=== PATIENT | female | born 1940 | race Caucasian/White ===

== ENCOUNTER 2016-08-22 19:50 | Emergency (ER) | payer MEDICARE ==
[~2016-08-22] VITALS: Ht 154.9 cm; Wt 73.9 kg
[2016-08-22 19:53] VITALS: BP 185/103
[2016-08-22] MEDS ORDERED: ASCO25TA PO (20:36)
[2016-08-22] MEDS ORDERED: AMOX500T PO (20:36)
[2016-08-22] MEDS ORDERED: AUGM875T27 PO (23:11)
[2016-08-22] MEDS ORDERED: AUGMENTIN 500 MG TAB PO ONE (23:15)
[2016-08-22] MEDS ORDERED: AUGMENTIN 875 MG TAB PO ONE (23:30)
== END 2016-08-22 23:47 | disposition home or self-care (01) ==
LOC: M ED 23:41
DX: K04.7 Periapical abscess without sinus (principal); R68.84 Jaw pain; M19.90 Unspecified osteoarthritis, unspecified site

== ENCOUNTER → 2017-01-04 | Outpatient (CLI) | payer MEDICARE ==
[~2017-01-04] MED LIST: AMOX500T PO; ASCO25TA PO; AUGM875T28 PO
[2017-01-04 12:45] LABS: BASO % 0.3 % (0.0-1.0); EOS # 0.1 K/mm3 (0.0-0.50); EOS % 1.8 % (0.0-3.0); LYMPH # 1.3 K/mm3 (1.5-4.5); LYMPH % 20.7 % (24.0-44.0); MEAN CORPUSCULAR HGB CONC 33.6 g/dl (32.0-36.5); MEAN CORPUSCULAR VOLUME 92.3 fl (80.0-96.0); MONO # 0.5 K/mm3 (0.0-0.8); MONO % 7.9 % (0.0-5.0); NEUTROPHILS # 3.9 K/mm3 (1.8-7.7); NEUTROPHILS % 67.4 % (36.0-66.0); RED CELL DISTRIBUTION WIDTH 14.1 % (11.5-14.5); WHITE BLOOD COUNT 5.8 K/mm3 (4.0-10.0)
[2017-01-04 12:59] LABS: ALBUMIN 3.2 GM/DL (3.2-5.2); ALBUMIN/GLOBULIN RATIO 0.91 (1.00-1.93); ALKALINE PHOSPHATASE 93 U/L (45-117); ALT/SGPT 19 U/L (12-78); ANION GAP 7 MEQ/L (8-16); AST/SGOT 16 U/L (15-37); BILIRUBIN,TOTAL 0.7 MG/DL (0.2-1.0); BLOOD UREA NITROGEN 20 MG/DL (7-18); CARBON DIOXIDE LEVEL 26 MEQ/L (21-32); CHLORIDE LEVEL 108 MEQ/L (98-107); CHOLESTEROL LEVEL 148 MG/DL (<200); GLOMERULAR FILTRATION RATE > 60.0 (>39); GLUCOSE, FASTING 79 MG/DL (83-110); POTASSIUM SERUM 4.2 MEQ/L (3.5-5.1); SODIUM LEVEL 141 MEQ/L (136-145); TOTAL PROTEIN 6.7 GM/DL (6.4-8.2); TRIGLYCERIDES LEVEL 74 MG/DL (<150)
== END ==
LOC: M LAB 11:47
PROVIDERS: ATTEND Nurse Practitioner Family
DX: E07.9 Disorder of thyroid, unspecified (principal); E78.4 Other hyperlipidemia; I47.1 Supraventricular tachycardia

== ENCOUNTER 2017-05-28 20:34 | Inpatient (IN) | payer MEDICARE ==
[~2017-05-28] VITALS: Ht 154.9 cm; Wt 67.1 kg
[2017-05-28] MEDS ORDERED: PROP60TA14 PO (20:48)
[2017-05-28] MEDS ORDERED: GABA-283 PO (20:48)
[2017-05-28 21:12] LABS: BASO % 0.5 % (0.0-1.0); EOS # 0.1 10^3/uL (0.0-0.50); IMMATURE GRANULOCYTE % 0.5 % (0-0); LYMPH # 1.2 10^3/uL (1.5-4.5); LYMPH % 15.3 % (24.0-44.0); MEAN CORPUSCULAR HEMOGLOBIN 29.7 pg (27.0-33.0); MEAN CORPUSCULAR HGB CONC 32.2 g/dl (32.0-36.5); MEAN CORPUSCULAR VOLUME 92.4 fl (80.0-96.0); MONO # 0.7 10^3/uL (0.0-0.8); MONO % 8.4 % (0.0-5.0); NEUTROPHILS # 5.7 10^3/uL (1.8-7.7); NEUTROPHILS % 74.3 % (36.0-66.0); PLATELET COUNT, AUTOMATED 289 10^3/uL (150-450); RED CELL DISTRIBUTION WIDTH 15.7 % (11.5-14.5); WHITE BLOOD COUNT 7.7 10^3/uL (4.0-10.0)
[2017-05-28 21:22] LABS: INR 1.02
[2017-05-28 21:37] LABS: ANION GAP 7 MEQ/L (8-16); BLOOD UREA NITROGEN 25 MG/DL (7-18); CALCIUM LEVEL 9.1 MG/DL (8.8-10.2); CARBON DIOXIDE LEVEL 27 MEQ/L (21-32); CHLORIDE LEVEL 106 MEQ/L (98-107); CREATININE FOR GFR 0.74 MG/DL (0.55-1.02); GLOMERULAR FILTRATION RATE > 60.0 (>39); GLUCOSE, FASTING 175 MG/DL (83-110); POTASSIUM SERUM 4.4 MEQ/L (3.5-5.1); SODIUM LEVEL 140 MEQ/L (136-145)
[2017-05-28] MEDS ORDERED: HEPARIN DRIP 25,000 UNITS in APPROPRIATE DILUENT 1 EA IV SCH (22:08)
[2017-05-28] MEDS ORDERED: ASPIRIN 325 MG TAB PO ONE (22:15)
[2017-05-28] MEDS ORDERED: HEPARIN SOD (PORCINE) 5000 UNITS/ML VIAL IV ONE (22:15)
[2017-05-28 22:21] LABS: ABG BASE EXCESS -1.5 (-2.0-2.0); ABG HCO3 22.5 MEQ/L (22.0-26.0); ABG PARTIAL PRESSURE CO2 35.9 mmHg (35.0-45.0); ABG PARTIAL PRESSURE O2 70.9 mmHg (75.0-100.0); ABG STANDARD HCO3 23.2 MEQ/L (22.0-26.0); ABG TOTAL CO2 23.6 MEQ/L (23.0-31.0); ABG pH (ARTERIAL) 7.415 UNITS (7.350-7.450)
[2017-05-28] MEDS ORDERED: CLOPIDOGREL 75 MG TAB PO STA (22:22)
[2017-05-28] MEDS ORDERED: ISOVUE-370 76% 100ML VIAL (Q9967) As Ordered ONE (22:30)
--- NOTE | 2017-05-28 23:10 | REPUSA ---
CT angiogram of the chest Clinical statement: Chest pain and shortness of breath. Technique: Multiple axial CT images were obtained from the thoracic inlet through the upper abdomen a fter a bolus administration of nonionic intravenous contrast. Coronal and sagittal reconstructions we re also obtained. No comparison is available. Findings: The pulmonary arteries are well-opacified with contrast. There are intraluminal filling def ects in the main pulmonary arteries bilaterally, extending into all segmental branches. The thoracic aorta is unremarkable. Thyroid gland is within normal limits. There is no thoracic lymphadenopathy. T here is elevation of the left hemidiaphragm. There are no pericardial or pleural effusions. The lungs are clear. Limited imaging of the upper abdomen is unremarkable. There are no suspicious osseous les ions. There is a chronic anterior wedged compression defect of T7. Impression: 1. Bilateral pulmonary emboli extending from the right and left branches of the pulmonary arteries in to all segmental branches. 2. No acute infiltrates. 3. Chronically elevated left hemidiaphragm. Dr. Nichols was notified of these findings at 11:09 PM on 05/28/2017.
[2017-05-29] VITALS (7 sets, daily range): BP systolic 102–118; BP diastolic 58–67
[2017-05-29] MEDS ORDERED: GABA-279 PO (00:12)
[2017-05-29] MEDS ORDERED: IBUP-1114 PO (00:12)
[2017-05-29] MEDS ORDERED: PROP60CA PO (00:12)
[2017-05-29 00:35] LABS: ERYTHROCYTE SEDIMENTATION RATE 3 mm/hr (0-30)
[2017-05-29] MEDS: GABAPENTIN 100 MG CAP PO SCH ×3 (01:56→20:11)
[2017-05-29] MEDS: IBUPROFEN 400 MG TAB PO SCH ×2 (01:57→08:15)
--- NOTE | 2017-05-29 03:30 | REPUSA ---
HISTORY: PE TECHNIQUE: Realtime sonographic images were obtained in multiple projections. FINDINGS: There is evidence of echogenic material in the common, superficial femoral proximal level (nonocclud ing) as well as profunda and GSV (occluding) with limited flow and compressibility compatible with ac nisqually DVT. The remaining segments including left common femoral, superficial femoral and bilateral popliteal ve ins demonstrate normal echo-free lumen, compressibility and flow. IMPRESSION: Findings compatible with acute DVT as above. Thank you for your kind referral of this patient.
[2017-05-29] MEDS: HEPARIN DRIP 25,000 UNITS in APPROPRIATE DILUENT 1 EA IV SCH ×2 (03:46→09:59)
[2017-05-29 05:58] LABS: MEAN CORPUSCULAR HEMOGLOBIN 30.2 pg (27.0-33.0); MEAN CORPUSCULAR HGB CONC 33.7 g/dl (32.0-36.5); MEAN CORPUSCULAR VOLUME 89.6 fl (80.0-96.0); PLATELET COUNT, AUTOMATED 267 10^3/uL (150-450); RED CELL DISTRIBUTION WIDTH 15.6 % (11.5-14.5); WHITE BLOOD COUNT 6.7 10^3/uL (4.0-10.0)
[2017-05-29 06:13] LABS: ANION GAP 8 MEQ/L (8-16); BLOOD UREA NITROGEN 23 MG/DL (7-18); CALCIUM LEVEL 8.4 MG/DL (8.8-10.2); CARBON DIOXIDE LEVEL 23 MEQ/L (21-32); CHLORIDE LEVEL 110 MEQ/L (98-107); FREE T4 1.17 NG/DL (0.76-1.46); GLOMERULAR FILTRATION RATE > 60.0 (>39); GLUCOSE, FASTING 98 MG/DL (83-110); POTASSIUM SERUM 4.3 MEQ/L (3.5-5.1); SODIUM LEVEL 141 MEQ/L (136-145)
--- NOTE | 2017-05-29 08:05 | ECGEPIP ---
Stationary ECG Study [facility] - ED Test Date: 2017-05-28 Pat Name: RENZO RAMOS Department: Room: [place] [address] Gender: F [employer] Student Coordinator: travon : 1940 Requested By: JAVIER POWERS Order Number: [id number] Reading MD: Raz Alvarez Measurements Intervals [place] Rate: 98 P: 39 TN: 148 QRS: 42 QRSD: 90 T: 17 QT: 334 QTc: 427 Interpretive Statements SINUS RHYTHM INCOMPLETE RIGHT BUNDLE BRANCH BLOCK NO PRIORS FOR COMPARISON Electronically Signed On 05-29-2017 8:04:53 EST by Raz Alvarez
[2017-05-29] MEDS: PANTOPRAZOLE 40MG TAB (PROTONIX) PO SCH (08:14)
[2017-05-29] MEDS: PROPRANOLOL 60 MG LA CAP PO SCH (08:15)
--- NOTE | 2017-05-29 09:06 | REP ---
REASON FOR EXAM: Dyspnea. There are no priors for comparison. The technique utilized in obtaining the radiograph has magnified the cardiac silhouette and accentuated the interstitial markings. There is a band like opacity in the left mid lung zone. There is silhouetting out of the medial aspect of the left hemidiaphragm. There is cardiomegaly. There is interstitial fibrosis. There is an odd air density which could be beneath the left hemidiaphragm. The exam is markedly limited. There is no lateral view. There are no priors for comparison. IMPRESSION: Chronic changes are suspected with other findings. CT is recommended. Signed by Jacobo Carbajal DO 05/29/2017 09:32 A
--- NOTE | 2017-05-29 10:12 | HPE ---
DATE OF ADMISSION: 05/28/2017 PRIMARY CARE PROVIDER: Carthage Festus HISTORY OF PRESENT ILLNESS: This patient is a 77-year-old female with a past medical history significant for partial thyroidectomy, heart palpitations, presented to [facility] on 05/28/2017 for shortness of breath. The patient stated she was using the restroom in the late afternoon and all of a sudden she had a acute onset of shortness of breath, and the patient does not have sweating, and occasional noted to have nausea, and she feels that she cannot talk, and she had a sense of passing out. Therefore, the patient was brought to [facility] by the ambulance. Other significant history includes last night, the patient had chest pressure type of discomfort, resolving 1-2 hours. Last Tuesday night, the patient also noted to have left arm ache, resolved spontaneously without recurrence. Denied any fever or chills. Denied any abdominal pain. Denies any chest pain or pleuritic pain. When the patient arrived in the emergency room, imaging study was performed. The patient was found to have a bilateral pulmonary embolism (PE), and the patient started on the aspirin, Plavix, and heparin bolus. The patient continued on the heparin drip. The hospitalist team was called for admission. PAST MEDICAL HISTORY: Thyroid nodule, status post thyroidectomy. History of heart palpitations with questionable heart flutters. PAST SURGICAL HISTORY: Thyroidectomy. SOCIAL HISTORY: Denies smoking, drinking alcoholic beverage or recreational drug ALLERGIES: None. REVIEW OF SYSTEMS: GENERAL: No fever. No chills. HEENT: No vision changes. No auditory changes. CARDIOVASCULAR: Chest discomfort on 05/27/2017 in the evening time. Resolved in 1-2 hours. History of heart flutter and palpitations. RESPIRATORY: Acute shortness of breath in the late afternoon on 05/28/2017. GASTROINTESTINAL (GI): During acute episode, the patient also had nausea but no vomiting, no abdominal pain, no diarrhea. MUSCULOSKELETAL: Chronic lower extremity pain. The patient contributes that to phlebitis. NEUROLOGICAL: No numbness, no tingling. The patient did have an episode of feeling left upper extremity ache last Tuesday night. OBJECTIVE: VITAL SIGNS: Temperature is 98.5, pulse is 80, respiration 20, blood pressure is 136/89, pulse oximetry 96% in room air. GENERAL: No sign of acute distress, alert and oriented times three. HEENT: Normocephalic, atraumatic. Extraocular motor grossly intact. CARDIOVASCULAR: Positive S1, S2. Regular rate. LUNGS: Clear to auscultation bilaterally. ABDOMEN: Soft. Nontender. Nondistended. Bowel sounds present. MUSCULOSKELETAL: Extremities cool and pale, but there is no purplish or bluish discolorations. Nontenderness to palpation of the bilateral lower extremities and no swellings. NEUROLOGIC: Sensation to fine touch grossly intact. Muscle strength 5/5. LABORATORY DATA: WBC 7.7, hemoglobin 14.5, hematocrit 45.1, platelet count is 289. Sodium is 140, potassium 4.4, chloride 106, carbon dioxide 27, BUN 25, creatinine 0.74, GFR greater than 60, fasting glucose 175, lactic acid 2.6, calcium 9.1, total CK is 32, troponin I is 0.47. Arterial blood gas (ABG) shows pH 7.415, PCO2 35.9, pO2 70.9, HCO3 is 22.5. PT is 13.5, INR is 1.02. MICROBIOLOGY: Blood cultures pending times two. A CT angiogram of the chest shows bilateral pulmonary emboli extending from the right and left branches of the pulmonary arteries into all segmental branches. No acute infiltrates. Chronically elevated left hemidiaphragm. ASSESSMENT AND PLAN: 1. Bilateral pulmonary embolism. The patient admitted to the progressive care unit (PCU) on an inpatient status. The patient received a heparin bolus, and the patient is currently continued on the heparin drip. I will follow with bilateral lower extremity Doppler. Hypercoagulable workup is also ordered. 2. Questionable history of heart flutters/palpitations. The patient was prescribed propranolol as a baseline, and the events occurred approximately 10 years ago. 3. History of thyroid nodules, status post thyroidectomy. Follow with a thyroid-stimulating hormone (TSH). 4. Elevated troponin. 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 They feel the elevated troponin due to current PE causing the cardiac muscle strain. Will continue trending troponin. Electrocardiogram (EKG) was performed. It showed sinus rhythm without any ST or T wave abnormalities. 5. Intermittent gastroesophageal reflux disease. The patient will be on Protonix. 6. Deep venous thrombosis (DVT) prophylaxis. The patient currently has bilateral PE. The patient is on heparin drip. MTDD
[2017-05-29] MEDS ORDERED: HEPARIN SOD (PORCINE) 5000 UNITS/ML VIAL IV PRN (10:15)
--- NOTE | 2017-05-29 11:24 | IPNPDOC ---
Subjective Date Seen The patient was seen on 05/29/17. Subjective Chief Complaint/HPI The patient is a 77-year-old female admitted with a reason for visit of Bilateral Pulmonary Embolism. Events since last encounter feels a little better, denies any sob or chest pain this am but says has not got out of bed yet so does not know how her breathing is with walking. no fever or chills, no leg pain or swelling. Objective Physical Examination General Exam: Positive: Alert, Cooperative, No Acute Distress Eye Exam: Positive: PERRLA, Conjunctiva & lids normal, EOMI, Negative: Sclera icteric ENT Exam: Positive: Atraumatic, Mucous membr. moist/pink, Pharynx Normal Neck Exam: Positive: Supple, Negative: JVD, thyromegaly Chest Exam: Positive: Clear to auscultation, Normal air movement Heart Exam: Positive: Rate Normal, Regular Rhythm, Normal S1, Normal S2, Negative: Murmurs, Rubs Telemetry: Positive: No significant arrhythmia Abdomen Exam: Positive: Normal bowel sounds, Soft, Negative: Tenderness, Hepatospenomegaly Extremity Exam: Positive: Normal pulses, Negative: Clubbing, Cyanosis, Edema Skin Exam: Positive: Nl turgor and temperature, Negative: Rash, Breakdown Assessment /Plan Problems (1) Bilateral pulmonary embolism Status: Acute Problem Text: on heparin infusion will start on Coumadin patient is a jehovah witness. ordered coagulation studies. (2) DVT (deep venous thrombosis) Status: Acute Problem Text: heparin and coumadin (3) Sciatic leg pain Status: Chronic Problem Text: on the right causing difficulty in ambulation and so sits for long durations. (4) Thyroid nodule Status: Resolved Problem Text: history of partial thyroidectomy (5) History of palpitations Status: Chronic Problem Text: on propranolol. Plan/VTE VTE Prophylaxis Ordered?: Yes VS, I&O, 24H, Fishbone Vital Signs/I&O Vital Signs Date Time Temp Pulse Resp B/P (MAP) Pulse Ox O2 Delivery O2 Flow Rate FiO2 05/29/17 08:15 71 106/60 05/29/17 08:00 98.0 18 96 Nasal Cannula 2.0 I&O- Last 24 Hours up to 6 AM 05/30/17 06:00 Intake Total 0 ml Output Total 0 ml Balance 0 ml Laboratory Data 24H LABS Laboratory Tests 2 05/28/17 20:55: Immature Granulocyte % (Auto) 0.5H, White Blood Count 7.7, Red Blood Count 4.88 , Hemoglobin 14.5, Hematocrit 45.1, Mean Corpuscular Volume 92.4, Mean Corpuscular Hemoglobin 29.7, Mean Corpuscular Hemoglobin Concent 32.2, Red Cell Distribution Width 15.7H, Platelet Count 289, Neutrophils (%) (Auto) 74.3H, Lymphocytes (%) (Auto) 15.3L, Monocytes (%) (Auto) 8.4H, Eosinophils (%) (Auto) 1.0, Basophils (%) (Auto) 0.5, Neutrophils # (Auto) 5.7, Lymphocytes # (Auto) 1.2L, Monocytes # (Auto) 0.7, Eosinophils # (Auto) 0.1, Basophils # (Auto) 0.0, Immature Granulocyte # (Auto) 0.0, Nucleated Red Blood Cells % (auto) 0.0, Erythrocyte Sedimentation Rate 3, Prothrombin Time 13.5, Prothromb Time International Ratio 1.02, Activated Partial Thromboplast Time 26.6L, Anion Gap 7L, Glomerular Filtration Rate > 60.0, Lactic Acid Level 2.6*H, Blood Urea Nitrogen 25H, Creatinine 0.74, Sodium Level 140, Potassium Level 4.4, Chloride Level 106, Carbon Dioxide Level 27, Calcium Level 9.1, Total Creatine Kinase 32 , Creatine Kinase MB 4.5H, Creatine Kinase MB Relative Index 14.06H, Troponin I 0.47H, C-Reactive Protein, Quantitative 0.84H, Thyroid Stimulating Hormone (TSH ) 3.960H 05/28/17 22:07: Blood Gas Bicarbonate Standard 23.2, Arterial Blood pH 7.415, Arterial Blood Partial Pressure CO2 35.9, Arterial Blood Partial Pressure O2 70.9L, Arterial Blood Total CO2 23.6, Arterial Blood HCO3 22.5, Arterial Blood Base Excess -1.5 , Arterial Blood Oxygen Saturation 94.4L 05/29/17 00:44: Activated Partial Thromboplast Time 170.1*H 05/29/17 01:00: Lactic Acid Followup at 4 Hours 1.9 05/29/17 04:59: Nucleated Red Blood Cells % (auto) 0.0, Anion Gap 8, Glomerular Filtration Rate > 60.0, Blood Urea Nitrogen 23H, Creatinine 0.70, Sodium Level 141, Potassium Level 4.3, Chloride Level 110H, Carbon Dioxide Level 23, Calcium Level 8.4L, Total Creatine Kinase 35, Magnesium Level 2.0, Creatine Kinase MB 5.7H, Creatine Kinase MB Relative Index 16.28H, Troponin I 0.99#H, Free Thyroxine 1.17 05/29/17 09:19: Activated Partial Thromboplast Time 53.9H CBC/BMP Laboratory Tests 05/28/17 20:55 Red Blood Count 4.88, Mean Corpuscular Volume 92.4, Mean Corpuscular Hemoglobin 29.7, Mean Corpuscular Hemoglobin Concent 32.2, Red Cell Distribution Width 15.7 H, Neutrophils (%) (Auto) 74.3 H, Lymphocytes (%) (Auto) 15.3 L, Monocytes (%) (Auto) 8.4 H, Eosinophils (%) (Auto) 1.0, Basophils (%) (Auto) 0.5, Neutrophils # (Auto) 5.7, Lymphocytes # (Auto) 1.2 L, Monocytes # (Auto) 0.7, Eosinophils # (Auto) 0.1, Basophils # (Auto) 0.0, Calcium Level 9.1, Total Creatine Kinase 32 05/29/17 04:59 Red Blood Count 4.14, Mean Corpuscular Volume 89.6, Mean Corpuscular Hemoglobin 30.2, Mean Corpuscular Hemoglobin Concent 33.7, Red Cell Distribution Width 15.6 H, Calcium Level 8.4 L, Total Creatine Kinase 35 Microbiology Microbiology 05/28/17 Blood Culture, Received Pending 05/28/17 Blood Culture, Received Pending FARTUN TRIPATHI MD May 29, 2017 11:24
[2017-05-29] MEDS ORDERED: NORCO, ANEXSIA 5/325MG TABLET (HYDROcodone/ACETAMINOPHEN) PO PRN (11:30)
--- NOTE | 2017-05-29 14:35 | ECHO ---
DATE OF STUDY: 05/29/2017 REFERRING PROVIDER: Coleman Nichols DO PATIENT LOCATION: Room 3224 REASON FOR THE ECHOCARDIOGRAM: Pulmonary embolism. 2D MEASUREMENTS: IVS: 0.9 cm LV: 3.0 cm LVPW: 0.9 cm Aorta: 3.1 cm DOPPLER MEASUREMENTS: Mitral E: 0.45 Mitral A: 0.49 with a ratio of 0.9 Maximum tricuspid valve velocity: 2.9 m/s 2D COMMENTS: 1. Normal left ventricular size, wall thickness, and normal global left ventricular systolic function. The estimated left ventricle systolic ejection fraction is 60% to 65%. 2. The left atrium appeared to be normal in size. The right atrium and the right ventricle appeared to be enlarged. The right ventricular free wall may be hypokinetic. 3. The atrial septum appeared to be normal without evidence of defect or shunt. 4. Normal aortic root. 5. No pericardial effusion seen. 6. Mildly calcified aortic valve with normal leaflet excursion. Normal mitral valve, tricuspid valve, and pulmonic valve. Proximal pulmonary artery branches appeared to be enlarged. DOPPLER: It detects trace mitral regurgitation and moderate tricuspid regurgitation. The calculated pulmonary artery systolic pressure varied between 40-50 mmHg. Abnormal relaxation pattern was noted across the mitral valve leaflets, as well as the mitral valve anulus consistent with grade 1 left ventricular diastolic dysfunction. IMPRESSION: 1. Normal global left ventricular systolic function. There were features of left ventricular diastolic dysfunction manifested by abnormal relaxation. 2. Aortic valve sclerosis without stenosis or aortic regurgitation. 3. Trace mitral regurgitation. 4. Moderate tricuspid regurgitation with moderate pulmonary hypertension in dilated right heart chambers. No prior echocardiogram at this time for comparison. This may be related to the underlying history of bilateral pulmonary embolism. [facility]
[2017-05-29] MEDS ORDERED: WARFARIN SOD 5 MG TAB PO SCH (17:00)
[2017-05-29] MEDS: ACETAMINOPHEN TAB 650MG DOSE (2X325MG) PO PRN (18:14)
[2017-05-30 04:08] LABS: MEAN CORPUSCULAR HEMOGLOBIN 29.8 pg (27.0-33.0); MEAN CORPUSCULAR HGB CONC 32.7 g/dl (32.0-36.5); MEAN CORPUSCULAR VOLUME 91.2 fl (80.0-96.0); PLATELET COUNT, AUTOMATED 268 10^3/uL (150-450); RED CELL DISTRIBUTION WIDTH 15.8 % (11.5-14.5); WHITE BLOOD COUNT 5.4 10^3/uL (4.0-10.0)
[2017-05-30 04:26] LABS: ANION GAP 7 MEQ/L (8-16); BLOOD UREA NITROGEN 26 MG/DL (7-18); CALCIUM LEVEL 8.7 MG/DL (8.8-10.2); CARBON DIOXIDE LEVEL 27 MEQ/L (21-32); CHLORIDE LEVEL 110 MEQ/L (98-107); CREATININE FOR GFR 0.65 MG/DL (0.55-1.02); GLOMERULAR FILTRATION RATE > 60.0 (>39); GLUCOSE, FASTING 87 MG/DL (83-110); SODIUM LEVEL 144 MEQ/L (136-145)
[2017-05-30 04:45] VITALS: BP 128/74
[2017-05-30 07:15] LABS: INR 1.08
[2017-05-30 08:00] VITALS: BP 105/74
[2017-05-30] MEDS: PROPRANOLOL 60 MG LA CAP PO SCH (09:00)
[2017-05-30] MEDS: GABAPENTIN 100 MG CAP PO SCH ×2 (09:22→20:38)
[2017-05-30] MEDS: PANTOPRAZOLE 40MG TAB (PROTONIX) PO SCH (09:22)
[2017-05-30] MEDS: HEPARIN DRIP 25,000 UNITS in APPROPRIATE DILUENT 1 EA IV SCH (09:24)
--- NOTE | 2017-05-30 09:30 | IPNPDOC ---
Subjective Date Seen The patient was seen on 05/30/17. Subjective Chief Complaint/HPI The patient is a 77-year-old female admitted with a reason for visit of Bilateral Pulmonary Embolism. Events since last encounter No complaints this morning. Says has been walking to the bathroom without problem. denies any SOB or chest pain . no abdominal pain nausea or vomiting or diarrhea. Objective Physical Examination General Exam: Positive: Alert, Cooperative, No Acute Distress Eye Exam: Positive: PERRLA, Conjunctiva & lids normal, EOMI, Negative: Sclera icteric ENT Exam: Positive: Atraumatic, Mucous membr. moist/pink, Pharynx Normal Neck Exam: Positive: Supple, Negative: JVD, thyromegaly Chest Exam: Positive: Clear to auscultation, Normal air movement Heart Exam: Positive: Rate Normal, Regular Rhythm, Normal S1, Normal S2, Negative: Murmurs, Rubs Telemetry: Positive: No significant arrhythmia Abdomen Exam: Positive: Normal bowel sounds, Soft, Negative: Tenderness, Hepatospenomegaly Extremity Exam: Positive: Normal pulses, Negative: Clubbing, Cyanosis, Edema Skin Exam: Positive: Nl turgor and temperature, Negative: Rash, Breakdown Assessment /Plan Problems (1) Bilateral pulmonary embolism Status: Acute Problem Text: on heparin infusion will start on Coumadin patient is a jehovah witness so wants to be on Coumadin ordered coagulation studies. (2) DVT (deep venous thrombosis) Status: Acute Problem Text: heparin and coumadin (3) Sciatic leg pain Status: Chronic Problem Text: on the right causing difficulty in ambulation and so sits for long durations. (4) Thyroid nodule Status: Resolved Problem Text: history of partial thyroidectomy (5) History of palpitations Status: Chronic Problem Text: on propranolol. Plan/VTE VTE Prophylaxis Ordered?: Yes VS, I&O, 24H, Fishbone Vital Signs/I&O Vital Signs Date Time Temp Pulse Resp B/P (MAP) Pulse Ox O2 Delivery O2 Flow Rate FiO2 05/30/17 08:00 97.5 89 19 105/74 (84) 97 Nasal Cannula 2.0 I&O- Last 24 Hours up to 6 AM 05/31/17 06:00 Intake Total 236 ml Output Total 200 ml Balance 36 ml Laboratory Data 24H LABS Laboratory Tests 2 05/29/17 15:38: Activated Partial Thromboplast Time 101.5H 05/29/17 21:28: Activated Partial Thromboplast Time 77.6H 05/30/17 03:53: Activated Partial Thromboplast Time 86.0H, Nucleated Red Blood Cells % (auto) 0.0, Prothrombin Time 14.2, Prothromb Time International Ratio 1.08, Anion Gap 7L, Glomerular Filtration Rate > 60.0, Blood Urea Nitrogen 26H, Creatinine 0.65 , Sodium Level 144, Potassium Level 4.0, Chloride Level 110H, Carbon Dioxide Level 27, Calcium Level 8.7L, Magnesium Level 2.0 CBC/BMP Laboratory Tests 05/30/17 03:53 Red Blood Count 4.09, Mean Corpuscular Volume 91.2, Mean Corpuscular Hemoglobin 29.8, Mean Corpuscular Hemoglobin Concent 32.7, Red Cell Distribution Width 15.8 H, Calcium Level 8.7 L Microbiology Microbiology 05/28/17 Blood Culture - Preliminary, Resulted No growth after 24 hours . All specim... 05/28/17 Blood Culture - Preliminary, Resulted No growth after 24 hours . All specim... FARTUN TRIPATHI MD May 30, 2017 09:30
[2017-05-30 11:34] VITALS: BP 116/59
[2017-05-30 16:00] VITALS: BP 132/86
[2017-05-30] MEDS: WARFARIN SOD 5 MG TAB PO SCH (17:39)
[2017-05-30 20:00] VITALS: BP 114/78
[2017-05-30] MEDS: SENOKOT S TAB PO SCH ×2 (20:38→20:39)
[2017-05-30] MEDS ORDERED: PROPRANOLOL 60 MG LA CAP PO ONE (20:45)
[2017-05-30] MEDS ORDERED: PROPRANOLOL 10 MG TAB PO ONE (21:00)
[2017-05-30] MEDS: ACETAMINOPHEN TAB 650MG DOSE (2X325MG) PO PRN (22:08)
[2017-05-30 23:59] VITALS: BP 110/70
[2017-05-31] VITALS (7 sets, daily range): BP systolic 98–119; BP diastolic 64–75
[2017-05-31 04:09] LABS: MEAN CORPUSCULAR HEMOGLOBIN 29.3 pg (27.0-33.0); PLATELET COUNT, AUTOMATED 322 10^3/uL (150-450); WHITE BLOOD COUNT 6.2 10^3/uL (4.0-10.0)
[2017-05-31 04:20] LABS: INR 1.18
[2017-05-31 04:26] LABS: ANION GAP 10 MEQ/L (8-16); BLOOD UREA NITROGEN 19 MG/DL (7-18); CALCIUM LEVEL 8.5 MG/DL (8.8-10.2); CARBON DIOXIDE LEVEL 23 MEQ/L (21-32); CHLORIDE LEVEL 113 MEQ/L (98-107); CREATININE FOR GFR 0.62 MG/DL (0.55-1.02); GLOMERULAR FILTRATION RATE > 60.0 (>39); GLUCOSE, FASTING 94 MG/DL (83-110); MAGNESIUM LEVEL 1.9 MG/DL (1.8-2.4); POTASSIUM SERUM 4.1 MEQ/L (3.5-5.1); SODIUM LEVEL 146 MEQ/L (136-145)
[2017-05-31] MEDS: SENOKOT S TAB PO SCH ×2 (09:41→20:22)
[2017-05-31] MEDS: PROPRANOLOL 60 MG LA CAP PO SCH (09:42)
[2017-05-31] MEDS: GABAPENTIN 100 MG CAP PO SCH ×2 (09:42→20:22)
[2017-05-31] MEDS: PANTOPRAZOLE 40MG TAB (PROTONIX) PO SCH (09:42)
[2017-05-31] MEDS: HEPARIN DRIP 25,000 UNITS in APPROPRIATE DILUENT 1 EA IV SCH (09:44)
--- NOTE | 2017-05-31 15:24 | IPNPDOC ---
Subjective Date Seen The patient was seen on 05/31/17. Subjective Chief Complaint/HPI The patient is a 77-year-old female admitted with a reason for visit of Bilateral Pulmonary Embolism. Events since last encounter Patient seen and examined at the bedside. States that she is feeling well, and denies any acute complaints of fevers, chills, chest pain, shortness breath, palpitations, any abdominal pain. Notes that she has been ambulating around her room without any acute complaints. Objective Physical Examination General Exam: Positive: Alert, Cooperative, No Acute Distress Eye Exam: Negative: Sclera icteric ENT Exam: Positive: Atraumatic, Mucous membr. moist/pink Neck Exam: Negative: JVD Chest Exam: Positive: Clear to auscultation, Normal air movement Heart Exam: Positive: Rate Normal, Normal S1, Normal S2 Abdomen Exam: Positive: Soft, Negative: Tenderness, Hepatospenomegaly Extremity Exam: Negative: Tenderness, Swelling Psych Exam: Positive: Oriented x 3 Assessment /Plan Problems (1) Bilateral pulmonary embolism Status: Acute Response to Treatment: Stable Problem Text: Cont heparin infusion, to bridge to Coumadin Patient is a jehovah witness and wants to be on Coumadin as there is a definitive reversal agent We will cont to monitor INR and adjust Coumadin dosing accordingly Patient w/o any acute complaints at this time (2) DVT (deep venous thrombosis) Status: Acute Response to Treatment: Stable Problem Text: Cont heparin bridge to coumadin (3) Sciatic leg pain Status: Chronic Response to Treatment: Stable Problem Text: Cont Gabapentin (4) Thyroid nodule Status: Resolved Problem Text: history of partial thyroidectomy (5) History of palpitations Status: Chronic Problem Text: on propranolol. Plan/VTE VTE Prophylaxis Ordered?: Yes VS, I&O, 24H, Fishbone Vital Signs/I&O Vital Signs Date Time Temp Pulse Resp B/P (MAP) Pulse Ox O2 Delivery O2 Flow Rate FiO2 05/31/17 12:29 97.5 68 19 98/69 (79) 96 Room Air 05/31/17 00:00 1.0 I&O- Last 24 Hours up to 6 AM 06/01/17 06:00 Intake Total 1021.8 ml Output Total 320 ml Balance 701.8 ml Laboratory Data 24H LABS Laboratory Tests 2 05/31/17 03:49: Nucleated Red Blood Cells % (auto) 0.0, Prothrombin Time 15.3H, Prothromb Time International Ratio 1.18, Activated Partial Thromboplast Time 84.1H, Anion Gap 10, Glomerular Filtration Rate > 60.0, Blood Urea Nitrogen 19H, Creatinine 0.62 , Sodium Level 146H, Potassium Level 4.1, Chloride Level 113H, Carbon Dioxide Level 23, Calcium Level 8.5L, Magnesium Level 1.9 CBC/BMP Laboratory Tests 05/31/17 03:49 Red Blood Count 4.26, Mean Corpuscular Volume 89.0, Mean Corpuscular Hemoglobin 29.3, Mean Corpuscular Hemoglobin Concent 33.0, Red Cell Distribution Width 16.0 H, Calcium Level 8.5 L Microbiology Microbiology 05/28/17 Blood Culture - Preliminary, Resulted No Growth after 48 hours. All Specime... 05/28/17 Blood Culture - Preliminary, Resulted No Growth after 48 hours. All Specime... REGLA VALADEZ MD May 31, 2017 15:24
[2017-05-31] MEDS: WARFARIN SOD 5 MG TAB PO SCH (16:22)
[2017-06-01 04:00] VITALS: BP 107/73
[2017-06-01 06:04] LABS: MEAN CORPUSCULAR HEMOGLOBIN 29.6 pg (27.0-33.0); MEAN CORPUSCULAR HGB CONC 32.8 g/dl (32.0-36.5); MEAN CORPUSCULAR VOLUME 90.3 fl (80.0-96.0); PLATELET COUNT, AUTOMATED 355 10^3/uL (150-450); RED CELL DISTRIBUTION WIDTH 16.1 % (11.5-14.5); WHITE BLOOD COUNT 5.2 10^3/uL (4.0-10.0)
[2017-06-01 06:13] LABS: INR 1.95
[2017-06-01 06:25] LABS: ANION GAP 7 MEQ/L (8-16); BLOOD UREA NITROGEN 18 MG/DL (7-18); CALCIUM LEVEL 8.6 MG/DL (8.8-10.2); CARBON DIOXIDE LEVEL 24 MEQ/L (21-32); CHLORIDE LEVEL 111 MEQ/L (98-107); CREATININE FOR GFR 0.58 MG/DL (0.55-1.02); GLOMERULAR FILTRATION RATE > 60.0 (>39); GLUCOSE, FASTING 88 MG/DL (83-110); MAGNESIUM LEVEL 1.8 MG/DL (1.8-2.4); POTASSIUM SERUM 4.4 MEQ/L (3.5-5.1); SODIUM LEVEL 142 MEQ/L (136-145)
[2017-06-01 08:00] VITALS: BP_SYST 107; BP_DIAS 23; BP_DIAS 73
[2017-06-01] MEDS: PROPRANOLOL 60 MG LA CAP PO SCH (09:00)
[2017-06-01] MEDS: SENOKOT S TAB PO SCH ×2 (09:17→21:00)
[2017-06-01] MEDS: GABAPENTIN 100 MG CAP PO SCH ×2 (09:17→21:52)
[2017-06-01] MEDS: PANTOPRAZOLE 40MG TAB (PROTONIX) PO SCH (09:17)
[2017-06-01] MEDS: HEPARIN DRIP 25,000 UNITS in APPROPRIATE DILUENT 1 EA IV SCH (09:20)
[2017-06-01 12:00] VITALS: BP 105/63
--- NOTE | 2017-06-01 14:02 | IPNPDOC ---
Subjective Date Seen The patient was seen on 06/01/17. Subjective Chief Complaint/HPI The patient is a 77-year-old female admitted with a reason for visit of Bilateral Pulmonary Embolism. Events since last encounter Patient seen and examined at the bedside. She states that she is feeling better today, and notes that she was able to walk a reasonable distance with physical therapy without having any symptoms of shortness of breath, chest pain, palpitations, abdominal pain. Objective Physical Examination General Exam: Positive: Alert, Cooperative, No Acute Distress Eye Exam: Negative: Sclera icteric ENT Exam: Positive: Atraumatic, Mucous membr. moist/pink Neck Exam: Negative: JVD Chest Exam: Positive: Clear to auscultation, Normal air movement Heart Exam: Positive: Rate Normal, Normal S1, Normal S2 Abdomen Exam: Positive: Soft, Negative: Tenderness, Hepatospenomegaly Extremity Exam: Negative: Tenderness, Swelling Psych Exam: Positive: Oriented x 3 Assessment /Plan Problems (1) Bilateral pulmonary embolism Status: Acute Response to Treatment: Stable Problem Text: Cont heparin infusion bridge to Coumadin Patient is a jehovah witness and wants to be on Coumadin as there is a definitive reversal agent We will cont to monitor INR and adjust Coumadin dosing accordingly Patient w/o any acute complaints at this time (2) DVT (deep venous thrombosis) Status: Acute Response to Treatment: Stable Problem Text: Cont heparin bridge to coumadin (3) Sciatic leg pain Status: Chronic Response to Treatment: Stable Problem Text: Cont Gabapentin (4) Thyroid nodule Status: Resolved Problem Text: history of partial thyroidectomy (5) History of palpitations Status: Chronic Problem Text: on propranolol. Plan/VTE VTE Prophylaxis Ordered?: Yes VS, I&O, 24H, Fishbone Vital Signs/I&O Vital Signs Date Time Temp Pulse Resp B/P (MAP) Pulse Ox O2 Delivery O2 Flow Rate FiO2 06/01/17 12:00 98.1 77 17 105/63 (77) 96 Room Air 05/31/17 00:00 1.0 I&O- Last 24 Hours up to 6 AM 06/02/17 06:00 Intake Total 541.6 ml Output Total 300 ml Balance 241.6 ml Laboratory Data 24H LABS Laboratory Tests 2 06/01/17 05:37: Prothrombin Time 22.9H, Prothromb Time International Ratio 1.95, Activated Partial Thromboplast Time 85.1H 06/01/17 05:38: Nucleated Red Blood Cells % (auto) 0.0, Anion Gap 7L, Glomerular Filtration Rate > 60.0, Blood Urea Nitrogen 18, Creatinine 0.58, Sodium Level 142, Potassium Level 4.4, Chloride Level 111H, Carbon Dioxide Level 24, Calcium Level 8.6L, Magnesium Level 1.8 CBC/BMP Laboratory Tests 06/01/17 05:38 Red Blood Count 4.22, Mean Corpuscular Volume 90.3, Mean Corpuscular Hemoglobin 29.6, Mean Corpuscular Hemoglobin Concent 32.8, Red Cell Distribution Width 16.1 H, Calcium Level 8.6 L Microbiology Microbiology 05/28/17 Blood Culture - Preliminary, Resulted No Growth after 72 hours. All specime... 05/28/17 Blood Culture - Preliminary, Resulted No Growth after 72 hours. All specime... REGLA VALADEZ MD Jun 01, 2017 14:02
[2017-06-01 16:00] VITALS: BP 110/63
[2017-06-01] MEDS: WARFARIN SOD 5 MG TAB PO SCH (16:07)
[2017-06-01 20:00] VITALS: BP 120/67
[2017-06-01] MEDS: ACETAMINOPHEN TAB 650MG DOSE (2X325MG) PO PRN (21:56)
[2017-06-01 23:59] VITALS: BP 107/62
[2017-06-02 04:45] VITALS: BP 107/59
[2017-06-02 05:59] LABS: MEAN CORPUSCULAR HEMOGLOBIN 29.4 pg (27.0-33.0); MEAN CORPUSCULAR HGB CONC 33.3 g/dl (32.0-36.5); MEAN CORPUSCULAR VOLUME 88.3 fl (80.0-96.0); PLATELET COUNT, AUTOMATED 355 10^3/uL (150-450); WHITE BLOOD COUNT 4.6 10^3/uL (4.0-10.0)
[2017-06-02 06:11] LABS: INR 2.38
[2017-06-02 06:18] LABS: ANION GAP 7 MEQ/L (8-16); BLOOD UREA NITROGEN 18 MG/DL (7-18); CALCIUM LEVEL 8.3 MG/DL (8.8-10.2); CARBON DIOXIDE LEVEL 24 MEQ/L (21-32); CHLORIDE LEVEL 113 MEQ/L (98-107); CREATININE FOR GFR 0.55 MG/DL (0.55-1.02); GLOMERULAR FILTRATION RATE > 60.0 (>39); GLUCOSE, FASTING 87 MG/DL (83-110); MAGNESIUM LEVEL 1.9 MG/DL (1.8-2.4); POTASSIUM SERUM 3.9 MEQ/L (3.5-5.1); SODIUM LEVEL 144 MEQ/L (136-145)
[2017-06-02 08:50] VITALS: BP 112/64
[2017-06-02] MEDS: SENOKOT S TAB PO SCH ×2 (09:00→20:22)
[2017-06-02] MEDS: PANTOPRAZOLE 40MG TAB (PROTONIX) PO SCH (10:03)
[2017-06-02] MEDS: GABAPENTIN 100 MG CAP PO SCH ×2 (10:04→20:22)
[2017-06-02] MEDS: PROPRANOLOL 60 MG LA CAP PO SCH (10:04)
[2017-06-02] MEDS: HEPARIN DRIP 25,000 UNITS in APPROPRIATE DILUENT 1 EA IV SCH (11:27)
--- NOTE | 2017-06-02 11:37 | IPNPDOC ---
Subjective Date Seen The patient was seen on 06/02/17. Subjective Chief Complaint/HPI The patient is a 77-year-old female admitted with a reason for visit of Bilateral Pulmonary Embolism. Events since last encounter Patient seen and examined at bedside. Denies any acute complaints at this time. Objective Physical Examination General Exam: Positive: Alert, Cooperative, No Acute Distress Eye Exam: Negative: Sclera icteric ENT Exam: Positive: Atraumatic, Mucous membr. moist/pink Neck Exam: Negative: JVD Chest Exam: Positive: Clear to auscultation, Normal air movement Heart Exam: Positive: Rate Normal, Normal S1, Normal S2 Abdomen Exam: Positive: Soft, Negative: Tenderness, Hepatospenomegaly Extremity Exam: Negative: Tenderness, Swelling Psych Exam: Positive: Oriented x 3 Assessment /Plan Plan/VTE VTE Prophylaxis Ordered?: Yes Plan (1) Bilateral pulmonary embolism Status: Acute Response to Treatment: Stable Problem Text: Cont heparin infusion bridge to Coumadin Patient is a jehovah witness and wants to be on Coumadin as there is a definitive reversal agent We will cont to monitor INR and adjust Coumadin dosing accordingly INR therapeutic x 1 day today, will repeat INR in 24 hrs Patient w/o any acute complaints at this time (2) DVT (deep venous thrombosis) Status: Acute Response to Treatment: Stable Problem Text: Cont heparin bridge to coumadin (3) Sciatic leg pain Status: Chronic Response to Treatment: Stable Problem Text: Cont Gabapentin (4) Thyroid nodule Status: Resolved Problem Text: history of partial thyroidectomy (5) History of palpitations Status: Chronic Problem Text: on propranolol. VS, I&O, 24H, Fishbone Vital Signs/I&O Vital Signs Date Time Temp Pulse Resp B/P (MAP) Pulse Ox O2 Delivery O2 Flow Rate FiO2 06/02/17 08:50 97.0 101 20 112/64 (80) 97 Room Air 05/31/17 00:00 1.0 Laboratory Data 24H LABS Laboratory Tests 2 06/02/17 05:34: Activated Partial Thromboplast Time 139.1*H 06/02/17 05:37: Nucleated Red Blood Cells % (auto) 0.0, Prothrombin Time 26.9H, Prothromb Time International Ratio 2.38, Anion Gap 7L, Glomerular Filtration Rate > 60.0, Blood Urea Nitrogen 18, Creatinine 0.55, Sodium Level 144, Potassium Level 3.9, Chloride Level 113H, Carbon Dioxide Level 24, Calcium Level 8.3L, Magnesium Level 1.9 06/02/17 09:42: Activated Partial Thromboplast Time 47.4H CBC/BMP Laboratory Tests 06/02/17 05:37 Red Blood Count 4.11, Mean Corpuscular Volume 88.3, Mean Corpuscular Hemoglobin 29.4, Mean Corpuscular Hemoglobin Concent 33.3, Red Cell Distribution Width 16.0 H, Calcium Level 8.3 L Microbiology Microbiology 05/28/17 Blood Culture - Preliminary, Resulted No Growth after 72 hours. All specime... 05/28/17 Blood Culture - Preliminary, Resulted No Growth after 72 hours. All specime... 06/02/17 Stool Occult Blood (MARIZA) - Final, Complete REGLA VALADEZ MD Jun 02, 2017 11:37
[2017-06-02 12:00] VITALS: BP 109/65
[2017-06-02 16:20] VITALS: BP 108/70
[2017-06-02] MEDS: WARFARIN SOD 5 MG TAB PO SCH (17:39)
[2017-06-02 20:00] VITALS: BP 112/71
[2017-06-02 23:59] VITALS: BP 104/63
[2017-06-03 05:57] LABS: MEAN CORPUSCULAR HEMOGLOBIN 29.4 pg (27.0-33.0); MEAN CORPUSCULAR HGB CONC 33.1 g/dl (32.0-36.5); MEAN CORPUSCULAR VOLUME 88.8 fl (80.0-96.0); PLATELET COUNT, AUTOMATED 378 10^3/uL (150-450); RED CELL DISTRIBUTION WIDTH 16.1 % (11.5-14.5); WHITE BLOOD COUNT 4.3 10^3/uL (4.0-10.0)
[2017-06-03 06:07] LABS: INR 2.33
[2017-06-03 06:17] LABS: ANION GAP 8 MEQ/L (8-16); BLOOD UREA NITROGEN 17 MG/DL (7-18); CALCIUM LEVEL 8.5 MG/DL (8.8-10.2); CARBON DIOXIDE LEVEL 24 MEQ/L (21-32); CHLORIDE LEVEL 115 MEQ/L (98-107); CREATININE FOR GFR 0.58 MG/DL (0.55-1.02); GLOMERULAR FILTRATION RATE > 60.0 (>39); GLUCOSE, FASTING 86 MG/DL (83-110); MAGNESIUM LEVEL 1.9 MG/DL (1.8-2.4); POTASSIUM SERUM 3.9 MEQ/L (3.5-5.1); SODIUM LEVEL 147 MEQ/L (136-145)
[2017-06-03 08:00] VITALS: BP 111/68
[2017-06-03] MEDS: SENOKOT S TAB PO SCH (08:36)
[2017-06-03 08:41] VITALS: BP 111/68
[2017-06-03] MEDS: PANTOPRAZOLE 40MG TAB (PROTONIX) PO SCH (08:41)
[2017-06-03] MEDS: PROPRANOLOL 60 MG LA CAP PO SCH (08:41)
[2017-06-03] MEDS: GABAPENTIN 100 MG CAP PO SCH (08:41)
[2017-06-03] MEDS ORDERED: SLF 3 ML SYR IV PRN (11:15)
[2017-06-03] MEDS ORDERED: COUM1TAB17 PO (11:53)
[2017-06-03 12:00] VITALS: BP 118/67
[2017-06-03] MEDS ORDERED: SLF 3 ML SYR IV SCH (14:00)
--- NOTE | 2017-06-03 16:23 | DS.PDOC ---
Discharge Summary General Date of Admission May 28, 2017 at 23:53 Date of Discharge 06/03/17 Discharge Summary PROCEDURES PERFORMED DURING STAY: None. ADMITTING/DISCHARGE DIAGNOSES: Bilateral pulmonary emboli DVT Sciatic leg pain Thyroid nodule History of palpitations COMPLICATIONS/CHIEF COMPLAINT: Bilateral Pulmonary Embolism. HISTORY OF PRESENT ILLNESS: . 77-year-old female with past medical history of thyroid nodule status post thyroidectomy, heart palpitations, and sciatic leg pain presented to the ER with a chief complaint of acute onset of shortness of breath. The patient stated that she had been having shortness of breath and chest discomfort that began the night before she presented to the ER which would last 1 or 2 hours at a time. The patient denied any history of coronary artery disease, or any similar episodes in the past. In addition, the patient denies any fevers, chills , abdominal pain, sick contacts, lower extremity swelling, or any nausea/ vomiting/diarrhea. In the ER, the patient was found to have bilateral pulmonary embolism and DVT in the left lower extremity. The patient was subsequently started on a heparin drip, after being given a heparin bolus. The patient was noted to be hemodynamically stable, and the hospitalist team was called for admission. During hospitalization, the patient was eventually bridged to Coumadin with a heparin drip. The patient was able to ambulate throughout her room, and work with physical therapy without any acute complaints of chest pain, shortness of breath, palpitations, or any other complaints. At this time, the patient states that she's feeling well and is eager to return home. She has been cleared by physical therapy to do so. In addition, the patient has achieved therapeutic INR levels 2 days. At this time, the patient has been advised to follow-up with an INR level on 06/06/17, with results being sent to her primary care physician. In addition, the patient has been advised to follow-up with her PCP within 7 days. The patient has been consulted to return to the ER for any acute emergencies. DISCHARGE MEDICATIONS: Please see below. ALLERGIES: Please see below. PHYSICAL EXAMINATION ON DISCHARGE: VITAL SIGNS: Please see below. General Exam: Positive: Alert, Cooperative, No Acute Distress Eye Exam: Negative: Sclera icteric ENT Exam: Positive: Atraumatic, Mucous membr. moist/pink Neck Exam: Negative: JVD Chest Exam: Positive: Clear to auscultation, Normal air movement Heart Exam: Positive: Rate Normal, Normal S1, Normal S2 Abdomen Exam: Positive: Soft, Negative: Tenderness, Hepatospenomegaly Extremity Exam: Negative: Tenderness, Swelling Psych Exam: Positive: Oriented x 3 LABORATORY DATA: Please see below. IMAGING: DATE OF STUDY: 05/29/2017 REFERRING PROVIDER: Coleman Nichols DO PATIENT LOCATION: Room 3224 REASON FOR THE ECHOCARDIOGRAM: Pulmonary embolism. 2D MEASUREMENTS: IVS: 0.9 cm LV: 3.0 cm LVPW: 0.9 cm Aorta: 3.1 cm DOPPLER MEASUREMENTS: Mitral E: 0.45 Mitral A: 0.49 with a ratio of 0.9 Maximum tricuspid valve velocity: 2.9 m/s 2D COMMENTS: 1. Normal left ventricular size, wall thickness, and normal global left ventricular systolic function. The estimated left ventricle systolic ejection fraction is 60% to 65%. 2. The left atrium appeared to be normal in size. The right atrium and the right ventricle appeared to be enlarged. The right ventricular free wall may be hypokinetic. 3. The atrial septum appeared to be normal without evidence of defect or shunt. 4. Normal aortic root. 5. No pericardial effusion seen. 6. Mildly calcified aortic valve with normal leaflet excursion. Normal mitral valve, tricuspid valve, and pulmonic valve. Proximal pulmonary artery branches appeared to be enlarged. DOPPLER: It detects trace mitral regurgitation and moderate tricuspid regurgitation. The calculated pulmonary artery systolic pressure varied between 40-50 mmHg. Abnormal relaxation pattern was noted across the mitral valve leaflets, as well as the mitral valve anulus consistent with grade 1 left ventricular diastolic dysfunction. IMPRESSION: 1. Normal global left ventricular systolic function. There were features of left ventricular diastolic dysfunction manifested by abnormal relaxation. 2. Aortic valve sclerosis without stenosis or aortic regurgitation. 3. Trace mitral regurgitation. 4. Moderate tricuspid regurgitation with moderate pulmonary hypertension in dilated right heart chambers. No prior echocardiogram at this time for comparison. HISTORY: PE TECHNIQUE: Realtime sonographic images were obtained in multiple projections. FINDINGS: There is evidence of echogenic material in the common, superficial femoral proximal level (nonoccluding) as well as profunda and GSV (occluding) with limited flow and compressibility compatible with acute DVT. The remaining segments including left common femoral, superficial femoral and bilateral popliteal veins demonstrate normal echo-free lumen, compressibility and flow. IMPRESSION: Findings compatible with acute DVT as above. CT angiogram of the chest Clinical statement: Chest pain and shortness of breath. Technique: Multiple axial CT images were obtained from the thoracic inlet through the upper abdomen after a bolus administration of nonionic intravenous contrast. Coronal and sagittal reconstructions were also obtained. No comparison is available. Findings: The pulmonary arteries are well-opacified with contrast. There are intraluminal filling defects in the main pulmonary arteries bilaterally, extending into all segmental branches. The thoracic aorta is unremarkable. Thyroid gland is within normal limits. There is no thoracic lymphadenopathy. There is elevation of the left hemidiaphragm. There are no pericardial or pleural effusions. The lungs are clear. Limited imaging of the upper abdomen is unremarkable. There are no suspicious osseous lesions. There is a chronic anterior wedged compression defect of T7. Impression: 1. Bilateral pulmonary emboli extending from the right and left branches of the pulmonary arteries into all segmental branches. 2. No acute infiltrates. 3. Chronically elevated left hemidiaphragm. PROGNOSIS: Fair ACTIVITY: As tolerated. DIET: . Regular diet DISCHARGE PLAN: DISPOSITION: [facility] Service. DISCHARGE INSTRUCTIONS: At this time, the patient has been advised to follow-up with an INR level on 06/06/17, with results being sent to her primary care physician for further dose titration of her Coumadin. In addition, the patient has been advised to follow-up with her PCP within 7 days. The patient has been consulted to return to the ER for any acute emergencies. DISCHARGE CONDITION: Stable. TIME SPENT ON DISCHARGE: Greater than 30 minutes. Vital Signs/I&Os Vital Signs Date Time Temp Pulse Resp B/P (MAP) Pulse Ox O2 Delivery O2 Flow Rate FiO2 06/03/17 12:00 97.8 84 18 118/67 (84) 96 Room Air 05/31/17 00:00 1.0 I&O- Last 24 Hours up to 6 AM 06/04/17 06:00 Intake Total 240 ml Output Total 200 ml Balance 40 ml Laboratory Data Labs 24H Laboratory Tests 2 06/02/17 21:05: Activated Partial Thromboplast Time 73.9H 06/03/17 05:30: Activated Partial Thromboplast Time 67.5H, Nucleated Red Blood Cells % (auto) 0.0, Prothrombin Time 26.4H, Prothromb Time International Ratio 2.33, Anion Gap 8, Glomerular Filtration Rate > 60.0, Blood Urea Nitrogen 17, Creatinine 0.58, Sodium Level 147H, Potassium Level 3.9, Chloride Level 115H, Carbon Dioxide Level 24, Calcium Level 8.5L, Magnesium Level 1.9 CBC/BMP Laboratory Tests 06/03/17 05:30 Red Blood Count 3.94 L, Mean Corpuscular Volume 88.8, Mean Corpuscular Hemoglobin 29.4, Mean Corpuscular Hemoglobin Concent 33.1, Red Cell Distribution Width 16.1 H, Calcium Level 8.5 L Microbiology Microbiology 05/28/17 Blood Culture - Final, Complete NO GROWTH AFTER 5 DAYS 05/28/17 Blood Culture - Final, Complete NO GROWTH AFTER 5 DAYS 06/02/17 Stool Occult Blood (MARIZA) - Final, Complete Discharge Medications Scheduled Gabapentin (Gabapentin) 100 Mg Cap, 100 MG PO BID, (Reported) Propranolol HCl (Propranolol HCl ER) 60 Mg Cap, 60 MG PO DAILY, (Reported) Warfarin Sod (Coumadin) 5 Mg Tab, 5 MG PO DAILY@17 Allergies Coded Allergies: No Known Allergies (Unverified , 08/22/16) REGLA VALADEZ MD Jun 03, 2017 16:23
[2017-06-04 02:09] LABS: PROTEIN C ANTIGEN 72 % (60-150); PROTEIN S ANTIGEN FREE 67 % (57-157); PROTEIN S ANTIGEN TOTAL 83 % (60-150); SJOGREN'S ANTI SS-A <0.2 AI (0.0-0.9); SJOGREN'S ANTI SS-B <0.2 AI (0.0-0.9)
== END 2017-06-03 14:24 | disposition home health service (06) | DRG 176 ==
LOC: M ED 20:34 → M ED INP 23:53 → M PCU 05-29 01:16
PROVIDERS: ADMIT Internal Medicine; ATTEND Internal Medicine Nephrology
DX: I26.99 Other pulmonary embolism without acute cor pulmonale (principal); I82.412 Acute embolism and thrombosis of left femoral vein; E89.0 Postprocedural hypothyroidism; K21.9 Gastro-esophageal reflux disease without esophagitis; M54.31 Sciatica, right side; Z79.899 Other long term (current) drug therapy

== ENCOUNTER → 2017-06-06 | Outpatient (REF) | payer MEDICARE ==
[~2017-06-06] MED LIST changes: +COUM1TAB17 PO; +GABA-279 PO; +GABA-283 PO; +IBUP-1114 PO; +PROP60CA PO; +PROP60TA14 PO
[2017-06-06 14:14] LABS: INR 2.26
== END ==
LOC: M LAB REF 13:24
PROVIDERS: ATTEND Internal Medicine
DX: I26.99 Other pulmonary embolism without acute cor pulmonale (principal)

== ENCOUNTER → 2018-04-07 | Outpatient (REF) | payer MEDICARE ==
[2018-04-07 20:27] LABS: MALB URINE SIEMENS 26.2 MG/L
[2018-04-07 20:34] LABS: MAU/CREAT RATIO 40.9 MCG/MG (0.0-30.0)
== END ==
LOC: M LAB REF 19:23
DX: I73.89 Other specified peripheral vascular diseases (principal); E78.49 Other hyperlipidemia

== ENCOUNTER → 2018-04-07 | Outpatient (CLI) | payer MEDICARE ==
[2018-04-07 12:53] LABS: HEMATOCRIT 44.9 % (36.0-47.0); HEMOGLOBIN 14.5 g/dl (12.0-15.5); MEAN CORPUSCULAR HEMOGLOBIN 29.6 pg (27.0-33.0); MEAN CORPUSCULAR HGB CONC 32.3 g/dl (32.0-36.5); MEAN CORPUSCULAR VOLUME 91.6 fl (80.0-96.0); PLATELET COUNT, AUTOMATED 733 10^3/uL (150-450); RED CELL DISTRIBUTION WIDTH 15.9 % (11.5-14.5); WHITE BLOOD COUNT 6.5 10^3/uL (4.0-10.0)
[2018-04-07 13:35] LABS: ALBUMIN 3.2 GM/DL (3.2-5.2); ALBUMIN/GLOBULIN RATIO 0.86 (1.00-1.93); ALKALINE PHOSPHATASE 83 U/L (45-117); ALT/SGPT 18 U/L (12-78); ANION GAP 9 MEQ/L (8-16); AST/SGOT 16 U/L (7-37); BILIRUBIN,TOTAL 0.6 MG/DL (0.2-1.0); BLOOD UREA NITROGEN 23 MG/DL (7-18); CARBON DIOXIDE LEVEL 27 MEQ/L (21-32); CHLORIDE LEVEL 106 MEQ/L (98-107); CHOLESTEROL LEVEL 176 MG/DL (<200); CREATININE FOR GFR 0.55 MG/DL (0.55-1.30); GLOMERULAR FILTRATION RATE > 60.0 (>39); GLUCOSE, FASTING 80 MG/DL (70-100); HDL CHOLESTEROL 44 MG/DL (>40); LDL CHOLESTEROL 116 MG/DL (<100); NON-HDL-C 132 MG/DL; POTASSIUM SERUM 5.3 MEQ/L (3.5-5.1); SODIUM LEVEL 142 MEQ/L (136-145); TOTAL PROTEIN 6.9 GM/DL (6.4-8.2); TRIGLYCERIDES LEVEL 81 MG/DL (<150)
== END ==
LOC: M ADAMS 10:33
DX: I73.89 Other specified peripheral vascular diseases (principal); K52.9 Noninfective gastroenteritis and colitis, unspecified; E78.49 Other hyperlipidemia
CPT/HCPCS: 84443

== ENCOUNTER → 2018-05-23 | Outpatient (CLI) | payer MEDICARE ==
[~2018-05-23] MED LIST changes: -AMOX500T PO; -ASCO25TA PO; -AUGM875T28 PO; +BARIUM SULFATE 700 MG TABLET (E-Z-DISK) As Ordered; -COUM1TAB17 PO; +E-Z-PAQUE 96% w/w SUSP 176GM BTL As Ordered; -GABA-279 PO; -GABA-283 PO; -IBUP-1114 PO; -PROP60CA PO; -PROP60TA14 PO; +VARIBAR NECTAR 40% w/v 240ML SUSP BTL As Ordered; +VARIBAR PUDDING 40% w/v 230ML TUBE As Ordered
== END ==
LOC: M RAD 12:15
DX: R13.10 Dysphagia, unspecified (principal)
CPT/HCPCS: 74230

== ENCOUNTER 2018-11-05 13:44 | Inpatient (IN) | payer MEDICARE ==
[~2018-11-05] VITALS: Ht 154.9 cm; Wt 59.1 kg
[~2018-11-05 13:44] MED LIST changes: +AMOX500T PO; +AUGM875T28 PO; -BARIUM SULFATE 700 MG TABLET (E-Z-DISK) As Ordered; +COUM1TAB17 PO; -E-Z-PAQUE 96% w/w SUSP 176GM BTL As Ordered; +GABA-1171 PO; +GABA-845 PO; +IBUP-1114 PO; +PROP60CA PO; +PROP60TA14 PO; -VARIBAR NECTAR 40% w/v 240ML SUSP BTL As Ordered; -VARIBAR PUDDING 40% w/v 230ML TUBE As Ordered; +VITA1TAB23 PO
[2018-11-05 14:16] LABS: BASO # 0.1 10^3/uL (0.0-0.2); BASO % 0.8 % (0.0-1.0); EOS # 0.3 10^3/uL (0.0-0.50); EOS % 2.1 % (0.0-3.0); HEMATOCRIT 45.9 % (36.0-47.0); HEMOGLOBIN 14.7 g/dl (12.0-15.5); LYMPH # 1.8 10^3/uL (1.5-4.5); LYMPH % 14.4 % (24.0-44.0); MEAN CORPUSCULAR HEMOGLOBIN 29.5 pg (27.0-33.0); MEAN CORPUSCULAR VOLUME 92.2 fl (80.0-96.0); MONO # 1.2 10^3/uL (0.0-0.8); MONO % 9.4 % (0.0-5.0); NEUTROPHILS # 9.1 10^3/uL (1.8-7.7); NEUTROPHILS % 72.6 % (36.0-66.0); PLATELET COUNT, AUTOMATED 678 10^3/uL (150-450); RED BLOOD COUNT 4.98 10^6/uL (4.00-5.40); WHITE BLOOD COUNT 12.6 10^3/uL (4.0-10.0)
[2018-11-05] MEDS ORDERED: APAP325T4 PO (14:16)
[2018-11-05 14:30] LABS: INR 1.14; PROTHROMBIN TIME 14.8 SECONDS (12.1-14.4)
[2018-11-05 14:43] LABS: BLOOD UREA NITROGEN 24 MG/DL (7-18); CARBON DIOXIDE LEVEL 26 MEQ/L (21-32); CHLORIDE LEVEL 108 MEQ/L (98-107); CPK CREATINE PHOSPHOKINASE 29 U/L (26-192); CREATININE FOR GFR 0.74 MG/DL (0.55-1.30); GLOMERULAR FILTRATION RATE > 60.0 (>32); GLUCOSE, FASTING 131 MG/DL (70-100); MB/CK RELATIVE INDEX 9.31 (< OR =4); NT-PRO BNP 1728 PG/ML (<450); POTASSIUM SERUM 5.1 MEQ/L (3.5-5.1); SODIUM LEVEL 139 MEQ/L (136-145); TROPONIN I 0.05 NG/ML (< 0.10)
[2018-11-05] MEDS ORDERED: ISOVUE-370 76% 100ML VIAL (Q9967) As Ordered ONE (15:02)
[2018-11-05] MEDS ORDERED: GABA-1171 PO (16:43)
[2018-11-05] MEDS ORDERED: ASPI325T41 PO (16:43)
[2018-11-05] MEDS ORDERED: D-10TAB3 PO (16:43)
[2018-11-05] MEDS ORDERED: ACET500T15 PO (16:43)
--- NOTE | 2018-11-05 18:05 | HPEPDOC ---
[facility] Medical History & Physical Date of Admission November 05, 2018 History and Physical CHIEF COMPLAINT: SOB HISTORY OF PRESENT ILLNESS: Patient is an 78-year-old female [employer]ec[employer]al with past medical history of eye lateral pulmonary embolism dx 05/2017 s/p 6 months of warfarin therapy, arthritis and phlebitis right into the ER by family with complaints of worsening weakness and shortness of breath. Patient reportedly has been more short of breath with exertion for the past several weeks. She was also noted to have right lower extremity swelling with some tenderness in the right calf and foot. In ER, patient was found to have b/l subm assive PE on CT scan as well as a spiculated nodule per prelim report. Patient remained HD stable saturating at 96% on 2L NC. Upon evaluation, patient stated that she feels better already, usually just more SOB with exertion. She denies any other complaints at this time. PAST MEDICAL HISTORY: Refer to [facility] PAST SURGICAL HISTORY: Thyroid surgery SOCIAL HISTORY: Denies tobacco, alcohol or illicit drug use. FAMILY HISTORY: Brother DM Mother had CAD Father had DVT ALLERGIES: Please see below. REVIEW OF SYSTEMS: 10 point review of system negative except as stated in HPI HOME MEDICATIONS: Please see below. PHYSICAL EXAMINATION: General: No acute distress, Alert Eyes: Normal sclera, EOMI, MARIXA HENT: Atraumatic, neck supple, moist mucous membranes Cardiovascular: Normal rate, normal rhythm. No murmurs appreciated. Pulmonary: Clear to auscultation b/l, no wheezing GI: Soft, nontender, nondistended Skin: Warm and dry Neuro: CN grossly intact. No focal deficits. Strengths equal b/l. Psych: oriented x 3 LABORATORY DATA: See below. IMAGING: CT Angio chest- b/l submassive PE with spiculated mass per prelim. f/u official. MICROBIOLOGY: Please see below. ASSESSMENT AND PLAN: 1. b/l PE - HD stable with minimal symptoms at rest. - Submassive PE on CT scan. - Will initiate Lovenox for A/C at this time given possible malignancy on CT. - O2 support. Saturating well on 2L NC currently, not sure if patient event needs it. 2. OA - no complaints at this time. 3. Lung mass - No prior knowledge of this. No smoking history. - will f/u official report. Will require f/u as outpatient. DVT ppx: On lovenox Code status: Full code, Christian, not to get blood. Dispo: Home. Vital Signs Vital Signs Date Time Temp Pulse Resp B/P (MAP) Pulse Ox O2 Delivery O2 Flow Rate FiO2 11/05/18 15:15 90 16 116/80 (92) 96 Nasal Cannula 2.0 11/05/18 13:56 97.8 Laboratory Data Labs 24H Laboratory Tests 2 11/05/18 14:03: Immature Granulocyte % (Auto) 0.7, White Blood Count 12.6H, Red Blood Count 4.98, Hemoglobin 14.7, Hematocrit 45.9, Mean Corpuscular Volume 92.2, Mean Corpuscular Hemoglobin 29.5, Mean Corpuscular Hemoglobin Concent 32.0, Red Cell Distribution Width 15.3H, Platelet Count 678H, Neutrophils (%) (Auto) 72.6H, Lymphocytes (%) (Auto) 14.4L, Monocytes (%) (Auto) 9.4H, Eosinophils (%) (Auto) 2.1, Basophils (%) (Auto) 0.8, Neutrophils # (Auto) 9.1H, Lymphocytes # (Auto) 1.8, Monocytes # (Auto) 1.2H, Eosinophils # (Auto) 0.3, Basophils # (Auto) 0.1, Nucleated Red Blood Cells % (auto) 0.0, Prothrombin Time 14.8H, Prothromb Time International Ratio 1.14, Anion Gap 5L, Glomerular Filtration Rate > 60.0, Blood Urea Nitrogen 24H, Creatinine 0.74, Sodium Level 139, Potassium Level 5.1, Chloride Level 108H, Carbon Dioxide Level 26, Calcium Level 9.0, Total Creatine Kinase 29, Creatine Kinase MB 3.0, Creatine Kinase MB Relative Index 9.31H, Troponin I 0.05, ZA-Vbt-J-Type Natriuretic Peptide 1728H, Thyroid Stimulating Hormone (TSH) 1.990 CBC/BMP Laboratory Tests 11/05/18 14:03 Red Blood Count 4.98, Mean Corpuscular Volume 92.2, Mean Corpuscular Hemoglobin 29.5, Mean Corpuscular Hemoglobin Concent 32.0, Red Cell Distribution Width 15.3 H, Neutrophils (%) (Auto) 72.6 H, Lymphocytes (%) (Auto) 14.4 L, Monocytes (%) (Auto) 9.4 H, Eosinophils (%) (Auto) 2.1, Basophils (%) (Auto) 0.8, Neutrophils # (Auto) 9.1 H, Lymphocytes # (Auto) 1.8, Monocytes # (Auto) 1.2 H, Eosinophils # (Auto) 0.3, Basophils # (Auto) 0.1, Calcium Level 9.0, Total Creatine Kinase 29 Home Medications Scheduled Aspirin (Aspirin EC) 325 Mg Tablet.dr, 325 MG PO DAILY TAKES AT NOON Cholecalciferol (Vitamin D3) (Vitamin D3) 1,000 Unit Tablet, 1,000 UNIT PO DAILY Gabapentin (Gabapentin) 100 Mg Cap, 200 MG PO QAM Gabapentin (Gabapentin) 100 Mg Capsule, 100 MG PO BID TAKES AT NOON AND BEDTIME Propranolol HCl (Propranolol HCl ER) 60 Mg Cap, 60 MG PO DAILY Scheduled PRN Acetaminophen (Acetaminophen) 500 Mg Tablet, 500 MG PO Q8H PRN for PAIN Allergies Coded Allergies: No Known Allergies (Unverified , 11/05/18) A-FIB/CHADSVASC A-FIB History Current/History of A-Fib/PAF?: No JAVIER JORDAN MD November 05, 2018 18:05
[2018-11-05] MEDS: ENOXAPARIN 60 MG/0.6 ML SYR (J1650) SC SCH (19:33)
[2018-11-05 20:00] VITALS: BP 109/71
--- NOTE | 2018-11-05 21:31 | ECGEPIP ---
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
[2018-11-05 22:00] VITALS: BP 100/70
[2018-11-05] MEDS ORDERED: PERCOCET 5MG/325MG TAB PO PRN (22:00)
[2018-11-05] MEDS: GABAPENTIN 100 MG CAP PO SCH (22:14)
[2018-11-06 02:00] VITALS: BP 95/55
[2018-11-06] MEDS: ENOXAPARIN 60 MG/0.6 ML SYR (J1650) SC SCH ×2 (05:46→18:17)
[2018-11-06 05:48] LABS: HEMATOCRIT 38.6 % (36.0-47.0); MEAN CORPUSCULAR HEMOGLOBIN 29.6 pg (27.0-33.0); MEAN CORPUSCULAR HGB CONC 32.4 g/dl (32.0-36.5); MEAN CORPUSCULAR VOLUME 91.5 fl (80.0-96.0); PLATELET COUNT, AUTOMATED 582 10^3/uL (150-450); RED BLOOD COUNT 4.22 10^6/uL (4.00-5.40); WHITE BLOOD COUNT 8.7 10^3/uL (4.0-10.0)
[2018-11-06 05:53] LABS: HEMOGLOBIN 12.5 g/dl (12.0-15.5)
[2018-11-06 06:00] VITALS: BP 101/60
[2018-11-06 06:15] LABS: BLOOD UREA NITROGEN 19 MG/DL (7-18); CALCIUM LEVEL 8.6 MG/DL (8.8-10.2); CARBON DIOXIDE LEVEL 26 MEQ/L (21-32); CHLORIDE LEVEL 111 MEQ/L (98-107); CREATININE FOR GFR 0.67 MG/DL (0.55-1.30); GLOMERULAR FILTRATION RATE > 60.0 (>32); GLUCOSE, FASTING 92 MG/DL (70-100); POTASSIUM SERUM 4.6 MEQ/L (3.5-5.1); SODIUM LEVEL 142 MEQ/L (136-145)
--- NOTE | 2018-11-06 07:12 | REP ---
REASON: Cough and dyspnea. COMPARISON: 05/28/2017, also a portable. The technique utilized in obtaining the radiograph has magnified the cardiac silhouette and accentuated the interstitial markings. Once again there is a large and in fact huge hiatal hernia. The heart is enlarged and accentuated by technique. There is interstitial fibrosis. There is bilateral pulmonary arterial enlargement status quo and consistent with pulmonary hypertension. There is a possible nodule in the right lower lung field difficult to evaluate with plain radiography. It was present on the prior exam of 05/28/2017 but probably better imaged today. There is no change in the osseous structures. IMPRESSION:Chronic changes as described above. PA and lateral views of the chest were recommended. Electronically Signed by Jacobo Carbajal DO 11/06/2018 08:37 A
--- NOTE | 2018-11-06 07:38 | REP ---
REASON FOR EXAM: Dyspnea. Assess for pulmonary embolism. COMPARISON: 05/28/2017 CONTRAST: 100 mL Isovue 370. The prior exam showed pulmonary emboli. Today's examination shows significant abnormal filling defect in the distal main right pulmonary artery extending to the right upper and particularly right lower lobe pulmonary arteries. There is abnormal filling defects seen in the distal left pulmonary artery extending into the left lower, and particularly left upper lobe pulmonary arteries. This is not quite as extensive as on the right. Mediastinal or hilar adenopathy has not developed since the last examination. 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 Evaluation of the osseous structures shows no significant change compared to the prior exam. The bones are demineralized and there are spinal degenerative changes. Evaluation of the lung hernandez show scattered asymmetric densities and pleural-based densities status quo. Of note, there is a new spiculated nodule in the right lower lobe, which measures 1.6 cm. IMPRESSION: 1. Pulmonary emboli as described above. A phone call was made to Dr. Benton Mcmillan and this was discussed physician to physician. 2. Other findings as described above also discussed during the conversation. Electronically Signed by Jacobo Carbajal DO 11/06/2018 08:39 A
[2018-11-06] MEDS: PROPRANOLOL 60 MG LA CAP PO SCH (08:57)
[2018-11-06] MEDS: GABAPENTIN 100 MG CAP PO SCH ×3 (08:59→21:21)
[2018-11-06 10:00] VITALS: BP 106/82
--- NOTE | 2018-11-06 11:20 | REP ---
BILATERAL LOWER EXTREMITY DUPLEX DOPPLER VENOUS ULTRASOUND: Real-tie compression and duplex Doppler interrogation of bilateral lower extremity deep vein systems is performed. There is partial thrombosis of the right common femoral vein and proximal to mid superficial femoral vein with occlusive thrombus in the distal right superficial femoral vein and popliteal vein extending to the tibioperoneal trunk. The left common femoral, superficial femoral and popliteal veins are fully compressible with transducer pressure and demonstrate normal spontaneous and phasic flow without evidence of deep vein thrombosis. IMPRESSION: Partial thrombosis right common femoral and proximal superficial femoral vein, with occlusive thrombus in the distal right superficial femoral vein and popliteal vein. Electronically Signed by Chintan Castillo MD 11/06/2018 07:46 P
[2018-11-06] MEDS ORDERED: ENOX40IN3 SC (13:05)
[2018-11-06 14:00] VITALS: BP 97/65
--- NOTE | 2018-11-06 17:52 | IPNPDOC ---
Date Seen The patient was seen on 11/06/18. Progress Note SUBJECTIVE: Patient reported feeling fine. No significant SOB when lying still. No acute events reported overnight. OBJECTIVE PHYSICAL EXAMINATION: General: No acute distress, Alert Eyes: Normal sclera, EOMI, MARIXA HENT: Atraumatic, neck supple, moist mucous membranes Cardiovascular: Normal rate, normal rhythm. No murmurs appreciated. Pulmonary: Clear to auscultation b/l, no wheezing GI: Soft, nontender, nondistended Skin: Warm and dry Neuro: CN grossly intact. No focal deficits. Strengths equal b/l. Psych: oriented x 3 LABORATORY DATA, IMAGING STUDIES, MICROBIOLOGY: Please see below. ASSESSMENT AND PLAN: 1. b/l PE - HD stable with minimal symptoms at rest. - Submassive PE on CT scan. - c/w Lovenox for A/C at this time given possible malignancy on CT. - O2 support. Saturating well on 2L NC. Wean if possible. 2. OA - no complaints at this time. 3. Lung mass - No prior knowledge of this. No smoking history. - Discussed with Dr. Cortes, will f/u as outpatient. DVT ppx: On lovenox Code status: Full code, Mormon, not to get blood. Dispo: Home. A-FIB/CHADSVASC A-FIB History Current/History of A-Fib/PAF?: No VS, I&O, 24H, Fishbone Vital Signs/I&O Vital Signs Date Time Temp Pulse Resp B/P (MAP) Pulse Ox O2 Delivery O2 Flow Rate FiO2 11/06/18 14:00 98.1 86 22 97/65 (76) 90 11/06/18 10:00 2.0 11/05/18 19:53 Nasal Cannula I&O- Last 24 Hours up to 6 AM 11/06/18 06:00 Intake Total 230 ml Output Total 350 ml Balance -120 ml Laboratory Data 24H LABS Laboratory Tests 2 11/06/18 05:22: Nucleated Red Blood Cells % (auto) 0.0, Anion Gap 5L, Glomerular Filtration Rate > 60.0, Blood Urea Nitrogen 19H, Creatinine 0.67, Sodium Level 142, Potassium Level 4.6, Chloride Level 111H, Carbon Dioxide Level 26, Calcium Level 8.6L CBC/BMP Laboratory Tests 5/20/19 05:22 Red Blood Count 4.22, Mean Corpuscular Volume 91.5, Mean Corpuscular Hemoglobin 29.6, Mean Corpuscular Hemoglobin Concent 32.4, Red Cell Distribution Width 15.1 H, Calcium Level 8.6 L JAVIER JORDAN MD November 06, 2018 17:52
[2018-11-06 18:00] VITALS: BP 105/68
[2018-11-06 22:00] VITALS: BP 114/64
[2018-11-07 02:00] VITALS: BP 111/66
[2018-11-07] MEDS: ENOXAPARIN 60 MG/0.6 ML SYR (J1650) SC SCH ×2 (05:54→18:24)
[2018-11-07 06:00] VITALS: BP 103/60
[2018-11-07 06:19] LABS: HEMATOCRIT 40.6 % (36.0-47.0); HEMOGLOBIN 13.2 g/dl (12.0-15.5); MEAN CORPUSCULAR HEMOGLOBIN 29.8 pg (27.0-33.0); MEAN CORPUSCULAR HGB CONC 32.5 g/dl (32.0-36.5); MEAN CORPUSCULAR VOLUME 91.6 fl (80.0-96.0); PLATELET COUNT, AUTOMATED 665 10^3/uL (150-450); RED BLOOD COUNT 4.43 10^6/uL (4.00-5.40); WHITE BLOOD COUNT 7.8 10^3/uL (4.0-10.0)
[2018-11-07 06:44] LABS: BLOOD UREA NITROGEN 15 MG/DL (7-18); CALCIUM LEVEL 8.7 MG/DL (8.8-10.2); CARBON DIOXIDE LEVEL 26 MEQ/L (21-32); CHLORIDE LEVEL 109 MEQ/L (98-107); CREATININE FOR GFR 0.66 MG/DL (0.55-1.30); GLOMERULAR FILTRATION RATE > 60.0 (>32); GLUCOSE, FASTING 97 MG/DL (70-100); POTASSIUM SERUM 4.3 MEQ/L (3.5-5.1); SODIUM LEVEL 142 MEQ/L (136-145)
[2018-11-07] MEDS: PROPRANOLOL 60 MG LA CAP PO SCH (09:00)
[2018-11-07] MEDS: GABAPENTIN 100 MG CAP PO SCH ×3 (09:28→20:39)
[2018-11-07 10:00] VITALS: BP 101/65
--- NOTE | 2018-11-07 13:31 | IPNPDOC ---
Date Seen The patient was seen on 11/07/18. Progress Note SUBJECTIVE: Patient reported feeling fine and denies any SOB when sitting still. States that she is more winded with PT/walking but overall better. Recommended continue PT for one more day and reassess in AM. OBJECTIVE PHYSICAL EXAMINATION: General: No acute distress, Alert Eyes: Normal sclera, EOMI, MARIXA HENT: Atraumatic, neck supple, moist mucous membranes Cardiovascular: Normal rate, normal rhythm. No murmurs appreciated. Pulmonary: Clear to auscultation b/l, no wheezing GI: Soft, nontender, nondistended Skin: Warm and dry Neuro: CN grossly intact. No focal deficits. Strengths equal b/l. Psych: oriented x 3 LABORATORY DATA, IMAGING STUDIES, MICROBIOLOGY: Please see below. ASSESSMENT AND PLAN: 1. b/l PE - HD stable with minimal symptoms at rest. - Submassive PE on CT scan. - c/w Lovenox for A/C at this time given possible malignancy on CT. - O2 support if needed. Weaned off O2. 2. OA - no complaints at this time. 3. Lung mass - No prior knowledge of this. No smoking history. - Discussed with Dr. Cortes, will f/u as outpatient. DVT ppx: On lovenox Code status: Full code, Yazdanism, not to get blood. Dispo: Home. A-FIB/CHADSVASC A-FIB History Current/History of A-Fib/PAF?: No VS, I&O, 24H, Fishbone Vital Signs/I&O Vital Signs Date Time Temp Pulse Resp B/P (MAP) Pulse Ox O2 Delivery O2 Flow Rate FiO2 11/07/18 10:00 98.3 95 34 101/65 (77) 96 11/06/18 10:00 2.0 11/05/18 19:53 Nasal Cannula I&O- Last 24 Hours up to 6 AM 11/07/18 06:00 Intake Total 1070 ml Output Total 80 ml Balance 990 ml Laboratory Data 24H LABS Laboratory Tests 2 11/07/18 05:48: Nucleated Red Blood Cells % (auto) 0.0, Anion Gap 7L, Glomerular Filtration Rate > 60.0, Blood Urea Nitrogen 15, Creatinine 0.66, Sodium Level 142, Potassium Level 4.3, Chloride Level 109H, Carbon Dioxide Level 26, Calcium Level 8.7L CBC/BMP Laboratory Tests 11/07/18 05:48 Red Blood Count 4.43, Mean Corpuscular Volume 91.6, Mean Corpuscular Hemoglobin 29.8, Mean Corpuscular Hemoglobin Concent 32.5, Red Cell Distribution Width 15.3 H, Calcium Level 8.7 L JAVIER JORDAN MD November 07, 2018 13:31
[2018-11-07 14:00] VITALS: BP 110/73
[2018-11-07 18:00] VITALS: BP 115/71
[2018-11-07 22:00] VITALS: BP 114/76
[2018-11-08 02:00] VITALS: BP 108/74
[2018-11-08 06:00] VITALS: BP 117/75
[2018-11-08 06:04] LABS: HEMATOCRIT 38.3 % (36.0-47.0); HEMOGLOBIN 12.5 g/dl (12.0-15.5); MEAN CORPUSCULAR HEMOGLOBIN 28.9 pg (27.0-33.0); MEAN CORPUSCULAR HGB CONC 32.6 g/dl (32.0-36.5); MEAN CORPUSCULAR VOLUME 88.7 fl (80.0-96.0); PLATELET COUNT, AUTOMATED 669 10^3/uL (150-450); RED BLOOD COUNT 4.32 10^6/uL (4.00-5.40); WHITE BLOOD COUNT 7.5 10^3/uL (4.0-10.0)
[2018-11-08] MEDS: ENOXAPARIN 60 MG/0.6 ML SYR (J1650) SC SCH (06:17)
[2018-11-08 06:25] LABS: BLOOD UREA NITROGEN 15 MG/DL (7-18); CALCIUM LEVEL 8.3 MG/DL (8.8-10.2); CARBON DIOXIDE LEVEL 26 MEQ/L (21-32); CHLORIDE LEVEL 110 MEQ/L (98-107); CREATININE FOR GFR 0.65 MG/DL (0.55-1.30); GLOMERULAR FILTRATION RATE > 60.0 (>32); GLUCOSE, FASTING 88 MG/DL (70-100); POTASSIUM SERUM 4.3 MEQ/L (3.5-5.1); SODIUM LEVEL 142 MEQ/L (136-145)
[2018-11-08] MEDS: GABAPENTIN 100 MG CAP PO SCH ×3 (09:19→20:40)
[2018-11-08] MEDS: PROPRANOLOL 60 MG LA CAP PO SCH (09:32)
[2018-11-08 10:00] VITALS: BP 127/82
--- NOTE | 2018-11-08 11:42 | IPNPDOC ---
Date Seen The patient was seen on 11/08/18. Progress Note SUBJECTIVE: Patient offered no complaints today and states that she feels good and ready to go home. Planned was to d/c this morning however patient became tachycardic with HR 140- 160s after walking to the bathroom with minimal improvement yet. Stat ECHO ordered and Vascular consulted. Patient asymptomatic however and states that she is comfortable without desaturation. OBJECTIVE PHYSICAL EXAMINATION: General: No acute distress, Alert Eyes: Normal sclera, EOMI, MARIXA HENT: Atraumatic, neck supple, moist mucous membranes Cardiovascular: Tachycardic, normal rhythm. No murmurs appreciated. Pulmonary: Clear to auscultation b/l, no wheezing GI: Soft, nontender, nondistended Skin: Warm and dry Neuro: CN grossly intact. No focal deficits. Strengths equal b/l. Psych: oriented x 3 LABORATORY DATA, IMAGING STUDIES, MICROBIOLOGY: Please see below. ASSESSMENT AND PLAN: 1. b/l PE - Submassive PE b/l on CT scan. - O2 support if needed, saturating well. - Has been HD stable until today, now with tachycardic. - Stat ECHO ordered to assess for heart strain. Vascular surgery consulted. - Discussed with patient regarding possibility of thrombolysis vs. potential vascular surgical intervention. - f/u Vascular surgery recommendations. - Has been on Lovenox for A/C at this time given possible malignancy on CT. Will d/c Lovenox for now, consider heparin drip tonight if no surgical or thrombolysis is planned. - Patient is a Judaism patient, had informed patient regarding elevated risk of bleeding with any of these interventions/treatments. 2. OA - no complaints at this time. 3. Lung mass - No prior knowledge of this. No smoking history. - Discussed with Dr. Cortes, will f/u as outpatient. DVT ppx: On lovenox Code status: Full code, Judaism, not to get blood. Dispo: Home. A-FIB/CHADSVASC A-FIB History Current/History of A-Fib/PAF?: No VS, I&O, 24H, Fishbone Vital Signs/I&O Vital Signs Date Time Temp Pulse Resp B/P (MAP) Pulse Ox O2 Delivery O2 Flow Rate FiO2 11/08/18 10:00 98.0 144 18 127/82 (97) 96 5/20/19 10:00 2.0 11/05/18 19:53 Nasal Cannula I&O- Last 24 Hours up to 6 AM 11/08/18 06:00 Intake Total 870 ml Output Total 350 ml Balance 520 ml Laboratory Data 24H LABS Laboratory Tests 2 11/08/18 05:34: Nucleated Red Blood Cells % (auto) 0.0, Anion Gap 6L, Glomerular Filtration Rate > 60.0, Blood Urea Nitrogen 15, Creatinine 0.65, Sodium Level 142, Potassium Level 4.3, Chloride Level 110H, Carbon Dioxide Level 26, Calcium Level 8.3L CBC/BMP Laboratory Tests 11/08/18 05:34 Red Blood Count 4.32, Mean Corpuscular Volume 88.7, Mean Corpuscular Hemoglobin 28.9, Mean Corpuscular Hemoglobin Concent 32.6, Red Cell Distribution Width 15.1 H, Calcium Level 8.3 L JAVIER JORDAN MD November 08, 2018 11:42
[2018-11-08 14:00] VITALS: BP 112/80
--- NOTE | 2018-11-08 14:10 | CR.PDOC ---
General Date of Consultation: November 08, 2018 Consultation CONSULTATION REPORT FOR: Dr Rosado REASON FOR CONSULTATION: PE Vascular Surgery: Dr. Robins HPI: 78year oldF admitted 11/05/18 with b/l submassive PE on CT scan. Patient remained HD stable saturating at 95-96% on 2L NC. This AM she had gotten up to go to BR and was noted to have HR 144. Currently she is ambulating back from BR with HR 90-106. She denies CP or SOB. Vascular Surgery is consulted re PE with tachycardia. Denies any fevers, chills, weakness, fatigue, Headache,cough, palpitations, abdominal pain, N/V/D or changes in bowel or bladder habits. PAST MEDICAL HISTORY: PE 06/05. Coumadin x 6 mo D/C 12/05. Arthritis PAST SURGICAL HISTORY: Thyroid surgery SOCIAL HISTORY: Jehovah Witness Denies tobacco, alcohol or illicit drug use. FAMILY HISTORY: Brother DM Mother had CAD Father had DVT ROS: As noted in HPI, otherwise 11pt ROS of systems reviewed and unremarkable. PE: GEN: 78yoF, appears stated age. Alert and oriented x 3. Pleasant, interactive. HEENT: Normocephalic, atraumatic. Sclera are nonicteric. Conjunctiva without injection. Moist mucous membranes. CHEST: tachycardic +S1, +S2 LUNGS: Clear to auscultation bilaterally. No wheezes, rales, or rhonchi. ABD: Round, soft, non-tender, non-distended. +Bowel sounds throughout. No rebound or guarding. No costovertebral angle tenderness. EXT: No lower extremity edema appreciated. SKIN: [place], dry, warm. No rashes. NEURO: Alert and oriented x 3. Cranial nerves III-XII are intact. No focal deficits appreciated. EKG 11/05/18 SR 90 bpm. CTA The prior exam showed pulmonary emboli. Today's examination shows significant abnormal filling defect in the distal main right pulmonary artery extending to the right upper and particularly right lower lobe pulmonary arteries. There is abnormal filling defects seen in the distal left pulmonary artery extending into the left lower, and particularly left upper lobe pulmonary arteries. This is not quite as extensive as on the right. Mediastinal or hilar adenopathy has not developed since the last examination. 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 Evaluation of the osseous structures shows no significant change compared to the prior exam. The bones are demineralized and there are spinal degenerative changes. Evaluation of the lung hernandez show scattered asymmetric densities and pleural-based densities status quo. Of note, there is a new spiculated nodule in the right lower lobe, which measures 1.6 cm. IMPRESSION: 1. Pulmonary emboli as described above. A phone call was made to Dr. Benton Mcmillan and this was discussed physician to physician. 2. Other findings as described above also discussed during the conversation. Electronically Signed by Jacobo Carbajal DO 11/06/2018 08:39 A LE US Partial thrombosis right common femoral and proximal superficial femoral vein, with occlusive thrombus in the distal right superficial femoral vein and popliteal vein. lectronically Signed by Chintan Castillo MD 11/06/2018 07:46 P TTE pending. A&P: 78year oldF admitted 11/05/18 with b/l submassive PE on CT scan. Patient remained HD stable saturating at 95-96% on 2L NC. This AM she had gotten up to go to BR and was noted to have HR 144. Currently she is ambulating back from BR with HR 90-106. She denies CP or SOB. Vascular Surgery is consulted re PE with tachycardia. 1. PE/DVT RR 18-20 BP 127/82 Sat 96% 2 LNC HR 90s-106 currently. Pt currently denies CP/SOB. TTE pending. Continue therapeutic dose SQ Lovenox Q12/ or consider Heparin gtt. Dr Robins awaiting results of TTE, possibly consider thrombolysis pending results. 2. Pt is a Jehovah Witness. Thank you for your consultation. We will continue to follow along with you. Vital Signs/I&O Vital Signs Date Time Temp Pulse Resp B/P (MAP) Pulse Ox O2 Delivery O2 Flow Rate FiO2 11/08/18 10:00 98.0 144 18 127/82 (97) 96 11/06/18 10:00 2.0 11/05/18 19:53 Nasal Cannula I&O- Last 24 Hours up to 6 AM 11/08/18 06:00 Intake Total 870 ml Output Total 350 ml Balance 520 ml Laboratory Data Labs 24H Laboratory Tests 2 11/08/18 05:34: Nucleated Red Blood Cells % (auto) 0.0, Anion Gap 6L, Glomerular Filtration Rate > 60.0, Blood Urea Nitrogen 15, Creatinine 0.65, Sodium Level 142, Potassium Level 4.3, Chloride Level 110H, Carbon Dioxide Level 26, Calcium Level 8.3L CBC/BMP Laboratory Tests 11/08/18 05:34 Red Blood Count 4.32, Mean Corpuscular Volume 88.7, Mean Corpuscular Hemoglobin 28.9, Mean Corpuscular Hemoglobin Concent 32.6, Red Cell Distribution Width 15.1 H, Calcium Level 8.3 L Allergies Coded Allergies: No Known Allergies (Unverified , 11/05/18) Home Medications Scheduled Aspirin (Aspirin EC) 325 Mg Tablet.dr, 325 MG PO DAILY, (Reported) TAKES AT NOON Cholecalciferol (Vitamin D3) (Vitamin D3) 1,000 Unit Tablet, 1,000 UNIT PO DAILY, (Reported) Enoxaparin Sodium (Enoxaparin Sodium) 40 Mg/0.4 Ml Syringe, 60 MG SC BID for 30 Days, #60 Gabapentin (Gabapentin) 100 Mg Cap, 200 MG PO QAM, (Reported) Gabapentin (Gabapentin) 100 Mg Capsule, 100 MG PO BID, (Reported) TAKES AT NOON AND BEDTIME Propranolol HCl (Propranolol HCl ER) 60 Mg Cap, 60 MG PO DAILY, (Reported) Scheduled PRN Acetaminophen (Acetaminophen) 500 Mg Tablet, 500 MG PO Q8H PRN for PAIN, (Reported) Mariana Hughes November 08, 2018 14:10
[2018-11-08] MEDS ORDERED: HEPARIN DRIP 25,000 UNITS in APPROPRIATE DILUENT 1 EA IV SCH (16:19)
[2018-11-08] MEDS ORDERED: HEPARIN SOD (PORCINE) 5000 UNITS/ML VIAL IV ONE (16:30)
[2018-11-08] MEDS: HEPARIN DRIP 25,000 UNITS in APPROPRIATE DILUENT 1 EA IV SCH (17:29)
[2018-11-08 22:00] VITALS: BP 125/73
[2018-11-09] VITALS (9 sets, daily range): BP systolic 90–114; BP diastolic 56–75
[2018-11-09 05:53] LABS: HEMATOCRIT 37.4 % (36.0-47.0); HEMOGLOBIN 12.2 g/dl (12.0-15.5); MEAN CORPUSCULAR HEMOGLOBIN 29.9 pg (27.0-33.0); MEAN CORPUSCULAR HGB CONC 32.6 g/dl (32.0-36.5); MEAN CORPUSCULAR VOLUME 91.7 fl (80.0-96.0); PLATELET COUNT, AUTOMATED 637 10^3/uL (150-450); RED BLOOD COUNT 4.08 10^6/uL (4.00-5.40); WHITE BLOOD COUNT 7.4 10^3/uL (4.0-10.0)
[2018-11-09 06:26] LABS: BLOOD UREA NITROGEN 17 MG/DL (7-18); CALCIUM LEVEL 8.5 MG/DL (8.8-10.2); CARBON DIOXIDE LEVEL 26 MEQ/L (21-32); CHLORIDE LEVEL 112 MEQ/L (98-107); CREATININE FOR GFR 0.64 MG/DL (0.55-1.30); GLOMERULAR FILTRATION RATE > 60.0 (>32); GLUCOSE, FASTING 91 MG/DL (70-100); POTASSIUM SERUM 4.3 MEQ/L (3.5-5.1); SODIUM LEVEL 144 MEQ/L (136-145)
[2018-11-09] MEDS: PROPRANOLOL 60 MG LA CAP PO SCH (08:38)
[2018-11-09] MEDS: GABAPENTIN 100 MG CAP PO SCH ×3 (08:40→20:09)
--- NOTE | 2018-11-09 09:29 | IPNPDOC ---
Date Seen The patient was seen on 11/09/18. Progress Note Vascular Surgery: Dr. Robins HPI: 78year oldF admitted 11/05/18 with b/l submassive PE on CT scan. Patient remained HD stable saturating at 95-96% on 2L NC. She had gotten up to go to BR and was noted to have HR 144 11/08/18. Current HR trend 68-78. She denies CP or SOB. Denies any fevers, chills, weakness, fatigue, Headache,cough, palpitations, abdominal pain, N/V/D or changes in bowel or bladder habits. PAST MEDICAL HISTORY: PE 06/05. Coumadin x 6 mo D/C 12/05. Arthritis PAST SURGICAL HISTORY: Thyroid surgery PE: GEN: 78yoF, appears stated age. Alert and oriented x 3. HEENT: Normocephalic, atraumatic. Moist mucous membranes. CHEST: +S1, +S2 RRR LUNGS: Clear to auscultation bilaterally. No wheezes, rales, or rhonchi. ABD: Round, soft, non-tender, non-distended. +Bowel sounds throughout. EXT: No lower extremity edema appreciated. SKIN: [place], dry, warm. No rashes. NEURO: Alert and oriented x 3. Cranial nerves III-XII are intact. No focal deficits appreciated. EKG 11/05/18 SR 90 bpm. CTA The prior exam showed pulmonary emboli. Today's examination shows significant abnormal filling defect in the distal main right pulmonary artery extending to the right upper and particularly right lower lobe pulmonary arteries. There is abnormal filling defects seen in the distal left pulmonary artery extending into the left lower, and particularly left upper lobe pulmonary arteries. This is not quite as extensive as on the right. Mediastinal or hilar adenopathy has not developed since the last examination. 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 Evaluation of the osseous structures shows no significant change compared to the prior exam. The bones are demineralized and there are spinal degenerative changes. Evaluation of the lung hernandez show scattered asymmetric densities and pleural-based densities status quo. Of note, there is a new spiculated nodule in the right lower lobe, which measures 1.6 cm. IMPRESSION: 1. Pulmonary emboli as described above. A phone call was made to Dr. Benton Mcmillan and this was discussed physician to physician. 2. Other findings as described above also discussed during the conversation. Electronically Signed by Jacobo Carbajal DO 11/06/2018 08:39 A LE US Partial thrombosis right common femoral and proximal superficial femoral vein, with occlusive thrombus in the distal right superficial femoral vein and popliteal vein. lectronically Signed by Chintan Castillo MD 11/06/2018 07:46 P TTE pending. A&P: 78year oldF admitted 11/05/18 with b/l submassive PE on CT scan. Patient remained HD stable saturating at 95-96% on 2L NC. This AM she had gotten up to go to BR and was noted to have HR 144. Vascular Surgery is consulted re PE with tachycardia. 1. PE/DVT RR 18-20 SBP 90-109. Inderal 60 mg given 0932 11/08/18, held this AM. Sat 96% 2 LNC HR 68-78. Pt currently denies CP/SOB. TTE report pending. Continue Heparin gtt. Dr Robins awaiting results of TTE, possibly consider thrombolysis pending results. 2. Pt is a Jehovah Witness. A-FIB/CHADSVASC A-FIB History Current/History of A-Fib/PAF?: Yes Current PO Anticoag Therapy: Yes VS, I&O, 24H, Fishbone Vital Signs/I&O Vital Signs Date Time Temp Pulse Resp B/P (MAP) Pulse Ox O2 Delivery O2 Flow Rate FiO2 11/09/18 08:38 78 96/68 11/09/18 06:00 97.1 18 96 11/06/18 10:00 2.0 11/05/18 19:53 Nasal Cannula I&O- Last 24 Hours up to 6 AM 11/09/18 06:00 Intake Total 828 ml Output Total 700 ml Balance 128 ml Laboratory Data 24H LABS Laboratory Tests 2 11/08/18 16:47: Activated Partial Thromboplast Time 37.4 11/08/18 23:25: Activated Partial Thromboplast Time 75.6H 11/09/18 05:42: Activated Partial Thromboplast Time 88.5H, Nucleated Red Blood Cells % (auto) 0.0, Anion Gap 6L, Glomerular Filtration Rate > 60.0, Blood Urea Nitrogen 17, Creatinine 0.64, Sodium Level 144, Potassium Level 4.3, Chloride Level 112H, Carbon Dioxide Level 26, Calcium Level 8.5L CBC/BMP Laboratory Tests 11/09/18 05:42 Red Blood Count 4.08, Mean Corpuscular Volume 91.7, Mean Corpuscular Hemoglobin 29.9, Mean Corpuscular Hemoglobin Concent 32.6, Red Cell Distribution Width 15.3 H, Calcium Level 8.5 L Mariana Hughes November 09, 2018 09:29
--- NOTE | 2018-11-09 10:07 | ECHO ---
DATE OF PROCEDURE: 11/06/2018 AGE: 78 REFERRING PROVIDER: Dr. Vaibhav Rosado LOCATION: Room 4217 REASON FOR ECHOCARDIOGRAM: 2D MEASUREMENTS: IVS: 0.92 cm LV: 2.8 cm LVPW: 0.92 cm LA: 2.9 cm Aorta: 3.1 cm DOPPLER MEASUREMENTS: Peak velocity across the aortic valve: 0.77 m/s Peak velocity across the LVOT: 0.68 m/s Carmen E: 0.51 Maximum tricuspid valve velocity: 2.7 m/s 2D COMMENTS: 1. Normal left ventricular size, wall thickness and normal global left ventricular systolic function. The estimated global left ventricular systolic ejection fraction is 60 to 65%. 2. Subjectively, left atrium appeared to be mildly enlarged. The right atrium appeared to be enlarged. The right ventricle also appeared to be dilated with decreased systolic motion, consistent with some degree of systolic dysfunction. 3. The atrial septum appeared to be normal without evidence of defect or shunt. 4. Normal aortic root. 5. No pericardial effusion seen. 6. Moderately calcified aortic valve with normal leaflet excursion. Mildly calcified aortic valve with normal leaflet excursion. Mildly calcified mitral annulus with normal anterior mitral leaflet motion. Normal tricuspid valve. The pulmonic valve and proximal pulmonary artery branches were not well visualized. 7. The inferior vena cava was not well visualized. DOPPLER: It detects mild mitral regurgitation, mild tricuspid regurgitation. The calculated pulmonary artery systolic pressure varies between 30-40 mmHg. Assessment of left ventricular diastolic function was limited. IMPRESSION: 1. Normal global left ventricular systolic function. 2. Aortic valve sclerosis without stenosis or aortic regurgitation. 3. Mitral annulus calcification and mild mitral regurgitation. Subjectively, left atrium appeared mildly enlarged. 4. Mild tricuspid regurgitation with mild pulmonary hypertension. The right heart chambers appeared to be mildly enlarged. There are some features consistent with right ventricular systolic dysfunction. 5. Not mentioned above, an echogenic structure was noted in the right atrium in limited views and we strongly recommend a transesophageal echocardiogram for further evaluation. MTDD
[2018-11-09] MEDS: HEPARIN DRIP 25,000 UNITS in APPROPRIATE DILUENT 1 EA IV SCH (18:43)
[2018-11-09] MEDS: HEPARIN SOD (PORCINE) 5000 UNITS/ML VIAL IV PRN (18:43)
--- NOTE | 2018-11-09 20:35 | IPNPDOC ---
Date Seen The patient was seen on 11/09/18. Progress Note SUBJECTIVE: Patient denies any complaints today and saturating well off of oxygen. HR now back down to normal. ECHO with evidence of RV dilitation with difficult to view atrium, recommended MARYAM. OBJECTIVE PHYSICAL EXAMINATION: General: No acute distress, Alert Eyes: Normal sclera, EOMI, MARIXA HENT: Atraumatic, neck supple, moist mucous membranes Cardiovascular: Normal rate, normal rhythm. No murmurs appreciated. Pulmonary: Clear to auscultation b/l, no wheezing GI: Soft, nontender, nondistended Skin: Warm and dry Neuro: CN grossly intact. No focal deficits. Strengths equal b/l. Psych: oriented x 3 LABORATORY DATA, IMAGING STUDIES, MICROBIOLOGY: Please see below. ASSESSMENT AND PLAN: 1. b/l PE - Submassive PE b/l on CT scan. - O2 support if needed, saturating well. - Has been HD stable until today, now with tachycardic. - ECHO with evidence of RV dilitation. Vascular surgery consulted. - Discussed with patient regarding possibility of thrombolysis vs. potential vascular surgical intervention. - f/u Vascular surgery recommendations. Likely will require thrombolysis. - d/c Lovenox for now on heparin drip considering possible thrombolysis. - Patient is a Hoah[employer]ism patient, had informed patient regarding eleva remi risk of bleeding with any of these interventions/treatments. 2. OA - no complaints at this time. 3. Lung mass - No prior knowledge of this. No smoking history. - Discussed with Dr. Cortes, will f/u as outpatient. 4. Abnormal TTE - discussed with cardiology, recommended MARYAM to better visualize. - NPO for tentative MARYAM tomorrow. DVT ppx: On lovenox Code status: Full code, Hoahaoism, not to get blood. Dispo: Home. A-FIB/CHADSVASC A-FIB History Current/History of A-Fib/PAF?: No VS, I&O, 24H, Fishbone Vital Signs/I&O Vital Signs Date Time Temp Pulse Resp B/P (MAP) Pulse Ox O2 Delivery O2 Flow Rate FiO2 11/09/18 18:00 98.1 75 17 114/75 (88) 97 11/06/18 10:00 2.0 11/05/18 19:53 Nasal Cannula I&O- Last 24 Hours up to 6 AM 11/09/18 06:00 Intake Total 828 ml Output Total 700 ml Balance 128 ml Laboratory Data 24H LABS Laboratory Tests 2 11/08/18 23:25: Activated Partial Thromboplast Time 75.6H 11/09/18 05:42: Activated Partial Thromboplast Time 88.5H, Nucleated Red Blood Cells % (auto) 0.0, Anion Gap 6L, Glomerular Filtration Rate > 60.0, Blood Urea Nitrogen 17, Creatinine 0.64, Sodium Level 144, Potassium Level 4.3, Chloride Level 112H, Carbon Dioxide Level 26, Calcium Level 8.5L 11/09/18 11:27: Activated Partial Thromboplast Time 78.1H 11/09/18 17:48: Activated Partial Thromboplast Time 42.8H CBC/BMP Laboratory Tests 11/09/18 05:42 Red Blood Count 4.08, Mean Corpuscular Volume 91.7, Mean Corpuscular Hemoglobin 29.9, Mean Corpuscular Hemoglobin Concent 32.6, Red Cell Distribution Width 15.3 H, Calcium Level 8.5 L JAVIER JORDAN MD November 09, 2018 20:35
[2018-11-10] VITALS (9 sets, daily range): BP systolic 93–120; BP diastolic 55–71
[2018-11-10 07:16] LABS: HEMATOCRIT 35.2 % (36.0-47.0); HEMOGLOBIN 11.3 g/dl (12.0-15.5); MEAN CORPUSCULAR HEMOGLOBIN 28.8 pg (27.0-33.0); MEAN CORPUSCULAR HGB CONC 32.1 g/dl (32.0-36.5); MEAN CORPUSCULAR VOLUME 89.8 fl (80.0-96.0); PLATELET COUNT, AUTOMATED 646 10^3/uL (150-450); RED BLOOD COUNT 3.92 10^6/uL (4.00-5.40); WHITE BLOOD COUNT 6.7 10^3/uL (4.0-10.0)
[2018-11-10 07:45] LABS: BLOOD UREA NITROGEN 15 MG/DL (7-18); CALCIUM LEVEL 8.1 MG/DL (8.8-10.2); CARBON DIOXIDE LEVEL 27 MEQ/L (21-32); CHLORIDE LEVEL 111 MEQ/L (98-107); CREATININE FOR GFR 0.56 MG/DL (0.55-1.30); GLOMERULAR FILTRATION RATE > 60.0 (>32); GLUCOSE, FASTING 85 MG/DL (70-100); POTASSIUM SERUM 4.2 MEQ/L (3.5-5.1); SODIUM LEVEL 142 MEQ/L (136-145)
--- NOTE | 2018-11-10 08:30 | IPN ---
DATE OF SERVICE: 11/10/2018 I was asked by the hospitalist team to perform transesophageal echocardiogram on Mrs. Hyde because of findings on her transthoracic echocardiogram. There was evidence for mild right ventricular dysfunction, but on certain views there was a suspicion for the presence of a large mass in the right atrium and right ventricle, most likely representing thrombus. I met with the patient this morning. I discussed the nature of the procedure. I learned that she already thoroughly investigated this topic on her own and watched several videos of transesophageal echocardiogram on the Internet. She had several questions that were answered. I did obtain the appropriate consent. I also examined the patient. She appears to be in no distress. She is able to converse without any difficulty. Her saturation currently is 94% on 2 liters of oxygen. Blood pressure 116/58. Heart rate has been in 80s and 70s. She is afebrile. Her jugular venous pulse (JVP) is not up. Lungs sounded clear to auscultation with good air movement on the right and somewhat diminished on the left. I did not appreciate any wheezing or rhonchi. Her heart exam reveals a regular rhythm without obvious gallop, rub or murmur. There was no peripheral edema. Neurologically she was completely intact. Laboratories: CBC with hemoglobin 11.3, hematocrit 35, platelet count 646,000. Basic metabolic panel normal. PTT was supratherapeutic last night at 222. ASSESSMENT/PLAN: Mrs. Hyde is an 78-year-old female who presents with pulmonary embolism. She had a possible mass in the right atrium based on transthoracic echocardiogram and transesophageal echocardiogram is planned for further evaluation. I explained the nature of the procedure to the patient and got appropriate consent. The procedure is tentatively scheduled for this evening.
[2018-11-10] MEDS: PROPRANOLOL 60 MG LA CAP PO SCH (08:57)
[2018-11-10] MEDS: GABAPENTIN 100 MG CAP PO SCH ×3 (08:57→21:51)
--- NOTE | 2018-11-10 09:01 | IPNPDOC ---
Date Seen The patient was seen on 11/10/18. Progress Note Vascular Surgery: Dr. Robins HPI: 78year oldF admitted 11/05/18 with b/l submassive PE on CT scan. Patient remained HD stable saturating at 95-96% on 2L NC. She had gotten up to go to [facility] and was noted to have HR 144 11/08/18. Current HR trend 68-78. She denies CP or SOB. Denies any fevers, chills, weakness, fatigue, Headache,cough, palpitations, abdominal pain, N/V/D or changes in bowel or bladder habits. PAST MEDICAL HISTORY: PE 06/05. Coumadin x 6 mo D/C 12/05. Arthritis PAST SURGICAL HISTORY: Thyroid surgery PE: GEN: 78yoF, appears stated age. Alert and oriented x 3. HEENT: Normocephalic, atraumatic. Moist mucous membranes. CHEST: +S1, +S2 RRR LUNGS: Clear to auscultation bilaterally. No wheezes, rales, or rhonchi. ABD: Round, soft, non-tender, non-distended. +Bowel sounds throughout. EXT: No lower extremity edema appreciated. SKIN: Remy, dry, warm. No rashes. NEURO: Alert and oriented x 3. Cranial nerves III-XII are intact. No focal deficits appreciated. EKG 11/05/18 SR 90 bpm. CTA The prior exam showed pulmonary emboli. Today's examination shows significant abnormal filling defect in the distal main right pulmonary artery extending to the right upper and particularly right lower lobe pulmonary arteries. There is abnormal filling defects seen in the distal left pulmonary artery extending into the left lower, and particularly left upper lobe pulmonary arteries. This is not quite as extensive as on the right. Mediastinal or hilar adenopathy has not developed since the last examination. 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 Evaluation of the osseous structures shows no significant change compared to the prior exam. The bones are demineralized and there are spinal degenerative changes. Evaluation of the lung hernandez show scattered asymmetric densities and pleural-based densities status quo. Of note, there is a new spiculated nodule in the right lower lobe, which measures 1.6 cm. IMPRESSION: 1. Pulmonary emboli as described above. A phone call was made to Dr. Benton Mcmillan and this was discussed physician to physician. 2. Other findings as described above also discussed during the conversation. Electronically Signed by Jacobo Carbajal DO 11/06/2018 08:39 A LE US Partial thrombosis right common femoral and proximal superficial femoral vein, with occlusive thrombus in the distal right superficial femoral vein and popliteal vein. lectronically Signed by Chintan Castillo MD 11/06/2018 07:46 P TTE mild pulmonary hypertension. The right heart chambers appeared to be mildly enlarged. There are some features consistent with right ventricular systolic dysfunction. The calculated pulmonary artery systolic pressure varies between 30-40 mmHg. thrombus was noted in the right atrium in limited view, strongly recommended a transesophageal echocardiogram for further evaluation. MARYAM pending. A&P: 78year oldF admitted 11/05/18 with b/l submassive PE on CT scan. Patient remained HD stable saturating at 95-96% on 2L NC. This AM she had gotten up to go to [place] and was noted to have HR 144. Vascular Surgery is consulted re PE with tachycardia. 1. PE/DVT RR 18-20 SBP 93-116. Inderal 60 mg held this AM. Sat 96% 2 LNC HR 69-85. Pt currently denies CP/SOB. TTE as above. MARYAM planned this afternoon as per Dr Degroot to further asses for thrombus RA. Continue Heparin gtt. Dr Robins aware of TTE result and plan for MARYAM, plan for IVC filter possibly consider thrombolysis. Pt denies any prior h/o bleeding. 2. Pt is a Jehovah Witness. The pt re affirms that she would not accept blood products. A-FIB/CHADSVASC A-FIB History Current/History of A-Fib/PAF?: No VS, I&O, 24H, Fishbone Vital Signs/I&O Vital Signs Date Time Temp Pulse Resp B/P (MAP) Pulse Ox O2 Delivery O2 Flow Rate FiO2 11/10/18 08:57 70 107/68 11/10/18 06:00 97.8 18 94 11/06/18 10:00 2.0 11/05/18 19:53 Nasal Cannula I&O- Last 24 Hours up to 6 AM 11/10/18 06:00 Intake Total 2458 ml Output Total 700 ml Balance 1758 ml Laboratory Data 24H LABS Laboratory Tests 2 11/09/18 11:27: Activated Partial Thromboplast Time 78.1H 11/09/18 17:48: Activated Partial Thromboplast Time 42.8H 11/10/18 00:49: Activated Partial Thromboplast Time 222.4*H 11/10/18 05:49: Nucleated Red Blood Cells % (auto) 0.0, Anion Gap 4L, Glomerular Filtration Rate > 60.0, Blood Urea Nitrogen 15, Creatinine 0.56, Sodium Level 142, Potassium Level 4.2, Chloride Level 111H, Carbon Dioxide Level 27, Calcium Level 8.1L CBC/BMP Laboratory Tests 11/10/18 05:49 Red Blood Count 3.92 L, Mean Corpuscular Volume 89.8, Mean Corpuscular Hemoglobin 28.8, Mean Corpuscular Hemoglobin Concent 32.1, Red Cell Distribution Width 15.5 H, Calcium Level 8.1 L Mariana Hughes November 10, 2018 09:01
[2018-11-10] MEDS: HEPARIN SOD (PORCINE) 5000 UNITS/ML VIAL IV PRN (16:05)
[2018-11-10] MEDS ORDERED: CETACAINE SPRAY 5GM As Ordered ONE (17:40)
[2018-11-10] MEDS ORDERED: LIDOCAINE VISCOUS 2% SOLN 15ML UDC As Ordered ONE (17:41)
[2018-11-10] MEDS ORDERED: LIDOCAINE 2% INJ 100 MG/5 ML SDV (FOR ANES.) As Ordered ONE (17:45)
[2018-11-10] MEDS ORDERED: PROPOFOL 200 MG/20 ML VIAL As Ordered ONE (17:45)
--- NOTE | 2018-11-10 17:46 | IPNPDOC ---
Date Seen The patient was seen on 11/10/18. Progress Note SUBJECTIVE: Patient reports feeling well. Saturating well off of oxygen. HD stable. For MARYAM today. OBJECTIVE PHYSICAL EXAMINATION: General: No acute distress, Alert Eyes: Normal sclera, EOMI, MARIXA HENT: Atraumatic, neck supple, moist mucous membranes Cardiovascular: Normal rate, normal rhythm. No murmurs appreciated. Pulmonary: Clear to auscultation b/l, no wheezing GI: Soft, nontender, nondistended Skin: Warm and dry Neuro: CN grossly intact. No focal deficits. Strengths equal b/l. Psych: oriented x 3 LABORATORY DATA, IMAGING STUDIES, MICROBIOLOGY: Please see below. ASSESSMENT AND PLAN: 1. b/l PE - Submassive PE b/l on CT scan. - O2 support if needed, saturating well. - Has been HD stable then develop tachycardia but had since resolved. - ECHO with evidence of RV dilatation. - Vascular surgery consulted had been following. - Planned for IVC filter and possible thrombolysis. - d/c Lovenox for now on heparin drip considering possible thrombolysis. - Patient is a Religious patient, had informed patient regarding elevated risk of bleeding with any of these interventions/treatments. 2. OA - no complaints at this time. 3. Lung mass - No prior knowledge of this. No smoking history. - Discussed with Dr. Cortes, will f/u as outpatient. 4. Abnormal TTE - discussed with cardiology, recommended MARYAM to better visualize. - MARYAM today. f/u findings. DVT ppx: On lovenox Code status: Full code, Religious, not to get blood. Dispo: Home. VS, I&O, 24H, [facility] Vital Signs/I&O Vital Signs Date Time Temp Pulse Resp B/P (MAP) Pulse Ox O2 Delivery O2 Flow Rate FiO2 11/10/18 14:00 97.8 68 18 108/61 (77) 100 11/06/18 10:00 2.0 11/05/18 19:53 Nasal Cannula I&O- Last 24 Hours up to 6 AM 11/10/18 06:00 Intake Total 2458 ml Output Total 700 ml Balance 1758 ml Laboratory Data 24H LABS Laboratory Tests 2 11/09/18 17:48: Activated Partial Thromboplast Time 42.8H 11/10/18 00:49: Activated Partial Thromboplast Time 222.4*H 11/10/18 05:49: Nucleated Red Blood Cells % (auto) 0.0, Anion Gap 4L, Glomerular Filtration Rate > 60.0, Blood Urea Nitrogen 15, Creatinine 0.56, Sodium Level 142, Potassium Level 4.2, Chloride Level 111H, Carbon Dioxide Level 27, Calcium Level 8.1L 11/10/18 08:56: Activated Partial Thromboplast Time 67.2H 11/10/18 15:01: Activated Partial Thromboplast Time 56.5H CBC/BMP Laboratory Tests 11/10/18 05:49 Red Blood Count 3.92 L, Mean Corpuscular Volume 89.8, Mean Corpuscular Hemoglobin 28.8, Mean Corpuscular Hemoglobin Concent 32.1, Red Cell Distribution Width 15.5 H, Calcium Level 8.1 L JAVIER JORDAN MD November 10, 2018 17:46
--- NOTE | 2018-11-10 19:09 | T-ECHO ---
DATE OF PROCEDURE: 11/10/2018 REFERRING PHYSICIAN: Dr. Vaibhav Rosado INDICATION: Suspicion for right atrial mass. ANESTHESIA: Dr. Ryan Kelley MD, Shahid Maria CRNA BRIEF HISTORY Mrs. Hyde is an 78-year-old female who was admitted to [facility] with DVT/pulmonary embolism. As a part of her evaluation she underwent two-dimensional echocardiogram interpreted by Dr. Romero. It revealed suspicion for right atrial mass. I was asked by the attending physician to perform transesophageal echocardiogram for further evaluation. The nature of the procedure was discussed with the patient prior. I explained the rationale and potential findings and implications to her management. She signed appropriate consent on the morning of the procedure. PROCEDURE: Procedure was performed in the operating room. After appropriate time-out was taken and appropriate monitors were placed, her posterior pharynx was anesthetized using viscous lidocaine and Cetacaine spray. She was then positioned in left lateral decubital position. Bite block was put in place and secured by elastic tape. Probe was then introduced into esophagus and later stomach without difficulty after appropriate sedation was accomplished. It was a somewhat challenging echocardiogram as the patient has a large hiatal hernia and the images were in somewhat unexpected places, but nevertheless after appropriate images were taken the probe was withdrawn. There were no immediate complications and the patient tolerated the procedure well. FINDINGS Left ventricle has normal systolic function, estimated left ventricular ejection fraction (LVEF) 55%-60%. I did not appreciate any segmental wall motion abnormalities. Right ventricle appears dilated and hypokinetic. Both atria appear severely enlarged. Aortic valve has three cusps. It is mildly sclerotic, but has normal mobility. There is no stenosis or insufficiency. Mitral valve appears normal for patient's age; only mild mitral insufficiency is noted on color Doppler imaging. Left atrial appendage is relatively large and is free of thrombi. Tricuspid valve exhibits mild to moderate insufficiency. Unfortunately, I was never able to achieve good quality TR signal but based on somewhat suboptimal imaging the estimated pulmonary artery pressure is going to be around 40 mmHg. The atrial septum was reasonably well seen. By color Doppler imaging, there is no evidence for shunt. There is good flow in both left-sided and right-sided pulmonary veins. Thoracic aorta exhibits mild atherosclerosis with visible plaques, but no thrombi or ulcerated plaques. CONCLUSIONS: 1. Somewhat limited transesophageal echocardiogram. 2. Normal LV size and systolic function. 3. Dilated hypokinetic right ventricle, mild to moderate tricuspid insufficiency. 4. Severe biatrial enlargement. 5. Intact atrial septum. 6. Normal flow in both left and right-sided pulmonary veins. 7. LA appendage free of thrombi. 8. Mild mitral insufficiency. 9. Mild atherosclerosis of thoracic aorta. COMMENT No evidence for right atrial mass. MTDD
[2018-11-10] MEDS ORDERED: LR 1,000 ML IV SCH (19:45)
[2018-11-10] MEDS: HEPARIN DRIP 25,000 UNITS in APPROPRIATE DILUENT 1 EA IV SCH (22:49)
[2018-11-11] VITALS (8 sets, daily range): BP systolic 89–137; BP diastolic 54–66
[2018-11-11 05:25] LABS: HEMATOCRIT 35.1 % (36.0-47.0); HEMOGLOBIN 11.4 g/dl (12.0-15.5); MEAN CORPUSCULAR HEMOGLOBIN 29.9 pg (27.0-33.0); MEAN CORPUSCULAR HGB CONC 32.5 g/dl (32.0-36.5); MEAN CORPUSCULAR VOLUME 92.1 fl (80.0-96.0); PLATELET COUNT, AUTOMATED 613 10^3/uL (150-450); RED BLOOD COUNT 3.81 10^6/uL (4.00-5.40); WHITE BLOOD COUNT 6.4 10^3/uL (4.0-10.0)
[2018-11-11 05:45] LABS: BLOOD UREA NITROGEN 12 MG/DL (7-18); CARBON DIOXIDE LEVEL 27 MEQ/L (21-32); CHLORIDE LEVEL 111 MEQ/L (98-107); CREATININE FOR GFR 0.56 MG/DL (0.55-1.30); GLOMERULAR FILTRATION RATE > 60.0 (>32); GLUCOSE, FASTING 88 MG/DL (70-100); POTASSIUM SERUM 4.3 MEQ/L (3.5-5.1); SODIUM LEVEL 142 MEQ/L (136-145)
[2018-11-11] MEDS: PROPRANOLOL 60 MG LA CAP PO SCH (09:00)
[2018-11-11] MEDS: GABAPENTIN 100 MG CAP PO SCH ×3 (09:42→20:56)
[2018-11-11] MEDS ORDERED: ACETAMINOPHEN TAB 650MG DOSE (2X325MG) PO PRN (10:30)
--- NOTE | 2018-11-11 16:46 | IPNPDOC ---
Date Seen The patient was seen on 11/11/18. Progress Note SUBJECTIVE: Patient reports feeling well. No events overnight. Saturating well off of oxygen. s/p MARYAM yesterday, no thrombus on ECHO noted . OBJECTIVE PHYSICAL EXAMINATION: General: No acute distress, Alert Eyes: Normal sclera, EOMI, MARIXA HENT: Atraumatic, neck supple, moist mucous membranes Cardiovascular: Normal rate, normal rhythm. No murmurs appreciated. Pulmonary: Clear to auscultation b/l, no wheezing GI: Soft, nontender, nondistended Skin: Warm and dry Neuro: CN grossly intact. No focal deficits. Strengths equal b/l. Psych: oriented x 3 LABORATORY DATA, IMAGING STUDIES, MICROBIOLOGY: Please see below. ASSESSMENT AND PLAN: 1. b/l PE - Submassive PE b/l on CT scan. - O2 support if needed, saturating well. - Has been HD stable then develop tachycardia but had since resolved. - ECHO with evidence of RV dilatation. - Vascular surgery consulted had been following. - Planned for IVC filter and possible thrombolysis. - d/c Lovenox for now on heparin drip considering possible thrombolysis. - Patient is a Muslim patient, had informed patient regarding elevated risk of bleeding with any of these interventions/treatments. 2. OA - no complaints at this time. 3. Lung mass - No prior knowledge of this. No smoking history. - Discussed with Dr. Cortes, will f/u as outpatient. 4. Abnormal TTE - s/p MARYAM with no thrombus noted in atria. DVT ppx: On lovenox Code status: Full code, Muslim, not to get blood. Dispo: Home. VS, I&O, 24H, [facility] Vital Signs/I&O Vital Signs Date Time Temp Pulse Resp B/P (MAP) Pulse Ox O2 Delivery O2 Flow Rate FiO2 11/11/18 14:00 98.1 70 17 137/59 (85) 97 11/10/18 19:46 2 11/05/18 19:53 Nasal Cannula I&O- Last 24 Hours up to 6 AM 11/11/18 06:00 Intake Total 1010 ml Output Total 275 ml Balance 735 ml Laboratory Data 24H LABS Laboratory Tests 2 11/10/18 22:00: Activated Partial Thromboplast Time 91.3H 11/11/18 05:16: Activated Partial Thromboplast Time 84.2H, Nucleated Red Blood Cells % (auto) 0.0, Anion Gap 4L, Glomerular Filtration Rate > 60.0, Blood Urea Nitrogen 12, Creatinine 0.56, Sodium Level 142, Potassium Level 4.3, Chloride Level 111H, Carbon Dioxide Level 27, Calcium Level 8.0L CBC/BMP Laboratory Tests 11/11/18 05:16 Red Blood Count 3.81 L, Mean Corpuscular Volume 92.1, Mean Corpuscular Hemoglobin 29.9, Mean Corpuscular Hemoglobin Concent 32.5, Red Cell Distribution Width 15.4 H, Calcium Level 8.0 L JAVIER JORDAN MD November 11, 2018 16:46
[2018-11-11] MEDS: HEPARIN DRIP 25,000 UNITS in APPROPRIATE DILUENT 1 EA IV SCH (22:09)
[2018-11-12 02:00] VITALS: BP 108/62
[2018-11-12 06:00] VITALS: BP 107/55
[2018-11-12 06:39] LABS: HEMATOCRIT 35.6 % (36.0-47.0); HEMOGLOBIN 11.4 g/dl (12.0-15.5); MEAN CORPUSCULAR HEMOGLOBIN 28.9 pg (27.0-33.0); MEAN CORPUSCULAR VOLUME 90.4 fl (80.0-96.0); PLATELET COUNT, AUTOMATED 639 10^3/uL (150-450); RED BLOOD COUNT 3.94 10^6/uL (4.00-5.40); WHITE BLOOD COUNT 6.1 10^3/uL (4.0-10.0)
[2018-11-12 06:50] LABS: PARTIAL THROMBOPLASTIN TIME 85.3 SECONDS (25.4-37.6)
[2018-11-12 07:04] LABS: BLOOD UREA NITROGEN 12 MG/DL (7-18); CALCIUM LEVEL 8.8 MG/DL (8.8-10.2); CARBON DIOXIDE LEVEL 28 MEQ/L (21-32); CHLORIDE LEVEL 110 MEQ/L (98-107); CREATININE FOR GFR 0.61 MG/DL (0.55-1.30); GLOMERULAR FILTRATION RATE > 60.0 (>32); GLUCOSE, FASTING 84 MG/DL (70-100); POTASSIUM SERUM 4.3 MEQ/L (3.5-5.1); SODIUM LEVEL 142 MEQ/L (136-145)
[2018-11-12 08:45] VITALS: BP 107/55
[2018-11-12] MEDS: GABAPENTIN 100 MG CAP PO SCH ×2 (08:45→11:31)
[2018-11-12] MEDS: PROPRANOLOL 60 MG LA CAP PO SCH (08:45)
--- NOTE | 2018-11-12 10:28 | DS.PDOC ---
Discharge Summary General Date of Admission November 05, 2018 at 17:46 Date of Discharge 11/12/18 Attending Physician: JAVIER JORDAN MD Specialist/Consultants Involve: Jose Robins MD Discharge Summary PROCEDURES PERFORMED DURING STAY: [None]. ADMITTING DIAGNOSES: 1. b/l PE 2. OA 3. Lung mass DISCHARGE DIAGNOSES: 1. b/l PE 2. OA 3. Lung mass 4. DVT COMPLICATIONS/CHIEF COMPLAINT: Pulmonary Emboli. HISTORY OF PRESENT ILLNESS: "Patient is an 78-year-old female Sikh with past medical history of eye lateral pulmonary embolism dx 05/2017 s/p 6 months of warfarin therapy, arthritis and phlebitis right into the ER by family with complaints of worsening weakness and shortness of breath. Patient reportedly has been more short of breath with exertion for the past several weeks. She was also noted to have right lower extremity swelling with some tenderness in the right calf and foot. In ER, patient was found to have b/l submassive PE on CT scan as well as a spiculated nodule per prelim report. Patient remained HD stable saturating at 96% on 2L NC. Upon evaluation, patient stated that she feels better already, usually just more SOB with exertion. She denies any other complaints at this time. " HOSPITAL COURSE: Patient was admitted for treatment of DVT/PE with initially Lovenox with resolution of symptoms. However, prior to discharging patient, HR noted to jump up to 140-160s for several hours. ECHO noted evidence of RV dilatation and Vasc ular surgery evaluated patient. Had recommended IVC filter/thrombolysis to for PE and patient initially agreed but decided to not undergo the procedure at the last minute, worrying about its bleeding risks. Of note, patient is Shinto. She understand all the risks of not getting recommended treatment for PE and is willing to take that risk over bleed risks. Will discharge patient to follow up with PMD and re-initiate her warfarin that she used to take almost 2 years prior for the previous PE. She does not want to stay on Lovenox or other agents as bleeding from warfarin is more readily reversible. Patient also had a MARYAM while inpatient as the TTE showed possible atrial thrombus. MARYAM showed no evidence of intracardiac thrombus. She will need to follow with pulm regarding her lung mass (Dr. Cortes) however. DISCHARGE MEDICATIONS: Please see below. ALLERGIES: Please see below. PHYSICAL EXAMINATION ON DISCHARGE: VITAL SIGNS: Please see below. General: No acute distress, Alert Eyes: Normal sclera, EOMI, MARIXA HENT: Atraumatic, neck supple, moist mucous membranes Cardiovascular: Normal rate, normal rhythm. No murmurs appreciated. Pulmonary: Clear to auscultation b/l, no wheezing GI: Soft, nontender, nondistended Skin: Warm and dry Neuro: CN grossly intact. No focal deficits. Strengths equal b/l. Psych: oriented x 3 LABORATORY DATA: Please see below. IMAGING: CXR- IMPRESSION:Chronic changes as described above. PA and lateral views of the chest were recommended. Chest CT angio- The prior exam showed pulmonary emboli. Today's examination shows significant abnormal filling defect in the distal main right pulmonary artery extending to the right upper and particularly right lower lobe pulmonary arteries. There is abnormal filling defects seen in the distal left pulmonary artery extending into the left lower, and particularly left upper lobe pulmonary arteries. This is not quite as extensive as on the right. Mediastinal or hilar adenopathy has not developed since the last examination. 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 Evaluation of the osseous structures shows no significant change compared to the prior exam. The bones are demineralized and there are spinal degenerative changes. Evaluation of the lung hernandez show scattered asymmetric densities and pleural-based densities status quo. Of note, there is a new spiculated nodule in the right lower lobe, which measures 1.6 cm. IMPRESSION: 1. Pulmonary emboli as described above. A phone call was made to Dr. Benton Mcmillan and this was discussed physician to physician. 2. Other findings as described above also discussed during the conversation. Vascular US- IMPRESSION: Partial thrombosis right common femoral and proximal superficial femoral vein, with occlusive thrombus in the distal right superficial femoral vein and popliteal vein. ACTIVITY: [As tolerated]. DIET: Regular DISCHARGE PLAN: f/u PCP within 1 week. f/u with Pulmology for lung mass. f/u Dr. Robins Vascular c/w Lovenox while INR is subtherapeutic. Start warfarin 5mg daily and do INR check with PMD on 11/14 or 11/15. DISPOSITION: Home. DISCHARGE INSTRUCTIONS: f/u PCP within 1 week. f/u with Pulmology for lung mass. f/u Dr. Robins Vascular c/w Lovenox while INR is subtherapeutic. Start warfarin 5mg daily and do INR check with PMD on 11/14 or 11/15. ITEMS TO FOLLOWUP ON ON OUTPATIENT: INR DISCHARGE CONDITION: [Stable]. TIME SPENT ON DISCHARGE: 35 minutes. Vital Signs/I&Os Vital Signs Date Time Temp Pulse Resp B/P (MAP) Pulse Ox O2 Delivery O2 Flow Rate FiO2 11/12/18 08:45 70 107/55 11/12/18 06:00 99.0 16 95 11/10/18 19:46 2 I&O- Last 24 Hours up to 6 AM 11/12/18 06:00 Intake Total 610 ml Output Total 0 ml Balance 610 ml Laboratory Data Labs 24H Laboratory Tests 2 11/12/18 06:03: Nucleated Red Blood Cells % (auto) 0.0, Activated Partial Thromboplast Time 85.3H, Anion Gap 4L, Glomerular Filtration Rate > 60.0, Blood Urea Nitrogen 12, Creatinine 0.61, Sodium Level 142, Potassium Level 4.3, Chloride Level 110H, Carbon Dioxide Level 28, Calcium Level 8.8 CBC/BMP Laboratory Tests 11/12/18 06:03 Red Blood Count 3.94 L, Mean Corpuscular Volume 90.4, Mean Corpuscular Hemoglobin 28.9, Mean Corpuscular Hemoglobin Concent 32.0, Red Cell Distribution Width 15.6 H, Calcium Level 8.8 Discharge Medications Scheduled Aspirin (Aspirin EC) 325 Mg Tablet.dr, 325 MG PO DAILY, (Reported) TAKES AT NOON Cholecalciferol (Vitamin D3) (Vitamin D3) 1,000 Unit Tablet, 1,000 UNIT PO DAILY, (Reported) Enoxaparin Sodium (Enoxaparin Sodium) 40 Mg/0.4 Ml Syringe, 60 MG SC BID Gabapentin (Gabapentin) 100 Mg Cap, 200 MG PO QAM, (Reported) Gabapentin (Gabapentin) 100 Mg Capsule, 100 MG PO BID, (Reported) TAKES AT NOON AND BEDTIME Propranolol HCl (Propranolol HCl ER) 60 Mg Cap, 60 MG PO DAILY, (Reported) Scheduled PRN Acetaminophen (Acetaminophen) 500 Mg Tablet, 500 MG PO Q8H PRN for PAIN, (Reported) Allergies Coded Allergies: No Known Allergies (Unverified , 11/05/18) JAVIER JORDAN MD November 12, 2018 10:28
[2018-11-12] MEDS ORDERED: COUM1TAB17 PO (10:29)
[2018-11-12 10:48] LABS: INR 1.11; PROTHROMBIN TIME 14.4 SECONDS (12.1-14.4)
[2018-11-12] MEDS ORDERED: WARFARIN SOD 5 MG TAB PO ONE (11:30)
== END 2018-11-12 14:36 | disposition home health service (06) | DRG 176 ==
LOC: M ED 13:44 → M ED INP 17:46 → M MSPAV 19:57
PROVIDERS: ADMIT Student in an Organized Health Care Education/Training Program; ATTEND Student in an Organized Health Care Education/Training Program
PROC: B246ZZ4 Ultrasonography of Right and Left Heart, Transesophageal (ICD-10-PCS; principal; 2018-11-10 17:00)
DX: I26.99 Other pulmonary embolism without acute cor pulmonale (principal); I82.431 Acute embolism and thrombosis of right popliteal vein; I82.411 Acute embolism and thrombosis of right femoral vein; R91.8 Other nonspecific abnormal finding of lung field; M19.90 Unspecified osteoarthritis, unspecified site; Z79.82 Long term (current) use of aspirin; Z79.899 Other long term (current) drug therapy

== ENCOUNTER → 2018-11-14 | Outpatient (REF) | payer MEDICARE ==
[~2018-11-14] MED LIST changes: +ACET500T15 PO; +APAP325T4 PO; +ASPI325T41 PO; +D-10TAB3 PO; +ENOX40IN3 SC
[2018-11-14 16:39] LABS: INR 1.32; PROTHROMBIN TIME 16.6 SECONDS (12.1-14.4)
== END ==
LOC: M LAB REF 15:48
PROVIDERS: ATTEND Family Medicine
DX: Z79.01 Long term (current) use of anticoagulants (principal)

== ENCOUNTER → 2018-11-24 | Outpatient (CLI) | payer MEDICARE ==
--- NOTE | 2018-11-24 14:33 | NUR ---
Patient is an 78-year-old female with past medical history of bi-lateral pulmonary embolism, arthritis and phlebitis. Patient participated in Modified Barium Swallow Study as she is losing weight and continues to have difficulty with swallowing. Patient reports that she has just started taking GERD medication. Patient was seen through [facility] 04/2018-05/2018 for dysphagia therapy. Patient was d/c from [facility] with a HEP which she is no longer following. Patient was also seen in 05/2018 for a Modified Barium Swallow Study with recommendations for GERD Phx regimen and dysphagia therapy. Diet recommendations included: soft solids and regular thin liquids. Meds taken with chin tuck and using a straw. Meds that can be crushed should be. As was observed in May of 2018, significant residue noted in the pharynx likely d/t insufficient velopharyngeal elevation, decreased tongue retraction and absent inversion of the epiglottis. It is recommended that Pt continue with Level 2 solids (NDD) and regular thin liquids via straw. Extra sauces and gravies should be used to keep solids moist. Alternate solids/liquids frequently throughout the meal to clear pharynx of residue. It is recommended that Patient participate again in speech therapy to reintroduce a HEP and implement swallow strategies. Addendum: 11/24/18 at 1434 by [facility] Amended: Links added.
--- NOTE | 2018-11-27 13:44 | REP ---
Examination Requested: Cookie Swallow Reason For Exam: Dysphasia The procedure was performed by PORTER Falcon, under the direct supervision of Dr. Castillo. The procedure was performed with Angie Marcano from speech pathology present. 5 ml aliquots of thin, pudding, mixed fruit, soft food, and pill consistency barium was administered. No penetration or aspiration was observed. The detailed report of this examination will be provided by speech pathology. 3.6 minutes of fluoroscopy time was utilized for this procedure. Reviewed by PORTER Thrasher 11/24/2018 02:28 P Electronically Signed by Chintan Castillo MD 11/27/2018 01:34 P
== END ==
LOC: M ST 11:07
PROVIDERS: ATTEND Family Medicine
DX: R13.10 Dysphagia, unspecified (principal)

== ENCOUNTER → 2019-01-26 | Outpatient (REF) | payer MEDICARE ==
[2019-01-26 12:55] LABS: BASO % 0.8 % (0.0-1.0); EOS # 0.1 10^3/uL (0.0-0.50); EOS % 1.9 % (0.0-3.0); HEMATOCRIT 43.8 % (36.0-47.0); HEMOGLOBIN 14.2 g/dl (12.0-15.5); LYMPH # 1.4 10^3/uL (1.5-4.5); LYMPH % 27.7 % (24.0-44.0); MEAN CORPUSCULAR HEMOGLOBIN 28.5 pg (27.0-33.0); MEAN CORPUSCULAR HGB CONC 32.4 g/dl (32.0-36.5); MEAN CORPUSCULAR VOLUME 87.8 fl (80.0-96.0); MONO # 0.5 10^3/uL (0.0-0.8); MONO % 9.9 % (0.0-5.0); NEUTROPHILS # 3.1 10^3/uL (1.8-7.7); NEUTROPHILS % 59.3 % (36.0-66.0); PLATELET COUNT, AUTOMATED 756 10^3/uL (150-450); RED BLOOD COUNT 4.99 10^6/uL (4.00-5.40); WHITE BLOOD COUNT 5.2 10^3/uL (4.0-10.0)
[2019-01-26 13:08] LABS: ALBUMIN 3.2 GM/DL (3.2-5.2); ALT/SGPT 14 U/L (12-78); BILIRUBIN,TOTAL 0.4 MG/DL (0.2-1.0); BLOOD UREA NITROGEN 22 MG/DL (7-18); CALCIUM LEVEL 9.3 MG/DL (8.8-10.2); CARBON DIOXIDE LEVEL 30 MEQ/L (21-32); CHLORIDE LEVEL 109 MEQ/L (98-107); CREATININE FOR GFR 0.68 MG/DL (0.55-1.30); GLOMERULAR FILTRATION RATE > 60.0 (>32); GLUCOSE, FASTING 77 MG/DL (70-100); POTASSIUM SERUM 5.3 MEQ/L (3.5-5.1); SODIUM LEVEL 141 MEQ/L (136-145); TOTAL PROTEIN 6.5 GM/DL (6.4-8.2)
== END ==
LOC: M LABDRWAD 12:16
PROVIDERS: ATTEND Family Medicine
DX: R13.10 Dysphagia, unspecified (principal); D38.1 Neoplasm of uncertain behavior of trachea, bronchus and lung

== ENCOUNTER → 2019-03-20 | Outpatient (CLI) | payer MEDICARE ==
--- NOTE | 2019-03-20 15:33 | REP ---
CAROTID ULTRASOUND: Real-time ultrasound evaluation and duplex Doppler interrogation of the extracranial carotid vasculature is performed. There is mild plaquing and narrowing in both carotid bulbs extending into the internal and external carotid arteries. Luminal narrowing is less than 50%. There is no evidence of hemodynamically significant stenosis of either internal carotid artery. Normal flow velocities are seen. The vertebral arteries demonstrate normal direction of flow. RIGHT LEFT Peak systolic velocity ICA 35.7 cm/s 52.6 cm/s End diastolic velocity ICA 11.3 cm/s 23.7 cm/s Peak systolic velocity CCA 60.2 cm/s 60.1 cm/s Peak systolic velocity ECA 42.1 cm/s 36.9 cm/s ICA/CCA ratio 0.59 0.88 IMPRESSION: Bilateral luminal narrowing of the internal carotid arteries less than 50%. No evidence of hemodynamically significant stenosis. Electronically Signed by Chintan Castillo MD 03/20/2019 03:24 P
--- NOTE | 2019-03-20 17:16 | REP ---
Bilateral lower extremity duplex venous ultrasound with reflux exam: History: Venous insufficiency. History of DVT and pulmonary embolus. Patient on blood thinners. Comparison study October showed occlusive and nonocclusive DVT in the right lower extremity. Findings: There is a small quantity of residual nonocclusive mural thrombus in the popliteal vein on the right. Otherwise, the right lower extremities are anechoic and compressible on two-dimensional scanning with color flow and spectral Doppler interrogation intact. The deep veins in the left lower extremity are anechoic and fully compressible on two-dimensional scanning. Color flow and spectral Doppler interrogation are unremarkable on the left. There is no evidence of left-sided DVT. Reflux examination: In the right lower extremity, there is a collateral vein emanating from the superficial femoral vein with 6.3 seconds of reflux. 2.7 seconds of reflux is recorded in the common femoral vein segment and 8.4 seconds in the greater saphenous vein at the proximal saphenofemoral junction. 7.2 seconds of reflux is measured in the greater saphenous vein at mid thigh. Reflux greater than 0.5 seconds is observed with bed tilt in the proximal superficial femoral and mid superficial femoral veins in the right. The greater saphenous vein measures 5 mm in AP dimension proximally, 4 mm in AP dimension at midthigh, and 2 mm in AP dimension at the knee. The lesser saphenous vein is seen 2 mm in diameter without reflux. On the left, there is 1.5 second duration reflux in the common femoral vein. 0.5 seconds of reflux is measured in the greater saphenous vein proximally where it measures 3 mm at the saphenofemoral junction. No other left lower extremity reflux is observed. The greater saphenous vein measures 2 mm in AP dimension at midthigh and 1.4 mm at the knee. Lesser saphenous vein measures 3 mm. Impression: Bilateral lower extremity reflux, right much more prominent than left. There is some residual chronic mural nonocclusive thrombus in the popliteal vein on the right. Electronically Signed by Chester Monteiro MD 03/21/2019 07:43 A
== END ==
LOC: M RAD 13:00
PROVIDERS: ATTEND Physician Assistant
DX: I87.2 Venous insufficiency (chronic) (peripheral) (principal); R42 Dizziness and giddiness; I65.23 Occlusion and stenosis of bilateral carotid arteries; I82.532 Chronic embolism and thrombosis of left popliteal vein

== ENCOUNTER 2019-04-26 20:28 | Emergency (ER) | payer MEDICARE ==
[~2019-04-26] VITALS: Ht 154.9 cm; Wt 54.5 kg
[2019-04-26] MEDS ORDERED: DULO1CAP4 PO (20:40)
[2019-04-26] MEDS ORDERED: PANT20TA2 PO (20:40)
[2019-04-26 21:53] LABS: BASO # 0.1 10^3/uL (0.0-0.2); BASO % 0.9 % (0.0-1.0); EOS # 0.1 10^3/uL (0.0-0.5); EOS % 1.9 % (0.0-3.0); HEMATOCRIT 44.6 % (36.0-47.0); HEMOGLOBIN 14.1 g/dl (12.0-15.5); LYMPH # 1.9 10^3/uL (1.5-5.0); LYMPH % 25.7 % (24.0-44.0); MEAN CORPUSCULAR HEMOGLOBIN 28.7 pg (27.0-33.0); MEAN CORPUSCULAR HGB CONC 31.6 g/dl (32.0-36.5); MEAN CORPUSCULAR VOLUME 90.7 fl (80.0-96.0); MONO # 0.9 10^3/uL (0.0-0.8); MONO % 11.9 % (0.0-5.0); NEUTROPHILS # 4.5 10^3/uL (1.5-8.5); NEUTROPHILS % 59.3 % (36.0-66.0); PLATELET COUNT, AUTOMATED 828 10^3/uL (150-450); RED BLOOD COUNT 4.92 10^6/uL (4.00-5.40); WHITE BLOOD COUNT 7.6 10^3/uL (4.0-10.0)
[2019-04-26 21:57] LABS: INR 1.47; PROTHROMBIN TIME 17.5 SECONDS (11.8-14.0)
[2019-04-26 21:58] LABS: PARTIAL THROMBOPLASTIN TIME 34.1 SECONDS (25.0-38.4)
[2019-04-26 22:53] LABS: BLOOD UREA NITROGEN 31 MG/DL (7-18); CALCIUM LEVEL 8.9 MG/DL (8.8-10.2); CARBON DIOXIDE LEVEL 32 MEQ/L (21-32); CHLORIDE LEVEL 109 MEQ/L (98-107); CK-MB VALUE MASS 3.1 NG/ML (<3.6); CPK CREATINE PHOSPHOKINASE 34 U/L (26-192); CREATININE FOR GFR 0.64 MG/DL (0.55-1.30); GLOMERULAR FILTRATION RATE > 60.0 (>32); GLUCOSE, FASTING 98 MG/DL (70-100); MB/CK RELATIVE INDEX 9.12 (< OR =4); SODIUM LEVEL 141 MEQ/L (136-145); TROPONIN I < 0.02 NG/ML (< 0.10)
--- NOTE | 2019-04-26 23:03 | REPVR ---
PROCEDURE INFORMATION: Exam: XR Chest, 2 Views Exam date and time: 04/26/2019 10:18 PM Clinical history: 79 years old, female; Shortness of breath; Additional info: HTN eval for chf TECHNIQUE: Imaging protocol: XR of the chest Views: 2 views. COMPARISON: CR PORTABLE CHEST X-RAY 11/05/2018 2:04 PM FINDINGS: Lungs: Scattered subsegmental atelectasis. Distinct pulmonary vasculature. Pleural space: Trace left-sided pleural effusion. Pleural thickening or nodular opacity in the right lower lung seen on the prior, is not visualized likely due to positioning. Heart/Mediastinum: Moderate cardiac enlargement. Moderate to large hiatal hernia. Bones/joints: Multiple thoracic insufficiency fractures with exaggerated thoracic kyphosis. Other findings: Patient is rotated towards the left. IMPRESSION: 1. Moderate cardiac enlargement. No finding of edema. 2. Moderate to large hiatal hernia. 3. Pleural thickening or nodular opacity in the right lower lung seen on the prior, is not visualized likely due to positioning. Electronically signed by: Benton Middleton On 04/26/2019 23:03:10 PM
[2019-04-26 23:31] VITALS: BP 104/53
--- NOTE | 2019-04-27 13:36 | ECGEPIP ---
[facility] - ED Test Date: 2019-04-26 Pat Name: RENZO RAMOS Department: Room: - Gender: Female Hat Conditioner: KYLE : 1940 Requested By: ROSE MARIE Platt Order Number: [id number] Reading MD: Ronel Morales Measurements Intervals [place] Rate: 59 P: 53 DE: 157 QRS: 60 QRSD: 93 T: 35 QT: 424 QTc: 422 Interpretive Statements SINUS BRADYCARDIA WITH OCCASIONAL SUPRAVENTRICULAR PREMATURE COMPLEXES DECREASED RATE/INCREASED ECTOPY 11/05/18 Electronically Signed on 04-27-2019 13:35:43 EST by Ronel Morales
== END 2019-04-26 23:54 | disposition home or self-care (01) ==
LOC: M ED 20:28
DX: I10 Essential (primary) hypertension (principal); M19.90 Unspecified osteoarthritis, unspecified site; Z79.01 Long term (current) use of anticoagulants; Z86.711 Personal history of pulmonary embolism

== ENCOUNTER 2019-11-13 14:23 | Inpatient (IN) | payer MEDICARE ==
[~2019-11-13] VITALS: Ht 154.9 cm; Wt 48.4 kg
[~2019-11-13 14:23] MED LIST changes: +DULO1CAP4 PO; +PANT20TA2 PO
[2019-11-13 14:58] LABS: BASO # 0.1 10^3/uL (0.0-0.2); BASO % 0.6 % (0.0-1.0); EOS # 0.1 10^3/uL (0.0-0.5); EOS % 1.3 % (0.0-3.0); HEMATOCRIT 45.9 % (36.0-47.0); HEMOGLOBIN 14.9 g/dl (12.0-15.5); LYMPH # 1.4 10^3/uL (1.5-5.0); MEAN CORPUSCULAR HEMOGLOBIN 28.9 pg (27.0-33.0); MEAN CORPUSCULAR HGB CONC 32.5 g/dl (32.0-36.5); MONO # 0.9 10^3/uL (0.0-0.8); MONO % 11.6 % (0.0-5.0); NEUTROPHILS # 5.3 10^3/uL (1.5-8.5); NEUTROPHILS % 68.2 % (36.0-66.0); PLATELET COUNT, AUTOMATED 890 10^3/uL (150-450); RED BLOOD COUNT 5.16 10^6/uL (4.00-5.40); WHITE BLOOD COUNT 7.7 10^3/uL (4.0-10.0)
[2019-11-13 15:20] LABS: BLOOD UREA NITROGEN 33 MG/DL (7-18); CARBON DIOXIDE LEVEL 27 MEQ/L (21-32); CHLORIDE LEVEL 109 MEQ/L (98-107); CK-MB VALUE MASS 2.6 NG/ML (<3.6); CPK CREATINE PHOSPHOKINASE 35 U/L (26-192); CREATININE FOR GFR 0.98 MG/DL (0.55-1.30); GLUCOSE, FASTING 91 MG/DL (70-100); MB/CK RELATIVE INDEX 7.43 (< OR =4); POTASSIUM SERUM 4.6 MEQ/L (3.5-5.1); SODIUM LEVEL 140 MEQ/L (136-145); TROPONIN I < 0.02 NG/ML (< 0.10)
[2019-11-13] MEDS ORDERED: ISOVUE-370 76% 100ML VIAL As Ordered ONE (16:00)
[2019-11-13] MEDS ORDERED: WARF-23 PO (18:43)
[2019-11-13] MEDS ORDERED: VITA100066 PO (18:44)
--- NOTE | 2019-11-13 18:57 | ECGEPIP ---
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
[2019-11-13] MEDS ORDERED: PANTOPRAZOLE 20 MG TAB PO PRN (20:45)
[2019-11-13] MEDS ORDERED: MOM 30ML SUSPENSION UDC PO PRN (20:45)
[2019-11-13] MEDS ORDERED: ACETAMINOPHEN TAB 650MG DOSE (2X325MG) PO PRN (20:45)
[2019-11-13 21:33] LABS: INR 2.75
--- NOTE | 2019-11-13 22:06 | REPVR ---
PROCEDURE INFORMATION: Exam: MR Head Without Contrast Exam date and time: 11/13/2019 8:40 PM Age: 79 years old Clinical indication: Altered mental status/memory loss; Confusion or disorientation; Additional info: AMS TECHNIQUE: Imaging protocol: MR of the head without contrast. COMPARISON: CT Head without contrast 11/13/2019 3:23 PM FINDINGS: Brain: Multiple foci of T2 lengthening are demonstrated in the subcortical, periventricular and centrum semiovale white matter consistent with age-related small vessel gliosis. Mild diffuse cerebral atrophy. There global areas of restricted diffusion demonstrated in the subcortical white matter in both parieto-occipital lobes as well as diffusely in the subcortical and centrum semiovale white matter. Findings which can be associated with diffuse hypoxic ischemic injury. Ventricles: The degree of ventricular dilatation is normal for age and/or degree of atrophy present. Bones/joints: Unremarkable. Soft tissues: Unremarkable. Sinuses: Normal as visualized. No acute sinusitis. Mastoid air cells: Normal as visualized. No mastoid effusion. Orbits: Unremarkable. IMPRESSION: 1. Multiple foci of T2 lengthening are demonstrated in the subcortical, periventricular and centrum semiovale white matter consistent with age-related small vessel gliosis. 2. The degree of ventricular dilatation is normal for age and/or degree of atrophy present. 3. There global areas of restricted diffusion demonstrated in the subcortical white matter in both parieto-occipital lobes as well as diffusely in the subcortical and centrum semiovale white matter. Findings which can be associated with diffuse hypoxic ischemic injury. Electronically signed by: Alexis Gillette On 11/13/2019 22:06:27 PM
--- NOTE | 2019-11-13 22:50 | HPEPDOC ---
[facility] Medical History & Physical Date of Admission November 13, 2019 Date of Service: November 13, 2019 Attending Physician: MAGO ABDULLAHI MD History and Physical CHIEF COMPLAINT: altered mental status HISTORY OF PRESENT ILLNESS: Sallie Hyde is an 79-year-old female who presented to the hospital with 1 day history of altered mental status with difficulty word finding and confusion. She states this happened to her once a few weeks ago and was transient, only lasting a few minutes. She did not do anything about it at that time. Since then, she was feeling well up until this morning. She felt well when she woke up later in the day. Reports confusion, which progressed to difficulty word finding. She notes that during her ambulance ride to the hospital, she developed a headache over the frontal portion of her head and neck. She also notes that she measures her blood pressure at home and has noticed it has been trending up over the past month or so. She states that she saw her primary care doctor recently and discussed this, but that he was not concerned with her blood pressure and did not change any of her medications. She does have a history of palpitations and takes a beta juan luis for this. She states that she still has occasional palpitations, no changes from her baseline. Otherwise, she is feeling well and denies any additional complaints. PAST MEDICAL HISTORY: 1. Multiple DVTs and PEs, on Coumadin 2. Palpitations PAST SURGICAL HISTORY: 1. Partial thyroidectomy SOCIAL HISTORY: Never smoker. No alcohol use. Denies illicit/IV drug use. Lives at home with her and son. FAMILY HISTORY: Mother had a history of blood clots and coronary artery disease. Father had history of COPD. ALLERGIES: Please see below. REVIEW OF SYSTEMS: CONSTITUTIONAL: Denies fevers, chills, night sweats, fatigue, unexpected change in weight. HEENT: Denies change in vision, change in hearing. CARDIOVASCULAR: Denies chest pain, shortness of breath, lightheadedness. RESPIRATORY: Denies dyspnea, cough, wheezing. GASTROINTESTINAL: Denies nausea, vomiting, abdominal pain, diarrhea, constipation, blood in stool. GENITOURINARY: Denies dysuria, urinary frequency, urinary urgency. SKIN: Denies rash, lesions. MUSCULOSKELETAL: Denies joint pain or muscle aches. NEUROLOGICAL: Denies dizziness, weakness. PSYCHIATRIC: Denies change in mood. HOME MEDICATIONS: Please see below. PHYSICAL EXAMINATION: VITAL SIGNS: See below GENERAL: Alert, comfortable, in no acute distress HEENT: Normocephalic, atraumatic, PERRLA, EOMI, moist mucous membranes NECK: Supple, trachea midline, no lymphadenopathy, no JVD CARDIOVASCULAR: Regular rate and rhythm, normal S1 and S2. No murmurs, rubs, or gallops RESPIRATORY: Clear to auscultation bilaterally with equal air entry bilaterally. No wheezing, rhonchi, or rales. ABDOMEN: Soft, nontender, nondistended, bowel sounds present, no masses or hepatosplenomegaly appreciated EXTREMITIES: No cyanosis or edema. Pulses 2+/4 in bilateral upper and lower extremities SKIN: [place], warm, dry NEUROLOGIC: Alert and oriented 3 to person, place and time. Cranial nerves 2-12 grossly intact. No focal deficits appreciated PSYCHIATRIC: Mood and affect appropriate LABORATORY DATA: See below. MICROBIOLOGY: Please see below. ASSESSMENT: 79-year-old female with a history of DVT/PE and palpitation presents with 1 day of altered mental status, admitted for workup of transient ischemic attack PLAN: 1. Altered mental status secondary to likely transient ischemic attack. CT head negative for acute pathology. Ordered a brain MRI to rule out stroke. CTA head and neck reports pending. EKG shows sinus bradycardia, monitor on telemetry. Ordered TTE with bubble study. Continue home Coumadin for full anticoagulation. Started on atorvastatin 20 mg. Check lipid profile. PT/OT/ST evaluations for tomorrow. 2. Hypertension. Patient denies history of chronic hypertension. On beta juan luis for palpitations. Pain from headache may be contributing, Tylenol ordered for pain control. We will allow some permissive hypertension pending MRI to rule out stroke 3. Recurrent DVT/PE. Continue home Coumadin, check INR daily, adjust Coumadin dose to maintain INR between 2 and 3. 4. Palpitations. Patient denies history of atrial fibrillation or other arrhythmia. Hold home beta juan luis in the setting of sinus bradycardia. 5. Thrombocytosis - worsening over the past 2 years, has been on coumadin for that time period - ordered peripheral smear DVT prophylaxis: On Coumadin full anticoagulation. Disposition: Admitted to PCU with telemetry for observation and TIA work up Vital Signs Vital Signs Date Time Temp Pulse Resp B/P (MAP) Pulse Ox O2 Delivery O2 Flow Rate FiO2 11/13/19 20:00 60 183/90 (121) 96 11/13/19 18:45 Room Air 11/13/19 16:01 20 11/13/19 14:43 97.9 Laboratory Data Labs 24H Laboratory Tests 2 11/13/19 14:40: Immature Granulocyte % (Auto) 0.3, Neutrophils (%) (Auto) 68.2H, Lymphocytes (%) (Auto) 18.0L, Monocytes (%) (Auto) 11.6H, Eosinophils (%) (Auto) 1.3, Basophils (%) (Auto) 0.6, Neutrophils # (Auto) 5.3, Lymphocytes # (Auto) 1.4L, Monocytes # (Auto) 0.9H, Eosinophils # (Auto) 0.1, Basophils # (Auto) 0.1, Nucleated Red Blood Cells % (auto) 0.0, Anion Gap 4L, Glomerular Filtration Rate 58.0, Calcium Level 9.0, Total Creatine Kinase 35, Creatine Kinase MB 2.6, Creatine Kinase MB Relative Index 7.43H, Troponin I < 0.02 11/13/19 15:29: Bedside Glucose (Misc Panel) 84 11/13/19 15:30: POC Prothrombin Time (Misc) 28.0H, POC INR (Misc) 2.4 CBC/BMP Laboratory Tests 11/13/19 14:40 Home Medications Scheduled Cholecalciferol (Vitamin D3) (Vitamin D3) 25 Mcg Tablet, 25 MCG PO DAILY Gabapentin (Gabapentin) 100 Mg Cap, 100 MG PO TID Propranolol HCl (Propranolol HCl ER) 60 Mg Cap, 60 MG PO DAILY Warfarin Sodium (Warfarin Sodium) 5 Mg Tablet, 5 MG PO QPM Scheduled PRN Acetaminophen (Acetaminophen) 500 Mg Tablet, 500 MG PO Q8H PRN for PAIN Pantoprazole Sodium (Pantoprazole Sodium) 20 Mg Tablet.dr, 20 MG PO DAILY PRN for HEARTBURN Allergies Coded Allergies: No Known Allergies (Unverified , 11/05/18) PA GARCIA D.O. November 13, 2019 21:01
--- NOTE | 2019-11-13 22:54 | REP ---
CT BRAIN WITHOUT CONTRAST: CT brain performed without IV contrast. Coronal reconstruction images are performed. There is mild atrophy. There is no midline shift or mass effect. There are mild periventricular small vessel ischemic changes, which appear to be chronic. There is no acute intracranial hemorrhage or extra-axial fluid collection. There are mild basal ganglia calcifications symmetrically bilaterally. Vascular calcifications are seen in the carotid siphons. Visualized mastoid air cells and paranasal sinuses are clear. IMPRESSION: Mild atrophy and chronic small vessel ischemic changes. Mild vascular calcifications. No acute intracranial hemorrhage, midline shift, or mass effect. Electronically Signed by Chintan Castillo MD 11/14/2019 09:19 A
[2019-11-13 23:00] VITALS: BP 165/86
[2019-11-13] MEDS: DOCUSATE SODIUM 100 MG CAP PO SCH (23:00)
[2019-11-13] MEDS: ATORVASTATIN 20 MG TAB PO SCH (23:17)
[2019-11-13] MEDS: WARFARIN SOD 5 MG TAB PO SCH (23:17)
--- NOTE | 2019-11-14 00:08 | REP ---
CHEST, SINGLE VIEW: Single view of the chest is performed and compared to prior study of 04/26/2019. Cardiomegaly is again noted. There is a large hiatal hernia. There is calcification and tortuosity of the thoracic aorta. There is scattered fibroatelectatic change bilaterally with no evidence of acute infiltrate. IMPRESSION: Stable chronic findings and cardiomegaly. No evidence of acute infiltrate. Electronically Signed by Chintan Castillo MD 11/14/2019 09:21 A
--- NOTE | 2019-11-14 01:07 | REP ---
CT ANGIOGRAPHY OF THE NECK WITH IV CONTRAST: HISTORY: CVA. 100 mL of intravenous Isovue-370 is administered. Comparison is made with carotid sonography 03/20/2019. CT FINDINGS: There is considerable cervicothoracic scoliosis. There is heterogeneous uptake in an enlarged right thyroid gland with a calcified nodule and a hypodense nodule. There is nodular thickening of the isthmus, and calcifications are seen in the region of the left thyroid. There is good opacification of the arterial tree. The thoracic aorta is uncoiled and calcific but not aneurysmal as visualized. There is no evidence of dissection. The great vessel origins are unremarkable. The common carotid arteries are tortuous but widely patent. No subclavian artery stenosis is appreciated. The right carotid bifurcation shows no evidence of significant plaquing. No ICA stenosis is seen on the right. The right cervical internal carotid artery is quite tortuous, but no high-grade stenosis is seen. On the left, there is mild calcific plaquing at the bifurcation. The left ICA is widely patent. The cervical segment is tortuous. The carotid siphon is tortuous on the left. No aneurysm is seen. The vertebral arteries are patent and codominant. There are venous collaterals surrounding the origin and proximal segment of the left vertebral artery. The proximal segments of the vertebral arteries are tortuous bilaterally. Basilar artery is intact. Persistent origin of the right posterior cerebral artery is seen. IMPRESSION: Tortuosity of the great vessel origins and the proximal vertebral arteries as well as the cervical segments of the internal carotid arteries bilaterally. Minimal plaquing. No significant stenosis seen. Electronically Signed by Chester Monteiro MD 11/14/2019 08:21 A
--- NOTE | 2019-11-14 01:10 | REP ---
CT ANGIOGRAPHY OF THE BRAIN WITH IV CONTRAST: HISTORY: CVA. Comparison is made with today's head CT. CT CONTRAST DOSE: 100 mL of intravenous Isovue-370. CT FINDINGS: The distal vertebral arteries are patent; left is a little smaller than right. Basilar artery is tortuous but widely patent. The right posterior cerebral artery takes persistent origin from the anterior circulation. This is a common normal variant. Posterior cerebral arteries patent. There is some vascular calcification in the internal carotid arteries bilaterally, but no high-grade stenosis is seen. The ICAs are tortuous at the carotid siphon, particularly the left. Middle and anterior cerebral arteries are patent. There is mild vascular calcification in the M1 segment on the right. No evidence of nair aneurysm or arteriovenous malformation. The dural venous sinuses appear patent. IMPRESSION: Vascular calcification and tortuosity of the distal internal carotid arteries bilaterally. Persistent origin right posterior cerebral artery. Otherwise, negative. Electronically Signed by Chester Monteiro MD 11/14/2019 08:21 A
[2019-11-14 04:00] VITALS: BP 120/60
[2019-11-14 06:08] LABS: HEMATOCRIT 43.9 % (36.0-47.0); HEMOGLOBIN 14.6 g/dl (12.0-15.5); MEAN CORPUSCULAR HEMOGLOBIN 29.7 pg (27.0-33.0); MEAN CORPUSCULAR HGB CONC 33.3 g/dl (32.0-36.5); MEAN CORPUSCULAR VOLUME 89.4 fl (80.0-96.0); PLATELET COUNT, AUTOMATED 806 10^3/uL (150-450); RED BLOOD COUNT 4.91 10^6/uL (4.00-5.40); WHITE BLOOD COUNT 8.1 10^3/uL (4.0-10.0)
[2019-11-14 06:17] LABS: INR 3.09; PROTHROMBIN TIME 31.8 SECONDS (11.8-14.0)
[2019-11-14 06:28] LABS: BLOOD UREA NITROGEN 27 MG/DL (7-18); CALCIUM LEVEL 8.9 MG/DL (8.8-10.2); CARBON DIOXIDE LEVEL 28 MEQ/L (21-32); CHLORIDE LEVEL 108 MEQ/L (98-107); CHOLESTEROL LEVEL 153 MG/DL (<200); CHOLESTEROL RISK RATIO 3.558 (<5); CREATININE FOR GFR 0.92 MG/DL (0.55-1.30); GLOMERULAR FILTRATION RATE > 60.0 (>32); GLUCOSE, FASTING 78 MG/DL (70-100); HDL CHOLESTEROL 43 MG/DL (>40); LDL CHOLESTEROL 97 MG/DL (<100); NON-HDL-C 110 MG/DL; POTASSIUM SERUM 4.4 MEQ/L (3.5-5.1); SODIUM LEVEL 140 MEQ/L (136-145); TRIGLYCERIDES LEVEL 67 MG/DL (<150)
[2019-11-14 08:00] VITALS: BP 161/79
[2019-11-14] MEDS ORDERED: PROPRANOLOL 60 MG LA CAP PO SCH (09:00)
[2019-11-14] MEDS: DOCUSATE SODIUM 100 MG CAP PO SCH ×2 (10:57→19:52)
[2019-11-14] MEDS ORDERED: SLF 3 ML SYR IV PRN (11:30)
[2019-11-14 12:00] VITALS: BP 173/86
--- NOTE | 2019-11-14 12:52 | IPNPDOC ---
Text Note Date of Service The patient was seen on 11/14/19. NOTE Subjective: Patient seen and examined at bedside. No acute overnight events reported. No new medical complaints. Objective: General: NAD, sitting comfortably in chair, elderly, frail, alert HEENT: NC/AT, EOMI Lungs: CTA B/L Heart: RRR, +S1S2 Abd: soft, NT, +BS Ext: no edema Neuro: no gross focal deficits A/P: 79-year-old female with a history of DVT/PE and palpitation presents for AMS/expressive aphasia/word finding, admitted for possible TIA/CVA. #AMS/TIA CT head negative for acute pathology. Ordered a brain MRI to rule out stroke. CTA head and neck reports pending. EKG shows sinus bradycardia, monitor on telemetry. Ordered TTE with bubble study. Continue home Coumadin for full anticoagulation. Started on atorvastatin 20 mg. Check lipid profile. PT/OT/ST - neuro c/s #HTN Patient denies history of chronic hypertension. On beta juan luis for palpitations. Pain from headache may be contributing, Tylenol ordered for pain control. # Recurrent DVT/PE. Continue home Coumadin, check INR daily, adjust Coumadin dose to maintain INR between 2 and 3. #Palpitations. Patient denies history of atrial fibrillation or other arrhythmia. Hold home beta juan luis in the setting of sinus bradycardia. #Thrombocytosis - worsening over the past 2 years, has been on coumadin for that time period - ordered peripheral smear #DVT prophylaxis: On Coumadin full anticoagulation. Disposition: Admitted to PCU with telemetry for observation and TIA work up VS,Germane, I+O VS, Fishbone, I+O Laboratory Tests 11/13/19 14:40 11/14/19 05:44 Vital Signs Date Time Temp Pulse Resp B/P (MAP) Pulse Ox O2 Delivery O2 Flow Rate FiO2 11/14/19 08:00 97.4 61 21 161/79 (106) 97 Room Air I&O- Last 24 Hours up to 6 AM 11/14/19 05:59 Output Total 200 ml Balance -200 ml DAVID CALDERON MD November 14, 2019 12:52
[2019-11-14] MEDS: SLF 3 ML SYR IV SCH ×2 (14:00→20:06)
[2019-11-14 16:00] VITALS: BP 178/88
[2019-11-14] MEDS: WARFARIN SOD 5 MG TAB PO SCH (17:00)
[2019-11-14] MEDS: ATORVASTATIN 20 MG TAB PO SCH (19:52)
[2019-11-14 20:00] VITALS: BP 150/74
[2019-11-15] VITALS (15 sets, daily range): BP systolic 122–190; BP diastolic 70–124
[2019-11-15] MEDS: SLF 3 ML SYR IV SCH ×3 (05:14→21:37)
[2019-11-15 05:35] LABS: INR 3.25; PROTHROMBIN TIME 33.1 SECONDS (11.8-14.0)
[2019-11-15 08:06] LABS: HEMATOCRIT 46.7 % (36.0-47.0); HEMOGLOBIN 15.4 g/dl (12.0-15.5); MEAN CORPUSCULAR HEMOGLOBIN 29.3 pg (27.0-33.0); PLATELET COUNT, AUTOMATED 900 10^3/uL (150-450); RED BLOOD COUNT 5.25 10^6/uL (4.00-5.40); WHITE BLOOD COUNT 9.2 10^3/uL (4.0-10.0)
[2019-11-15 08:07] LABS: BLOOD UREA NITROGEN 24 MG/DL (7-18); CALCIUM LEVEL 9.2 MG/DL (8.8-10.2); CARBON DIOXIDE LEVEL 26 MEQ/L (21-32); CHLORIDE LEVEL 106 MEQ/L (98-107); GLOMERULAR FILTRATION RATE > 60.0 (>32); GLUCOSE, FASTING 64 MG/DL (70-100); POTASSIUM SERUM 4.3 MEQ/L (3.5-5.1); SODIUM LEVEL 139 MEQ/L (136-145)
[2019-11-15] MEDS: DOCUSATE SODIUM 100 MG CAP PO SCH ×2 (08:07→20:56)
[2019-11-15] MEDS ORDERED: PROPRANOLOL 20 MG TAB PO SCH (09:00)
[2019-11-15] MEDS: GABAPENTIN 100 MG CAP PO SCH ×3 (09:00→20:55)
[2019-11-15] MEDS ORDERED: PREVNAR 13 VACCINE SYRINGE (CPT CODE:90670) IM ONE (09:00)
[2019-11-15] MEDS ORDERED: hydrALAZINE 20MG/ML 1ML VIAL (J0360 PER 20MG) IV ONE (09:45)
[2019-11-15] MEDS ORDERED: E-Z-PAQUE 96% w/w SUSP 176GM BTL As Ordered ONE (10:11)
[2019-11-15] MEDS ORDERED: VARIBAR NECTAR 40% w/v 240ML SUSP BTL As Ordered ONE (10:11)
[2019-11-15] MEDS ORDERED: VARIBAR PUDDING 40% w/v 230ML TUBE As Ordered ONE (10:11)
--- NOTE | 2019-11-15 11:00 | IPNPDOC ---
Text Note Date of Service The patient was seen on 11/15/19. NOTE Subjective: Patient seen and examined at bedside. Complains of headache. Blood pressures elevated this morning. Denies chest pain, shortness of breath, abdominal pain, N/V/D. Objective: General: NAD, sitting comfortably in chair, elderly, frail, alert HEENT: NC/AT, EOMI Lungs: CTA B/L Heart: RRR, +S1S2 Abd: soft, NT, +BS Ext: no edema Neuro: no gross focal deficits A/P: 79-year-old female with a history of DVT/PE and palpitation presents for AMS/expressive aphasia/word finding, admitted for possible TIA/CVA. #AMS/TIA CT head negative for acute pathology - MRI no acute findings CTA head and neck negative for acute pathology. - echo pending Continue home Coumadin for full anticoagulation. Started on atorvastatin 20 mg. Check lipid profile. PT/OT/ST #dysphagia - swallow study pending today #HTN - hydralazine with hold parameters Patient denies history of chronic hypertension. On beta juan luis for palpitations. Pain from headache may be contributing, Tylenol ordered for pain control. # Recurrent DVT/PE. Continue home Coumadin, check INR daily, adjust Coumadin dose to maintain INR between 2 and 3. #Palpitations. Patient denies history of atrial fibrillation or other arrhythmia. Hold home beta juan luis in the setting of sinus bradycardia. #Thrombocytosis - worsening over the past 2 years, has been on coumadin for that time period - peripheral smear #DVT prophylaxis: On Coumadin full anticoagulation. VS,Fishbone, I+O VS, Fishbone, I+O Laboratory Tests 11/15/19 04:58 Vital Signs Date Time Temp Pulse Resp B/P (MAP) Pulse Ox O2 Delivery O2 Flow Rate FiO2 11/15/19 10:13 180/90 11/15/19 08:00 96.9 66 16 96 Room Air I&O- Last 24 Hours up to 6 AM 11/15/19 06:00 Intake Total 0 ml Output Total 525 ml Balance -525 ml DAVID CALDERON MD November 15, 2019 11:00
[2019-11-15] MEDS ORDERED: METOPROLOL 5 MG/5 ML VIAL As Ordered ONE ×2 (11:48→11:51)
[2019-11-15] MEDS: METOPROLOL 5 MG/5 ML VIAL IV SCH ×3 (11:50→12:00)
[2019-11-15 12:26] LABS: INR 3.31; PARTIAL THROMBOPLASTIN TIME 51.6 SECONDS (25.0-38.4); PROTHROMBIN TIME 33.6 SECONDS (11.8-14.0)
--- NOTE | 2019-11-15 12:32 | REP ---
CT BRAIN WITHOUT CONTRAST: HISTORY: Evaluate CVA. Comparison MRI study November 13, 2019. Comparison head CT study November 13, 2019. CT FINDINGS: Digital preliminary quality control microbiologist radiograph is unremarkable. There is hyperostosis frontalis interna. The bony calvarium is intact. Vascular calcification is again noted in the distal internal carotid arteries and distal vertebral arteries. The visualized paranasal sinuses are clear. On soft tissue window settings, there is mild physiologic calcification of the basal ganglia. Mild generalized volume loss is present. There are small vessel atherosclerotic changes in the periventricular white matter in a pattern which is unchanged from the 11/13/2019 prior study. There is no visible acute cortical or deep white matter infarction. No extra-axial fluid collection or intracranial hemorrhage is seen. IMPRESSION: Generalized volume loss and small vessel changes. Vascular calcification. No evidence of acute intracranial abnormality. No change from the November 13, 2019 study. Electronically Signed by Chester Monteiro MD 11/15/2019 04:11 P
[2019-11-15 12:35] LABS: BASO # 0.1 10^3/uL (0.0-0.2); BASO % 0.5 % (0.0-1.0); EOS # 0.1 10^3/uL (0.0-0.5); EOS % 0.4 % (0.0-3.0); HEMOGLOBIN 16.7 g/dl (12.0-15.5); LYMPH # 2.2 10^3/uL (1.5-5.0); LYMPH % 19.6 % (24.0-44.0); MEAN CORPUSCULAR HEMOGLOBIN 28.8 pg (27.0-33.0); MEAN CORPUSCULAR HGB CONC 32.7 g/dl (32.0-36.5); MEAN CORPUSCULAR VOLUME 88.1 fl (80.0-96.0); MONO # 1.1 10^3/uL (0.0-0.8); MONO % 9.6 % (0.0-5.0); NEUTROPHILS # 7.8 10^3/uL (1.5-8.5); NEUTROPHILS % 69.3 % (36.0-66.0); RED BLOOD COUNT 5.79 10^6/uL (4.00-5.40); WHITE BLOOD COUNT 11.2 10^3/uL (4.0-10.0)
[2019-11-15 12:43] LABS: PLATELET COUNT, AUTOMATED 1068 10^3/uL (150-450)
[2019-11-15 12:54] LABS: ALBUMIN 3.8 GM/DL (3.2-5.2); BILIRUBIN,TOTAL 0.9 MG/DL (0.2-1.0); CALCIUM LEVEL 9.5 MG/DL (8.8-10.2); CREATININE FOR GFR 1.03 MG/DL (0.55-1.30); FREE THYROXINE INDEX 4.7 % (1.3-4.8); GLOMERULAR FILTRATION RATE 54.7 (>32); POTASSIUM SERUM 4.2 MEQ/L (3.5-5.1); THYROID STIMULATING HORMONE 1.66 uIU/ML (0.358-3.740); THYROXINE (T4) 12.4 UG/DL (4.5-12.0); TOTAL PROTEIN 7.5 GM/DL (6.4-8.2)
[2019-11-15 13:00] LABS: CK-MB VALUE MASS 5.8 NG/ML (<3.6); MB/CK RELATIVE INDEX 7.73 (< OR =4); TROPONIN I 0.08 NG/ML (< 0.10)
[2019-11-15] MEDS: PROPRANOLOL 60 MG LA CAP PO SCH (13:39)
[2019-11-15] MEDS: hydrALAZINE 20MG/ML 1ML VIAL (J0360 PER 20MG) IV SCH ×2 (14:05→21:37)
[2019-11-15] MEDS: ASPIRIN 81 MG CHEW TABLET PEG SCH (14:06)
[2019-11-15] MEDS ORDERED: ONDANSETRON 4MG/2ML VIAL IV PRN (16:15)
[2019-11-15] MEDS: IBUPROFEN 400 MG TAB PO ONE ×2 (16:33→16:44)
[2019-11-15] MEDS ORDERED: MORPHINE 2 MG/ML 1ML VIAL (J2270) IV ONE (17:00)
--- NOTE | 2019-11-15 17:11 | REP ---
COOKIE SWALLOW The procedure was performed under the direct supervision of Dr. Castillo. The procedure was performed with Angie Marcano from speech pathology present. 5 ml aliquots of thin, nectar, pudding and mixed fruit consistency barium was administered. With thin and nectar consistency barium there is laryngeal penetration. The detailed report of this examination will be provided by speech pathology. 2.2 minutes of fluoroscopy time was utilized for this procedure. Electronically Signed by PORTER Cabezas 11/15/2019 02:57 P Electronically Signed by Chintan Castillo MD 11/15/2019 05:02 P
[2019-11-15] MEDS: WARFARIN SOD 5 MG TAB PO SCH (17:13)
[2019-11-15 17:39] LABS: CK-MB VALUE MASS 6.7 NG/ML (<3.6); MB/CK RELATIVE INDEX 6.63 (< OR =4); TROPONIN I 0.07 NG/ML (< 0.10)
[2019-11-15] MEDS: ATORVASTATIN 20 MG TAB PO SCH (20:55)
[2019-11-16] VITALS: BP 127/63
[2019-11-16 04:00] VITALS: BP 114/64
[2019-11-16 05:15] LABS: HEMATOCRIT 43.4 % (36.0-47.0); MEAN CORPUSCULAR HEMOGLOBIN 29.1 pg (27.0-33.0); MEAN CORPUSCULAR HGB CONC 32.9 g/dl (32.0-36.5); MEAN CORPUSCULAR VOLUME 88.4 fl (80.0-96.0); RED BLOOD COUNT 4.91 10^6/uL (4.00-5.40); WHITE BLOOD COUNT 9.2 10^3/uL (4.0-10.0)
[2019-11-16 05:18] LABS: HEMOGLOBIN 14.3 g/dl (12.0-15.5); PLATELET COUNT, AUTOMATED 854 10^3/uL (150-450)
[2019-11-16 05:28] LABS: INR 4.5
[2019-11-16 05:43] LABS: CALCIUM LEVEL 8.9 MG/DL (8.8-10.2); CREATININE FOR GFR 1.23 MG/DL (0.55-1.30); GLOMERULAR FILTRATION RATE 44.6 (>32); POTASSIUM SERUM 4.4 MEQ/L (3.5-5.1)
[2019-11-16] MEDS: hydrALAZINE 20MG/ML 1ML VIAL (J0360 PER 20MG) IV SCH ×2 (06:00→13:46)
[2019-11-16] MEDS: SLF 3 ML SYR IV SCH ×2 (06:02→13:47)
[2019-11-16 07:57] VITALS: BP 152/86
[2019-11-16] MEDS: GABAPENTIN 100 MG CAP PO SCH (09:11)
[2019-11-16] MEDS: DOCUSATE SODIUM 100 MG CAP PO SCH (09:11)
[2019-11-16] MEDS: ASPIRIN 81 MG CHEW TABLET PEG SCH (09:11)
[2019-11-16] MEDS: PROPRANOLOL 60 MG LA CAP PO SCH (09:11)
[2019-11-16] MEDS ORDERED: ASPI81CH8 PEG (10:16)
[2019-11-16] MEDS ORDERED: ATOR1TAB21 PO (10:16)
--- NOTE | 2019-11-16 11:41 | DS.PDOC ---
Discharge Summary General Date of Admission November 14, 2019 at 16:48 Date of Discharge 11/16/19 Specialist/Consultants Involve Neurology Discharge Summary PROCEDURES PERFORMED DURING STAY: swallow evaluation ADMITTING DIAGNOSES: 1. TIA DISCHARGE DIAGNOSES: 1. TIA 2. dysphagia 3. HTN 4. recurrent/multiple DVT/PE 5. thrombocytosis COMPLICATIONS/CHIEF COMPLAINT: TIA. HISTORY OF PRESENT ILLNESS: 79-year-old female who presented to the hospital with 1 day history of altered mental status with difficulty word finding and confusion. She states this happened to her once a few weeks ago and was transient, only lasting a few minutes. She did not do anything about it at that time. Since then, she was feeling well up until this morning. She felt well when she woke up later in the day. Reports confusion, which progressed to difficulty word finding. She notes that during her ambulance ride to the hospital, she developed a headache over the frontal portion of her head and neck. She also notes that she measures her blood pressure at home and has noticed it has been trending up over the past month or so. She states that she saw her primary care doctor recently and discussed this, but that he was not concerned with her blood pressure and did not change any of her medications. She does have a history of palpitations and takes a beta juan luis for this. She states that she still has occasional palpitations, no changes from her baseline. Otherwise, she is feeling well and denies any additional complaints. HOSPITAL COURSE: Patient had full resolution of her symptoms. On further d iscussion it appears that she does have intermittent episodes over the last several months that quickly spontaneously resolve. Hospital stay was notable for stroke code that called on her return from a swallow evaluation for dysphagia. She noted left facial weakness and left arm weakness. She was also found to be in rapid a-fib, and hypertensive emergency. Her blood pressure and heart rate responded will to IV metoprolol pushes. Her propranolol home medication was resumed. A stat CT showed no acute pathology. Case was discussed with neurology, in particular her MRI findings, which were determined to be stable, and the possibility of recurrent TIA's. Baby aspirin and statin therapy was started. She remained stable, and discharged to ARU. Of note, she does take warfarin for recurrent DVT/PE, and on day of discharge was found to by supra- therapeutic. As such warfarin is being held, to be resumed when INR between 2-3. Case was discussed extensively with her daughter [phone] on 11/15/19, attempted 2x to reach on 11/16/19 to inform of discharge to ARU. Code status also discussed with patient, who is still deciding. DISCHARGE MEDICATIONS: Please see below. ALLERGIES: Please see below. PHYSICAL EXAMINATION ON DISCHARGE: VITAL SIGNS: Please see below. General: NAD, sitting comfortably in chair, elderly, frail, alert HEENT: NC/AT, EOMI Lungs: CTA B/L Heart: RRR, +S1S2 Abd: soft, NT, +BS Ext: no edema Neuro: no gross focal deficits LABORATORY DATA: Please see below. ACTIVITY: As oer PT DIET: modified as per ST recs DISPOSITION: Discharge to ARU DISCHARGE INSTRUCTIONS: 1. Follow up INR - target 2-3 for #DVT/PE DISCHARGE CONDITION: [Stable]. TIME SPENT ON DISCHARGE: 35 minutes. Vital Signs/I&Os Vital Signs Date Time Temp Pulse Resp B/P (MAP) Pulse Ox O2 Delivery O2 Flow Rate FiO2 11/16/19 09:11 82 144/83 11/16/19 07:57 98.2 20 95 Room Air I&O- Last 24 Hours up to 6 AM 11/16/19 06:00 Intake Total 300 ml Output Total 350 ml Balance -50 ml Laboratory Data Labs 24H Laboratory Tests 2 11/15/19 12:06: Immature Granulocyte % (Auto) 0.6, Neutrophils (%) (Auto) 69.3H, Lymphocytes (%) (Auto) 19.6L, Monocytes (%) (Auto) 9.6H, Eosinophils (%) (Auto) 0.4, Basophils (%) (Auto) 0.5, Neutrophils # (Auto) 7.8, Lymphocytes # (Auto) 2.2, Monocytes # (Auto) 1.1H, Eosinophils # (Auto) 0.1, Basophils # (Auto) 0.1, Nucleated Red Blood Cells % (auto) 0.0, Prothrombin Time 33.6H, Prothromb Time International Ratio 3.31, Activated Partial Thromboplast Time 51.6H, Anion Gap 11, Glomerular Filtration Rate 54.7, Calcium Level 9.5, Total Bilirubin 0.9, Aspartate Amino Transf (AST/SGOT) 21, Alanine Aminotransferase (ALT/SGPT) 21, Alkaline Phosphatase 86, Total Creatine Kinase 75#, Creatine Kinase MB 5.8H, Creatine Kinase MB Relative Index 7.73H, Troponin I 0.08#, Total Protein 7.5, Albumin 3.8, Albumin/Globulin Ratio 1.0L, Thyroid Stimulating Hormone (TSH) 1.660, Free Thyroxine Index 4.7, Thyroxine (T4) 12.4H, Triiodothyronine (T3) Uptake 38 11/15/19 16:54: Total Creatine Kinase 101, Creatine Kinase MB 6.7H, Creatine Kinase MB Relative Index 6.63H, Troponin I 0.07 11/16/19 04:59: Nucleated Red Blood Cells % (auto) 0.0, Prothrombin Time 43.0H, Prothromb Time International Ratio 4.50, Anion Gap 5L, Glomerular Filtration Rate 44.6, Calcium Level 8.9 CBC/BMP Laboratory Tests 11/15/19 12:06 11/16/19 04:59 Discharge Medications Scheduled Aspirin (Children's Aspirin) 81 Mg Tab.chew, 81 MG PEG DAILY Atorvastatin Calcium (Atorvastatin Calcium) 20 Mg Tablet, 20 MG PO QHS Cholecalciferol (Vitamin D3) (Vitamin D3) 25 Mcg Tablet, 25 MCG PO DAILY, (Reported) Gabapentin (Gabapentin) 100 Mg Cap, 100 MG PO TID, (Reported) Propranolol HCl (Propranolol HCl ER) 60 Mg Cap, 60 MG PO DAILY, (Reported) Scheduled PRN Acetaminophen (Acetaminophen) 500 Mg Tablet, 500 MG PO Q8H PRN for PAIN, (Reported) Pantoprazole Sodium (Pantoprazole Sodium) 20 Mg Tablet.dr, 20 MG PO DAILY PRN for HEARTBURN, (Reported) Allergies Coded Allergies: No Known Allergies (Unverified , 11/05/18) DAVID CALDERON MD November 16, 2019 11:41
[2019-11-16 13:46] VITALS: BP 131/71
--- NOTE | 2019-11-16 22:08 | ECGEPIP ---
[facility] Test Date: 2019-11-15 Pat Name: RENZO RAMOS Department: Room: G5010-88 Gender: Female Sexual Health Physician: GABRIELLA : 1940 Requested By: DAVID Sloan Order Number: [id number] Reading MD: Benton Kolb Measurements Intervals [place] Rate: 117 P: WI: 0 QRS: 40 QRSD: 82 T: 17 QT: 329 QTc: 459 Interpretive Statements Atrial fibrillation with rapid ventricular response Nonspecific ST-T abnormalities Rhythm change compared with 11/13/2019. Electronically Signed on 11-16-2019 22:08:36 EDT by Benton Kolb
== END 2019-11-16 14:17 | DRG 69 ==
LOC: EDBD 14:23 → EDSEX 14:23 → M ED 14:23 → M ED INP 20:51 → ENRESERV 21:44 → M PCU 22:41 → OBSVTOIN 11-14 16:48
PROVIDERS: ADMIT Internal Medicine; ATTEND Internal Medicine
DX: G45.9 Transient cerebral ischemic attack, unspecified (principal); R47.01 Aphasia; I16.1 Hypertensive emergency; D47.3 Essential (hemorrhagic) thrombocythemia; I10 Essential (primary) hypertension; I48.91 Unspecified atrial fibrillation; R29.810 Facial weakness; G83.24 Monoplegia of upper limb affecting left nondominant side; R13.10 Dysphagia, unspecified; R00.2 Palpitations; Z86.718 Personal history of other venous thrombosis and embolism; Z79.01 Long term (current) use of anticoagulants; Z79.899 Other long term (current) drug therapy

== ENCOUNTER 2019-11-16 13:05 | Inpatient (IN) | payer MEDICARE ==
[~2019-11-16] VITALS: Ht 154.9 cm; Wt 52.7 kg
[2019-11-16] MEDS: PANTOPRAZOLE 40MG TAB (PROTONIX) PO SCH (09:00)
[~2019-11-16 13:05] MED LIST changes: +ASPI81CH8 PEG; +ATOR1TAB21 PO; +VITA100066 PO; +WARF-23 PO
[2019-11-16 14:25] VITALS: BP 146/85
[2019-11-16] MEDS ORDERED: BISACODYL 10 MG SUPP PR PRN (18:15)
[2019-11-16] MEDS: DOCUSATE SODIUM 100 MG CAP PO SCH (20:27)
[2019-11-16] MEDS: GABAPENTIN 100 MG CAP PO SCH (20:27)
[2019-11-16] MEDS: REMEDY PHYTOPLEX Z-GUARD PASTE 113GM TUBE (FROM STOREROOM PRODUCT) TOP SCH (20:27)
[2019-11-16] MEDS: ATORVASTATIN 20 MG TAB PO SCH (20:27)
[2019-11-16] MEDS ORDERED: SENNA 8.6 MG TAB (SENOKOT) PO SCH (21:00)
[2019-11-16 22:00] VITALS: BP 168/90
[2019-11-17 06:00] VITALS: BP 148/96
[2019-11-17 07:54] LABS: BASO % 0.5 % (0.0-1.0); EOS # 0.2 10^3/uL (0.0-0.5); EOS % 1.8 % (0.0-3.0); HEMATOCRIT 43.6 % (36.0-47.0); HEMOGLOBIN 14.3 g/dl (12.0-15.5); LYMPH # 1.5 10^3/uL (1.5-5.0); LYMPH % 17.8 % (24.0-44.0); MEAN CORPUSCULAR HEMOGLOBIN 29.4 pg (27.0-33.0); MEAN CORPUSCULAR HGB CONC 32.8 g/dl (32.0-36.5); MEAN CORPUSCULAR VOLUME 89.7 fl (80.0-96.0); MONO # 0.9 10^3/uL (0.0-0.8); NEUTROPHILS # 5.6 10^3/uL (1.5-8.5); NEUTROPHILS % 68.5 % (36.0-66.0); PLATELET COUNT, AUTOMATED 888 10^3/uL (150-450); RED BLOOD COUNT 4.86 10^6/uL (4.00-5.40); WHITE BLOOD COUNT 8.2 10^3/uL (4.0-10.0)
[2019-11-17] MEDS: ASPIRIN 81 MG ENTERIC TAB PO SCH (07:59)
[2019-11-17] MEDS: GABAPENTIN 100 MG CAP PO SCH ×3 (08:00→19:47)
[2019-11-17] MEDS: PROPRANOLOL 60 MG LA CAP PO SCH (08:00)
[2019-11-17] MEDS: PANTOPRAZOLE 40MG TAB (PROTONIX) PO SCH (08:00)
[2019-11-17] MEDS: DOCUSATE SODIUM 100 MG CAP PO SCH (08:00)
[2019-11-17 08:05] LABS: INR 3.04; PROTHROMBIN TIME 31.4 SECONDS (11.8-14.0)
[2019-11-17 08:14] LABS: BILIRUBIN,TOTAL 0.7 MG/DL (0.2-1.0); CALCIUM LEVEL 8.9 MG/DL (8.8-10.2); CREATININE FOR GFR 1.12 MG/DL (0.55-1.30); GLOMERULAR FILTRATION RATE 49.7 (>32); POTASSIUM SERUM 4.1 MEQ/L (3.5-5.1); TOTAL PROTEIN 6.9 GM/DL (6.4-8.2)
[2019-11-17] MEDS: REMEDY PHYTOPLEX Z-GUARD PASTE 113GM TUBE (FROM STOREROOM PRODUCT) TOP SCH ×3 (08:16→19:48)
[2019-11-17 14:00] VITALS: BP 163/86
--- NOTE | 2019-11-17 15:10 | HPEPDOC ---
[place] Note DATE OF ADMISSION:11-16-19 DATE OF SERVICE: 11-17-19 TIME OF ADMISSION: Please refer to physician's admission order. SOURCE OF ADMISSION INFORMATION: [facility] record and patient CHIEF COMPLAINT: TIA HISTORY OF PRESENT ILLNESS: 79F pmh DVTs and PEs on Coumadin, HTN, chronic dysphagia presented to [facility] ED on 11-13-19 with confusion and altered mental status and was admitted for concern for stroke. CTH was negative for intracranial hemorrhage and CTA neck showed minimal plaque and no significant stenosis. MRI brain did show, global areas of restricted diffusion demonstrated in the subcortical white matter in both parieto-occipital lobes as well as diffusely in the subcortical and centrum semiovale white matter. Findings which can be associated with diffuse hypoxic ischemic injury. On different EKGs she was found to be in sinus bradycardia and later Afib with RVR and determined to have sick sinus syndrome. Her beta-juan luis was held and she was treated with hydralazine for elevated BPs. Her Coumadin was also held due to supra-therapeutic levels and she was still found to have severe pharyngeal dysfunction per QUALITY LAB TECHNICIAN eval and on MBS. She as deemed to likely have had a TIA and started on statin therapy. She was evaluated by therapy and found to impairments in mobility and ADLs and deemed medically appropriate for discharge to ARU on 11-16-19. REVIEW OF SYSTEMS: The following is a completed review of systems and has been reviewed. Review of systems otherwise unremarkable. PAIN: Patient self reports no pain EYES: No recent vision changes EARS, NOSE, & THROAT: +chronic dysphagia CARDIOVASCULAR: Denies chest pain or palpitations PULMONARY: Denies shortness of breath GASTROINTESTINAL: +diarrhea GENITOURINARY: denies dysuria MUSCULOSKELETAL:RLE weakness (reports chronic sciatica) NEUROLOGICAL: recent TIA HEMATOLOGICAL: +thrombocytosis SKIN: no rash PSYCHIATRIC: Unremarkable All other review of systems found to be negative. PAST MEDICAL HISTORY: as per HPI PAST SURGICAL HISTORY: Partial Thyroidectomy ALLERGIES: Please see below. MEDICATIONS: Please see below. FAMILY HISTORY: Cardiac, COPD, and VTEs SOCIAL HISTORY: No smoking/etoh/illicit drugs DIET: puree and thins PHYSICAL EXAMINATION: VITAL SIGNS: Please see below. GENERAL: Pleasant and cooperative. No acute distress. HEENT: PERRL. Extraocular movements intact. Clear conjunctiva CARDIOVASCULAR: Regular rate and rhythm. No murmurs, rubs, or gallops LUNGS: Clear to auscultation bilaterally. No wheezes. No rhonchi ABDOMEN: Soft, nontender, nondistended. Positive bowel sounds. Normal active bowel sounds NEUROLOGICAL: Alert and oriented times three. Cranial nerves II through XII grossly intact. Sensation grossly intact] EXTREMITIES: 5\5 strength bilateral upper extremities. 4\5 strength right lower extremity. 5/5 strength in left lower extremity. SKIN: sacrum with blanchable erythema LABORATORY DATA: Please see below. IMAGING:Imaging documentation personally reviewed by record FUNCTIONAL STATUS: Premorbid: [id number] for mobility with RW, requiring some assistance with ADLs On Admission: Contact guard for functional transfers and ambulation x25 ft, Min assist for lower body dressing GOALS: [id number] household distance and functional transfers, dressing, toileting, grooming, bathing ASSESSMENT:79-year-old F with past medical history of DVT/PEs who presents status post TIA PLAN: 1. rehab- PT/OT advance ADls and mobility, strengthen/stretch/maintain ROM all limbs QUALITY LAB TECHNICIAN- c/u to treat chronic dysphagia for up to 2 sessions per day 2. Neuro- s/p TIA and started on statin, c/u ASA, recent MRI showing findings consistent with diffuse hypoxic ischemic injury which may contribute to patient's ongoing dysphagia -will start SSRI for motor recovery 3.CArdiac- sick sinus syndrome with noted AFib on inpatient EKGs, patient currently on beta-juan luis and Coumadin, c/u current treatment -VTEs with supratherapeutic INR, monitor and restart when INR <3, medicine consulted to assist in overall management -HTN c/u beta-juan luis, hydralazine ordered with parameters -HLD c/u statin 4. Resp: encourage incentive spirometry, monitor for infection 5. Heme- thrombocytosis possibly due to Coumadin dosing 6. GI ppx: protonix 7. DVT- on coumadin, Teds 8. Pain- gabapentin and tylenol 9. Dispo- tbd POST ADMISSION PHYSICIAN EVALUATION: Medical and functional status: Description of medical status, medical assessment: As above. Rehabilitation diagnosis and current and prior cold morbid medical conditions as above. Risk of complications and plans to mitigate them as above. Description of functional status current status is as above. Prior status as above. Status compared to preadmission: There are no clinically significant differences between the patient's current status and the information described on the preadmission screening document. Treatment plan anticipated: Treatment plan is as described above. Required disciplines including physical therapy, occupational therapy, others as noted above Intensity of services: 3 hours a day, 6 days a week. Special considerations: There are no specific special or safety considerations that would likely preclude immediate implementation of an intensive rehabilitation program or subsequently influence the plan of care. ATTESTATION: Considering all the information above, it is my best judgment that this patient requires intensive rehabilitation therapy as described above and an inpatient hospital environment due to the complexity of nursing, medical, and rehabilitation needs required by the patient. Furthermore, this patient can reasonably be expected to participate in an benefit from an inpatient rehabilitation stay with an interdisciplinary team approach to the delivery of rehabilitation care under the direction and supervision of rehabilitation physician. PROGNOSIS: good ESTIMATED LENGTH OF STAY:7-10 days. PROJECTED DISCHARGE DESTINATION: Home with family support and any durable medical equipment required to increase functional safety and mobility TIME SPENT COUNSELING AND COORDINATING INITIAL CARE: Greater than 70 minutes. Vital Signs Vital Sign - Last 24 Hours 11/16/19 11/17/19 11/17/19 11/17/19 22:00 06:00 08:00 14:00 Temp 96.7 96.6 97.9 Pulse 67 61 62 61 Resp 18 17 18 B/P (MAP) 168/90 (116) 148/96 (113) 132/90 163/86 (111) Pulse Ox 96 97 97 O2 Delivery Room Air Room Air Room Air Laboratory Data CBC/BMP Laboratory Tests 11/17/19 07:28 Labs 24H Laboratory Tests 2 11/17/19 07:28: Immature Granulocyte % (Auto) 0.4, Neutrophils (%) (Auto) 68.5H, Lymphocytes (%) (Auto) 17.8L, Monocytes (%) (Auto) 11.0H, Eosinophils (%) (Auto) 1.8, Basophils (%) (Auto) 0.5, Neutrophils # (Auto) 5.6, Lymphocytes # (Auto) 1.5, Monocytes # (Auto) 0.9H, Eosinophils # (Auto) 0.2, Basophils # (Auto) 0.0, Nucleated Red Blood Cells % (auto) 0.0, Prothrombin Time 31.4H, Prothromb Time International Ratio 3.04, Anion Gap 5L, Glomerular Filtration Rate 49.7, Calcium Level 8.9, Total Bilirubin 0.7, Aspartate Amino Transf (AST/SGOT) 18, Alanine Aminotransferase (ALT/SGPT) 20, Alkaline Phosphatase 78, Total Protein 6.9, Albumin 3.0#L, Albumin/Globulin Ratio 0.8L Home Medications Scheduled Aspirin (Children's Aspirin) 81 Mg Tab.chew, 81 MG PEG DAILY Atorvastatin Calcium (Atorvastatin Calcium) 20 Mg Tablet, 20 MG PO QHS Cholecalciferol (Vitamin D3) (Vitamin D3) 25 Mcg Tablet, 25 MCG PO DAILY, (Reported) Gabapentin (Gabapentin) 100 Mg Cap, 100 MG PO TID, (Reported) Propranolol HCl (Propranolol HCl ER) 60 Mg Cap, 60 MG PO DAILY, (Reported) Scheduled PRN Acetaminophen (Acetaminophen) 500 Mg Tablet, 500 MG PO Q8H PRN for PAIN, (Reported) Pantoprazole Sodium (Pantoprazole Sodium) 20 Mg Tablet.dr, 20 MG PO DAILY PRN for HEARTBURN, (Reported) Allergies Coded Allergies: No Known Allergies (Unverified , 11/05/18) A-FIB/CHADSVASC A-FIB History Current/History of A-Fib/PAF?: Yes Current PO Anticoag Therapy: Yes CINDY MADERA MD November 17, 2019 15:10
[2019-11-17] MEDS ORDERED: DOCUSATE SODIUM 100 MG CAP PO PRN (16:15)
[2019-11-17] MEDS: WARFARIN SOD 4 MG TAB PO SCH (16:29)
[2019-11-17] MEDS: **hydrALAZINE HCL** 25 MG TAB PO SCH (17:23)
[2019-11-17] MEDS: ATORVASTATIN 20 MG TAB PO SCH (19:47)
[2019-11-17 20:00] VITALS: BP 168/88
[2019-11-17] MEDS ORDERED: SENNA 8.6 MG TAB (SENOKOT) PO PRN (21:00)
[2019-11-18] MEDS: **hydrALAZINE HCL** 25 MG TAB PO SCH ×4 (05:26→17:56)
[2019-11-18 06:00] VITALS: BP 154/95
[2019-11-18 08:18] LABS: INR 2.69; PROTHROMBIN TIME 28.5 SECONDS (11.8-14.0)
[2019-11-18] MEDS: FLUoxetine 20 MG CAP PO SCH (08:48)
[2019-11-18] MEDS: PROPRANOLOL 60 MG LA CAP PO SCH (08:48)
[2019-11-18] MEDS: GABAPENTIN 100 MG CAP PO SCH ×3 (08:48→20:21)
[2019-11-18] MEDS: ASPIRIN 81 MG ENTERIC TAB PO SCH (08:48)
[2019-11-18] MEDS: PANTOPRAZOLE 40MG TAB (PROTONIX) PO SCH (08:48)
[2019-11-18] MEDS: REMEDY PHYTOPLEX Z-GUARD PASTE 113GM TUBE (FROM STOREROOM PRODUCT) TOP SCH ×3 (08:49→20:23)
[2019-11-18 14:00] VITALS: BP 153/86
[2019-11-18] MEDS: WARFARIN SOD 4 MG TAB PO SCH (17:56)
[2019-11-18] MEDS: ATORVASTATIN 20 MG TAB PO SCH (20:21)
[2019-11-18] MEDS: ACETAMINOPHEN TAB 650MG DOSE (2X325MG) PO PRN (20:21)
[2019-11-18 20:39] VITALS: BP 130/69
[2019-11-19 00:03] VITALS: BP 136/81
[2019-11-19 05:56] VITALS: BP 151/91
[2019-11-19] MEDS: **hydrALAZINE HCL** 25 MG TAB PO SCH ×4 (05:58→17:48)
[2019-11-19 08:03] LABS: INR 2.63
[2019-11-19] MEDS: ASPIRIN 81 MG ENTERIC TAB PO SCH (09:29)
[2019-11-19] MEDS: GABAPENTIN 100 MG CAP PO SCH ×3 (09:29→20:47)
[2019-11-19] MEDS: FLUoxetine 20 MG CAP PO SCH (09:29)
[2019-11-19] MEDS: PANTOPRAZOLE 40MG TAB (PROTONIX) PO SCH (09:29)
[2019-11-19] MEDS: PROPRANOLOL 60 MG LA CAP PO SCH (09:29)
[2019-11-19] MEDS: REMEDY PHYTOPLEX Z-GUARD PASTE 113GM TUBE (FROM STOREROOM PRODUCT) TOP SCH ×3 (09:30→20:47)
[2019-11-19 14:00] VITALS: BP 143/90
--- NOTE | 2019-11-19 15:10 | IPNPDOC ---
PM&R Progress Note DATE OF SERVICE: Nov 19, 2019 Portfolio Specialist Progress Note Subjective: Patient reporting her abdominal cramping is better and that she feels she is getting stronger. REVIEW OF SYSTEMS: The following is a completed review of systems and has been reviewed. Review of systems otherwise unremarkable. PAIN: Patient self reports no pain EYES: No recent vision changes EARS, NOSE, & THROAT: +chronic dysphagia CARDIOVASCULAR: Denies chest pain or palpitations PULMONARY: Denies shortness of breath GASTROINTESTINAL: +diarrhea (improved) GENITOURINARY: denies dysuria MUSCULOSKELETAL:RLE weakness (reports chronic sciatica) NEUROLOGICAL: recent TIA HEMATOLOGICAL: +thrombocytosis SKIN: no rash PSYCHIATRIC: Unremarkable All other review of systems found to be negative. PHYSICAL EXAMINATION: VITAL SIGNS: Please see below. GENERAL: Pleasant and cooperative. No acute distress. HEENT: PERRL. Extraocular movements intact. Clear conjunctiva CARDIOVASCULAR: Regular rate and rhythm. No murmurs, rubs, or gallops LUNGS: Clear to auscultation bilaterally. No wheezes. No rhonchi ABDOMEN: Soft, nontender, nondistended. Positive bowel sounds. Normal active bowel sounds NEUROLOGICAL: Alert and oriented times three. Cranial nerves II through XII grossly intact. Sensation grossly intact] EXTREMITIES: 5\5 strength bilateral upper extremities. 4\5 strength right lower extremity. 5/5 strength in left lower extremity. SKIN: sacrum with blanchable erythema ASSESSMENT:79-year-old F with past medical history of DVT/PEs who presents status post TIA PLAN: 1. 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 Neuro- s/p TIA and started on statin, c/u ASA, recent MRI showing findings consistent with diffuse hypoxic ischemic injury which may contribute to patient's ongoing dysphagia -c/u SSRI for motor recovery 3.CArdiac- sick sinus syndrome with noted AFib on inpatient EKGs, patient currently on beta-juan luis and Coumadin, c/u current treatment -VTEs c/u daily Coumadin dosing -HTN c/u beta-juan luis, hydralazine ordered with parameters -HLD c/u statin 4. Resp: encourage incentive spirometry, monitor for infection 5. Heme- thrombocytosis possibly due to Coumadin dosing 6. GI ppx: protonix 7. DVT- on coumadin, Teds 8. Pain- gabapentin and tylenol 9. Dispo- tbd Allergies Coded Allergies: No Known Allergies (Unverified , 11/05/18) Vital Signs Vital Signs Date Time Temp Pulse Resp B/P (MAP) Pulse Ox O2 Delivery O2 Flow Rate FiO2 11/19/19 14:00 98.2 68 20 143/90 (107) 98 Room Air Laboratory Data Labs 24H Laboratory Tests 2 11/19/19 07:15: Prothrombin Time 28.0H, Prothromb Time International Ratio 2.63 Current Medications Current Medications Current Medications Medications (Trade) Dose Ordered Sig/Liat Route PRN Reason Start Time Stop Time Status Last Admin Dose Admin Acetaminophen (Tylenol Tab) 650 mg Q4HP PRN PO fever/MILD PAIN (PS 1-4) 11/16/19 18:15 Aspirin (Ecotrin) 81 mg DAILY PO 11/17/19 09:00 11/19/19 09:29 Atorvastatin Calcium (Lipitor) 20 mg QHS PO 11/16/19 21:00 11/18/19 20:21 Bisacodyl (Dulcolax Suppository) 10 mg DAILYPRN PRN IA CONSTIPATION 11/16/19 18:15 Docusate Sodium (Colace) 100 mg BID PO 11/16/19 21:00 11/17/19 16:03 DC 11/17/19 08:00 Docusate Sodium (Colace) 100 mg BID PRN PO constipation 11/17/19 16:15 Fluoxetine HCl (PROzac) 20 mg DAILY PO 11/18/19 09:00 11/19/19 09:29 Gabapentin (Neurontin) 100 mg TID PO 11/16/19 21:00 11/19/19 09:29 Hydralazine HCl (Apresoline) 25 mg Q6H PO 11/17/19 18:00 11/19/19 12:08 Pantoprazole Sodium (Protonix) 40 mg DAILY PO 11/16/19 09:00 11/19/19 09:29 Propranolol HCl (Inderal La) 60 mg DAILY PO 11/17/19 09:00 11/19/19 09:29 Senna (Senokot) 1 tab QHS PO 11/16/19 21:00 11/17/19 16:03 DC Senna (Senokot) 1 tab QHS PRN PO constipation 11/17/19 21:00 Warfarin Sodium (Coumadin) 4 mg DAILY@17 PO 11/17/19 17:00 11/18/19 17:56 CINDY MADERA MD Nov 19, 2019 15:10
[2019-11-19] MEDS: WARFARIN SOD 4 MG TAB PO SCH (16:09)
[2019-11-19 19:53] VITALS: BP 134/84
[2019-11-19] MEDS: ACETAMINOPHEN TAB 650MG DOSE (2X325MG) PO PRN (20:47)
[2019-11-19] MEDS: ATORVASTATIN 20 MG TAB PO SCH (20:47)
[2019-11-19 23:47] VITALS: BP 127/73
[2019-11-20 06:00] VITALS: BP 164/88
[2019-11-20] MEDS: **hydrALAZINE HCL** 25 MG TAB PO SCH ×4 (06:16→17:35)
[2019-11-20 07:14] LABS: INR 2.72; PROTHROMBIN TIME 28.7 SECONDS (11.8-14.0)
[2019-11-20] MEDS: GABAPENTIN 100 MG CAP PO SCH ×3 (09:02→19:59)
[2019-11-20] MEDS: PANTOPRAZOLE 40MG TAB (PROTONIX) PO SCH (09:03)
[2019-11-20] MEDS: ASPIRIN 81 MG ENTERIC TAB PO SCH (09:12)
[2019-11-20] MEDS: PROPRANOLOL 60 MG LA CAP PO SCH (09:12)
[2019-11-20] MEDS: FLUoxetine 20 MG CAP PO SCH (09:14)
[2019-11-20] MEDS: REMEDY PHYTOPLEX Z-GUARD PASTE 113GM TUBE (FROM STOREROOM PRODUCT) TOP SCH ×3 (09:15→19:59)
[2019-11-20] MEDS: amLODIPine 5 MG TAB PO SCH (12:10)
[2019-11-20 14:00] VITALS: BP 127/64
[2019-11-20] MEDS: WARFARIN SOD 4 MG TAB PO SCH (16:30)
[2019-11-20] MEDS: ACETAMINOPHEN TAB 650MG DOSE (2X325MG) PO PRN (16:37)
[2019-11-20] MEDS: ATORVASTATIN 20 MG TAB PO SCH (19:59)
[2019-11-20 20:00] VITALS: BP 129/76
[2019-11-21 00:57] VITALS: BP 135/75
[2019-11-21 06:00] VITALS: BP 135/83
[2019-11-21] MEDS: **hydrALAZINE HCL** 25 MG TAB PO SCH ×4 (06:00→18:00)
[2019-11-21 07:30] LABS: BASO # 0.1 10^3/uL (0.0-0.2); BASO % 0.9 % (0.0-1.0); EOS # 0.3 10^3/uL (0.0-0.5); EOS % 3.1 % (0.0-3.0); HEMATOCRIT 40.1 % (36.0-47.0); HEMOGLOBIN 13.1 g/dl (12.0-15.5); LYMPH # 1.4 10^3/uL (1.5-5.0); LYMPH % 17.2 % (24.0-44.0); MEAN CORPUSCULAR HEMOGLOBIN 28.9 pg (27.0-33.0); MEAN CORPUSCULAR HGB CONC 32.7 g/dl (32.0-36.5); MEAN CORPUSCULAR VOLUME 88.5 fl (80.0-96.0); MONO # 0.8 10^3/uL (0.0-0.8); MONO % 10.2 % (0.0-5.0); NEUTROPHILS # 5.5 10^3/uL (1.5-8.5); PLATELET COUNT, AUTOMATED 961 10^3/uL (150-450); RED BLOOD COUNT 4.53 10^6/uL (4.00-5.40)
[2019-11-21 07:41] LABS: INR 2.53; PROTHROMBIN TIME 27.1 SECONDS (11.8-14.0)
[2019-11-21 07:50] LABS: CALCIUM LEVEL 8.6 MG/DL (8.8-10.2); CREATININE FOR GFR 1.02 MG/DL (0.55-1.30); GLOMERULAR FILTRATION RATE 55.4 (>32); POTASSIUM SERUM 5.2 MEQ/L (3.5-5.1)
[2019-11-21] MEDS: ASPIRIN 81 MG ENTERIC TAB PO SCH (08:37)
[2019-11-21] MEDS: ACETAMINOPHEN TAB 650MG DOSE (2X325MG) PO PRN ×3 (08:38→21:35)
[2019-11-21] MEDS: amLODIPine 5 MG TAB PO SCH (08:38)
[2019-11-21] MEDS: GABAPENTIN 100 MG CAP PO SCH ×3 (08:38→20:19)
[2019-11-21] MEDS: FLUoxetine 20 MG CAP PO SCH (08:39)
[2019-11-21] MEDS: PANTOPRAZOLE 40MG TAB (PROTONIX) PO SCH (08:39)
[2019-11-21] MEDS: PROPRANOLOL 60 MG LA CAP PO SCH (08:40)
[2019-11-21] MEDS: REMEDY PHYTOPLEX Z-GUARD PASTE 113GM TUBE (FROM STOREROOM PRODUCT) TOP SCH ×3 (08:41→20:19)
[2019-11-21] MEDS ORDERED: SOD POLYSTYRENE SULFONATE SUSP 15 GM/60 ML UD PO ONE (11:00)
--- NOTE | 2019-11-21 13:05 | IPNPDOC ---
Text Note Date of Service The patient was seen on 11/17/19. NOTE Subjective: Chart reviewed, patient has no new medical complaints. Objective: General: NAD, elderly, frail HEENT: NC/AT, EOMI Lungs: CTA B/L Heart: RRR, +S1S2 Abd: soft, NT, +BS Ext: no edema Neuro: no gross focal deficits A/P: 79-year-old female with a history of DVT/PE and palpitation presents for AMS/expressive aphasia/word finding, admitted for possible TIA/CVA, discharged to acute rehab. #AMS/TIA resolved Continue home Coumadin for full anticoagulation, atorvastatin 20 mg #dysphagia - modified diet as recommended #HTN - hydralazine, beta juan luis # Recurrent DVT/PE. Continue home Coumadin, check INR daily, adjust Coumadin dose to maintain INR between 2 and 3. #Palpitations. Patient denies history of atrial fibrillation or other arrhythmia. Hold home beta juan luis in the setting of sinus bradycardia. #Thrombocytosis - worsening over the past 2 years, has been on coumadin for that time period #DVT prophylaxis: On Coumadin full anticoagulation. VS,Fishbone, I+O VS, Fishbone, I+O Laboratory Tests 11/21/19 06:55 Vital Signs Date Time Temp Pulse Resp B/P (MAP) Pulse Ox O2 Delivery O2 Flow Rate FiO2 11/21/19 06:00 96.7 65 17 135/83 (100) 95 Room Air I&O- Last 24 Hours up to 6 AM 11/21/19 06:00 Intake Total 240 ml Output Total 0 ml Balance 240 ml DAVID CALDERON MD Nov 21, 2019 13:05
[2019-11-21 14:00] VITALS: BP 111/69
--- NOTE | 2019-11-21 14:07 | IPNPDOC ---
PM&R Progress Note DATE OF SERVICE: Nov 21, 2019 Candle Molder Machine Progress Note Subjective: Patient reporting she feels stronger overall and is concerned about her high blood pressures. REVIEW OF SYSTEMS: The following is a completed review of systems and has been reviewed. Review of systems otherwise unremarkable. PAIN: Patient self reports no pain EYES: No recent vision changes EARS, NOSE, & THROAT: +chronic dysphagia CARDIOVASCULAR: Denies chest pain or palpitations PULMONARY: Denies shortness of breath GASTROINTESTINAL: +diarrhea (improved) GENITOURINARY: denies dysuria MUSCULOSKELETAL:RLE weakness (reports chronic sciatica) NEUROLOGICAL: recent TIA HEMATOLOGICAL: +thrombocytosis SKIN: no rash PSYCHIATRIC: Unremarkable All other review of systems found to be negative. PHYSICAL EXAMINATION: VITAL SIGNS: Please see below. GENERAL: Pleasant and cooperative. No acute distress. HEENT: PERRL. Extraocular movements intact. Clear conjunctiva CARDIOVASCULAR: Regular rate and rhythm. No murmurs, rubs, or gallops LUNGS: Clear to auscultation bilaterally. No wheezes. No rhonchi ABDOMEN: Soft, nontender, nondistended. Positive bowel sounds. Normal active bowel sounds NEUROLOGICAL: Alert and oriented times three. Cranial nerves II through XII grossly intact. Sensation grossly intact EXTREMITIES: 5\5 strength bilateral upper extremities. 4\5 strength right lower extremity. 5/5 strength in left lower extremity. bilat LE edema SKIN: sacrum with blanchable erythema ASSESSMENT:79-year-old F with past medical history of DVT/PEs who presents status post TIA PLAN: 1. rehab- PT/OT advance ADls and mobility, strengthen/stretch/maintain ROM all limbs, ambulating with RW LANDSCAPE SUPERVISOR- c/u to treat chronic dysphagia for up to 2 sessions per day 2. Neuro- s/p TIA and started on statin, c/u ASA, recent MRI showing findings consistent with diffuse hypoxic ischemic injury which may contribute to patient's ongoing dysphagia -c/u SSRI for motor recovery 3.CArdiac- sick sinus syndrome with noted AFib on inpatient EKGs, patient currently on beta-juan luis and Coumadin, c/u current treatment -VTEs c/u daily Coumadin dosing -HTN c/u beta-juan luis, amldopine added for elevated BPs which are improving, c/u hydralazine ordered with parameters -HLD c/u statin -LE edema, mild, elevate legs and TEDs and encouraged 4. Resp: encourage incentive spirometry, monitor for infection 5. Heme- thrombocytosis possibly due to Coumadin dosing 6. GI ppx: protonix 7. DVT- on coumadin, Teds 8. Pain- gabapentin and tylenol 9. Hyperkalemia- will give kayexelate x1 and recheck BMP tomorrow 10. Dispo- 11/23/19 to home, progressing towards goals Allergies Coded Allergies: No Known Allergies (Unverified , 11/05/18) Vital Signs Vital Signs Date Time Temp Pulse Resp B/P (MAP) Pulse Ox O2 Delivery O2 Flow Rate FiO2 11/21/19 06:00 96.7 65 17 135/83 (100) 95 Room Air Laboratory Data CBC/BMP Laboratory Tests 11/21/19 06:55 Labs 24H Laboratory Tests 2 11/21/19 06:55: Immature Granulocyte % (Auto) 0.6, Neutrophils (%) (Auto) 68.0H, Lymphocytes (%) (Auto) 17.2L, Monocytes (%) (Auto) 10.2H, Eosinophils (%) (Auto) 3.1H, Basophils (%) (Auto) 0.9, Neutrophils # (Auto) 5.5, Lymphocytes # (Auto) 1.4L, Monocytes # (Auto) 0.8, Eosinophils # (Auto) 0.3, Basophils # (Auto) 0.1, Nucleated Red Blood Cells % (auto) 0.0, Prothrombin Time 27.1H, Prothromb Time International Ratio 2.53, Anion Gap 6L, Glomerular Filtration Rate 55.4, Calcium Level 8.6L Current Medications Current Medications Current Medications Medications (Trade) Dose Ordered Sig/Liat Route PRN Reason Start Time Stop Time Status Last Admin Dose Admin Acetaminophen (Tylenol Tab) 650 mg Q4HP PRN PO fever/MILD PAIN (PS 1-4) 11/16/19 18:15 11/21/19 08:38 Amlodipine Besylate (Norvasc) 5 mg DAILY PO 11/20/19 11:00 11/21/19 08:38 Aspirin (Ecotrin) 81 mg DAILY PO 11/17/19 09:00 11/21/19 08:37 Atorvastatin Calcium (Lipitor) 20 mg QHS PO 11/16/19 21:00 11/20/19 19:59 Bisacodyl (Dulcolax Suppository) 10 mg DAILYPRN PRN [place] CONSTIPATION 11/16/19 18:15 Docusate Sodium (Colace) 100 mg BID PO 11/16/19 21:00 11/17/19 16:03 DC 11/17/19 08:00 Docusate Sodium (Colace) 100 mg BID PRN PO constipation 11/17/19 16:15 Fluoxetine HCl (PROzac) 20 mg DAILY PO 11/18/19 09:00 11/21/19 08:39 Gabapentin (Neurontin) 100 mg TID PO 11/16/19 21:00 11/21/19 08:38 Hydralazine HCl (Apresoline) 25 mg Q6H PO 11/17/19 18:00 11/21/19 08:38 Pantoprazole Sodium (Protonix) 40 mg DAILY PO 11/16/19 09:00 11/21/19 08:39 Propranolol HCl (Inderal La) 60 mg DAILY PO 11/17/19 09:00 11/21/19 08:40 Senna (Senokot) 1 tab QHS PO 11/16/19 21:00 11/17/19 16:03 DC Senna (Senokot) 1 tab QHS PRN PO constipation 11/17/19 21:00 Warfarin Sodium (Coumadin) 4 mg DAILY@17 PO 11/17/19 17:00 11/20/19 16:30 CINDY MADERA MD Nov 21, 2019 14:07
[2019-11-21] MEDS: WARFARIN SOD 4 MG TAB PO SCH (16:49)
[2019-11-21 20:00] VITALS: BP 134/75
[2019-11-21] MEDS: ATORVASTATIN 20 MG TAB PO SCH (20:19)
[2019-11-22] MEDS: **hydrALAZINE HCL** 25 MG TAB PO SCH ×4 (00:16→17:53)
[2019-11-22 06:00] VITALS: BP 163/102
[2019-11-22 07:20] LABS: INR 2.65; PROTHROMBIN TIME 28.1 SECONDS (11.8-14.0)
[2019-11-22 07:47] LABS: CALCIUM LEVEL 8.6 MG/DL (8.8-10.2); CREATININE FOR GFR 1.04 MG/DL (0.55-1.30); GLOMERULAR FILTRATION RATE 54.1 (>32)
[2019-11-22] MEDS: GABAPENTIN 100 MG CAP PO SCH ×3 (08:47→20:21)
[2019-11-22] MEDS: FLUoxetine 20 MG CAP PO SCH (08:47)
[2019-11-22] MEDS: amLODIPine 5 MG TAB PO SCH (08:51)
[2019-11-22] MEDS: PANTOPRAZOLE 40MG TAB (PROTONIX) PO SCH (08:51)
[2019-11-22] MEDS: PROPRANOLOL 60 MG LA CAP PO SCH (08:51)
[2019-11-22] MEDS: REMEDY PHYTOPLEX Z-GUARD PASTE 113GM TUBE (FROM STOREROOM PRODUCT) TOP SCH ×3 (08:52→20:25)
[2019-11-22] MEDS: ASPIRIN 81 MG ENTERIC TAB PO SCH (09:38)
[2019-11-22] MEDS ORDERED: GABA-1171 PO (10:32)
[2019-11-22] MEDS ORDERED: FLUO20CA22 PO (10:32)
[2019-11-22] MEDS ORDERED: AMLO5TAB6 PO (10:32)
[2019-11-22] MEDS ORDERED: ATOR1TAB21 PO (10:32)
[2019-11-22] MEDS ORDERED: ASPI81TAEC PO (10:32)
[2019-11-22] MEDS ORDERED: COUM4TAB8 PO (10:32)
[2019-11-22] MEDS ORDERED: INDE60CA4 PO (10:32)
[2019-11-22 14:00] VITALS: BP 123/71
--- NOTE | 2019-11-22 16:52 | IPNPDOC ---
PM&R Progress Note DATE OF SERVICE: Nov 22, 2019 Personnel Training Officer Progress Note DATE OF ADMISSION: November 16, 2019 at 14:25 INPATIENT REHABILITATION ADMISSION DAY: # SUBJECTIVE: Patient is a -year-old with . ALLERGIES: See Below MEDICATIONS: Reviewed, see below. OBJECTIVE: VITAL SIGNS: Please see below. PHYSICAL EXAMINATION: GENERAL: [Cachectic, well developed, sitting up in bed, no acute distress]. HEENT: [Normocephalic, atraumatic]. [No facial droop]. [Poor dentition, missing teeth. PERRL, EOMI]. CARDIOVASCULAR: [S1, S2, irregular rate]. [No lower limb edema or calf tenderness]. LUNGS: [Decreased breath sounds, coarse throughout]. ABDOMEN: [Soft, nontender, nondistended. Normoactive bowel sounds throughout]. MUSCULOSKELETAL: MMT: /5 strength proximally bilateral shoulder abduction, forward flexion and bilateral hip flexion. /5 strength bilateral elbow flexion, knee flexion, /5 bilateral elbow extension and knee extension. /5 business analyst manager, dorsiflexion, plantar flexion. NEUROLOGICAL: [Alert and oriented times three]. [Answers all question appropriately]. SKIN: . LABORATORY DATA: Reviewed. Please see below. MICROBIOLOGY: Please see below. IMAGING: ASSESSMENT AND PLAN: 1. . 2. . 3. . TIME SPENT: Chart Review, examination and documentation minutes. Allergies Coded Allergies: No Known Allergies (Unverified , 11/05/18) Vital Signs Vital Signs Date Time Temp Pulse Resp B/P (MAP) Pulse Ox O2 Delivery O2 Flow Rate FiO2 11/22/19 14:00 97.9 72 18 123/71 (88) 96 Room Air Laboratory Data CBC/BMP Laboratory Tests 11/22/19 06:59 Labs 24H Laboratory Tests 2 11/22/19 06:59: Prothrombin Time 28.1H, Prothromb Time International Ratio 2.65, Anion Gap 6L, Glomerular Filtration Rate 54.1, Calcium Level 8.6L Current Medications Current Medications Current Medications Medications (Trade) Dose Ordered Sig/Liat Route PRN Reason Start Time Stop Time Status Last Admin Dose Admin Acetaminophen (Tylenol Tab) 650 mg Q4HP PRN PO fever/MILD PAIN (PS 1-4) 11/16/19 18:15 11/21/19 21:35 Amlodipine Besylate (Norvasc) 5 mg DAILY PO 11/20/19 11:00 11/22/19 08:51 Aspirin (Ecotrin) 81 mg DAILY PO 11/17/19 09:00 11/22/19 09:38 Atorvastatin Calcium (Lipitor) 20 mg QHS PO 11/16/19 21:00 11/21/19 20:19 Bisacodyl (Dulcolax Suppository) 10 mg DAILYPRN PRN [place] CONSTIPATION 11/16/19 18:15 Docusate Sodium (Colace) 100 mg BID PO 11/16/19 21:00 11/17/19 16:03 DC 11/17/19 08:00 Docusate Sodium (Colace) 100 mg BID PRN PO constipation 11/17/19 16:15 Fluoxetine HCl (PROzac) 20 mg DAILY PO 11/18/19 09:00 11/22/19 08:47 Gabapentin (Neurontin) 100 mg TID PO 11/16/19 21:00 11/22/19 08:47 Hydralazine HCl (Apresoline) 25 mg Q6H PO 11/17/19 18:00 11/22/19 06:07 Pantoprazole Sodium (Protonix) 40 mg DAILY PO 11/16/19 09:00 11/22/19 08:51 Propranolol HCl (Inderal La) 60 mg DAILY PO 11/17/19 09:00 11/22/19 08:51 Senna (Senokot) 1 tab QHS PO 11/16/19 21:00 11/17/19 16:03 DC Senna (Senokot) 1 tab QHS PRN PO constipation 11/17/19 21:00 Warfarin Sodium (Coumadin) 4 mg DAILY@17 PO 11/17/19 17:00 11/21/19 16:49 CINDY MADERA MD Nov 22, 2019 16:52
[2019-11-22] MEDS: WARFARIN SOD 4 MG TAB PO SCH (17:55)
[2019-11-22 20:00] VITALS: BP 123/70
[2019-11-22] MEDS: ATORVASTATIN 20 MG TAB PO SCH (20:21)
[2019-11-23] MEDS: **hydrALAZINE HCL** 25 MG TAB PO SCH ×3 (00:28→12:00)
[2019-11-23 04:00] VITALS: BP 143/62
[2019-11-23 07:00] LABS: BASO # 0.1 10^3/uL (0.0-0.2); BASO % 0.8 % (0.0-1.0); EOS # 0.2 10^3/uL (0.0-0.5); EOS % 2.7 % (0.0-3.0); HEMATOCRIT 40.2 % (36.0-47.0); HEMOGLOBIN 13.6 g/dl (12.0-15.5); LYMPH # 1.5 10^3/uL (1.5-5.0); LYMPH % 17.3 % (24.0-44.0); MEAN CORPUSCULAR HGB CONC 33.8 g/dl (32.0-36.5); MEAN CORPUSCULAR VOLUME 88.5 fl (80.0-96.0); MONO % 11.4 % (0.0-5.0); NEUTROPHILS # 5.7 10^3/uL (1.5-8.5); NEUTROPHILS % 67.2 % (36.0-66.0); RED BLOOD COUNT 4.54 10^6/uL (4.00-5.40); WHITE BLOOD COUNT 8.5 10^3/uL (4.0-10.0)
[2019-11-23 07:03] LABS: PLATELET COUNT, AUTOMATED 1022 10^3/uL (150-450)
[2019-11-23 07:10] LABS: INR 2.37; PROTHROMBIN TIME 25.7 SECONDS (11.8-14.0)
[2019-11-23 07:20] LABS: CALCIUM LEVEL 8.5 MG/DL (8.8-10.2); CREATININE FOR GFR 1.02 MG/DL (0.55-1.30); GLOMERULAR FILTRATION RATE 55.4 (>32)
[2019-11-23] MEDS: PANTOPRAZOLE 40MG TAB (PROTONIX) PO SCH (08:47)
[2019-11-23] MEDS: amLODIPine 5 MG TAB PO SCH (08:47)
[2019-11-23] MEDS: ASPIRIN 81 MG ENTERIC TAB PO SCH (08:47)
[2019-11-23] MEDS: PROPRANOLOL 60 MG LA CAP PO SCH (08:48)
[2019-11-23] MEDS: FLUoxetine 20 MG CAP PO SCH (08:48)
[2019-11-23] MEDS: GABAPENTIN 100 MG CAP PO SCH (08:48)
[2019-11-23] MEDS: REMEDY PHYTOPLEX Z-GUARD PASTE 113GM TUBE (FROM STOREROOM PRODUCT) TOP SCH (08:49)
[2019-11-23 12:00] VITALS: BP 132/70
== END 2019-11-23 13:30 | disposition home health service (06) | DRG 57 ==
LOC: M PM&R 14:25
PROVIDERS: ADMIT Physical Medicine & Rehabilitation; ATTEND Physical Medicine & Rehabilitation
DX: I69.891 Dysphagia following other cerebrovascular disease (principal); I10 Essential (primary) hypertension; I49.5 Sick sinus syndrome; R19.7 Diarrhea, unspecified; M54.31 Sciatica, right side; R13.10 Dysphagia, unspecified; D47.3 Essential (hemorrhagic) thrombocythemia; Z79.82 Long term (current) use of aspirin; Z86.711 Personal history of pulmonary embolism; Z86.718 Personal history of other venous thrombosis and embolism; Z79.899 Other long term (current) drug therapy; R00.2 Palpitations; M62.81 Muscle weakness (generalized); R60.0 Localized edema; E87.5 Hyperkalemia

== ENCOUNTER → 2019-11-28 | Outpatient (REF) | payer MEDICARE ==
[~2019-11-28] MED LIST changes: +AMLO5TAB6 PO; +ASPI81TAEC PO; +COUM4TAB8 PO; +FLUO20CA22 PO; +INDE60CA4 PO
[2019-11-28 13:18] LABS: BASO # 0.1 10^3/uL (0.0-0.2); BASO % 0.7 % (0.0-1.0); EOS # 0.2 10^3/uL (0.0-0.5); HEMATOCRIT 40.5 % (36.0-47.0); HEMOGLOBIN 13.3 g/dl (12.0-15.5); LYMPH # 1.3 10^3/uL (1.5-5.0); LYMPH % 16.7 % (24.0-44.0); MEAN CORPUSCULAR HEMOGLOBIN 29.6 pg (27.0-33.0); MEAN CORPUSCULAR HGB CONC 32.8 g/dl (32.0-36.5); MEAN CORPUSCULAR VOLUME 90.2 fl (80.0-96.0); MONO % 11.8 % (0.0-5.0); NEUTROPHILS # 5.5 10^3/uL (1.5-8.5); NEUTROPHILS % 68.2 % (36.0-66.0); RED BLOOD COUNT 4.49 10^6/uL (4.00-5.40)
[2019-11-28 13:19] LABS: PLATELET COUNT, AUTOMATED 1006 10^3/uL (150-450)
[2019-11-28 13:49] LABS: BILIRUBIN,TOTAL 0.4 MG/DL (0.2-1.0); CALCIUM LEVEL 8.6 MG/DL (8.8-10.2); CREATININE FOR GFR 1.02 MG/DL (0.55-1.30); GLOMERULAR FILTRATION RATE 55.4 (>32); POTASSIUM SERUM 5.1 MEQ/L (3.5-5.1)
[2019-11-28 13:50] LABS: TOTAL PROTEIN 6.5 GM/DL (6.4-8.2)
== END ==
LOC: M SHH 12:57
PROVIDERS: ATTEND Family Medicine
DX: I48.91 Unspecified atrial fibrillation (principal); D47.3 Essential (hemorrhagic) thrombocythemia; E78.5 Hyperlipidemia, unspecified

== ENCOUNTER → 2020-03-06 | Outpatient (REF) | payer MEDICARE ==
[~2020-03-06] MED LIST changes: +AMLO1TAB24 PO; -AMLO5TAB6 PO; +ASCO250T20 PO; -PANT20TA2 PO; +PANT20TA6 PO; -VITA1TAB23 PO
[2020-03-06 14:31] LABS: BASO % 0.6 % (0.0-1.0); EOS # 0.1 10^3/uL (0.0-0.5); EOS % 1.6 % (0.0-3.0); HEMATOCRIT 45.4 % (36.0-47.0); HEMOGLOBIN 14.9 g/dl (12.0-15.5); LYMPH # 1.4 10^3/uL (1.5-5.0); LYMPH % 19.3 % (24.0-44.0); MEAN CORPUSCULAR HEMOGLOBIN 28.9 pg (27.0-33.0); MEAN CORPUSCULAR HGB CONC 32.8 g/dl (32.0-36.5); MEAN CORPUSCULAR VOLUME 88.2 fl (80.0-96.0); MONO # 0.7 10^3/uL (0.0-0.8); MONO % 9.8 % (0.0-5.0); NEUTROPHILS # 4.8 10^3/uL (1.5-8.5); NEUTROPHILS % 68.3 % (36.0-66.0); RED BLOOD COUNT 5.15 10^6/uL (4.00-5.40); WHITE BLOOD COUNT 7.1 10^3/uL (4.0-10.0)
[2020-03-06 14:35] LABS: PLATELET COUNT, AUTOMATED 1133 10^3/uL (150-450)
[2020-03-06 15:14] LABS: ALBUMIN 3.4 GM/DL (3.2-5.2); BILIRUBIN,TOTAL 0.4 MG/DL (0.2-1.0); CALCIUM LEVEL 9.4 MG/DL (8.8-10.2); CHOLESTEROL RISK RATIO 3.3 (<5); CREATININE FOR GFR 1.18 MG/DL (0.55-1.30); GLOMERULAR FILTRATION RATE 46.8 (>32); POTASSIUM SERUM 5.2 MEQ/L (3.5-5.1); THYROID STIMULATING HORMONE 1.1 uIU/ML (0.358-3.740); TOTAL PROTEIN 6.8 GM/DL (6.4-8.2)
== END ==
LOC: M LABDRWAD 13:20
PROVIDERS: ATTEND Family Medicine
DX: G45.9 Transient cerebral ischemic attack, unspecified (principal); I48.91 Unspecified atrial fibrillation

== ENCOUNTER 2020-04-01 18:54 | Emergency (ER) | payer MEDICARE ==
[~2020-04-01] VITALS: Ht 154.9 cm; Wt 50.0 kg
--- NOTE | 2020-04-01 19:38 | REPVR ---
PROCEDURE INFORMATION: Exam: CT Head Without Contrast Exam date and time: 04/01/2020 7:13 PM Age: 79 years old Clinical indication: Injury or trauma; Fall; Blunt trauma (contusions or hematomas) TECHNIQUE: Imaging protocol: Computed tomography of the head without contrast. Radiation optimization: All CT scans at this facility use at least one of these dose optimization techniques: automated exposure control; mA and/or kV adjustment per patient size (includes targeted exams where dose is matched to clinical indication); or iterative reconstruction. COMPARISON: CT Head without contrast 11/15/2019 12:05 PM FINDINGS: Brain: No intracranial mass, focal mass effect or midline shift. No acute intracranial hemorrhage. Mild decreased attenuation in periventricular/centrum semiovale white matter. No focal effacement of cortical sulci to indicate acute cortical infarct. Cerebral ventricles: Prominent ventricles and CSF spaces suggest parenchymal volume loss. Bones/joints: No calvarial fracture or destructive process. Paranasal sinuses: Visualized paranasal sinuses are unremarkable. Mastoid air cells: Mastoid air cells are normally aerated. Orbital cavity: Visualized globes and orbits are unremarkable. Soft tissues: No focal extracranial soft tissue swelling. IMPRESSION: 1. No acute intracranial abnormality. 2. Atrophy and chronic microangiopathic change in supratentorial white matter. Electronically signed by: Prudencio Gomez On 04/01/2020 19:38:26 PM
--- NOTE | 2020-04-01 19:41 | REPVR ---
PROCEDURE INFORMATION: Exam: CT Cervical Spine Without Contrast Exam date and time: 04/01/2020 7:13 PM Age: 79 years old Clinical indication: Injury or trauma; Fall; Blunt trauma TECHNIQUE: Imaging protocol: Computed tomography images of the cervical spine without contrast. Radiation optimization: All CT scans at this facility use at least one of these dose optimization techniques: automated exposure control; mA and/or kV adjustment per patient size (includes targeted exams where dose is matched to clinical indication); or iterative reconstruction. COMPARISON: No relevant prior studies available. FINDINGS: Vertebrae: No traumatic segmental malalignment of cervical spine or craniocervical junction. Vertebral body height is maintained at all levels. No acute fracture. No destructive or blastic cervical spine osseous lesion. Discs/Spinal canal/Neural foramina: Intervertebral disc height is decreased at multiple levels, with typical degenerative pattern and associated endplate, articular pillar and uncovertebral spurs. Prevertebral Space: Prevertebral soft tissues demonstrate no asymmetry. Thyroid: Incompletely imaged nodular thyroid gland Lungs: No concerning abnormality of the imaged lung apices. IMPRESSION: 1. No acute fracture or traumatic subluxation of the cervical spine. 2. Multilevel degenerative disc and articular pillar arthropathy. 3. Nodular appearing thyroid gland, obscured by osseous streak artifact. Outpatient sonography could be performed to evaluate Electronically signed by: Prudencio Gomez On 04/01/2020 19:41:15 PM
[2020-04-01 23:02] VITALS: BP 159/79
--- NOTE | 2020-04-05 08:29 | ED PDOC ---
Post-Departure Follow-Up radiology report faxed to Jaquan Werner Sarah MD Apr 05, 2020 08:29
== END 2020-04-01 23:03 | disposition home or self-care (01) ==
LOC: M ED 18:54
DX: S00.01XA Abrasion of scalp, initial encounter (principal); W06.XXXA Fall from bed, initial encounter; Y92.9 Unspecified place or not applicable; Y93.9 Activity, unspecified; Y99.9 Unspecified external cause status; Z79.01 Long term (current) use of anticoagulants; Z79.1 Long term (current) use of non-steroidal anti-inflammatories (NSAID); Z79.82 Long term (current) use of aspirin; Z79.899 Other long term (current) drug therapy; Z86.718 Personal history of other venous thrombosis and embolism

== ENCOUNTER 2021-01-20 11:34 | Observation (INO) | payer MEDICARE ==
[~2021-01-20] VITALS: Ht 154.9 cm; Wt 51.8 kg
[~2021-01-20 11:34] MED LIST changes: +ASPI-569 PO; -ASPI81TAEC PO; +ATOR1TAB19 PO; +BACT800T5 PO; +GABA-283 PO; -GABA-845 PO; +HYDR500C3 PO; +LEVO500T3 PO; +LOSA25TA14 PO
[2021-01-20] MEDS ORDERED: ACETAMINOPHEN TAB 650MG DOSE (2X325MG) PO ONE (14:05)
[2021-01-20] MEDS ORDERED: diazePAM 2 MG TAB PO ONE (14:05)
--- NOTE | 2021-01-20 14:57 | REP ---
INDICATION: inability to ambulate, PCP concerned about hip dislocation. COMPARISON: Right hip of 1060 TECHNIQUE: AP pelvis an bilateral AP and frog-lateral views of the hips FINDINGS: Right hip: Since the last examination there has been marked destruction of the right femoral head which is non spherical and seen in conjunction with advanced asymmetric hip joint space narrowing and superolateral subluxation. There is subchondral sclerosis and subchondral cyst formation seen throughout the right femoral head and neck region as well as the acetabulum. On the left: There is mild to moderate asymmetric hip joint space narrowing without evidence of an acute fracture, dislocation, or subluxation. The bones are demineralized. 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 Findings involving the left hip as described above. <Electronically signed by Jacobo Carbajal > 01/20/21 1502
--- NOTE | 2021-01-20 16:16 | REP ---
INDICATION: back pain w/ leg weakness, hx comp fx's (thoracic). COMPARISON: CT chest 11/05/2018. TECHNIQUE: Axial CT lumbar spine performed, with sagittal and coronal reconstruction images. The study is performed at 2:51 p.m. and is submitted for interpretation at 3:57 p.m. for reasons unknown to me. FINDINGS: There is a severe compression deformity again noted of the T12 vertebral body, not significantly changed from compared to the prior CT of the chest 11/05/2018. No acute fracture or dislocation is visualized of the lumbar vertebral bodies. There is moderate diffuse spurring. There is moderate disc space narrowing at all levels with mild subchondral sclerosis. Vacuum phenomenon is noted at L1-2, L4-5 and L5-S1. There is sclerosis and spurring at the posterior facet joints. There is curvature convex to the left. I do not see evidence of large disc herniation at any level. There is no significant spinal stenosis or foraminal narrowing. There is a cyst of the lower pole the left kidney. Calcified granulomas are seen in the spleen. IMPRESSION: Old severe compression deformity T12 vertebral body, unchanged since the prior CT of 11/05/2018. Chronic degenerative changes. No acute fracture or dislocation. <Electronically signed by Chintan Castillo > 01/20/21 [id number]
[2021-01-20] MEDS ORDERED: WARF-23 PO (18:32)
[2021-01-20] MEDS ORDERED: FLUO20CA22 PO (18:32)
[2021-01-20] MEDS ORDERED: AMLO1TAB24 PO (18:32)
[2021-01-20] MEDS ORDERED: HOME MED LIST COMPLETE! XX SCH (18:35)
[2021-01-20] MEDS ORDERED: MAALOX 30 ML SUSP *UDC PO PRN (19:10)
[2021-01-20] MEDS ORDERED: ACETAMINOPHEN TAB 650MG DOSE (2X325MG) PO PRN (19:10)
[2021-01-20] MEDS ORDERED: MOM 30ML SUSPENSION UDC PO PRN (19:10)
--- NOTE | 2021-01-20 19:13 | HPEPDOC ---
[facility] Medical History & Physical Date of Admission Jan 20, 2021 Date of Service: Jan 20, 2021 Attending Physician: TIERRA LEIVA MD History and Physical CHIEF COMPLAINT: [80 y/o female c/o increasing back pain, difficult ambulation x4 days] HISTORY OF PRESENT ILLNESS: [This is an 80 y/o female with a pmh of chronic t12 compression fx, bradycardia s/p pacemaker placement, htn, gerd, dementia, thrombocythemia with subsequent dvt, pe and TIA now on warfarin and hydroxyurea who presents to our ED on 01/20 with a cc of acutely increased back pain and difficulty ambulating. Patient states that at baseline, she is able to ambulate with a walker, but this has gotten worse since her back pain has increased. Patient states that the pain is located in the lower/middle back and radiates into her b/l hips. Patient states that she cannot think of an obvious cause of her exacerbated pain. Patient states that the movement is worse with movement/position change and somewhat better with rest. Patient, at the time of my exam, denies new incontinence, saddle anesthesia, paralysis, lower leg paresthesias, fevers, chills, chest pain, sob, headache, syncope, recent falls.] PAST MEDICAL HISTORY: 1. [See HPI PAST SURGICAL HISTORY: 1. [Pacemaker placement]. 2. [Partial thyroidectomy]. SOCIAL HISTORY: Tobacco use:[Denies] ETOH: [Denies] Illicit drug use: [Denies] FAMILY HISTORY: Reviewed - none pertinent ALLERGIES: Please see below. REVIEW OF SYSTEMS: CONSTITUTIONAL: [Denies fevers, chills]. HEENT: [Denies uri sx]. CARDIOVASCULAR: [Denies chest pain, palpitations]. RESPIRATORY: [Denies sob, wheezing, cough]. GASTROINTESTINAL: [Denies abd pain, n/v/d/c]. GENITOURINARY: [Denies dysuria]. SKIN: [Denies rash]. MUSCULOSKELETAL: [See HPI]. NEUROLOGICAL: [See HPI]. ENDOCRINE: [Denies hx of DM]. HEMATOLOGIC/LYMPHATIC: [Hx of thrombocythemia]. HOME MEDICATIONS: Please see below. PHYSICAL EXAMINATION: VITAL SIGNS: Please see below. GENERAL APPEARANCE: [This is a frail appearing 80 y/o female. She appears comfortable when still but yelps in pain with movement. Patient does not appear to be in any respiratory distress]. HEENT: [No mass or lesion. EOMI. No scleral icterus. Nares patent. Oral mucosa moist]. CARDIOVASCULAR: [Regular rate, rhythm. No murmurs, rubs, gallops]. LUNGS: [Good air flow b/l. No wheezing, rales, rhonchi]. ABDOMEN: [Soft, nontender]. MUSCULOSKELETAL: [No joint deformity]. EXTREMITIES: [No pedal edema noted. No overlying skin changes. Pulses intact]. NEUROLOGICAL: [Sensation intact. Patient moves all fours during exam. Speech clear. A+Ox3. No focal deficits]. PSYCHIATRIC: [Mood and affect appear appropriate.]. LABORATORY DATA: See below. IMAGING: [Hip XR: FINDINGS: Right hip: Since the last examination there has been marked destruction of the right femoral head which is non spherical and seen in conjunction with advanced asymmetric hip joint space narrowing and superolateral subluxation. There is subchondral sclerosis and subchondral cyst formation seen throughout the right femoral head and neck region as well as the acetabulum. On the left: There is mild to moderate asymmetric hip joint space narrowing without evidence of an acute fracture, dislocation, or subluxation. The bones are demineralized. 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 Findings involving the left hip as described above. Lumbar spine CT: FINDINGS: There is a severe compression deformity again noted of the T12 vertebral body, not significantly changed from compared to the prior CT of the chest 11/05/2018. No acute fracture or dislocation is visualized of the lumbar vertebral bodies. There is moderate diffuse spurring. There is moderate disc space narrowing at all levels with mild subchondral sclerosis. Vacuum phenomenon is noted at L1-2, L4-5 and L5-S1. There is sclerosis and spurring at the posterior facet joints. There is curvature convex to the left. I do not see evidence of large disc herniation at any level. There is no significant spinal stenosis or foraminal narrowing. There is a cyst of the lower pole the left kidney. Calcified granulomas are seen in the spleen. IMPRESSION: Old severe compression deformity T12 vertebral body, unchanged since the prior CT of 11/05/2018. Chronic degenerative changes. No acute fracture or dislocation.] MICROBIOLOGY: Please see below. ASSESSMENT: [This is an 80 y/o female with a pmh of chronic t12 compression fx, bradycardia s/p pacemaker placement, htn, gerd, dementia, thrombocythemia with subsequent dvt, pe and TIA now on warfarin and hydroxyurea who presents to our ED on 01/20 with a cc of acutely increased back pain and difficulty ambulating.]. . PLAN: 1. [Difficult ambulation - Secondary to pain. Patient has many chronic degenerative changes as stated above. - Suspicion for spinal cord syndrome very low. Patient does not appear to have foraminal narrowing on ct imaging and has no red flag symptoms on exam. - PT/OT eval, patient may be a candidate for acute rehab - pain control with tylenol, percocet - continue at home gabapentin - admit to med surg for pain control/pt/ot 2. Thrombocythemia with hx of vte - Patient's current platelet level wnl - Continue hydroxyurea - Continue warfarin - pt's inr therapeutic today - daily inr 3. HTN - continue amlodipine, losartan 4. GERD - continue protonix 5. Depression/anxiety - continue fluoxetine DVT prophylaxis - patient is on warfarin]. Vital Signs Vital Signs Date Time Temp Pulse Resp B/P (MAP) Pulse Ox O2 Delivery O2 Flow Rate FiO2 01/20/21 13:31 01/20/21 11:38 97.4 62 20 96 Room Air Laboratory Data Labs 24H Laboratory Tests 2 01/20/21 14:27: Urine Color YELLOW, Urine Appearance HAZY, Urine pH 6.0, Urine Specific [place] 1.016, Urine Protein 1+H, Urine Glucose (UA) NEGATIVE, Urine Ketones NEGATIVE, Urine Blood 1+H, Urine Nitrite NEGATIVE, Urine Bilirubin NEGATIVE, Urine Urobilinogen 0.2, Urine Leukocyte Esterase 3+H, Urine WBC (Auto) 20H, Urine RBC (Auto) 2, Urine Hyaline Casts (Auto) 0, Urine Bacteria (Auto) NEGATIVE, Urine Squamous Epithelial Cells 6, Urine Sperm (Auto) Microbiology Microbiology 01/20/21 Urine Culture, Received Pending Home Medications Scheduled Amlodipine Besylate (Amlodipine Besylate) 5 Mg Tablet, 5 MG PO BID Fluoxetine Hcl (Fluoxetine HCl) 20 Mg Capsule, 20 MG PO DAILY Gabapentin (Gabapentin) 100 Mg Cap, 100 MG PO DAILY Hydroxyurea (Hydroxyurea) 500 Mg Capsule, 500 MG PO daily as directed 1 tab by mouth daily Mondays to Saturdays. 2 tabs by mouth on Sundays. Losartan Potassium (Losartan Potassium) 25 Mg Tablet, 25 MG PO DAILY Pantoprazole Sodium (Pantoprazole Sodium) 20 Mg Tablet.dr, 20 MG PO DAILY Propranolol HCl (Propranolol HCl ER) 60 Mg Cap.sa.24h, 60 MG PO DAILY Warfarin Sodium (Warfarin Sodium) 5 Mg Tablet, 5 MG PO [id number] QPM: SUN, MON, , TH, FRI, SAT, PATIENT FORGOT TO TAKE DOSE 01/19/21 SO TOOK THIS AM. Warfarin Sodium (Warfarin Sodium) 5 Mg Tablet, 2.5 MG PO 1XWK QPM: TUE Scheduled PRN Acetaminophen (Acetaminophen) 500 Mg Tablet, 500 MG PO Q8H PRN for PAIN Allergies Coded Allergies: No Known Allergies (Unverified , 11/05/18) A-FIB/CHADSVASC A-FIB History Current/History of A-Fib/PAF?: No KATHERINE MCPHERSON Jan 20, 2021 19:13
[2021-01-20 19:49] LABS: BASO % 0.5 % (0.0-1.0); EOS # 0.1 10^3/uL (0.0-0.5); HEMATOCRIT 42.2 % (36.0-47.0); HEMOGLOBIN 14.1 g/dl (12.0-15.5); LYMPH # 1.1 10^3/uL (1.5-5.0); LYMPH % 17.6 % (24.0-44.0); MEAN CORPUSCULAR HEMOGLOBIN 34.4 pg (27.0-33.0); MEAN CORPUSCULAR HGB CONC 33.4 g/dl (32.0-36.5); MEAN CORPUSCULAR VOLUME 102.9 fl (80.0-96.0); MONO # 0.7 10^3/uL (0.0-0.8); MONO % 11.9 % (2.0-8.0); NEUTROPHILS # 4.2 10^3/uL (1.5-8.5); NEUTROPHILS % 68.7 % (36.0-66.0); PLATELET COUNT, AUTOMATED 355 10^3/uL (150-450); WHITE BLOOD COUNT 6.1 10^3/uL (4.0-10.0)
[2021-01-20 20:04] LABS: INR 2.42; PROTHROMBIN TIME 26.7 SECONDS (12.7-14.5)
[2021-01-20 20:05] LABS: PARTIAL THROMBOPLASTIN TIME 47.7 SECONDS (25.9-37.0)
[2021-01-20 20:34] LABS: RSV AMPLIFICATION NEGATIVE (NEGATIVE)
[2021-01-20 20:35] LABS: ALBUMIN 3.1 GM/DL (3.2-5.2); ALT/SGPT 16 U/L (12-78); BILIRUBIN,TOTAL 0.5 MG/DL (0.2-1.0); BLOOD UREA NITROGEN 31 MG/DL (7-18); CALCIUM LEVEL 8.9 MG/DL (8.8-10.2); CARBON DIOXIDE LEVEL 28 MEQ/L (21-32); CHLORIDE LEVEL 106 MEQ/L (98-107); CREATININE FOR GFR 0.87 MG/DL (0.55-1.30); GLOMERULAR FILTRATION RATE > 60.0 (>32); GLUCOSE, FASTING 102 MG/DL (70-100); SODIUM LEVEL 140 MEQ/L (136-145); TOTAL PROTEIN 6.7 GM/DL (6.4-8.2)
[2021-01-20] MEDS ORDERED: PERCOCET 5MG/325MG TAB PO PRN (20:40)
[2021-01-20 22:45] VITALS: BP 140/73
[2021-01-20] MEDS: amLODIPine 5 MG TAB PO SCH (23:49)
[2021-01-21] MEDS: PERCOCET 5MG/325MG TAB PO PRN ×2 (01:43→16:30)
[2021-01-21 06:00] VITALS: BP 147/80
[2021-01-21 06:55] LABS: INR 2.66; PROTHROMBIN TIME 28.7 SECONDS (12.7-14.5)
[2021-01-21 06:56] LABS: PARTIAL THROMBOPLASTIN TIME 54.9 SECONDS (25.9-37.0)
[2021-01-21] MEDS: HYDROXYUREA 500 MG CAP PO SCH (08:02)
[2021-01-21] MEDS: GABAPENTIN 100 MG CAP PO SCH (08:03)
[2021-01-21] MEDS: LOSARTAN 25 MG TAB PO SCH (08:03)
[2021-01-21] MEDS: PANTOPRAZOLE 20 MG TAB PO SCH (08:04)
[2021-01-21] MEDS: amLODIPine 5 MG TAB PO SCH ×2 (08:04→20:28)
[2021-01-21] MEDS: FLUoxetine 20 MG CAP PO SCH (08:04)
[2021-01-21 14:00] VITALS: BP 114/78
[2021-01-21] MEDS ORDERED: WARFARIN SOD 2.5MG TAB PO SCH (17:00)
--- NOTE | 2021-01-21 17:22 | IPNPDOC ---
Text Note Date of Service The patient was seen on 01/21/21. NOTE SUBJECTIVE: -Pain has improved from admission, is doing quite well working with PT. Motivated. OBJECTIVE: VITAL SIGNS: Please see below. GENERAL APPEARANCE:Frail, NAD HEENT: NCAT, MMM, EOMI CARDIOVASCULAR: Regular rate, rhythm. No murmurs, rubs, gallops LUNGS:Good air flow b/l. No wheezing, rales, rhonchi. ABDOMEN: Normoactive sounds, soft NTND EXTREMITIES: WWP, no LE edema NEUROLOGICAL: No dysarthria, moving all extremities with full strength and no asymmetrical weakness. PSYCHIATRIC: AOx3 LABORATORY DATA: Reviewed IMAGING: Right hip XR: Since the last examination there has been marked destruction of the right femoral head which is non spherical and seen in conjunction with advanced asymmetric hip joint space narrowing and superolateral subluxation. There is subchondral sclerosis and subchondral cyst formation seen throughout the right femoral head and neck re gion as well as the acetabulum. On the left: There is mild to moderate asymmetric hip joint space narrowing without evidence of an acute fracture, dislocation, or subluxation. The bones are demineralized. 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 Findings involving the left hip as described above. Lumbar spine CT: There is a severe compression deformity again noted of the T12 vertebral body, not significantly changed from compared to the prior CT of the chest 11/05/2018. No acute fracture or dislocation is visualized of the lumbar vertebral bodies. There is moderate diffuse spurring. There is moderate disc space narrowing at all levels with mild subchondral sclerosis. Vacuum phenomenon is noted at L1-2, L4-5 and L5-S1. There is sclerosis and spurring at the posterior facet joints. There is curvature convex to the left. I do not see evidence of large disc herniation at any level. There is no significant spinal stenosis or foraminal narrowing. There is a cyst of the lower pole the left kidney. Calcified granulomas are seen in the spleen. IMPRESSION: Old severe compression deformity T12 vertebral body, unchanged since the prior CT of 11/05/2018. Chronic degenerative changes. No acute fracture or dislocation.] MICROBIOLOGY: Please see below. ASSESSMENT: 80 y/o W with a pmh of chronic t12 compression fx, bradycardia s/p pacemaker placement, htn, gerd, dementia, chronic thrombocythemia on hydrea, dvt, pe and TIA now on warfarin who was admitted for acute on chronic back back with difficulty ambulating. PLAN: Difficulty ambulating - Secondary to pain 2/2 chronic degenerative changes as stated above. - No evidence of spinal cord syndrome with no red flag symptoms on exam. - PT/OT evaluation going very well - pain control with tylenol, percocet - continue at home gabapentin 2. Thrombocythemia with hx of vte - Patient's current platelet level wnl - Continue hydroxyurea - Continue warfarin - daily inr 3. HTN - continue amlodipine, losartan 4. GERD - continue protonix 5. Depression/anxiety - continue fluoxetine DVT prophylaxis - patient is on warfarin VS,Fishbone, I+O VS, Fishbone, I+O Laboratory Tests 01/20/21 19:37 Vital Signs Date Time Temp Pulse Resp B/P (MAP) Pulse Ox O2 Delivery O2 Flow Rate FiO2 01/21/21 17:00 18 01/21/21 14:00 97.5 74 114/78 (90) 96 Room Air I&O- Last 24 Hours up to 6 AM 01/21/21 06:00 Intake Total 240 ml Balance 240 ml ZORAN BREWSTER MD Jan 21, 2021 17:22
[2021-01-21 20:23] VITALS: BP 109/72
[2021-01-22 05:27] LABS: INR 2.7
[2021-01-22 05:28] LABS: PARTIAL THROMBOPLASTIN TIME 65.5 SECONDS (25.9-37.0)
[2021-01-22] MEDS: amLODIPine 5 MG TAB PO SCH (08:31)
[2021-01-22] MEDS: HYDROXYUREA 500 MG CAP PO SCH (08:31)
[2021-01-22 08:32] VITALS: BP 109/72
[2021-01-22] MEDS: GABAPENTIN 100 MG CAP PO SCH (08:32)
[2021-01-22] MEDS: FLUoxetine 20 MG CAP PO SCH (08:32)
[2021-01-22] MEDS: LOSARTAN 25 MG TAB PO SCH (08:32)
[2021-01-22] MEDS: PANTOPRAZOLE 20 MG TAB PO SCH (08:32)
[2021-01-22] MEDS ORDERED: PERCOCET PO (12:53)
--- NOTE | 2021-01-22 13:21 | DS.PDOC ---
Discharge Summary General Date of Admission Jan 20, 2021 at 11:35 Date of Discharge 01/22/2021 Attending Physician: ZORAN BREWSTER MD Discharge Summary PROCEDURES PERFORMED DURING STAY: None ADMITTING DIAGNOSES: Chronic back pain with difficulty walking DISCHARGE DIAGNOSES: Acute on chronic lower back pain with difficulty ambulating Chronic t12 compression fx htn gerd dementia Chronic thrombocythemia History of VTEs on warfarin COMPLICATIONS/CHIEF COMPLAINT: Back Pain,Difficulty In Walking. HISTORY OF PRESENT ILLNESS: 80 y/o W with a pmh of chronic t12 compression fx, bradycardia s/p pacemaker placement, htn, gerd, dementia, thrombocythemia with subsequent dvt, pe and TIA on warfarin and hydroxyurea who presents to our ED on 01/20 with acute increased back pain and difficulty ambulating. Patient reported that at baseline, she is able to ambulate with a walker, but she was unable since her back pain has increased. Her pain was located in the lower/middle back and radiated into her b/l hips, without any obvious cause of her exacerbated pain. She otherwise denied new incontinence, saddle anesthesia, paralysis, lower leg paresthesias, fevers, chills, chest pain, sob, headache, syncope, recent falls. HOSPITAL COURSE: She had hip XR and CT of her L spine that was stable from prior showing the old fractures and degenerative disease without new acute pathology noted. Her pain improved with addition of oxycodone, worked with PT/OT and was recommended for ARU admission. She is now being discharged to the ARU for continue rehabilitation. DISCHARGE MEDICATIONS: Please see below. ALLERGIES: Please see below. PHYSICAL EXAMINATION ON DISCHARGE: VITAL SIGNS: Please see below. GENERAL APPEARANCE:Frail, NAD HEENT: NCAT, MMM, EOMI CARDIOVASCULAR: Regular rate, rhythm. No murmurs, rubs, gallops LUNGS:Good air flow b/l. No wheezing, rales, rhonchi. ABDOMEN: Normoactive sounds, soft NTND EXTREMITIES: WWP, no LE edema NEUROLOGICAL: No dysarthria, moving all extremities with full strength and no asymmetrical weakness. PSYCHIATRIC: AOx3 LABORATORY DATA: Please see below. IMAGING: Hip XR: FINDINGS: Right hip: Since the last examination there has been marked destruction of the right femoral head which is non spherical and seen in conjunction with advanced asymmetric hip joint space narrowing and superolateral subluxation. There is subchondral sclerosis and subchondral cyst formation seen throughout the right femoral head and neck region as well as the acetabulum. On the left: There is mild to moderate asymmetric hip joint space narrowing without evidence of an acute fracture, dislocation, or subluxation. The bones are demineralized. 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 Findings involving the left hip as described above. Lumbar spine CT: FINDINGS: There is a severe compression deformity again noted of the T12 vertebral body, not significantly changed from compared to the prior CT of the chest 11/05/2018. No acute fracture or dislocation is visualized of the lumbar vertebral bodies. There is moderate diffuse spurring. There is moderate disc space narrowing at all levels with mild subchondral sclerosis. Vacuum phenomenon is noted at L1-2, L4-5 and L5-S1. There is sclerosis and spurring at the posterior facet joints. There is curvature convex to the left. I do not see evidence of large disc herniation at any level. There is no significant spinal stenosis or foraminal narrowing. There is a cyst of the lower pole the left kidney. Calcified granulomas are seen in the spleen. IMPRESSION: Old severe compression deformity T12 vertebral body, unchanged since the prior CT of 11/05/2018. Chronic degenerative changes. No acute fracture or dislocation.] PROGNOSIS: Good ACTIVITY: As tolerated, per PM&R DIET: Regular DISCHARGE PLAN: ARU DISPOSITION: ARU DISCHARGE INSTRUCTIONS: to the ARU ITEMS TO FOLLOWUP ON ON OUTPATIENT: PT/OT and mobility Chronic degenerative disease with known t12 compression fracture pain management DISCHARGE CONDITION: Stable TIME SPENT ON DISCHARGE: 34 minutes. Vital Signs/I&Os Vital Signs Date Time Temp Pulse Resp B/P (MAP) Pulse Ox O2 Delivery O2 Flow Rate FiO2 01/22/21 09:04 18 Room Air 01/22/21 08:32 109/72 01/22/21 08:31 64 01/21/21 20:23 98.3 93 I&O- Last 24 Hours up to 6 AM 01/22/21 06:00 Intake Total 960 ml Balance 960 ml Laboratory Data Labs 24H Laboratory Tests 2 01/22/21 05:00: Prothrombin Time 29.0H, Prothromb Time International Ratio 2.70, Activated Partial Thromboplast Time 65.5H Microbiology Microbiology 01/20/21 Urine Culture - Final, Complete Discharge Medications Scheduled Amlodipine Besylate (Amlodipine Besylate) 5 Mg Tablet, 5 MG PO BID, (Reported) Fluoxetine Hcl (Fluoxetine HCl) 20 Mg Capsule, 20 MG PO DAILY, (Reported) Gabapentin (Gabapentin) 100 Mg Cap, 100 MG PO DAILY, (Reported) Hydroxyurea (Hydroxyurea) 500 Mg Capsule, 500 MG PO daily as directed 1 tab by mouth daily Mondays to Saturdays. 2 tabs by mouth on Sundays. Losartan Potassium (Losartan Potassium) 25 Mg Tablet, 25 MG PO DAILY, (Reported) Pantoprazole Sodium (Pantoprazole Sodium) 20 Mg Tablet.dr, 20 MG PO DAILY, (Reported) Propranolol HCl (Propranolol HCl ER) 60 Mg Cap.sa.24h, 60 MG PO DAILY, (Reported) Warfarin Sodium (Warfarin Sodium) 5 Mg Tablet, 5 MG PO 6XWK, (Reported) QPM: TUE, MON, , , FRI, SAT, PATIENT FORGOT TO TAKE DOSE 01/19/21 SO TOOK THIS AM. Warfarin Sodium (Warfarin Sodium) 5 Mg Tablet, 2.5 MG PO 1XWK, (Reported) QPM: TUE Scheduled PRN Acetaminophen (Acetaminophen) 500 Mg Tablet, 500 MG PO Q8H PRN for PAIN, (Reported) Oxycodone/Acetaminophen (Oxycodone-Acetaminophen 5-325) 1 Each Tablet, 1 TAB PO Q6HP PRN for MODERATE/SEVERE PAIN (PS 5-10) Allergies Coded Allergies: No Known Allergies (Unverified , 11/05/18) ZORAN BREWSTER MD Jan 22, 2021 13:21
[2021-01-22 14:01] VITALS: BP 94/69
[2021-01-22] MEDS ORDERED: WARFARIN SOD 5MG TAB PO SCH (17:00)
[2021-01-25] MEDS ORDERED: HYDROXYUREA 500 MG CAP PO SCH (09:00)
== END 2021-01-22 15:20 ==
LOC: M ED 11:34 → M ED INP 11:35 → M MS5PR 22:55
PROVIDERS: ADMIT Family Medicine; ATTEND Internal Medicine
DX: M54.9 Dorsalgia, unspecified (principal); G89.29 Other chronic pain; R26.2 Difficulty in walking, not elsewhere classified; S22.080G Wedge compression fracture of T11-T12 vertebra, subsequent encounter for fracture with delayed healing; X58.XXXD Exposure to other specified factors, subsequent encounter; M16.0 Bilateral primary osteoarthritis of hip; M21.951 Unspecified acquired deformity of right thigh; D69.6 Thrombocytopenia, unspecified; Z86.718 Personal history of other venous thrombosis and embolism; I10 Essential (primary) hypertension; K21.9 Gastro-esophageal reflux disease without esophagitis; F32.9 Major depressive disorder, single episode, unspecified; F41.9 Anxiety disorder, unspecified; F03.90 Unspecified dementia, unspecified severity, without behavioral disturbance, psychotic disturbance, mood disturbance, and anxiety; R00.1 Bradycardia, unspecified; Z95.0 Presence of cardiac pacemaker; Z86.711 Personal history of pulmonary embolism; Z86.73 Personal history of transient ischemic attack (TIA), and cerebral infarction without residual deficits; Z79.899 Other long term (current) drug therapy; Z79.01 Long term (current) use of anticoagulants

== ENCOUNTER 2021-01-22 13:34 | Inpatient (IN) | payer MEDICARE ==
[~2021-01-22] VITALS: Ht 154.9 cm; Wt 53.5 kg
[~2021-01-22 13:34] MED LIST changes: +PERCOCET PO
[2021-01-22 15:30] VITALS: BP 127/60
[2021-01-22] MEDS ORDERED: BISACODYL 10 MG SUPP PR PRN (15:30)
--- NOTE | 2021-01-22 15:48 | HPEPDOC ---
Automatic Nailing Machine Feeder Note DATE OF ADMISSION: 01-21-21 DATE OF SERVICE: 01-22-21 TIME OF ADMISSION: Please refer to physician's admission order. SOURCE OF ADMISSION INFORMATION: [facility] record and patient CHIEF COMPLAINT: intractable back pain HISTORY OF PRESENT ILLNESS: 80F pmh chronic t12 compression fracture, bradycardia with pacemaker, HTN, DVT and PE on warfarin, TIA, thrombocythemia on hydroxyurea, dementia, sciatica with RLE weakness who developed worsening low back pain and difficulty ambulating and admitted for intractable back pain and inability to ambulate. Hip Xrays revealed possible old vascular necrosis of the right hip and joint space narrowing of the left hip. Lumbar CT "moderate disc space narrowing at all levels with mild subchondral sclerosis" with no signs of stenosis. She had impairments in ADL s and mobility and deemed medically appropriate for discharge to ARU. REVIEW OF SYSTEMS: The following is a completed review of systems and has been reviewed. Review of systems otherwise unremarkable. PAIN: Patient self reports no pain at rest EYES: No recent vision changes EARS, NOSE, & THROAT: No throat pain, or dysphagia, or rhinorrhea CARDIOVASCULAR: Denies chest pain or palpitations PULMONARY: Denies shortness of breath GASTROINTESTINAL: Denies constipation/diarrhea GENITOURINARY: denies dysuria MUSCULOSKELETAL: generalized weakness NEUROLOGICAL:+RLE weakness in setting of chronic sciatica HEMATOLOGICAL: denies easy bruising SKIN: denies rash PSYCHIATRIC: Unremarkable All other review of systems found to be negative. PAST MEDICAL HISTORY: as per HPI PAST SURGICAL HISTORY: Pacemaker, partial thyroidectomy ALLERGIES: Please see below. MEDICATIONS: Please see below. SOCIAL HISTORY: No etoh/illicit drugs/smoking DIET: low sodium PHYSICAL EXAMINATION: VITAL SIGNS: Please see below. GENERAL: Pleasant and cooperative. No acute distress. HEENT: PERRL. Extraocular movements intact. Clear conjunctiva CARDIOVASCULAR: Regular rate and rhythm. No murmurs, rubs, or gallops LUNGS: Clear to auscultation bilaterally. No wheezes. No rhonchi ABDOMEN: Soft, nontender, nondistended. Positive bowel sounds. Normal active bowel sounds NEUROLOGICAL: Alert and oriented times three. Cranial nerves II through XII grossly intact. Sensation grossly intact EXTREMITIES: 5\\5 strength LLE, 3+/5 RLE 4+/5 bilat UE +scoliosis +TTP with palpation of left sided paraspinals around T12 region (-) SLR bilat LABORATORY DATA: Please see below. IMAGING:Imaging documentation personally reviewed by record FUNCTIONAL STATUS: Premorbid: Mod-Independent with all activities of daily life as well as mobility On Admission: Contact guard for bed mobility, functional transfers, ambulation, dressing, toileting GOALS: Mod-I for bed mobility, functional transfers, ambulation, dressing, toileting, bathing ASSESSMENT:80-year-old F with past medical history of chronic t12 compression fracture who presents status post developing intractable low back pain and difficulty walking PLAN: 1.REhab- PT/OT advance mobility and ADLs, strengthen/stretch/maintain ROM all 4 limbs 2. Ortho- chronic t12 compression fracture with new mid-lower back spasms, likely myofascial causing difficulty walking, c/u oral pain regimen and conservative therapy management 3. Cardiac- hx of HT cont BP meds, monitor and adjust prn 4. Resp- monitor for infection 5. Heme- thrmbocythemia- cont hydroxyurea -hx of VTE on warfarin, monitor daily INR 6. GI ppx- protonix 7. Pain- tylenol and oxycodone 8. psych- prozac 9. dispo- tbd POST ADMISSION PHYSICIAN EVALUATION: Medical and functional status: Description of medical status, medical assessment: As above. Rehabilitation diagnosis and current and prior cold morbid medical conditions as above. Risk of complications and plans to mitigate them as above. Description of functional status current status is as above. Prior status as above. Status compared to preadmission: There are no clinically significant differences between the patient's current status and the information described on the preadmission screening document. Treatment plan anticipated: Treatment plan is as described above. Required disciplines including physical therapy, occupational therapy, others as noted above Intensity of services: 3 hours a day, 6 days a week. Special considerations: There are no specific special or safety considerations that would likely preclude immediate implementation of an intensive rehabilitation program or subsequently influence the plan of care ATTESTATION: Considering all the information above, it is my best judgment that this patient requires intensive rehabilitation therapy as described above and an inpatient hospital environment due to the complexity of nursing, medical, and rehabilitation needs required by the patient. Furthermore, this patient can reasonably be expected to participate in an benefit from an inpatient rehabilitation stay with an interdisciplinary team approach to the delivery of rehabilitation care under the direction and supervision of rehabilitation physician PROGNOSIS: Excellent ESTIMATED LENGTH OF STAY:7-10 days. PROJECTED DISCHARGE DESTINATION: Home with family support and any durable medical equipment required to increase functional safety and mobility. TIME SPENT COUNSELING AND COORDINATING INITIAL CARE: Greater than 70 minutes. Vital Signs Vital Signs Date Time Temp Pulse Resp B/P (MAP) Pulse Ox O2 Delivery O2 Flow Rate FiO2 01/22/21 15:30 97.5 74 16 127/60 (82) 95 Room Air Home Medications Scheduled Amlodipine Besylate (Amlodipine Besylate) 5 Mg Tablet, 5 MG PO BID, (Reported) Fluoxetine Hcl (Fluoxetine HCl) 20 Mg Capsule, 20 MG PO DAILY, (Reported) Gabapentin (Gabapentin) 100 Mg Cap, 100 MG PO DAILY, (Reported) Hydroxyurea (Hydroxyurea) 500 Mg Capsule, 500 MG PO daily as directed 1 tab by mouth daily Mondays to Saturdays. 2 tabs by mouth on Sundays. Losartan Potassium (Losartan Potassium) 25 Mg Tablet, 25 MG PO DAILY, (Reported) Pantoprazole Sodium (Pantoprazole Sodium) 20 Mg Tablet.dr, 20 MG PO DAILY, (Reported) Propranolol HCl (Propranolol HCl ER) 60 Mg Cap.sa.24h, 60 MG PO DAILY, (Reported) Warfarin Sodium (Warfarin Sodium) 5 Mg Tablet, 5 MG PO 6XWK, (Reported) QPM: TUE, MON, , TH, FRI, SAT, PATIENT FORGOT TO TAKE DOSE 01/19/21 SO TOOK THIS AM. Warfarin Sodium (Warfarin Sodium) 5 Mg Tablet, 2.5 MG PO 1XWK, (Reported) QPM: TUE Scheduled PRN Acetaminophen (Acetaminophen) 500 Mg Tablet, 500 MG PO Q8H PRN for PAIN, (Reported) Oxycodone/Acetaminophen (Oxycodone-Acetaminophen 5-325) 1 Each Tablet, 1 TAB PO Q6HP PRN for MODERATE/SEVERE PAIN (PS 5-10) Allergies Coded Allergies: No Known Allergies (Unverified , 11/05/18) A-FIB/CHADSVASC A-FIB History Current/History of A-Fib/PAF?: No Current PO Anticoag Therapy: Yes CINDY MADERA MD Jan 22, 2021 15:48
[2021-01-22] MEDS: REMEDY PHYTOPLEX Z-GUARD PASTE 113GM TUBE (FROM STOREROOM PRODUCT) TOP SCH ×2 (16:00→21:00)
[2021-01-22] MEDS: WARFARIN SOD 5MG TAB PO SCH (16:16)
[2021-01-22] MEDS: ACETAMINOPHEN 500 MG TAB PO SCH ×2 (16:16→21:54)
[2021-01-22 20:00] VITALS: BP 126/73
[2021-01-22] MEDS: SENNA 8.6 MG TAB (SENOKOT) PO SCH (21:00)
[2021-01-22] MEDS: DOCUSATE SODIUM 100MG CAPSULE PO SCH (21:53)
[2021-01-22] MEDS: amLODIPine 5 MG TAB PO SCH (21:54)
[2021-01-23 05:59] VITALS: BP 157/80
[2021-01-23 08:36] LABS: BASO % 0.7 % (0.0-1.0); EOS # 0.1 10^3/uL (0.0-0.5); HEMATOCRIT 43.4 % (36.0-47.0); HEMOGLOBIN 14.4 g/dl (12.0-15.5); LYMPH % 24.7 % (24.0-44.0); MEAN CORPUSCULAR HEMOGLOBIN 33.7 pg (27.0-33.0); MEAN CORPUSCULAR HGB CONC 33.2 g/dl (32.0-36.5); MEAN CORPUSCULAR VOLUME 101.6 fl (80.0-96.0); MONO # 0.4 10^3/uL (0.0-0.8); MONO % 10.8 % (2.0-8.0); NEUTROPHILS # 2.5 10^3/uL (1.5-8.5); NEUTROPHILS % 61.6 % (36.0-66.0); PLATELET COUNT, AUTOMATED 401 10^3/uL (150-450); RED BLOOD COUNT 4.27 10^6/uL (4.00-5.40); WHITE BLOOD COUNT 4.1 10^3/uL (4.0-10.0)
[2021-01-23 08:43] LABS: INR 2.17; PROTHROMBIN TIME 24.6 SECONDS (12.7-14.5)
[2021-01-23] MEDS: DOCUSATE SODIUM 100MG CAPSULE PO SCH ×2 (08:56→21:00)
[2021-01-23] MEDS: ACETAMINOPHEN 500 MG TAB PO SCH ×3 (08:56→21:00)
[2021-01-23] MEDS: FLUoxetine 20 MG CAP PO SCH (08:57)
[2021-01-23] MEDS: PANTOPRAZOLE 40MG TAB (PROTONIX) PO SCH (08:57)
[2021-01-23] MEDS: amLODIPine 5 MG TAB PO SCH ×2 (08:57→21:00)
[2021-01-23] MEDS: LOSARTAN 25 MG TAB PO SCH (08:57)
[2021-01-23] MEDS: REMEDY PHYTOPLEX Z-GUARD PASTE 113GM TUBE (FROM STOREROOM PRODUCT) TOP SCH ×3 (08:57→21:34)
[2021-01-23 08:58] LABS: ALBUMIN 3.4 GM/DL (3.2-5.2); ALT/SGPT 16 U/L (12-78); BILIRUBIN,TOTAL 0.5 MG/DL (0.2-1.0); BLOOD UREA NITROGEN 31 MG/DL (7-18); CALCIUM LEVEL 9.1 MG/DL (8.8-10.2); CARBON DIOXIDE LEVEL 27 MEQ/L (21-32); CHLORIDE LEVEL 108 MEQ/L (98-107); GLOMERULAR FILTRATION RATE > 60.0 (>32); GLUCOSE, FASTING 94 MG/DL (70-100); POTASSIUM SERUM 4.1 MEQ/L (3.5-5.1); SODIUM LEVEL 141 MEQ/L (136-145); TOTAL PROTEIN 7.2 GM/DL (6.4-8.2)
[2021-01-23] MEDS: HYDROXYUREA 500 MG CAP PO SCH (08:58)
[2021-01-23] MEDS: GABAPENTIN 100 MG CAP PO SCH (08:58)
[2021-01-23 14:15] VITALS: BP 129/89
[2021-01-23] MEDS: WARFARIN SOD 5MG TAB PO SCH (16:53)
[2021-01-23] MEDS: oxyCODONE 5MG TAB PO PRN ×2 (16:56→21:03)
[2021-01-23 20:00] VITALS: BP 128/89
[2021-01-23] MEDS: SENNA 8.6 MG TAB (SENOKOT) PO SCH (21:23)
[2021-01-24 06:30] VITALS: BP 137/88
[2021-01-24] MEDS: DOCUSATE SODIUM 100MG CAPSULE PO SCH ×2 (08:30→21:30)
[2021-01-24] MEDS: REMEDY PHYTOPLEX Z-GUARD PASTE 113GM TUBE (FROM STOREROOM PRODUCT) TOP SCH ×3 (08:30→21:31)
[2021-01-24] MEDS: GABAPENTIN 100 MG CAP PO SCH (08:31)
[2021-01-24] MEDS: PANTOPRAZOLE 40MG TAB (PROTONIX) PO SCH (08:31)
[2021-01-24] MEDS: HYDROXYUREA 500 MG CAP PO SCH (08:31)
[2021-01-24] MEDS: FLUoxetine 20 MG CAP PO SCH (08:31)
[2021-01-24] MEDS: ACETAMINOPHEN 500 MG TAB PO SCH ×3 (08:32→21:31)
[2021-01-24] MEDS: amLODIPine 5 MG TAB PO SCH ×2 (08:32→21:30)
[2021-01-24] MEDS: LOSARTAN 25 MG TAB PO SCH (08:32)
[2021-01-24 08:49] LABS: INR 2.25; PROTHROMBIN TIME 25.2 SECONDS (12.7-14.5)
[2021-01-24] MEDS ORDERED: PILL CUTTER 1 EACH XX PRN (11:40)
[2021-01-24 14:00] VITALS: BP 109/71
[2021-01-24] MEDS: WARFARIN SOD 5MG TAB PO SCH (16:20)
[2021-01-24 21:30] VITALS: BP 138/82
[2021-01-24] MEDS: SENNA 8.6 MG TAB (SENOKOT) PO SCH (21:30)
[2021-01-25 03:38] VITALS: BP 164/94
[2021-01-25 07:04] LABS: INR 2.87; PROTHROMBIN TIME 30.4 SECONDS (12.7-14.5)
[2021-01-25] MEDS: HYDROXYUREA 500 MG CAP PO SCH (08:34)
[2021-01-25] MEDS: ACETAMINOPHEN 500 MG TAB PO SCH (08:35)
[2021-01-25] MEDS: GABAPENTIN 100 MG CAP PO SCH (08:36)
[2021-01-25] MEDS: amLODIPine 5 MG TAB PO SCH ×2 (08:36→20:33)
[2021-01-25] MEDS: FLUoxetine 20 MG CAP PO SCH (08:36)
[2021-01-25] MEDS: LOSARTAN 25 MG TAB PO SCH (08:36)
[2021-01-25] MEDS: PANTOPRAZOLE 40MG TAB (PROTONIX) PO SCH (08:36)
[2021-01-25] MEDS: REMEDY PHYTOPLEX Z-GUARD PASTE 113GM TUBE (FROM STOREROOM PRODUCT) TOP SCH ×3 (08:37→20:35)
[2021-01-25] MEDS: DOCUSATE SODIUM 100MG CAPSULE PO SCH ×2 (08:43→20:33)
[2021-01-25] MEDS: oxyCODONE 5MG TAB PO PRN ×2 (12:10→20:34)
[2021-01-25 14:00] VITALS: BP 109/74
[2021-01-25] MEDS: WARFARIN SOD 5MG TAB PO SCH (16:27)
[2021-01-25] MEDS: ACETAMINOPHEN 325 MG/10.15 ML UDC PO SCH ×2 (16:29→20:33)
[2021-01-25] MEDS: SENNA 8.6 MG TAB (SENOKOT) PO SCH (20:33)
[2021-01-25 20:47] VITALS: BP 130/68
[2021-01-26 06:00] VITALS: BP 157/87
[2021-01-26 06:57] LABS: INR 3.83; PROTHROMBIN TIME 37.9 SECONDS (12.7-14.5)
[2021-01-26] MEDS: HYDROXYUREA 500 MG CAP PO SCH (07:55)
[2021-01-26] MEDS: DOCUSATE SODIUM 100MG CAPSULE PO SCH ×2 (07:56→20:09)
[2021-01-26] MEDS: LOSARTAN 25 MG TAB PO SCH (07:56)
[2021-01-26] MEDS: PANTOPRAZOLE 40MG TAB (PROTONIX) PO SCH (07:56)
[2021-01-26] MEDS: ACETAMINOPHEN 325 MG/10.15 ML UDC PO SCH ×3 (07:56→20:11)
[2021-01-26] MEDS: amLODIPine 5 MG TAB PO SCH ×2 (07:56→20:11)
[2021-01-26] MEDS: oxyCODONE 5MG TAB PO PRN ×2 (07:57→20:14)
[2021-01-26] MEDS: FLUoxetine 20 MG CAP PO SCH (07:57)
[2021-01-26] MEDS: REMEDY PHYTOPLEX Z-GUARD PASTE 113GM TUBE (FROM STOREROOM PRODUCT) TOP SCH ×3 (07:57→20:12)
[2021-01-26] MEDS: GABAPENTIN 100 MG CAP PO SCH (07:57)
--- NOTE | 2021-01-26 10:29 | IPNPDOC ---
PM&R Progress Note DATE OF SERVICE: Jan 26, 2021 Development Analyst Progress Note Subjective: Patient reproting she had difficulty swallowing the liquid tylenol and as a result was in more pain today. She denies any cough or difficulty breathing. REVIEW OF SYSTEMS: The following is a completed review of systems and has been reviewed. Review of systems otherwise unremarkable. PAIN: Patient self reports no pain at rest EYES: No recent vision changes EARS, NOSE, & THROAT: +chronic dysphagia CARDIOVASCULAR: Denies chest pain or palpitations PULMONARY: Denies shortness of breath GASTROINTESTINAL: Denies constipation/diarrhea GENITOURINARY: denies dysuria MUSCULOSKELETAL: generalized weakness NEUROLOGICAL:+RLE weakness in setting of chronic sciatica HEMATOLOGICAL: denies easy bruising SKIN: denies rash PSYCHIATRIC: Unremarkable All other review of systems found to be negative. PHYSICAL EXAMINATION: VITAL SIGNS: Please see below. GENERAL: Pleasant and cooperative. No acute distress. HEENT: PERRL. Extraocular movements intact. Clear conjunctiva CARDIOVASCULAR: Regular rate and rhythm. No murmurs, rubs, or gallops LUNGS: Clear to auscultation bilaterally. No wheezes. No rhonchi ABDOMEN: Soft, nontender, nondistended. Positive bowel sounds. Normal active bowel sounds NEUROLOGICAL: Alert and oriented times three. Cranial nerves II through XII grossly intact. Sensation grossly intact EXTREMITIES: 5\5 strength LLE, 3+/5 RLE 4+/5 bilat UE +scoliosis +TTP with palpation of left sided paraspinals around T12 region (-) SLR bilat LABORATORY DATA: Please see below. IMAGING:Imaging documentation personally reviewed by record ASSESSMENT:80-year-old F with past medical history of chronic t12 compression fracture who presents status post developing intractable low back pain and difficulty walking PLAN: 1.REhab- PT/OT advance mobility and ADLs, strengthen/stretch/maintain ROM all 4 limbs, ambulating with RW -hx of dysphagia not related to stroke, cont PICK [facility] DRIVER[facility] 2. Ortho- chronic t12 compression fracture with new mid-lower back spasms, likely myofascial causing difficulty walking, c/u oral pain regimen and conservative therapy management 3. Cardiac- hx of HTN cont BP meds, monitor and adjust prn 4. Resp- monitor for infection 5. Heme- thrmbocythemia- cont hydroxyurea -hx of VTE on warfarin, monitor daily INR, holding Coumadin as INR 3.8 today 6. GI ppx- protonix 7. Pain- tylenol and oxycodone 8. psych- prozac 9. dispo- tbd Allergies Coded Allergies: No Known Allergies (Unverified , 11/05/18) Vital Signs Vital Signs Date Time Temp Pulse Resp B/P (MAP) Pulse Ox O2 Delivery O2 Flow Rate FiO2 01/26/21 08:27 16 01/26/21 07:56 157/87 01/26/21 07:56 85 01/26/21 06:00 97.8 98 Room Air Laboratory Data Labs 24H Laboratory Tests 2 01/26/21 06:32: Prothrombin Time 37.9H, Prothromb Time International Ratio 3.83 Current Medications Current Medications Current Medications Medications (Trade) Dose Ordered Sig/Liat Route PRN Reason Start Time Stop Time Status Last Admin Dose Admin Acetaminophen (Tylenol Suspension) 975 mg TID PO 01/25/21 16:00 01/26/21 07:56 Acetaminophen (Tylenol Tab) 1,000 mg TID PO 01/22/21 16:00 01/25/21 08:51 DC 01/25/21 08:35 Amlodipine Besylate (Norvasc) 5 mg BID PO 01/22/21 21:00 01/26/21 07:56 Bisacodyl (Dulcolax Suppository) 10 mg DAILYPRN PRN [place] CONSTIPATION 01/22/21 15:30 Docusate Sodium (Colace) 100 mg BID PO 01/22/21 21:00 01/26/21 07:56 Fluoxetine HCl (PROzac) 20 mg DAILY PO 01/23/21 09:00 01/26/21 07:57 Gabapentin (Neurontin) 100 mg DAILY PO 01/23/21 09:00 01/26/21 07:57 Hydroxyurea (Hydrea) 500 mg MoTuWeThFrSa@0900 PO 01/23/21 09:00 01/26/21 07:55 Hydroxyurea (Hydrea) 1,000 mg [place]@0900 PO 01/25/21 09:00 01/25/21 08:34 Losartan Potassium (Cozaar) 25 mg DAILY PO 01/23/21 09:00 01/26/21 07:56 Oxycodone HCl (Roxicodone, Oxyir) 5 mg Q4HP PRN PO MODERATE PAIN (PS 5-7) 01/22/21 15:30 01/26/21 07:57 Pantoprazole Sodium (Protonix) 40 mg DAILY PO 01/23/21 09:00 01/26/21 07:56 Senna (Senokot) 1 tab QHS PO 01/22/21 21:00 01/25/21 20:33 Warfarin Sodium (Coumadin) 2.5 mg We@1700 PO 01/28/21 17:00 01/26/21 10:24 DC Warfarin Sodium (Coumadin) 5 mg SuMoTuThFrSa@1700 PO 01/22/21 17:00 01/26/21 10:24 DC 01/25/21 16:27 CINDY MADERA MD Jan 26, 2021 10:29
[2021-01-26 14:00] VITALS: BP 134/71
--- NOTE | 2021-01-26 14:11 | IPNPDOC ---
Text Note Date of Service The patient was seen on 01/26/21. NOTE SUBJECTIVE: -Mobility and pain are improving and she is reportedly doing well working with PT and OT. She was quite tired after 2.5h of rehab today. OBJECTIVE: VITAL SIGNS: Please see below. GENERAL APPEARANCE:Frail, NAD HEENT: NCAT, MMM, EOMI CARDIOVASCULAR: Regular rate, rhythm. No murmurs, rubs, gallops LUNGS:Good air flow b/l. No wheezing, rales, rhonchi. ABDOMEN: Normoactive sounds, soft NTND EXTREMITIES: WWP, no LE edema NEUROLOGICAL: No dysarthria, moving all extremities with full strength. PSYCHIATRIC: AOx3 LABORATORY DATA: Reviewed IMAGING: Reviewed all recent imaging MICROBIOLOGY: Please see below. ASSESSMENT: 80 y/o W with a pmh of chronic t12 compression fx, bradycardia s/p pacemaker placement, htn, gerd, dementia, chronic thrombocythemia on hydrea, dvt, pe and TIA on warfarin who was admitted to medicine for acute on chronic back back with difficulty ambulating and now in the ARU for rehab. PLAN: Difficulty ambulating - Secondary to pain 2/2 chronic degenerative changes as stated above. - No evidence of spinal cord syndrome with no red flag symptoms on exam and stable imaging with chronic findings. - PT/OT going well with PM&R - pain control with tylenol, percocet and gabapentin 2. Thrombocythemia with hx of vte - Patient's current platelet level wnl - Continue hydroxyurea - Continue warfarin - daily inr 3. HTN - continue amlodipine, losartan 4. GERD - continue protonix 5. Depression/anxiety - continue fluoxetine DVT prophylaxis - patient is on warfarin VS,Fishbone, I+O VS, Fishbone, I+O Vital Signs Date Time Temp Pulse Resp B/P (MAP) Pulse Ox O2 Delivery O2 Flow Rate FiO2 01/26/21 08:27 16 01/26/21 07:56 157/87 01/26/21 07:56 85 01/26/21 06:00 97.8 98 Room Air I&O- Last 24 Hours up to 6 AM 01/26/21 05:59 Intake Total 600 ml Balance 600 ml ZORAN BREWSTER MD Jan 26, 2021 11:46
[2021-01-26 20:00] VITALS: BP 123/81
[2021-01-26] MEDS: SENNA 8.6 MG TAB (SENOKOT) PO SCH (20:09)
[2021-01-27 06:00] VITALS: BP 142/79
[2021-01-27] MEDS: ACETAMINOPHEN 325 MG/10.15 ML UDC PO SCH (08:16)
[2021-01-27] MEDS: GABAPENTIN 100 MG CAP PO SCH (08:16)
[2021-01-27] MEDS: amLODIPine 5 MG TAB PO SCH ×2 (08:17→20:24)
[2021-01-27] MEDS: FLUoxetine 20 MG CAP PO SCH (08:17)
[2021-01-27] MEDS: DOCUSATE SODIUM 100MG CAPSULE PO SCH ×2 (08:17→20:23)
[2021-01-27] MEDS: LOSARTAN 25 MG TAB PO SCH (08:17)
[2021-01-27] MEDS: REMEDY PHYTOPLEX Z-GUARD PASTE 113GM TUBE (FROM STOREROOM PRODUCT) TOP SCH ×3 (08:17→20:24)
[2021-01-27] MEDS: PANTOPRAZOLE 40MG TAB (PROTONIX) PO SCH (08:17)
[2021-01-27] MEDS: HYDROXYUREA 500 MG CAP PO SCH (08:17)
[2021-01-27 10:47] LABS: INR 2.87; PROTHROMBIN TIME 30.4 SECONDS (12.7-14.5)
--- NOTE | 2021-01-27 12:18 | IPNPDOC ---
PM&R Progress Note DATE OF SERVICE: Jan 27, 2021 Street Photographer Progress Note Subjective: Patient reporting she would like her oxycodone scheduled to be able to get ahead of her back pain. REVIEW OF SYSTEMS: The following is a completed review of systems and has been reviewed. Review of systems otherwise unremarkable. PAIN: Patient self reports no pain at rest EYES: No recent vision changes EARS, NOSE, & THROAT: +chronic dysphagia CARDIOVASCULAR: Denies chest pain or palpitations PULMONARY: Denies shortness of breath GASTROINTESTINAL: Denies constipation/diarrhea GENITOURINARY: denies dysuria MUSCULOSKELETAL: generalized weakness NEUROLOGICAL:+RLE weakness in setting of chronic sciatica HEMATOLOGICAL: denies easy bruising SKIN: denies rash PSYCHIATRIC: Unremarkable All other review of systems found to be negative. PHYSICAL EXAMINATION: VITAL SIGNS: Please see below. GENERAL: Pleasant and cooperative. No acute distress. HEENT: PERRL. Extraocular movements intact. Clear conjunctiva CARDIOVASCULAR: Regular rate and rhythm. No murmurs, rubs, or gallops LUNGS: Clear to auscultation bilaterally. No wheezes. No rhonchi ABDOMEN: Soft, nontender, nondistended. Positive bowel sounds. Normal active bowel sounds NEUROLOGICAL: Alert and oriented times three. Cranial nerves II through XII grossly intact. Sensation grossly intact EXTREMITIES: 5\5 strength LLE, 3+/5 RLE 4+/5 bilat UE +scoliosis +TTP with palpation of left sided paraspinals around T12 region (-) SLR bilat LABORATORY DATA: Please see below. 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 Ortho- chronic t12 compression fracture with new mid-lower back spasms, likely myofascial causing difficulty walking, c/u oral pain regimen and conservative therapy management 3. Cardiac- hx of HTN cont BP meds, monitor and adjust prn 4. Resp- monitor for infection 5. 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 GI ppx- protonix 7. Pain- tylenol and oxycodone 8. psych- prozac 9. dispo- tbd Allergies Coded Allergies: No Known Allergies (Unverified , 11/05/18) Vital Signs Vital Signs Date Time Temp Pulse Resp B/P (MAP) Pulse Ox O2 Delivery O2 Flow Rate FiO2 01/27/21 08:17 142/79 01/27/21 08:17 70 01/27/21 06:00 98.1 20 95 Room Air Laboratory Data Labs 24H Laboratory Tests 2 01/27/21 10:24: Prothrombin Time 30.4H, Prothromb Time International Ratio 2.87 Current Medications Current Medications Current Medications Medications (Trade) Dose Ordered Sig/Liat Route PRN Reason Start Time Stop Time Status Last Admin Dose Admin Acetaminophen (Tylenol Suspension) 975 mg TID PO 01/25/21 16:00 01/27/21 08:16 Acetaminophen (Tylenol Tab) 1,000 mg TID PO 01/22/21 16:00 01/25/21 08:51 DC 01/25/21 08:35 Amlodipine Besylate (Norvasc) 5 mg BID PO 01/22/21 21:00 01/27/21 08:17 Bisacodyl (Dulcolax Suppository) 10 mg DAILYPRN PRN [place] CONSTIPATION 01/22/21 15:30 Docusate Sodium (Colace) 100 mg BID PO 01/22/21 21:00 01/27/21 08:17 Fluoxetine HCl (PROzac) 20 mg DAILY PO 01/23/21 09:00 01/27/21 08:17 Gabapentin (Neurontin) 100 mg DAILY PO 01/23/21 09:00 01/27/21 08:16 Hydroxyurea (Hydrea) 500 mg MoTuWeThFrSa@0900 PO 01/23/21 09:00 01/27/21 08:17 Hydroxyurea (Hydrea) 1,000 mg [place]@0900 PO 01/25/21 09:00 01/25/21 08:34 Losartan Potassium (Cozaar) 25 mg DAILY PO 01/23/21 09:00 01/27/21 08:17 Oxycodone HCl (Roxicodone, Oxyir) 5 mg Q4HP PRN PO MODERATE PAIN (PS 5-7) 01/22/21 15:30 01/26/21 20:14 Pantoprazole Sodium (Protonix) 40 mg DAILY PO 01/23/21 09:00 01/27/21 08:17 Senna (Senokot) 1 tab QHS PO 01/22/21 21:00 01/26/21 20:09 Warfarin Sodium (Coumadin) 2.5 mg DAILY@17 PO 01/27/21 17:00 Warfarin Sodium (Coumadin) 2.5 mg We@1700 PO 01/28/21 17:00 01/26/21 10:24 DC Warfarin Sodium (Coumadin) 5 mg SuMoTuThFrSa@1700 PO 01/22/21 17:00 01/26/21 10:24 DC 01/25/21 16:27 CINDY MADERA MD Jan 27, 2021 12:18
[2021-01-27] MEDS: oxyCODONE 5MG TAB PO PRN (13:40)
[2021-01-27 14:00] VITALS: BP 148/83
[2021-01-27] MEDS ORDERED: WARFARIN SOD 2.5MG TAB PO SCH (17:00)
[2021-01-27 20:00] VITALS: BP 144/78
[2021-01-27] MEDS: oxyCODONE 5MG TAB PO SCH (20:23)
[2021-01-27] MEDS: SENNA 8.6 MG TAB (SENOKOT) PO SCH (20:23)
[2021-01-28 06:00] VITALS: BP 168/92
[2021-01-28 07:05] LABS: INR 1.88
[2021-01-28] MEDS: PANTOPRAZOLE 40MG TAB (PROTONIX) PO SCH (07:22)
[2021-01-28] MEDS: oxyCODONE 5MG TAB PO SCH ×3 (07:23→21:26)
[2021-01-28] MEDS: GABAPENTIN 100 MG CAP PO SCH (07:23)
[2021-01-28] MEDS: FLUoxetine 20 MG CAP PO SCH (07:23)
[2021-01-28] MEDS: DOCUSATE SODIUM 100MG CAPSULE PO SCH ×2 (07:23→21:26)
[2021-01-28] MEDS: amLODIPine 5 MG TAB PO SCH ×2 (07:24→21:27)
[2021-01-28] MEDS: LOSARTAN 25 MG TAB PO SCH (07:24)
[2021-01-28] MEDS: HYDROXYUREA 500 MG CAP PO SCH (07:24)
[2021-01-28] MEDS: REMEDY PHYTOPLEX Z-GUARD PASTE 113GM TUBE (FROM STOREROOM PRODUCT) TOP SCH ×3 (07:25→21:28)
--- NOTE | 2021-01-28 10:20 | IPNPDOC ---
PM&R Progress Note DATE OF SERVICE: Jan 28, 2021 Customer Operations Representative Progress Note Subjective: Patient reporting she feels constipated despite having had a bowel movement yesterday and would like a suppository. REVIEW OF SYSTEMS: The following is a completed review of systems and has been reviewed. Review of systems otherwise unremarkable. PAIN: Patient self reports no pain at rest EYES: No recent vision changes EARS, NOSE, & THROAT: +chronic dysphagia CARDIOVASCULAR: Denies chest pain or palpitations PULMONARY: Denies shortness of breath GASTROINTESTINAL: + constipation GENITOURINARY: denies dysuria MUSCULOSKELETAL: generalized weakness NEUROLOGICAL:+RLE weakness in setting of chronic sciatica HEMATOLOGICAL: denies easy bruising SKIN: denies rash PSYCHIATRIC: Unremarkable All other review of systems found to be negative. PHYSICAL EXAMINATION: VITAL SIGNS: Please see below. GENERAL: Pleasant and cooperative. No acute distress. HEENT: PERRL. Extraocular movements intact. Clear conjunctiva CARDIOVASCULAR: Regular rate and rhythm. No murmurs, rubs, or gallops LUNGS: Clear to auscultation bilaterally. No wheezes. No rhonchi ABDOMEN: Soft, nontender, nondistended. Positive bowel sounds. Normal active bowel sounds NEUROLOGICAL: Alert and oriented times three. Cranial nerves II through XII grossly intact. Sensation grossly intact EXTREMITIES: 5\\5 strength LLE, 3+/5 RLE 4+/5 bilat UE +scoliosis +TTP with palpation of left sided paraspinals around T12 region (-) SLR bilat +bilat LE edema LABORATORY DATA: Please see below. 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 Ortho- chronic t12 compression fracture with new mid-lower back spasms, li chadd myofascial causing difficulty walking, c/u oral pain regimen and conservative therapy management 3. Cardiac- hx of HTN cont BP meds, monitor and adjust prn -recent ECHO in 2019 showing "Dilated hypokinetic right ventricle, mild to moderate tricuspid insufficiency" patient noted to have LE edema 4. Resp- monitor for infection 5. 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 GI ppx- protonix -colace, senna, suppository 7. Pain- tylenol and oxycodone 8. psych- prozac 9. dispo- 02-03-21 to home with daughter DME- patient will require a wheelchair in order to complete her MRADLs in a timely and safe manner. She is unable to complete her MRADLs with a walker or cane. Her home is wheelchair accessible and her family is able to help her. Patient will also require a hospital bed. She has a history of chronic low back pain with sciatica casing right lower extremity weakness. Additionally she has right sided heart failure and is at increased risk of developing skin breakdown from edema in her legs which having a hospital bed to elevate her legs will help prevent. She is also at risk of developing orthopnea and would benefit from being able to raise the head of the bed. Allergies Coded Allergies: No Known Allergies (Unverified , 11/05/18) Vital Signs Vital Signs Date Time Temp Pulse Resp B/P (MAP) Pulse Ox O2 Delivery O2 Flow Rate FiO2 01/28/21 07:55 18 Room Air 01/28/21 07:24 80 158/88 01/28/21 06:00 97.5 96 Laboratory Data Labs 24H Laboratory Tests 2 01/27/21 10:24: Prothrombin Time 30.4H, Prothromb Time International Ratio 2.87 01/28/21 06:18: Prothrombin Time 22.0H, Prothromb Time International Ratio 1.88 Current Medications Current Medications Current Medications Medications (Trade) Dose Ordered Sig/Liat Route PRN Reason Start Time Stop Time Status Last Admin Dose Admin Acetaminophen (Tylenol Suspension) 975 mg TID PO 01/25/21 16:00 01/27/21 12:16 DC 01/27/21 08:16 Acetaminophen (Tylenol Tab) 650 mg Q4HP PRN PO pain >3/10 01/27/21 12:15 Acetaminophen (Tylenol Tab) 1,000 mg TID PO 01/22/21 16:00 01/25/21 08:51 DC 01/25/21 08:35 Amlodipine Besylate (Norvasc) 5 mg BID PO 01/22/21 21:00 01/28/21 07:24 Bisacodyl (Dulcolax Suppository) 10 mg DAILYPRN PRN [place] CONSTIPATION 01/22/21 15:30 Docusate Sodium (Colace) 100 mg BID PO 01/22/21 21:00 01/28/21 07:23 Fluoxetine HCl (PROzac) 20 mg DAILY PO 01/23/21 09:00 01/28/21 07:23 Gabapentin (Neurontin) 100 mg DAILY PO 01/23/21 09:00 01/28/21 07:23 Hydroxyurea (Hydrea) 500 mg MoTuWeThFrSa@0900 PO 01/23/21 09:00 01/28/21 07:24 Hydroxyurea (Hydrea) 1,000 mg [place]@0900 PO 01/25/21 09:00 01/25/21 08:34 Losartan Potassium (Cozaar) 25 mg DAILY PO 01/23/21 09:00 01/28/21 07:24 Oxycodone HCl (Roxicodone, Oxyir) 5 mg BID@0700,1200 PO 01/28/21 07:00 01/28/21 07:23 Oxycodone HCl (Roxicodone, Oxyir) 5 mg Q4HP PRN PO MODERATE PAIN (PS 5-7) 01/22/21 15:30 01/27/21 13:54 DC 01/27/21 13:40 Oxycodone HCl (Roxicodone, Oxyir) 5 mg QHS PO 01/27/21 21:00 01/27/21 20:23 Pantoprazole Sodium (Protonix) 40 mg DAILY PO 01/23/21 09:00 01/28/21 07:22 Senna (Senokot) 1 tab QHS PO 01/22/21 21:00 01/27/21 20:23 Warfarin Sodium (Coumadin) 2.5 mg DAILY@17 PO 01/27/21 17:00 01/28/21 10:16 DC 01/27/21 16:02 Warfarin Sodium (Coumadin) 2.5 mg We@1700 PO 01/28/21 17:00 01/26/21 10:24 DC Warfarin Sodium (Coumadin) 3 mg DAILY@17 PO 01/28/21 17:00 UNV Warfarin Sodium (Coumadin) 5 mg SuMoTuThFrSa@1700 PO 01/22/21 17:00 01/26/21 10:24 DC 01/25/21 16:27 CINDY MADERA MD Jan 28, 2021 10:20
[2021-01-28] MEDS ORDERED: MIRALAX *UNIT DOSE* 17GM PACKET PO PRN (13:40)
[2021-01-28 14:00] VITALS: BP 119/77
[2021-01-28] MEDS: BISACODYL 10 MG SUPP PR SCH (16:53)
[2021-01-28] MEDS ORDERED: WARFARIN SOD 3MG TAB PO SCH (17:00)
[2021-01-28] MEDS ORDERED: WARFARIN SOD 2.5MG TAB PO SCH (17:00)
[2021-01-28 20:00] VITALS: BP 158/84
[2021-01-28] MEDS: SENNA 8.6 MG TAB (SENOKOT) PO SCH (21:25)
[2021-01-29 06:00] VITALS: BP 140/71
[2021-01-29] MEDS: oxyCODONE 5MG TAB PO SCH ×3 (06:09→20:41)
[2021-01-29 07:17] LABS: INR 1.58; PROTHROMBIN TIME 19.3 SECONDS (12.7-14.5)
[2021-01-29] MEDS: GABAPENTIN 100 MG CAP PO SCH (08:22)
[2021-01-29] MEDS: HYDROXYUREA 500 MG CAP PO SCH (08:22)
[2021-01-29] MEDS: PANTOPRAZOLE 40MG TAB (PROTONIX) PO SCH (08:22)
[2021-01-29] MEDS: FLUoxetine 20 MG CAP PO SCH (08:22)
[2021-01-29] MEDS: DOCUSATE SODIUM 100MG CAPSULE PO SCH ×2 (08:22→20:41)
[2021-01-29] MEDS: LOSARTAN 25 MG TAB PO SCH (08:24)
[2021-01-29] MEDS: amLODIPine 5 MG TAB PO SCH ×2 (08:25→20:41)
[2021-01-29] MEDS: REMEDY PHYTOPLEX Z-GUARD PASTE 113GM TUBE (FROM STOREROOM PRODUCT) TOP SCH ×3 (08:27→20:42)
[2021-01-29] MEDS: LIDOCAINE 5% (LIDODERM) PATCH TD SCH (10:22)
[2021-01-29 14:00] VITALS: BP 102/57
[2021-01-29] MEDS ORDERED: WARFARIN SOD 7.5MG TAB PO ONE (17:00)
[2021-01-29] MEDS: BISACODYL 10 MG SUPP PR SCH (17:59)
[2021-01-29] MEDS: SENNA 8.6 MG TAB (SENOKOT) PO SCH (20:40)
[2021-01-29] MEDS: **NOTE PATIENT COMMENT** MISC XX SCH (20:43)
[2021-01-29 22:00] VITALS: BP 120/65
[2021-01-30 06:00] VITALS: BP 135/69
[2021-01-30] MEDS: oxyCODONE 5MG TAB PO SCH ×3 (06:18→20:07)
[2021-01-30 07:58] LABS: BASO % 0.6 % (0.0-1.0); EOS % 0.6 % (0.0-3.0); HEMATOCRIT 36.6 % (36.0-47.0); HEMOGLOBIN 12.4 g/dl (12.0-15.5); LYMPH # 0.8 10^3/uL (1.5-5.0); LYMPH % 16.4 % (24.0-44.0); MEAN CORPUSCULAR HEMOGLOBIN 34.9 pg (27.0-33.0); MEAN CORPUSCULAR HGB CONC 33.9 g/dl (32.0-36.5); MEAN CORPUSCULAR VOLUME 103.1 fl (80.0-96.0); MONO # 0.6 10^3/uL (0.0-0.8); MONO % 13.2 % (2.0-8.0); NEUTROPHILS # 3.3 10^3/uL (1.5-8.5); NEUTROPHILS % 68.6 % (36.0-66.0); PLATELET COUNT, AUTOMATED 416 10^3/uL (150-450); RED BLOOD COUNT 3.55 10^6/uL (4.00-5.40); WHITE BLOOD COUNT 4.8 10^3/uL (4.0-10.0)
[2021-01-30 08:09] LABS: INR 1.59; PROTHROMBIN TIME 19.4 SECONDS (12.7-14.5)
[2021-01-30 08:25] LABS: BLOOD UREA NITROGEN 22 MG/DL (7-18); CALCIUM LEVEL 8.5 MG/DL (8.8-10.2); CARBON DIOXIDE LEVEL 28 MEQ/L (21-32); CHLORIDE LEVEL 105 MEQ/L (98-107); GLOMERULAR FILTRATION RATE > 60.0 (>32); GLUCOSE, FASTING 102 MG/DL (70-100); POTASSIUM SERUM 4.5 MEQ/L (3.5-5.1); SODIUM LEVEL 139 MEQ/L (136-145)
[2021-01-30] MEDS: REMEDY PHYTOPLEX Z-GUARD PASTE 113GM TUBE (FROM STOREROOM PRODUCT) TOP SCH ×3 (09:00→20:09)
[2021-01-30] MEDS: LOSARTAN 25 MG TAB PO SCH (09:43)
[2021-01-30] MEDS: GABAPENTIN 100 MG CAP PO SCH (09:43)
[2021-01-30] MEDS: amLODIPine 5 MG TAB PO SCH ×2 (09:43→20:08)
[2021-01-30] MEDS: FLUoxetine 20 MG CAP PO SCH (09:43)
[2021-01-30] MEDS: PANTOPRAZOLE 40MG TAB (PROTONIX) PO SCH (09:43)
[2021-01-30] MEDS: DOCUSATE SODIUM 100MG CAPSULE PO SCH ×2 (09:43→20:07)
[2021-01-30] MEDS: HYDROXYUREA 500 MG CAP PO SCH (09:43)
[2021-01-30] MEDS: LIDOCAINE 5% (LIDODERM) PATCH TD SCH (09:44)
[2021-01-30 14:00] VITALS: BP 117/71
[2021-01-30] MEDS: WARFARIN SOD 3MG TAB PO SCH (17:59)
[2021-01-30] MEDS: BISACODYL 10 MG SUPP PR SCH (18:00)
[2021-01-30 20:00] VITALS: BP 129/62
[2021-01-30] MEDS: SENNA 8.6 MG TAB (SENOKOT) PO SCH (20:07)
[2021-01-30] MEDS: **NOTE PATIENT COMMENT** MISC XX SCH (20:08)
--- NOTE | 2021-01-30 22:04 | IPNPDOC ---
PM&R Progress Note DATE OF SERVICE: Jan 29, 2021 Boarder Hand Progress Note Subjective: Patient reporting she feels her back is aching a little this morning and would like to try a lidoderm patch. REVIEW OF SYSTEMS: The following is a completed review of systems and has been reviewed. Review of systems otherwise unremarkable. PAIN: Patient self reports no pain at rest EYES: No recent vision changes EARS, NOSE, & THROAT: +chronic dysphagia CARDIOVASCULAR: Denies chest pain or palpitations PULMONARY: Denies shortness of breath GASTROINTESTINAL: + constipation (improved) GENITOURINARY: denies dysuria MUSCULOSKELETAL: generalized weakness NEUROLOGICAL:+RLE weakness in setting of chronic sciatica HEMATOLOGICAL: denies easy bruising SKIN: denies rash PSYCHIATRIC: Unremarkable All other review of systems found to be negative. PHYSICAL EXAMINATION: VITAL SIGNS: Please see below. GENERAL: Pleasant and cooperative. No acute distress. HEENT: PERRL. Extraocular movements intact. Clear conjunctiva CARDIOVASCULAR: Regular rate and rhythm. No murmurs, rubs, or gallops LUNGS: Clear to auscultation bilaterally. No wheezes. No rhonchi ABDOMEN: Soft, nontender, nondistended. Positive bowel sounds. Normal active bowel sounds NEUROLOGICAL: Alert and oriented times three. Cranial nerves II through XII grossly intact. Sensation grossly intact EXTREMITIES: 5\\5 strength LLE, 3+/5 RLE 4+/5 bilat UE +scoliosis +TTP with palpation of left sided paraspinals around T12 region (-) SLR bilat +bilat LE edema LABORATORY DATA: Please see below. 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 Ortho- chronic t12 compression fracture with new mid-lower back spasms, likely myofascial causing difficulty walking, c/u oral pain regimen and conservative therapy management 3. Cardiac- hx of HTN cont BP meds, monitor and adjust prn -recent ECHO in 2019 showing "Dilated hypokinetic right ventricle, mild to mo derate tricuspid insufficiency" patient noted to have LE edema 4. Resp- monitor for infection 5. 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 GI ppx- protonix -colace, senna, suppository 7. Pain- tylenol and oxycodone (scheduled per patient;s request), will add lidoderm patch to low back 8. psych- prozac 9. dispo- 02-03-21 to home with daughter DME- patient will require a wheelchair in order to complete her MRADLs in a timely and safe manner. She is unable to complete her MRADLs with a walker or cane. Her home is wheelchair accessible and her family is able to help her. Patient will also require a hospital bed. She has a history of chronic low back pain with sciatica casing right lower extremity weakness. Additionally she has right sided heart failure and is at increased risk of developing skin breakdown from edema in her legs which having a hospital bed to elevate her legs will help prevent. She is also at risk of developing orthopnea and would benefit from being able to raise the head of the bed. Allergies Coded Allergies: No Known Allergies (Unverified , 11/05/18) Vital Signs Vital Signs Date Time Temp Pulse Resp B/P (MAP) Pulse Ox O2 Delivery O2 Flow Rate FiO2 01/30/21 20:41 18 01/30/21 20:08 76 129/62 01/30/21 20:00 97.1 93 Room Air Laboratory Data CBC/BMP Laboratory Tests 01/30/21 07:41 Labs 24H Laboratory Tests 2 01/30/21 07:41: Immature Granulocyte % (Auto) 0.6, Neutrophils (%) (Auto) 68.6H, Lymphocytes (%) (Auto) 16.4L, Monocytes (%) (Auto) 13.2H, Eosinophils (%) (Auto) 0.6, Basophils (%) (Auto) 0.6, Neutrophils # (Auto) 3.3, Lymphocytes # (Auto) 0.8L, Monocytes # (Auto) 0.6, Eosinophils # (Auto) 0.0, Basophils # (Auto) 0.0, Nucleated Red Blood Cells % (auto) 0.0, Prothrombin Time 19.4H, Prothromb Time International Ratio 1.59, Anion Gap 6L, Glomerular Filtration Rate > 60.0, Calcium Level 8.5L Current Medications Current Medications Current Medications Medications (Trade) Dose Ordered Sig/Liat Route PRN Reason Start Time Stop Time Status Last Admin Dose Admin Acetaminophen (Tylenol Suspension) 975 mg TID PO 01/25/21 16:00 01/27/21 12:16 DC 01/27/21 08:16 Acetaminophen (Tylenol Tab) 650 mg Q4HP PRN PO pain >3/10 01/27/21 12:15 Acetaminophen (Tylenol Tab) 1,000 mg TID PO 01/22/21 16:00 01/25/21 08:51 DC 01/25/21 08:35 Amlodipine Besylate (Norvasc) 5 mg BID PO 01/22/21 21:00 01/30/21 20:08 Bisacodyl (Dulcolax Suppository) 10 mg DAILY@1700 [place] 01/28/21 17:00 01/30/21 18:00 Bisacodyl (Dulcolax Suppository) 10 mg DAILYPRN PRN [place] CONSTIPATION 01/22/21 15:30 01/28/21 13:41 DC Docusate Sodium (Colace) 100 mg BID PO 01/22/21 21:00 01/30/21 20:07 Fluoxetine HCl (PROzac) 20 mg DAILY PO 01/23/21 09:00 01/30/21 09:43 Gabapentin (Neurontin) 100 mg DAILY PO 01/23/21 09:00 01/30/21 09:43 Hydroxyurea (Hydrea) 500 mg MoTuWeThFrSa@0900 PO 01/23/21 09:00 01/30/21 09:43 Hydroxyurea (Hydrea) 1,000 mg [place]@0900 PO 01/25/21 09:00 01/25/21 08:34 Lidocaine (Lidoderm Patch) 1 patch DAILY TD 01/29/21 10:00 01/30/21 09:44 Losartan Potassium (Cozaar) 25 mg DAILY PO 01/23/21 09:00 01/30/21 09:43 Non-Formulary Medication ( See Comment Field Below ) REMOVE LIDODERM PATCH DAILY@21 XX 01/29/21 21:00 01/30/21 20:08 Oxycodone HCl (Roxicodone, Oxyir) 5 mg BID@0700,1200 PO 01/28/21 07:00 01/30/21 11:34 Oxycodone HCl (Roxicodone, Oxyir) 5 mg Q24H PRN PO pain >5 01/28/21 12:10 Oxycodone HCl (Roxicodone, Oxyir) 5 mg Q4HP PRN PO MODERATE PAIN (PS 5-7) 01/22/21 15:30 01/27/21 13:54 DC 01/27/21 13:40 Oxycodone HCl (Roxicodone, Oxyir) 5 mg QHS PO 01/27/21 21:00 01/30/21 20:07 Pantoprazole Sodium (Protonix) 40 mg DAILY PO 01/23/21 09:00 01/30/21 09:43 Polyethylene Glycol (Miralax) 1 pkt DAILYPRN PRN PO CONSTIPATION 01/28/21 13:40 01/28/21 16:53 Senna (Senokot) 1 tab QHS PO 01/22/21 21:00 01/30/21 20:07 Warfarin Sodium (Coumadin) 2.5 mg DAILY@17 PO 01/27/21 17:00 01/28/21 10:16 DC 01/27/21 16:02 Warfarin Sodium (Coumadin) 2.5 mg We@1700 PO 01/28/21 17:00 01/26/21 10:24 DC Warfarin Sodium (Coumadin) 3 mg DAILY@17 PO 01/28/21 17:00 01/29/21 09:03 DC 01/28/21 16:53 Warfarin Sodium (Coumadin) 3 mg DAILY@17 PO 01/30/21 17:00 01/30/21 17:59 Warfarin Sodium (Coumadin) 5 mg SuMoTuThFrSa@1700 PO 01/22/21 17:00 01/26/21 10:24 DC 01/25/21 16:27 CINDY MADERA MD Jan 30, 2021 22:04
[2021-01-31] MEDS: oxyCODONE 5MG TAB PO PRN (03:42)
[2021-01-31 06:00] VITALS: BP 128/59
[2021-01-31] MEDS: GABAPENTIN 100 MG CAP PO SCH (07:28)
[2021-01-31] MEDS: HYDROXYUREA 500 MG CAP PO SCH (07:28)
[2021-01-31] MEDS: oxyCODONE 5MG TAB PO SCH ×3 (07:28→20:18)
[2021-01-31] MEDS: FLUoxetine 20 MG CAP PO SCH (07:29)
[2021-01-31] MEDS: amLODIPine 5 MG TAB PO SCH ×2 (07:29→20:19)
[2021-01-31] MEDS: PANTOPRAZOLE 40MG TAB (PROTONIX) PO SCH (07:29)
[2021-01-31] MEDS: LIDOCAINE 5% (LIDODERM) PATCH TD SCH (07:29)
[2021-01-31] MEDS: DOCUSATE SODIUM 100MG CAPSULE PO SCH ×2 (07:29→20:18)
[2021-01-31] MEDS: LOSARTAN 25 MG TAB PO SCH (07:29)
[2021-01-31] MEDS: REMEDY PHYTOPLEX Z-GUARD PASTE 113GM TUBE (FROM STOREROOM PRODUCT) TOP SCH ×3 (07:30→20:19)
[2021-01-31 09:17] LABS: INR 1.84; PROTHROMBIN TIME 21.7 SECONDS (12.7-14.5)
[2021-01-31 14:00] VITALS: BP 114/60
[2021-01-31] MEDS: BISACODYL 10 MG SUPP PR SCH ×2 (16:08→16:11)
[2021-01-31] MEDS: WARFARIN SOD 3MG TAB PO SCH (16:08)
[2021-01-31 20:00] VITALS: BP 117/57
[2021-01-31] MEDS: SENNA 8.6 MG TAB (SENOKOT) PO SCH (20:18)
[2021-01-31] MEDS: **NOTE PATIENT COMMENT** MISC XX SCH (20:20)
[2021-02-01 06:00] VITALS: BP 124/65
[2021-02-01] MEDS: oxyCODONE 5MG TAB PO SCH ×3 (06:45→21:06)
[2021-02-01 07:12] LABS: INR 1.79; PROTHROMBIN TIME 21.2 SECONDS (12.7-14.5)
[2021-02-01] MEDS: LIDOCAINE 5% (LIDODERM) PATCH TD SCH (07:41)
[2021-02-01] MEDS: LOSARTAN 25 MG TAB PO SCH (07:42)
[2021-02-01] MEDS: HYDROXYUREA 500 MG CAP PO SCH (07:42)
[2021-02-01] MEDS: GABAPENTIN 100 MG CAP PO SCH (07:42)
[2021-02-01] MEDS: amLODIPine 5 MG TAB PO SCH ×2 (07:42→21:06)
[2021-02-01] MEDS: DOCUSATE SODIUM 100MG CAPSULE PO SCH ×2 (07:42→21:05)
[2021-02-01] MEDS: FLUoxetine 20 MG CAP PO SCH (07:42)
[2021-02-01] MEDS: PANTOPRAZOLE 40MG TAB (PROTONIX) PO SCH (07:42)
[2021-02-01] MEDS: REMEDY PHYTOPLEX Z-GUARD PASTE 113GM TUBE (FROM STOREROOM PRODUCT) TOP SCH ×3 (07:43→21:00)
[2021-02-01 14:00] VITALS: BP 117/65
[2021-02-01] MEDS: BISACODYL 10 MG SUPP PR SCH (16:16)
[2021-02-01] MEDS ORDERED: WARFARIN SOD 5MG TAB PO ONE (17:00)
[2021-02-01 20:00] VITALS: BP 142/71
[2021-02-01] MEDS: SENNA 8.6 MG TAB (SENOKOT) PO SCH (21:05)
[2021-02-01] MEDS: **NOTE PATIENT COMMENT** MISC XX SCH (21:06)
[2021-02-01] MEDS: ACETAMINOPHEN TAB 650MG DOSE (2X325MG) PO PRN (23:07)
[2021-02-02 06:00] VITALS: BP 123/67
[2021-02-02] MEDS: oxyCODONE 5MG TAB PO SCH ×3 (06:02→21:08)
[2021-02-02] MEDS: HYDROXYUREA 500 MG CAP PO SCH (07:42)
[2021-02-02] MEDS: amLODIPine 5 MG TAB PO SCH ×2 (07:42→21:08)
[2021-02-02] MEDS: DOCUSATE SODIUM 100MG CAPSULE PO SCH ×2 (07:42→21:08)
[2021-02-02] MEDS: PANTOPRAZOLE 40MG TAB (PROTONIX) PO SCH (07:43)
[2021-02-02] MEDS: FLUoxetine 20 MG CAP PO SCH (07:43)
[2021-02-02] MEDS: LOSARTAN 25 MG TAB PO SCH (07:43)
[2021-02-02] MEDS: GABAPENTIN 100 MG CAP PO SCH (07:43)
[2021-02-02] MEDS: REMEDY PHYTOPLEX Z-GUARD PASTE 113GM TUBE (FROM STOREROOM PRODUCT) TOP SCH ×3 (07:44→21:09)
[2021-02-02] MEDS: LIDOCAINE 5% (LIDODERM) PATCH TD SCH (07:44)
[2021-02-02 08:02] LABS: BASO % 0.4 % (0.0-1.0); EOS # 0.1 10^3/uL (0.0-0.5); EOS % 1.3 % (0.0-3.0); HEMATOCRIT 38.2 % (36.0-47.0); HEMOGLOBIN 12.7 g/dl (12.0-15.5); LYMPH % 22.5 % (24.0-44.0); MEAN CORPUSCULAR HEMOGLOBIN 34.4 pg (27.0-33.0); MEAN CORPUSCULAR HGB CONC 33.2 g/dl (32.0-36.5); MEAN CORPUSCULAR VOLUME 103.5 fl (80.0-96.0); MONO # 0.6 10^3/uL (0.0-0.8); MONO % 14.3 % (2.0-8.0); NEUTROPHILS # 2.7 10^3/uL (1.5-8.5); NEUTROPHILS % 61.1 % (36.0-66.0); PLATELET COUNT, AUTOMATED 449 10^3/uL (150-450); RED BLOOD COUNT 3.69 10^6/uL (4.00-5.40); WHITE BLOOD COUNT 4.5 10^3/uL (4.0-10.0)
[2021-02-02 08:16] LABS: INR 1.72; PROTHROMBIN TIME 20.5 SECONDS (12.7-14.5)
[2021-02-02 08:18] LABS: BLOOD UREA NITROGEN 24 MG/DL (7-18); CALCIUM LEVEL 8.8 MG/DL (8.8-10.2); CARBON DIOXIDE LEVEL 29 MEQ/L (21-32); CHLORIDE LEVEL 103 MEQ/L (98-107); GLOMERULAR FILTRATION RATE > 60.0 (>32); GLUCOSE, FASTING 86 MG/DL (70-100); POTASSIUM SERUM 4.4 MEQ/L (3.5-5.1); SODIUM LEVEL 138 MEQ/L (136-145)
[2021-02-02 14:00] VITALS: BP 130/68
[2021-02-02] MEDS: BISACODYL 10 MG SUPP PR SCH (16:20)
[2021-02-02] MEDS ORDERED: WARFARIN SOD 7.5MG TAB PO ONE (17:00)
[2021-02-02] MEDS ORDERED: WARFARIN SOD 3MG TAB PO SCH (17:00)
[2021-02-02 20:00] VITALS: BP 140/72
[2021-02-02] MEDS: SENNA 8.6 MG TAB (SENOKOT) PO SCH (21:07)
[2021-02-02] MEDS: **NOTE PATIENT COMMENT** MISC XX SCH (21:09)
[2021-02-03] MEDS: oxyCODONE 5MG TAB PO PRN (01:04)
[2021-02-03 06:00] VITALS: BP 126/70
[2021-02-03] MEDS: oxyCODONE 5MG TAB PO SCH ×3 (06:27→21:37)
[2021-02-03 07:13] LABS: INR 2.08; PROTHROMBIN TIME 23.8 SECONDS (12.7-14.5)
[2021-02-03] MEDS: HYDROXYUREA 500 MG CAP PO SCH (08:11)
[2021-02-03] MEDS: LIDOCAINE 5% (LIDODERM) PATCH TD SCH (08:12)
[2021-02-03] MEDS: GABAPENTIN 100 MG CAP PO SCH ×3 (08:12→21:32)
[2021-02-03] MEDS: PANTOPRAZOLE 40MG TAB (PROTONIX) PO SCH (08:12)
[2021-02-03] MEDS: DOCUSATE SODIUM 100MG CAPSULE PO SCH ×2 (08:14→21:00)
[2021-02-03] MEDS: LOSARTAN 25 MG TAB PO SCH (08:14)
[2021-02-03] MEDS: FLUoxetine 20 MG CAP PO SCH (08:14)
[2021-02-03] MEDS: REMEDY PHYTOPLEX Z-GUARD PASTE 113GM TUBE (FROM STOREROOM PRODUCT) TOP SCH ×3 (08:15→22:06)
[2021-02-03] MEDS: amLODIPine 5 MG TAB PO SCH ×2 (08:15→20:43)
--- NOTE | 2021-02-03 10:39 | REP ---
INDICATION: r/o infiltrate COMPARISON: 11/13/2019 as well as other prior exams. TECHNIQUE: PA/Lateral FINDINGS: There is blunting of the right costophrenic angle compatible with a small right pleural effusion. There is adjacent mild patchy atelectasis or infiltrate in the right lung base. The heart is enlarged. There is a large hiatal hernia which obscures the left lung base and underlying left basilar infiltrate cannot be excluded. There is calcification of the thoracic aorta. Left dual lead pacemaker is noted. There is osteopenia. There is an old stable moderate compression deformity of a midthoracic vertebral body. IMPRESSION: Small right pleural effusion with mild adjacent atelectasis/infiltrate. A large hiatal hernia obscures the left lung base, underlying left base infiltrate cannot be excluded. <Electronically signed by Chintan Castillo > 02/03/21 1605
[2021-02-03] MEDS ORDERED: AMLO1TAB24 PO (10:46)
[2021-02-03] MEDS ORDERED: PANT20TA6 PO (10:46)
[2021-02-03] MEDS ORDERED: WARF-20 PO (10:46)
[2021-02-03] MEDS ORDERED: OXYC-517 PO (10:46)
[2021-02-03] MEDS ORDERED: LIDO5TD TD (10:46)
[2021-02-03] MEDS ORDERED: COZA1TAB PO (10:46)
[2021-02-03] MEDS ORDERED: ACET500T15 PO (10:46)
[2021-02-03] MEDS ORDERED: FLUO20CA22 PO (10:46)
[2021-02-03] MEDS ORDERED: SENN18TA PO (10:46)
[2021-02-03] MEDS ORDERED: HYDR500C PO ×2 (10:46)
--- NOTE | 2021-02-03 11:06 | IPNPDOC ---
PM&R Progress Note DATE OF SERVICE: Feb 03, 2021 [employer] Specialist Progress Note Subjective: atient rpeorting she has a cough that is new this morning after having difficulty swallowing one of her pills last night. she denies fevers or chills. Se states her pain is sitll present, but it come and goes and the oxycodone is helping a little. She believes the lidoderm patch is useful. REVIEW OF SYSTEMS: The following is a completed review of systems and has been reviewed. Review of systems otherwise unremarkable. PAIN: Patient self reports no pain at rest EYES: No recent vision changes EARS, NOSE, & THROAT: +chronic dysphagia CARDIOVASCULAR: Denies chest pain or palpitations PULMONARY: Denies shortness of breath, +cough GASTROINTESTINAL: + constipation (improved) GENITOURINARY: denies dysuria MUSCULOSKELETAL: generalized weakness NEUROLOGICAL:+RLE weakness in setting of chronic sciatica HEMATOLOGICAL: denies easy bruising SKIN: denies rash PSYCHIATRIC: Unremarkable All other review of systems found to be negative. PHYSICAL EXAMINATION: VITAL SIGNS: Please see below. GENERAL: Pleasant and cooperative. No acute distress. HEENT: PERRL. Extraocular movements intact. Clear conjunctiva CARDIOVASCULAR: Regular rate and rhythm. No murmurs, rubs, or gallops LUNGS: Clear to auscultation bilaterally. No wheezes. No rhonchi ABDOMEN: Soft, nontender, nondistended. Positive bowel sounds. Normal active bowel sounds NEUROLOGICAL: Alert and oriented times three. Cranial nerves II through XII grossly intact. Sensation grossly intact EXTREMITIES: 5\\5 strength LLE, 3+/5 RLE 4+/5 bilat UE +scoliosis +TTP with palpation of left sided paraspinals around T12 region (-) SLR bilat +bilat LE edema LABORATORY DATA: Please see below. 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 Ortho- chronic t12 compression fracture with new mid-lower back spasms, likely myofascial causing difficulty walking, c/u oral pain regimen and conservative therapy management, no bowel/bladder incontinence 3. Cardiac- hx of HTN cont BP meds, monitor and adjust prn -recent ECHO in 2019 showing "Dilated hypokinetic right ventricle, mild to moderate tricuspid insufficiency" patient noted to have LE edema 4. Resp- patien reporting cough this morning, does not appear ill and is able to participate in therapy, vitals stable, however cxr suspicious for pneumonia, likely due to aspirations-"Small right pleural effusion with mild adjacent atelectasis/infiltrate. A large hiatal hernia obscures the left lung base, underlying left base infiltrate cannot be excluded." no leukocytosis, will start Augmentin, guaifenesin, Combivent, HOB 30 degrees and monitor, f/u sputum culture -lasix added as well today for right sided pleural effusion 5. 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 GI ppx- protonix -colace, senna, suppository 7. Pain- tylenol (will schedule 1000mg TID) and oxycodone-will cont oxycodone scheduled, but lower dose to 2.5mg as patient appears more sedated and overly medicating pain may not serve her functionally -abdominal binder can be used as well 8. psych- prozac 9. dispo- will postpone discharge home with daughter today to treat what is likely a pneumonia, will aim for Tuesday02-06-21 pending optimal clinical response -discussed case at length tofay with daughter shan who is apprehensive about taking her mother home with her given concern she may not remain as active, she was encouraged to try taking her mother home and that if [facility] felt usafe at home she could always bring her mother back to the hospital. I also explained that her mother's function was inconsistent and to prepare for good and bad days at home. She will be referred to pain clinic for possible injections which should be coupled with therapy -ortho referral will be placed as well for spine eval. 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 She is unable to complete her MRADLs with a walker or cane. Her home is wheelchair accessible and her family is able to help her. Patient will also require a hospital bed. She has a history of chronic low back pain with sciatica casing right lower extremity weakness. Additionally she has right sided heart failure and is at increased risk of developing skin breakdown from edema in her legs which having a hospital bed to elevate her legs will help prevent. She is also at risk of developing orthopnea and would benefit from being able to raise the head of the bed. Allergies Coded Allergies: No Known Allergies (Unverified , 11/05/18) Vital Signs Vital Signs Date Time Temp Pulse Resp B/P (MAP) Pulse Ox O2 Delivery O2 Flow Rate FiO2 02/03/21 08:15 81 02/03/21 08:14 127/68 02/03/21 07:15 16 02/03/21 06:00 98.1 97 Room Air Laboratory Data CBC/BMP Labs 24H Laboratory Tests 2 02/03/21 06:43: Prothrombin Time 23.8H, Prothromb Time International Ratio 2.08 Current Medications Current Medications Current Medications Medications (Trade) Dose Ordered Sig/Liat Route PRN Reason Start Time Stop Time Status Last Admin Dose Admin Acetaminophen (Tylenol Suspension) 975 mg TID PO 01/25/21 16:00 01/27/21 12:16 DC 01/27/21 08:16 Acetaminophen (Tylenol Tab) 650 mg Q4HP PRN PO pain >3/10 01/27/21 12:15 02/01/21 23:07 Acetaminophen (Tylenol Tab) 1,000 mg TID PO 01/22/21 16:00 01/25/21 08:51 DC 01/25/21 08:35 Amlodipine Besylate (Norvasc) 5 mg BID PO 01/22/21 21:00 02/03/21 08:15 Amoxicillin/ Clavulanate Potassium (Augmentin) 875 mg BID PO 02/03/21 21:00 UNV Bisacodyl (Dulcolax Suppository) 10 mg DAILY@1700 UT 01/28/21 17:00 02/02/21 16:20 Bisacodyl (Dulcolax Suppository) 10 mg DAILYPRN PRN [place] CONSTIPATION 01/22/21 15:30 01/28/21 13:41 DC Docusate Sodium (Colace) 100 mg BID PO 01/22/21 21:00 02/03/21 08:14 Fluoxetine HCl (PROzac) 20 mg DAILY PO 01/23/21 09:00 02/03/21 08:14 Gabapentin (Neurontin) 100 mg DAILY PO 01/23/21 09:00 02/03/21 09:45 DC 02/03/21 08:12 Hydroxyurea (Hydrea) 500 mg MoTuWeThFrSa@0900 PO 01/23/21 09:00 02/03/21 08:11 Hydroxyurea (Hydrea) 1,000 mg [place]@0900 PO 01/25/21 09:00 02/01/21 07:42 Lidocaine (Lidoderm Patch) 1 patch DAILY TD 01/29/21 10:00 02/03/21 08:12 Losartan Potassium (Cozaar) 25 mg DAILY PO 01/23/21 09:00 02/03/21 08:14 Non-Formulary Medication ( See Comment Field Below ) REMOVE LIDODERM PATCH DAILY@21 XX 01/29/21 21:00 02/02/21 21:09 Oxycodone HCl (Roxicodone, Oxyir) 2.5 mg BID@0700,1200 PO 02/03/21 12:00 UNV Oxycodone HCl (Roxicodone, Oxyir) 2.5 mg Q24H PRN PO pain >5 02/03/21 12:10 UNV Oxycodone HCl (Roxicodone, Oxyir) 2.5 mg QHS PO 02/03/21 21:00 UNV Oxycodone HCl (Roxicodone, Oxyir) 5 mg BID@0700,1200 PO 01/28/21 07:00 02/03/21 11:05 DC 02/03/21 06:27 Oxycodone HCl (Roxicodone, Oxyir) 5 mg Q24H PRN PO pain >5 01/28/21 12:10 02/03/21 11:05 DC 02/03/21 01:04 Oxycodone HCl (Roxicodone, Oxyir) 5 mg Q4HP PRN PO MODERATE PAIN (PS 5-7) 01/22/21 15:30 01/27/21 13:54 DC 01/27/21 13:40 Oxycodone HCl (Roxicodone, Oxyir) 5 mg QHS PO 01/27/21 21:00 02/03/21 11:05 DC 02/02/21 21:08 Pantoprazole Sodium (Protonix) 40 mg DAILY PO 01/23/21 09:00 02/03/21 08:12 Polyethylene Glycol (Miralax) 1 pkt DAILYPRN PRN PO CONSTIPATION 01/28/21 13:40 01/28/21 16:53 Senna (Senokot) 1 tab QHS PO 01/22/21 21:00 02/02/21 21:07 Warfarin Sodium (Coumadin) 2.5 mg DAILY@17 PO 01/27/21 17:00 01/28/21 10:16 DC 01/27/21 16:02 Warfarin Sodium (Coumadin) 2.5 mg We@1700 PO 01/28/21 17:00 01/26/21 10:24 DC Warfarin Sodium (Coumadin) 3 mg DAILY@17 PO 01/28/21 17:00 01/29/21 09:03 DC 01/28/21 16:53 Warfarin Sodium (Coumadin) 3 mg DAILY@17 PO 01/30/21 17:00 02/01/21 09:16 DC 01/31/21 16:08 Warfarin Sodium (Coumadin) 3 mg DAILY@17 PO 02/02/21 17:00 02/02/21 09:57 DC Warfarin Sodium (Coumadin) 3 mg DAILY@17 PO 02/03/21 17:00 Warfarin Sodium (Coumadin) 5 mg SuMoTuThFrSa@1700 PO 01/22/21 17:00 01/26/21 10:24 DC 01/25/21 16:27 CINDY MADERA MD Feb 03, 2021 11:06
[2021-02-03] MEDS ORDERED: oxyCODONE 5MG TAB PO PRN (12:10)
[2021-02-03] MEDS: LACTOBACILLUS ACIDOPHILUS CAP (BACID) PO SCH ×2 (12:15→17:01)
[2021-02-03] MEDS: FUROSEMIDE 20 MG TAB PO SCH (12:20)
[2021-02-03] MEDS: COMBIVENT RESPIMAT 100-20MCG INHALER 4GM INH SCH ×2 (13:00→20:38)
[2021-02-03] MEDS: AUGMENTIN 875 MG TAB PO SCH ×2 (13:03→20:42)
[2021-02-03 14:10] LABS: BASO % 0.3 % (0.0-1.0); EOS % 0.5 % (0.0-3.0); HEMATOCRIT 37.8 % (36.0-47.0); HEMOGLOBIN 12.4 g/dl (12.0-15.5); LYMPH # 0.8 10^3/uL (1.5-5.0); LYMPH % 14.1 % (24.0-44.0); MEAN CORPUSCULAR HEMOGLOBIN 34.4 pg (27.0-33.0); MEAN CORPUSCULAR HGB CONC 32.8 g/dl (32.0-36.5); MONO # 0.7 10^3/uL (0.0-0.8); MONO % 12.7 % (2.0-8.0); NEUTROPHILS # 4.2 10^3/uL (1.5-8.5); NEUTROPHILS % 72.2 % (36.0-66.0); PLATELET COUNT, AUTOMATED 488 10^3/uL (150-450); WHITE BLOOD COUNT 5.8 10^3/uL (4.0-10.0)
[2021-02-03 15:10] VITALS: BP 144/76
[2021-02-03] MEDS: WARFARIN SOD 3MG TAB PO SCH (17:01)
[2021-02-03] MEDS: BISACODYL 10 MG SUPP PR SCH (17:01)
[2021-02-03 20:00] VITALS: BP 156/73
[2021-02-03] MEDS: ACETAMINOPHEN TAB 650MG DOSE (2X325MG) PO PRN (20:43)
[2021-02-03] MEDS: **NOTE PATIENT COMMENT** MISC XX SCH (21:00)
[2021-02-03] MEDS: SENNA 8.6 MG TAB (SENOKOT) PO SCH (21:00)
[2021-02-03] MEDS: guaiFENesin SYRUP 200 MG/10 ML UDC PO PRN (21:31)
[2021-02-04] MEDS: guaiFENesin SYRUP 200 MG/10 ML UDC PO PRN ×2 (05:13→07:42)
[2021-02-04 06:00] VITALS: BP 137/90
[2021-02-04] MEDS: COMBIVENT RESPIMAT 100-20MCG INHALER 4GM INH SCH ×3 (07:17→20:39)
[2021-02-04] MEDS: LIDOCAINE 5% (LIDODERM) PATCH TD SCH (07:41)
[2021-02-04] MEDS: PANTOPRAZOLE 40MG TAB (PROTONIX) PO SCH (07:42)
[2021-02-04] MEDS: LACTOBACILLUS ACIDOPHILUS CAP (BACID) PO SCH ×3 (07:42→17:40)
[2021-02-04] MEDS: FUROSEMIDE 20 MG TAB PO SCH (07:42)
[2021-02-04] MEDS: amLODIPine 5 MG TAB PO SCH ×2 (07:42→20:30)
[2021-02-04] MEDS: LOSARTAN 25 MG TAB PO SCH (07:42)
[2021-02-04] MEDS: DOCUSATE SODIUM 100MG CAPSULE PO SCH ×2 (07:43→20:30)
[2021-02-04] MEDS: oxyCODONE 5MG TAB PO SCH ×3 (07:43→20:30)
[2021-02-04] MEDS: HYDROXYUREA 500 MG CAP PO SCH (07:43)
[2021-02-04] MEDS: GABAPENTIN 100 MG CAP PO SCH ×3 (07:43→20:31)
[2021-02-04] MEDS: AUGMENTIN 875 MG TAB PO SCH ×2 (07:43→20:30)
[2021-02-04] MEDS: FLUoxetine 20 MG CAP PO SCH (07:43)
[2021-02-04] MEDS: REMEDY PHYTOPLEX Z-GUARD PASTE 113GM TUBE (FROM STOREROOM PRODUCT) TOP SCH ×3 (07:44→20:31)
[2021-02-04 07:58] LABS: BASO % 0.4 % (0.0-1.0); EOS # 0.1 10^3/uL (0.0-0.5); EOS % 1.1 % (0.0-3.0); HEMATOCRIT 39.2 % (36.0-47.0); HEMOGLOBIN 12.9 g/dl (12.0-15.5); LYMPH # 1.1 10^3/uL (1.5-5.0); LYMPH % 10.9 % (24.0-44.0); MEAN CORPUSCULAR HEMOGLOBIN 34.7 pg (27.0-33.0); MEAN CORPUSCULAR HGB CONC 32.9 g/dl (32.0-36.5); MEAN CORPUSCULAR VOLUME 105.4 fl (80.0-96.0); MONO # 0.8 10^3/uL (0.0-0.8); MONO % 8.6 % (2.0-8.0); NEUTROPHILS # 7.7 10^3/uL (1.5-8.5); NEUTROPHILS % 78.7 % (36.0-66.0); PLATELET COUNT, AUTOMATED 473 10^3/uL (150-450); RED BLOOD COUNT 3.72 10^6/uL (4.00-5.40); WHITE BLOOD COUNT 9.8 10^3/uL (4.0-10.0)
[2021-02-04 08:09] LABS: CREATININE FOR GFR 0.97 MG/DL (0.55-1.30); GLOMERULAR FILTRATION RATE 58.5 (>32); POTASSIUM SERUM 3.4 MEQ/L (3.5-5.1)
[2021-02-04 08:11] LABS: INR 2.21; PROTHROMBIN TIME 24.9 SECONDS (12.7-14.5)
[2021-02-04] MEDS ORDERED: POTASSIUM CHLORIDE 10% LIQ 20 MEQ/15 ML UDC PO ONE (09:20)
[2021-02-04 14:00] VITALS: BP 116/70
[2021-02-04] MEDS: WARFARIN SOD 3MG TAB PO SCH (16:23)
[2021-02-04] MEDS: BISACODYL 10 MG SUPP PR SCH (16:23)
[2021-02-04 20:00] VITALS: BP 127/64
[2021-02-04] MEDS: **NOTE PATIENT COMMENT** MISC XX SCH (20:31)
[2021-02-04] MEDS: SENNA 8.6 MG TAB (SENOKOT) PO SCH (20:31)
[2021-02-05 06:00] VITALS: BP 118/68
[2021-02-05] MEDS: oxyCODONE 5MG TAB PO SCH ×3 (06:51→20:29)
[2021-02-05 07:20] LABS: BASO % 0.5 % (0.0-1.0); EOS # 0.1 10^3/uL (0.0-0.5); EOS % 2.4 % (0.0-3.0); HEMATOCRIT 38.1 % (36.0-47.0); HEMOGLOBIN 12.6 g/dl (12.0-15.5); LYMPH # 0.8 10^3/uL (1.5-5.0); LYMPH % 13.9 % (24.0-44.0); MEAN CORPUSCULAR HEMOGLOBIN 34.3 pg (27.0-33.0); MEAN CORPUSCULAR HGB CONC 33.1 g/dl (32.0-36.5); MEAN CORPUSCULAR VOLUME 103.8 fl (80.0-96.0); MONO # 0.6 10^3/uL (0.0-0.8); MONO % 10.1 % (2.0-8.0); NEUTROPHILS # 4.2 10^3/uL (1.5-8.5); NEUTROPHILS % 72.8 % (36.0-66.0); PLATELET COUNT, AUTOMATED 454 10^3/uL (150-450); RED BLOOD COUNT 3.67 10^6/uL (4.00-5.40); WHITE BLOOD COUNT 5.8 10^3/uL (4.0-10.0)
[2021-02-05] MEDS: COMBIVENT RESPIMAT 100-20MCG INHALER 4GM INH SCH ×3 (07:21→20:40)
[2021-02-05 07:34] LABS: INR 2.46
[2021-02-05 08:00] LABS: CALCIUM LEVEL 8.3 MG/DL (8.8-10.2); CREATININE FOR GFR 1.05 MG/DL (0.55-1.30); GLOMERULAR FILTRATION RATE 53.4 (>32); POTASSIUM SERUM 4.3 MEQ/L (3.5-5.1)
[2021-02-05] MEDS: LIDOCAINE 5% (LIDODERM) PATCH TD SCH (08:25)
[2021-02-05] MEDS: HYDROXYUREA 500 MG CAP PO SCH (08:25)
[2021-02-05] MEDS: DOCUSATE SODIUM 100MG CAPSULE PO SCH ×2 (08:25→20:28)
[2021-02-05] MEDS: FUROSEMIDE 20 MG TAB PO SCH (08:26)
[2021-02-05] MEDS: FLUoxetine 20 MG CAP PO SCH (08:26)
[2021-02-05] MEDS: PANTOPRAZOLE 40MG TAB (PROTONIX) PO SCH (08:26)
[2021-02-05] MEDS: LOSARTAN 25 MG TAB PO SCH (08:26)
[2021-02-05] MEDS: amLODIPine 5 MG TAB PO SCH ×2 (08:26→20:29)
[2021-02-05] MEDS: LACTOBACILLUS ACIDOPHILUS CAP (BACID) PO SCH ×3 (08:26→17:12)
[2021-02-05] MEDS: AUGMENTIN 875 MG TAB PO SCH ×2 (08:26→20:27)
[2021-02-05] MEDS: GABAPENTIN 100 MG CAP PO SCH ×3 (08:26→20:28)
[2021-02-05] MEDS: REMEDY PHYTOPLEX Z-GUARD PASTE 113GM TUBE (FROM STOREROOM PRODUCT) TOP SCH ×3 (08:27→20:30)
[2021-02-05] MEDS: PROPRANOLOL 10 MG TAB PO SCH ×2 (09:00→20:28)
--- NOTE | 2021-02-05 09:22 | IPNPDOC ---
PM&R Progress Note DATE OF SERVICE: Feb 04, 2021 [employer]ator Progress Note Subjective: Patient stating she feels like she has more energy today and her pain is a little better in her back. REVIEW OF SYSTEMS: The following is a completed review of systems and has been reviewed. Review of systems otherwise unremarkable. PAIN: Patient self reports no pain at rest EYES: No recent vision changes EARS, NOSE, & THROAT: +chronic dysphagia CARDIOVASCULAR: Denies chest pain or palpitations PULMONARY: Denies shortness of breath, +cough (improving) GASTROINTESTINAL: + constipation (improved) GENITOURINARY: denies dysuria MUSCULOSKELETAL: generalized weakness NEUROLOGICAL:+RLE weakness in setting of chronic sciatica HEMATOLOGICAL: denies easy bruising SKIN: denies rash PSYCHIATRIC: Unremarkable All other review of systems found to be negative. PHYSICAL EXAMINATION: VITAL SIGNS: Please see below. GENERAL: Pleasant and cooperative. No acute distress. HEENT: PERRL. Extraocular movements intact. Clear conjunctiva CARDIOVASCULAR: Regular rate and rhythm. No murmurs, rubs, or gallops LUNGS: Clear to auscultation bilaterally. No wheezes. No rhonchi ABDOMEN: Soft, nontender, nondistended. Positive bowel sounds. Normal active bowel sounds NEUROLOGICAL: Alert and oriented times three. Cranial nerves II through XII grossly intact. Sensation grossly intact EXTREMITIES: 5\\5 strength LLE, 3+/5 RLE 4+/5 bilat UE +scoliosis +TTP with palpation of left sided paraspinals around T12 region (-) SLR bilat +bilat LE edema LABORATORY DATA: Please see below. 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 Ortho- chronic t12 compression fracture with new mid-lower back spasms, likely myofascial causing difficulty walking, in addition patient has severe kyphosis and scoliosis which is contributing to her mechanical back pain, c/u oral pain regimen and conservative therapy management, no bowel/bladder incontinence 3. Cardiac- hx of HTN cont BP meds, monitor and adjust prn -recent ECHO in 2019 showing "Dilated hypokinetic right ventricle, mild to moderate tricuspid insufficiency" patient noted to have LE edema 4. Resp- cont Augmentin for aspiration PNA, patient reporting she feels more energetic today, denies fevers/chills, but with mild cough, no leukocytosis CXR-02-03-21 showing-"Small right pleural effusion with mild adjacent atelectasis/infiltrate. A large hiatal hernia obscures the left lung base, underlying left base infiltrate cannot be excluded." -cont guaifenesin, Combivent, HOB 30 degrees and monitor, f/u sputum culture -lasix added for right sided pleural effusion 5. 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 GI ppx- protonix -colace, senna, suppository 7. Pain- tylenol (will schedule 1000mg TID) and oxycodone-will cont oxycodone scheduled, but lower dose to 2.5mg as patient appeared more sedated and overly medicating pain may not serve her functionally, she is moving better in therapy with lower dose of oxycodone -gabapentin increased to 100mg TID as well for back pain -abdominal binder can be used as well 8. psych- prozac 9. Hypokalemia- will replete and f/u BMP tomorrow 10. dispo- goal to home with family 02-06-21, patient moving better in therapy today, mild cough, no fever or chills -ortho referral will be placed as well for spine eval. patient does also have avascular necrosis of the left hip, but this is chronic in nature and patient is not complaining of buttock or groin pain DME- patient will require a wheelchair in order to complete her MRADLs in a timely and safe manner. She is unable to complete her MRADLs with a walker or cane. Her home is wheelchair accessible and her family is able to help her. Patient will also require a hospital bed. She has a history of chronic low back pain with sciatica casing right lower extremity weakness. Additionally she has right sided heart failure and is at increased risk of developing skin breakdown from edema in her legs which having a hospital bed to elevate her legs will help prevent. She is also at risk of developing orthopnea and would benefit from being able to raise the head of the bed. Allergies Coded Allergies: No Known Allergies (Unverified , 11/05/18) Vital Signs Vital Signs Date Time Temp Pulse Resp B/P (MAP) Pulse Ox O2 Delivery O2 Flow Rate FiO2 02/05/21 08:26 118/68 02/05/21 08:26 78 02/05/21 07:21 17 02/05/21 06:51 Room Air 02/05/21 06:00 98.2 94 02/03/21 23:25 1.0 Laboratory Data CBC/BMP Laboratory Tests 02/05/21 07:06 Labs 24H Laboratory Tests 2 02/05/21 07:06: Immature Granulocyte % (Auto) 0.3, Neutrophils (%) (Auto) 72.8H, Lymphocytes (%) (Auto) 13.9L, Monocytes (%) (Auto) 10.1H, Eosinophils (%) (Auto) 2.4, Basophils (%) (Auto) 0.5, Neutrophils # (Auto) 4.2, Lymphocytes # (Auto) 0.8L, Monocytes # (Auto) 0.6, Eosinophils # (Auto) 0.1, Basophils # (Auto) 0.0, Nucleated Red Blood Cells % (auto) 0.0, Prothrombin Time 27.0H, Prothromb Time International Ratio 2.46, Anion Gap 4L, Glomerular Filtration Rate 53.4, Calcium Level 8.3L Microbiology Microbiology 02/03/21 Gram Stain - Final, Complete 02/03/21 Sputum Culture - Final, Complete Current Medications Current Medications Current Medications Medications (Trade) Dose Ordered Sig/Liat Route PRN Reason Start Time Stop Time Status Last Admin Dose Admin Acetaminophen (Tylenol Suspension) 975 mg TID PO 01/25/21 16:00 01/27/21 12:16 DC 01/27/21 08:16 Acetaminophen (Tylenol Tab) 650 mg Q4HP PRN PO pain >3/10 01/27/21 12:15 02/03/21 20:43 Acetaminophen (Tylenol Tab) 1,000 mg TID PO 01/22/21 16:00 01/25/21 08:51 DC 01/25/21 08:35 Albuterol/ Ipratropium (Combivent Respimat 100-20mcg) 1 puff RTID INH 02/03/21 14:00 02/05/21 07:21 Amlodipine Besylate (Norvasc) 5 mg BID PO 01/22/21 21:00 02/05/21 08:26 Amoxicillin/ Clavulanate Potassium (Augmentin) 875 mg BID PO 02/03/21 09:00 02/09/21 21:01 02/05/21 08:26 Bisacodyl (Dulcolax Suppository) 10 mg DAILY@1700 MN 01/28/21 17:00 02/04/21 16:23 Bisacodyl (Dulcolax Suppository) 10 mg DAILYPRN PRN [place] CONSTIPATION 01/22/21 15:30 01/28/21 13:41 DC Docusate Sodium (Colace) 100 mg BID PO 01/22/21 21:00 02/05/21 08:25 Fluoxetine HCl (PROzac) 20 mg DAILY PO 01/23/21 09:00 02/05/21 08:26 Furosemide (Lasix) 20 mg DAILY PO 02/03/21 09:00 02/05/21 08:26 Gabapentin (Neurontin) 100 mg DAILY PO 01/23/21 09:00 02/03/21 09:45 DC 02/03/21 08:12 Gabapentin (Neurontin) 100 mg TID PO 02/03/21 14:50 02/05/21 08:26 Guaifenesin (Robitussin) 5 ml TID PRN PO COUGH 02/03/21 14:40 02/04/21 07:42 Hydroxyurea (Hydrea) 500 mg MoTuWeThFrSa@0900 PO 01/23/21 09:00 02/05/21 08:25 Hydroxyurea (Hydrea) 1,000 mg [place]@0900 PO 01/25/21 09:00 02/01/21 07:42 Lactobacillus Acidophilus (Bacid) 1 ea WM PO 02/03/21 12:30 02/05/21 08:26 Lidocaine (Lidoderm Patch) 1 patch DAILY TD 01/29/21 10:00 02/05/21 08:25 Losartan Potassium (Cozaar) 25 mg DAILY PO 01/23/21 09:00 02/05/21 08:26 Non-Formulary Medication ( See Comment Field Below ) REMOVE LIDODERM PATCH DAILY@21 XX 01/29/21 21:00 02/04/21 20:31 Oxycodone HCl (Roxicodone, Oxyir) 2.5 mg BID@0700,1200 PO 02/03/21 12:00 02/05/21 06:51 Oxycodone HCl (Roxicodone, Oxyir) 2.5 mg Q24H PRN PO pain >5 02/03/21 12:10 02/05/21 01:41 Oxycodone HCl (Roxicodone, Oxyir) 2.5 mg QHS PO 02/03/21 21:00 02/04/21 20:30 Oxycodone HCl (Roxicodone, Oxyir) 5 mg BID@0700,1200 PO 01/28/21 07:00 02/03/21 11:05 DC 02/03/21 06:27 Oxycodone HCl (Roxicodone, Oxyir) 5 mg Q24H PRN PO pain >5 01/28/21 12:10 02/03/21 11:05 DC 02/03/21 01:04 Oxycodone HCl (Roxicodone, Oxyir) 5 mg Q4HP PRN PO MODERATE PAIN (PS 5-7) 01/22/21 15:30 01/27/21 13:54 DC 01/27/21 13:40 Oxycodone HCl (Roxicodone, Oxyir) 5 mg QHS PO 01/27/21 21:00 02/03/21 11:05 DC 02/02/21 21:08 Pantoprazole Sodium (Protonix) 40 mg DAILY PO 01/23/21 09:00 02/05/21 08:26 Polyethylene Glycol (Miralax) 1 pkt DAILYPRN PRN PO CONSTIPATION 01/28/21 13:40 01/28/21 16:53 Senna (Senokot) 1 tab QHS PO 01/22/21 21:00 02/04/21 20:31 Warfarin Sodium (Coumadin) 2.5 mg DAILY@17 PO 01/27/21 17:00 01/28/21 10:16 DC 01/27/21 16:02 Warfarin Sodium (Coumadin) 2.5 mg We@1700 PO 01/28/21 17:00 01/26/21 10:24 DC Warfarin Sodium (Coumadin) 3 mg DAILY@17 PO 01/28/21 17:00 01/29/21 09:03 DC 01/28/21 16:53 Warfarin Sodium (Coumadin) 3 mg DAILY@17 PO 01/30/21 17:00 02/01/21 09:16 DC 01/31/21 16:08 Warfarin Sodium (Coumadin) 3 mg DAILY@17 PO 02/02/21 17:00 02/02/21 09:57 DC Warfarin Sodium (Coumadin) 3 mg DAILY@17 PO 02/03/21 17:00 02/04/21 16:23 Warfarin Sodium (Coumadin) 5 mg SuMoTuThFrSa@1700 PO 01/22/21 17:00 01/26/21 10:24 DC 01/25/21 16:27 CINDY MADERA MD Feb 05, 2021 09:22
--- NOTE | 2021-02-05 09:26 | IPNPDOC ---
PM&R Progress Note DATE OF SERVICE: Feb 05, 2021 Director Zone Progress Note Subjective: Patient states her cough has improved and she is moving beter in therapy. She would like to start back on propranolol she states she took in the past for essential tremor. REVIEW OF SYSTEMS: The following is a completed review of systems and has been reviewed. Review of systems otherwise unremarkable. PAIN: Patient self reports no pain at rest EYES: No recent vision changes EARS, NOSE, & THROAT: +chronic dysphagia CARDIOVASCULAR: Denies chest pain or palpitations PULMONARY: Denies shortness of breath, +cough (improving) GASTROINTESTINAL: + constipation (improved) GENITOURINARY: denies dysuria MUSCULOSKELETAL: generalized weakness NEUROLOGICAL:+RLE weakness in setting of chronic sciatica HEMATOLOGICAL: denies easy bruising SKIN: denies rash PSYCHIATRIC: Unremarkable All other review of systems found to be negative. PHYSICAL EXAMINATION: VITAL SIGNS: Please see below. GENERAL: Pleasant and cooperative. No acute distress. HEENT: PERRL. Extraocular movements intact. Clear conjunctiva CARDIOVASCULAR: Regular rate and rhythm. No murmurs, rubs, or gallops LUNGS: Clear to auscultation bilaterally. No wheezes. No rhonchi ABDOMEN: Soft, nontender, nondistended. Positive bowel sounds. Normal active bowel sounds NEUROLOGICAL: Alert and oriented times three. Cranial nerves II through XII grossly intact. Sensation grossly intact +mild essential tremor bilat UE EXTREMITIES: 5\\5 strength LLE, 3+/5 RLE 4+/5 bilat UE +scoliosis +TTP with palpation of left sided paraspinals around T12 region (-) SLR bilat +bilat LE edema LABORATORY DATA: Please see below. ASSESSMENT:80-year-old F with past medical history of chronic t12 compression fracture who presents status post developing intractable low back pain and difficulty walking PLAN: 1.REhab- PT/OT advance mobility and ADLs, strengthen/stretch/maintain ROM all 4 limbs, ambulating with RW -hx of dysphagia not related to stroke, cont [employer], patient downgraded to puree 2. Ortho- chronic t12 compression fracture with new mid-lower back spasms, likely myofascial causing difficulty walking, in addition patient has severe kyphosis and scoliosis which is contributing to her mechanical back pain, c/u oral pain regimen and conservative therapy management, no bowel/bladder incont inence 3. Neuro- essential tremor- patient requesting to start back on proprnaolo which she took in the past- will add low dose 3. Cardiac- hx of HTN cont BP meds, monitor and adjust prn -recent ECHO in 2019 showing "Dilated hypokinetic right ventricle, mild to moderate tricuspid insufficiency" patient noted to have LE edema 4. Resp- cont Augmentin for aspiration PNA, patient reporting she feels more energetic today, denies fevers/chills, but with mild cough, no leukocytosis CXR-02-03-21 showing-"Small right pleural effusion with mild adjacent atelectasis/infiltrate. A large hiatal hernia obscures the left lung base, underlying left base infiltrate cannot be excluded." -cont guaifenesin, Combivent, HOB 30 degrees and monitor, f/u sputum culture -lasix added for right sided pleural effusion 5. 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 GI ppx- protonix -colace, senna, suppository 7. Pain- tylenol (will schedule 1000mg TID) and oxycodone-will cont oxycodone scheduled, but lower dose to 2.5mg as patient appeared more sedated and overly medicating pain may not serve her functionally, she is moving better in therapy with lower dose of oxycodone -gabapentin increased to 100mg TID as well for back pain -abdominal binder can be used as well 8. psych- prozac 9. Hypokalemia- resolved 10. dispo- goal to home with family 02-06-21, patient moving better in therapy today,cough improved, no fever or chills -ortho referral will be placed as well for spine eval. patient does also have avascular necrosis of the left hip, but this is chronic in nature and patient is not complaining of buttock or groin pain DME- patient will require a wheelchair in order to complete her MRADLs in a timely and safe manner. She is unable to complete her MRADLs with a walker or cane. Her home is wheelchair accessible and her family is able to help her. Patient will also require a hospital bed. She has a history of chronic low back pain with sciatica casing right lower extremity weakness. Additionally she has right sided heart failure and is at increased risk of developing skin breakdown from edema in her legs which having a hospital bed to elevate her legs will help prevent. She is also at risk of developing orthopnea and would benefit from being able to raise the head of the bed. Allergies Coded Allergies: No Known Allergies (Unverified , 11/05/18) Vital Signs Vital Signs Date Time Temp Pulse Resp B/P (MAP) Pulse Ox O2 Delivery O2 Flow Rate FiO2 02/05/21 08:26 118/68 02/05/21 08:26 78 02/05/21 07:21 17 02/05/21 06:51 Room Air 02/05/21 06:00 98.2 94 02/03/21 23:25 1.0 Laboratory Data CBC/BMP Laboratory Tests 02/05/21 07:06 Labs 24H Laboratory Tests 2 02/05/21 07:06: Immature Granulocyte % (Auto) 0.3, Neutrophils (%) (Auto) 72.8H, Lymphocytes (%) (Auto) 13.9L, Monocytes (%) (Auto) 10.1H, Eosinophils (%) (Auto) 2.4, Basophils (%) (Auto) 0.5, Neutrophils # (Auto) 4.2, Lymphocytes # (Auto) 0.8L, Monocytes # (Auto) 0.6, Eosinophils # (Auto) 0.1, Basophils # (Auto) 0.0, Nucleated Red Blood Cells % (auto) 0.0, Prothrombin Time 27.0H, Prothromb Time International Ratio 2.46, Anion Gap 4L, Glomerular Filtration Rate 53.4, Calcium Level 8.3L Microbiology Microbiology 02/03/21 Gram Stain - Final, Complete 02/03/21 Sputum Culture - Final, Complete Current Medications Current Medications Current Medications Medications (Trade) Dose Ordered Sig/Liat Route PRN Reason Start Time Stop Time Status Last Admin Dose Admin Acetaminophen (Tylenol Suspension) 975 mg TID PO 01/25/21 16:00 01/27/21 12:16 DC 01/27/21 08:16 Acetaminophen (Tylenol Tab) 650 mg Q4HP PRN PO pain >3/10 01/27/21 12:15 02/03/21 20:43 Acetaminophen (Tylenol Tab) 1,000 mg TID PO 01/22/21 16:00 01/25/21 08:51 DC 01/25/21 08:35 Albuterol/ Ipratropium (Combivent Respimat 100-20mcg) 1 puff RTID INH 02/03/21 14:00 02/05/21 07:21 Amlodipine Besylate (Norvasc) 5 mg BID PO 01/22/21 21:00 02/05/21 08:26 Amoxicillin/ Clavulanate Potassium (Augmentin) 875 mg BID PO 02/03/21 09:00 02/09/21 21:01 02/05/21 08:26 Bisacodyl (Dulcolax Suppository) 10 mg DAILY@1700 MO 01/28/21 17:00 02/04/21 16:23 Bisacodyl (Dulcolax Suppository) 10 mg DAILYPRN PRN MO CONSTIPATION 01/22/21 15:30 01/28/21 13:41 DC Docusate Sodium (Colace) 100 mg BID PO 01/22/21 21:00 02/05/21 08:25 Fluoxetine HCl (PROzac) 20 mg DAILY PO 01/23/21 09:00 02/05/21 08:26 Furosemide (Lasix) 20 mg DAILY PO 02/03/21 09:00 02/05/21 08:26 Gabapentin (Neurontin) 100 mg DAILY PO 01/23/21 09:00 02/03/21 09:45 DC 02/03/21 08:12 Gabapentin (Neurontin) 100 mg TID PO 02/03/21 14:50 02/05/21 08:26 Guaifenesin (Robitussin) 5 ml TID PRN PO COUGH 02/03/21 14:40 02/04/21 07:42 Hydroxyurea (Hydrea) 500 mg MoTuWeThFrSa@0900 PO 01/23/21 09:00 02/05/21 08:25 Hydroxyurea (Hydrea) 1,000 mg [place]@0900 PO 01/25/21 09:00 02/01/21 07:42 Lactobacillus Acidophilus (Bacid) 1 ea WM PO 02/03/21 12:30 02/05/21 08:26 Lidocaine (Lidoderm Patch) 1 patch DAILY TD 01/29/21 10:00 02/05/21 08:25 Losartan Potassium (Cozaar) 25 mg DAILY PO 01/23/21 09:00 02/05/21 08:26 Non-Formulary Medication ( See Comment Field Below ) REMOVE LIDODERM PATCH DAILY@21 XX 01/29/21 21:00 02/04/21 20:31 Oxycodone HCl (Roxicodone, Oxyir) 2.5 mg BID@0700,1200 PO 02/03/21 12:00 02/05/21 06:51 Oxycodone HCl (Roxicodone, Oxyir) 2.5 mg Q24H PRN PO pain >5 02/03/21 12:10 02/05/21 01:41 Oxycodone HCl (Roxicodone, Oxyir) 2.5 mg QHS PO 02/03/21 21:00 02/04/21 20:30 Oxycodone HCl (Roxicodone, Oxyir) 5 mg BID@0700,1200 PO 01/28/21 07:00 02/03/21 11:05 DC 02/03/21 06:27 Oxycodone HCl (Roxicodone, Oxyir) 5 mg Q24H PRN PO pain >5 01/28/21 12:10 02/03/21 11:05 DC 02/03/21 01:04 Oxycodone HCl (Roxicodone, Oxyir) 5 mg Q4HP PRN PO MODERATE PAIN (PS 5-7) 01/22/21 15:30 01/27/21 13:54 DC 01/27/21 13:40 Oxycodone HCl (Roxicodone, Oxyir) 5 mg QHS PO 01/27/21 21:00 02/03/21 11:05 DC 02/02/21 21:08 Pantoprazole Sodium (Protonix) 40 mg DAILY PO 01/23/21 09:00 02/05/21 08:26 Polyethylene Glycol (Miralax) 1 pkt DAILYPRN PRN PO CONSTIPATION 01/28/21 13:40 01/28/21 16:53 Senna (Senokot) 1 tab QHS PO 01/22/21 21:00 02/04/21 20:31 Warfarin Sodium (Coumadin) 2.5 mg DAILY@17 PO 01/27/21 17:00 01/28/21 10:16 DC 01/27/21 16:02 Warfarin Sodium (Coumadin) 2.5 mg We@1700 PO 01/28/21 17:00 01/26/21 10:24 DC Warfarin Sodium (Coumadin) 3 mg DAILY@17 PO 01/28/21 17:00 01/29/21 09:03 DC 01/28/21 16:53 Warfarin Sodium (Coumadin) 3 mg DAILY@17 PO 01/30/21 17:00 02/01/21 09:16 DC 01/31/21 16:08 Warfarin Sodium (Coumadin) 3 mg DAILY@17 PO 02/02/21 17:00 02/02/21 09:57 DC Warfarin Sodium (Coumadin) 3 mg DAILY@17 PO 02/03/21 17:00 02/04/21 16:23 Warfarin Sodium (Coumadin) 5 mg SuMoTuThFrSa@1700 PO 01/22/21 17:00 01/26/21 10:24 DC 01/25/21 16:27 CINDY MADERA MD Feb 05, 2021 09:26
[2021-02-05 14:00] VITALS: BP 95/57
[2021-02-05] MEDS: BISACODYL 10 MG SUPP PR SCH (16:17)
[2021-02-05] MEDS ORDERED: WARFARIN SOD 2.5MG TAB PO SCH (17:00)
[2021-02-05] MEDS: ACETAMINOPHEN TAB 650MG DOSE (2X325MG) PO PRN (18:52)
[2021-02-05 20:00] VITALS: BP 121/62
[2021-02-05] MEDS: SENNA 8.6 MG TAB (SENOKOT) PO SCH (20:28)
[2021-02-05] MEDS: **NOTE PATIENT COMMENT** MISC XX SCH (20:30)
[2021-02-06 06:00] VITALS: BP 133/68
[2021-02-06] MEDS: oxyCODONE 5MG TAB PO SCH ×2 (06:45→12:14)
[2021-02-06] MEDS: COMBIVENT RESPIMAT 100-20MCG INHALER 4GM INH SCH (08:00)
[2021-02-06 08:01] LABS: BASO % 0.5 % (0.0-1.0); EOS # 0.1 10^3/uL (0.0-0.5); EOS % 2.6 % (0.0-3.0); HEMATOCRIT 34.8 % (36.0-47.0); HEMOGLOBIN 11.6 g/dl (12.0-15.5); LYMPH # 0.7 10^3/uL (1.5-5.0); MEAN CORPUSCULAR HEMOGLOBIN 34.6 pg (27.0-33.0); MEAN CORPUSCULAR HGB CONC 33.3 g/dl (32.0-36.5); MEAN CORPUSCULAR VOLUME 103.9 fl (80.0-96.0); MONO # 0.5 10^3/uL (0.0-0.8); MONO % 11.3 % (2.0-8.0); NEUTROPHILS % 69.1 % (36.0-66.0); PLATELET COUNT, AUTOMATED 441 10^3/uL (150-450); RED BLOOD COUNT 3.35 10^6/uL (4.00-5.40); WHITE BLOOD COUNT 4.3 10^3/uL (4.0-10.0)
[2021-02-06 08:12] LABS: INR 2.37; PROTHROMBIN TIME 26.3 SECONDS (12.7-14.5)
[2021-02-06 08:19] LABS: BLOOD UREA NITROGEN 21 MG/DL (7-18); CALCIUM LEVEL 8.5 MG/DL (8.8-10.2); CARBON DIOXIDE LEVEL 28 MEQ/L (21-32); CHLORIDE LEVEL 107 MEQ/L (98-107); CREATININE FOR GFR 0.85 MG/DL (0.55-1.30); GLOMERULAR FILTRATION RATE > 60.0 (>32); GLUCOSE, FASTING 82 MG/DL (70-100); POTASSIUM SERUM 4.4 MEQ/L (3.5-5.1); SODIUM LEVEL 138 MEQ/L (136-145)
[2021-02-06] MEDS: HYDROXYUREA 500 MG CAP PO SCH (08:32)
[2021-02-06] MEDS: PROPRANOLOL 10 MG TAB PO SCH (08:32)
[2021-02-06] MEDS: FLUoxetine 20 MG CAP PO SCH (08:32)
[2021-02-06] MEDS: GABAPENTIN 100 MG CAP PO SCH (08:32)
[2021-02-06] MEDS: AUGMENTIN 875 MG TAB PO SCH (08:32)
[2021-02-06] MEDS: LACTOBACILLUS ACIDOPHILUS CAP (BACID) PO SCH ×2 (08:33→12:13)
[2021-02-06] MEDS: LOSARTAN 25 MG TAB PO SCH (08:33)
[2021-02-06] MEDS: PANTOPRAZOLE 40MG TAB (PROTONIX) PO SCH (08:33)
[2021-02-06 08:34] VITALS: BP 133/68
[2021-02-06] MEDS: amLODIPine 5 MG TAB PO SCH (08:34)
[2021-02-06] MEDS: LIDOCAINE 5% (LIDODERM) PATCH TD SCH (08:34)
[2021-02-06] MEDS: FUROSEMIDE 20 MG TAB PO SCH (08:34)
[2021-02-06] MEDS: REMEDY PHYTOPLEX Z-GUARD PASTE 113GM TUBE (FROM STOREROOM PRODUCT) TOP SCH (08:35)
[2021-02-06] MEDS: DOCUSATE SODIUM 100MG CAPSULE PO SCH (09:05)
[2021-02-06] MEDS ORDERED: OXYC-517 PO (10:05)
[2021-02-06] MEDS ORDERED: GABA-1171 PO (10:05)
[2021-02-06] MEDS ORDERED: RISATAB3 PO (10:05)
[2021-02-06] MEDS ORDERED: PROP10TA56 PO (10:05)
[2021-02-06] MEDS ORDERED: AMOX875T2 PO (10:05)
[2021-02-06] MEDS ORDERED: FURO20TA2 PO (10:05)
[2021-02-06] MEDS ORDERED: WARF-18 PO (10:07)
[2021-02-06] MEDS ORDERED: PERI0.126 PO (11:43)
--- NOTE | 2021-02-09 10:19 | PMRDS ---
NAME: RENZO RAMOS [facility] WT ID#: [id number] : [id number] JOB: [id number] VLAD: 02/06/2021 ACCT: [id number] DOCTOR: CINDY MADERA MD PMR DISCHARGE SUMMARY DATE OF ADMISSION: 01/22/2021 DATE OF DISCHARGE: 02/06/2021 CHIEF COMPLAINT/DISCHARGE DIAGNOSIS: Intractable back pain (ended)/verified/ml
== END 2021-02-06 14:15 | disposition home health service (06) | DRG 559 ==
LOC: M PM&R 15:20
PROVIDERS: ADMIT Physical Medicine & Rehabilitation; ATTEND Physical Medicine & Rehabilitation
DX: M48.54XD Collapsed vertebra, not elsewhere classified, thoracic region, subsequent encounter for fracture with routine healing (principal); J69.0 Pneumonitis due to inhalation of food and vomit; M87.051 Idiopathic aseptic necrosis of right femur; G95.89 Other specified diseases of spinal cord; R00.0 Tachycardia, unspecified; I10 Essential (primary) hypertension; D69.6 Thrombocytopenia, unspecified; F03.90 Unspecified dementia, unspecified severity, without behavioral disturbance, psychotic disturbance, mood disturbance, and anxiety; E89.0 Postprocedural hypothyroidism; G89.29 Other chronic pain; R26.2 Difficulty in walking, not elsewhere classified; M54.41 Lumbago with sciatica, right side; X58.XXXD Exposure to other specified factors, subsequent encounter; M16.0 Bilateral primary osteoarthritis of hip; M62.830 Muscle spasm of back; K59.00 Constipation, unspecified; M21.951 Unspecified acquired deformity of right thigh; K21.9 Gastro-esophageal reflux disease without esophagitis; F32.9 Major depressive disorder, single episode, unspecified; Z74.09 Other reduced mobility; Z74.1 Need for assistance with personal care; F41.9 Anxiety disorder, unspecified; R00.1 Bradycardia, unspecified; Z86.73 Personal history of transient ischemic attack (TIA), and cerebral infarction without residual deficits; Z86.718 Personal history of other venous thrombosis and embolism; Z95.0 Presence of cardiac pacemaker; Z86.711 Personal history of pulmonary embolism; Z79.01 Long term (current) use of anticoagulants; Z79.899 Other long term (current) drug therapy

== ENCOUNTER → 2021-02-12 | Outpatient (REF) | payer MEDICARE ==
[~2021-02-12] MED LIST changes: +AMOX875T2 PO; +COZA1TAB PO; +FURO20TA2 PO; +HYDR500C PO; +LIDO5TD TD; +OXYC-517 PO; +PERI0.126 PO; +PROP10TA56 PO; +RISATAB3 PO; +SENN18TA PO; +WARF-18 PO; +WARF-20 PO
[2021-02-12 15:15] LABS: INR 2.03; PROTHROMBIN TIME 23.3 SECONDS (12.7-14.5)
== END ==
LOC: M SHH 14:31
PROVIDERS: ATTEND Physical Medicine & Rehabilitation
DX: M54.41 Lumbago with sciatica, right side (principal); M80.88XD Other osteoporosis with current pathological fracture, vertebra(e), subsequent encounter for fracture with routine healing; D69.6 Thrombocytopenia, unspecified; F03.90 Unspecified dementia, unspecified severity, without behavioral disturbance, psychotic disturbance, mood disturbance, and anxiety; I10 Essential (primary) hypertension; R00.1 Bradycardia, unspecified; Z95.0 Presence of cardiac pacemaker; Z86.718 Personal history of other venous thrombosis and embolism; Z86.711 Personal history of pulmonary embolism; Z79.01 Long term (current) use of anticoagulants

== ENCOUNTER → 2021-02-19 | Outpatient (REF) | payer MEDICARE ==
[2021-02-19 15:11] LABS: INR 1.63; PROTHROMBIN TIME 19.7 SECONDS (12.7-14.5)
== END ==
LOC: M SHH 14:49
PROVIDERS: ATTEND Physical Medicine & Rehabilitation
DX: I80.00 Phlebitis and thrombophlebitis of superficial vessels of unspecified lower extremity (principal)

== ENCOUNTER → 2021-02-26 | Outpatient (REF) | payer MEDICARE ==
[2021-02-26 17:44] LABS: INR 2.48; PROTHROMBIN TIME 27.2 SECONDS (12.7-14.5)
== END ==
LOC: M SHH 16:39
PROVIDERS: ATTEND Physical Medicine & Rehabilitation
DX: Z79.01 Long term (current) use of anticoagulants (principal)

== ENCOUNTER → 2021-03-12 | Outpatient (REF) | payer MEDICARE ==
[~2021-03-12] MED LIST changes: +BENA25CA4 PO; +BENZ-18 PO
[2021-03-12 13:10] LABS: INR 2.7; PROTHROMBIN TIME 29.1 SECONDS (12.7-14.5)
== END ==
LOC: M SHH 12:09
PROVIDERS: ATTEND Family Medicine
DX: D47.3 Essential (hemorrhagic) thrombocythemia (principal); Z79.01 Long term (current) use of anticoagulants; I26.99 Other pulmonary embolism without acute cor pulmonale

== ENCOUNTER → 2021-03-26 | Outpatient (REF) | payer MEDICARE ==
[2021-03-26 15:40] LABS: INR 2.33; PROTHROMBIN TIME 25.9 SECONDS (12.7-14.5)
== END ==
LOC: M SHH 14:56
PROVIDERS: ATTEND Family Medicine
DX: Z79.01 Long term (current) use of anticoagulants (principal); I26.99 Other pulmonary embolism without acute cor pulmonale; D47.3 Essential (hemorrhagic) thrombocythemia

== ENCOUNTER → 2021-11-09 | Outpatient (CLI) | payer MEDICARE ==
[~2021-11-09] MED LIST changes: -LEVO500T3 PO; +LEVO500T4 PO; +LOSA25TA13 PO; -LOSA25TA14 PO; +NYST1POW9 TOP
== END ==
LOC: M PLAIMG 15:01
PROVIDERS: ATTEND Internal Medicine Medical Oncology
DX: S32.020A Wedge compression fracture of second lumbar vertebra, initial encounter for closed fracture (principal); R06.02 Shortness of breath; M85.80 Other specified disorders of bone density and structure, unspecified site; M54.50 Low back pain, unspecified

== ENCOUNTER → 2021-11-18 | Outpatient (CLI) | payer MEDICARE ==
[~2021-11-18] MED LIST changes: +ISOVUE-370 76% 100ML VIAL ONE
== END ==
LOC: M PLAIMG 08:57
PROVIDERS: ATTEND Internal Medicine Medical Oncology
DX: S32.030A Wedge compression fracture of third lumbar vertebra, initial encounter for closed fracture (principal); S32.040A Wedge compression fracture of fourth lumbar vertebra, initial encounter for closed fracture; R07.9 Chest pain, unspecified
CPT/HCPCS: 71260; Q9967

== ENCOUNTER → 2021-11-24 | Outpatient (CLI) | payer MEDICARE ==
[~2021-11-24] MED LIST changes: -ISOVUE-370 76% 100ML VIAL ONE
== END ==
LOC: M WHC 11:03
PROVIDERS: ATTEND Internal Medicine Medical Oncology
DX: Z13.820 Encounter for screening for osteoporosis (principal); M81.0 Age-related osteoporosis without current pathological fracture; M85.89 Other specified disorders of bone density and structure, multiple sites; Z78.0 Asymptomatic menopausal state

== ENCOUNTER → 2022-01-07 | Outpatient (CLI) | payer MEDICARE | LOC: M PLAIMG 13:23 | PROVIDERS: ATTEND Nurse Practitioner Adult Health | DX: M51.36 Other intervertebral disc degeneration, lumbar region (principal); M54.2 Cervicalgia; S32.020A Wedge compression fracture of second lumbar vertebra, initial encounter for closed fracture; K44.9 Diaphragmatic hernia without obstruction or gangrene; I25.10 Atherosclerotic heart disease of native coronary artery without angina pectoris; M85.88 Other specified disorders of bone density and structure, other site ==

== ENCOUNTER 2022-03-08 08:20 | Inpatient (IN) | payer MEDICARE ==
[~2022-03-08] VITALS: Ht 152.4 cm; Wt 65.8 kg
[~2022-03-08 08:20] MED LIST changes: +LEVO1TAB39 PO; -LEVO500T4 PO
[2022-03-08 09:18] LABS: HEMATOCRIT 41.3 % (36.0-47.0); LYMPH # 0.2 10^3/uL (1.5-5.0); LYMPH % 5.5 % (24.0-44.0); MEAN CORPUSCULAR HEMOGLOBIN 39.2 pg (27.0-33.0); MEAN CORPUSCULAR HGB CONC 33.9 g/dl (32.0-36.5); MONO # 0.4 10^3/uL (0.0-0.8); MONO % 9.1 % (2.0-8.0); NEUTROPHILS # 3.3 10^3/uL (1.5-8.5); NEUTROPHILS % 85.1 % (36.0-66.0); PLATELET COUNT, AUTOMATED 231 10^3/uL (150-450); RED BLOOD COUNT 3.57 10^6/uL (4.00-5.40); WHITE BLOOD COUNT 3.9 10^3/uL (4.0-10.0)
[2022-03-08 09:25] LABS: MEAN CORPUSCULAR VOLUME 115.7 fl (80.0-96.0)
[2022-03-08 09:44] LABS: OVALOCYTES 3+
[2022-03-08 09:45] LABS: PLATELET ESTIMATE NORMAL (NORMAL)
[2022-03-08 09:48] LABS: SCHISTOCYTES 1+; TEAR DROP CELLS 1+
[2022-03-08 09:53] LABS: BILIRUBIN,DIRECT 0.1 MG/DL (0.0-0.2); CALCIUM LEVEL 9.6 MG/DL (8.8-10.2); CREATININE FOR GFR 0.99 MG/DL (0.55-1.30); TOTAL PROTEIN 7.3 GM/DL (6.4-8.2)
[2022-03-08 09:57] LABS: INR 2.19; PROTHROMBIN TIME 24.7 SECONDS (12.7-14.5)
[2022-03-08] MEDS: GASTROGRAFIN SOLUTION 30ML PO SCH ×2 (10:36→10:38)
[2022-03-08] MEDS ORDERED: ONDANSETRON 4MG 2ML VIAL IV ONE (11:10)
[2022-03-08] MEDS ORDERED: ISOVUE-370 76% 100ML VIAL As Ordered ONE (11:38)
[2022-03-08] MEDS ORDERED: HEPARIN SOD (PORCINE) 5000UNITS/ML 1ML VIAL/SYRINGE SC SCH (14:00)
[2022-03-08] MEDS ORDERED: PANT-23 PO (14:40)
[2022-03-08] MEDS ORDERED: LOSA25TA13 PO (14:40)
[2022-03-08] MEDS ORDERED: HYDR500C3 PO (14:40)
[2022-03-08] MEDS ORDERED: HOME MED LIST COMPLETE! XX SCH ×2 (14:40→14:50)
[2022-03-08] MEDS ORDERED: GABA-1171 PO (14:40)
[2022-03-08] MEDS ORDERED: AMLO1TAB24 PO (14:40)
[2022-03-08] MEDS ORDERED: APAP500T10 PO (14:40)
[2022-03-08] MEDS ORDERED: PANT20TA6 PO (14:45)
[2022-03-08 14:51] LABS: RSV AMPLIFICATION NEGATIVE (NEGATIVE)
[2022-03-08] MEDS ORDERED: ACETAMINOPHEN TAB 650MG DOSE (2X325MG) PO PRN (15:25)
[2022-03-08] MEDS ORDERED: HEPARIN SOD (PORCINE) 5000UNITS/ML 1ML VIAL/SYRINGE IV PRN (16:35)
[2022-03-08] MEDS ORDERED: ONDANSETRON 4MG 2ML VIAL IV PRN (17:25)
[2022-03-08 17:35] VITALS: BP 130/82
[2022-03-08] MEDS: NS 1,000 ML IV SCH (17:52)
[2022-03-08] MEDS: PANTOPRAZOLE 40MG VIAL IV SCH (17:52)
[2022-03-08] MEDS: LOSARTAN 25 MG TAB PO SCH (17:55)
[2022-03-08] MEDS: HEPARIN DRIP 25,000 UNITS in IV 1 EA IV SCH (18:08)
[2022-03-08 20:00] VITALS: BP 159/97
[2022-03-08] MEDS ORDERED: HYDROXYUREA 500 MG CAP PO SCH (21:00)
[2022-03-08] MEDS: amLODIPine 5 MG TAB PO SCH (21:44)
[2022-03-08] MEDS: GABAPENTIN 100 MG CAP PO SCH (21:44)
[2022-03-09 03:11] LABS: BASO % 0.3 % (0.0-1.0); HEMATOCRIT 39.1 % (36.0-47.0); HEMOGLOBIN 12.8 g/dl (12.0-15.5); LYMPH # 0.5 10^3/uL (1.5-5.0); LYMPH % 13.1 % (24.0-44.0); MEAN CORPUSCULAR HGB CONC 32.7 g/dl (32.0-36.5); MONO # 0.6 10^3/uL (0.0-0.8); NEUTROPHILS # 2.5 10^3/uL (1.5-8.5); NEUTROPHILS % 69.6 % (36.0-66.0); PLATELET COUNT, AUTOMATED 209 10^3/uL (150-450); RED BLOOD COUNT 3.37 10^6/uL (4.00-5.40); WHITE BLOOD COUNT 3.6 10^3/uL (4.0-10.0)
[2022-03-09 03:47] LABS: BLOOD UREA NITROGEN 28 MG/DL (7-18); CARBON DIOXIDE LEVEL 27 MEQ/L (21-32); CHLORIDE LEVEL 111 MEQ/L (98-107); CREATININE FOR GFR 0.86 MG/DL (0.55-1.30); GLOMERULAR FILTRATION RATE > 60.0 (>32); GLUCOSE, FASTING 99 MG/DL (70-100); MAGNESIUM LEVEL 2.2 MG/DL (1.8-2.4); POTASSIUM SERUM 3.9 MEQ/L (3.5-5.1); SODIUM LEVEL 142 MEQ/L (136-145)
[2022-03-09] MEDS: NS 1,000 ML IV SCH ×2 (03:58→18:14)
[2022-03-09 06:00] VITALS: BP 130/77
[2022-03-09] MEDS ORDERED: HYDROXYUREA 500 MG CAP PO SCH (09:00)
[2022-03-09] MEDS: GABAPENTIN 100 MG CAP PO SCH ×3 (09:05→23:04)
[2022-03-09] MEDS: amLODIPine 5 MG TAB PO SCH ×2 (09:05→23:03)
[2022-03-09] MEDS: LOSARTAN 25 MG TAB PO SCH (09:06)
[2022-03-09] MEDS: PANTOPRAZOLE 40MG VIAL IV SCH (09:06)
[2022-03-09] MEDS: HYDROXYUREA 500 MG CAP PO SCH (09:06)
[2022-03-09 14:00] VITALS: BP 121/75
[2022-03-09 20:00] VITALS: BP 127/82
[2022-03-09 22:45] VITALS: BP_SYST 106; BP_SYST 108; BP_DIAS 60
[2022-03-10] MEDS: HEPARIN DRIP 25,000 UNITS in IV 1 EA IV SCH (00:10)
[2022-03-10] MEDS: NS 1,000 ML IV SCH (03:07)
[2022-03-10 06:00] VITALS: BP 138/80
[2022-03-10 06:38] LABS: HEMATOCRIT 34.8 % (36.0-47.0); HEMOGLOBIN 11.2 g/dl (12.0-15.5); MEAN CORPUSCULAR HEMOGLOBIN 38.9 pg (27.0-33.0); MEAN CORPUSCULAR HGB CONC 32.2 g/dl (32.0-36.5); PLATELET COUNT, AUTOMATED 196 10^3/uL (150-450); RED BLOOD COUNT 2.88 10^6/uL (4.00-5.40); WHITE BLOOD COUNT 6.8 10^3/uL (4.0-10.0)
[2022-03-10 06:40] LABS: MEAN CORPUSCULAR VOLUME 120.8 fl (80.0-96.0)
[2022-03-10 07:09] LABS: BLOOD UREA NITROGEN 28 MG/DL (7-18); CALCIUM LEVEL 8.7 MG/DL (8.8-10.2); CARBON DIOXIDE LEVEL 18 MEQ/L (21-32); CHLORIDE LEVEL 115 MEQ/L (98-107); CREATININE FOR GFR 0.75 MG/DL (0.55-1.30); GLOMERULAR FILTRATION RATE > 60.0 (>32); GLUCOSE, FASTING 60 MG/DL (70-100); POTASSIUM SERUM 3.5 MEQ/L (3.5-5.1); SODIUM LEVEL 145 MEQ/L (136-145)
[2022-03-10 07:31] LABS: ATYPICAL LYMPH 2 % (0-5); LYMPHOCYTES 12 % (16-44); MONOCYTES 4 % (0-5); NEUTROPHILS 77 % (28-66)
[2022-03-10 07:35] LABS: OVALOCYTES 4+; TEAR DROP CELLS 1+
[2022-03-10 07:36] LABS: DOHLE BODIES 1+; PLATELET ESTIMATE NORMAL (NORMAL)
[2022-03-10] MEDS ORDERED: DEXTROSE 50% 50 ML SYRINGE IV STA (07:44)
[2022-03-10] MEDS ORDERED: GLUCAGON INJ 1MG VIAL SC PRN (07:45)
[2022-03-10] MEDS ORDERED: DEXTROSE 50% 50 ML SYRINGE IV PRN (07:45)
[2022-03-10] MEDS ORDERED: GLUCOSE 4GM CHEW TABLET PO PRN (07:45)
[2022-03-10] MEDS: GABAPENTIN 100 MG CAP PO SCH ×3 (08:05→21:42)
[2022-03-10] MEDS: HYDROXYUREA 500 MG CAP PO SCH (08:05)
[2022-03-10] MEDS: amLODIPine 5 MG TAB PO SCH ×2 (08:05→21:00)
[2022-03-10] MEDS: LOSARTAN 25 MG TAB PO SCH (08:05)
[2022-03-10] MEDS: PANTOPRAZOLE 40MG VIAL IV SCH (08:06)
[2022-03-10] MEDS: D5W/0.9% SODIUM CHLORIDE 1,000 ML IV SCH ×2 (08:06→18:57)
[2022-03-10 14:00] VITALS: BP 131/79
[2022-03-10 15:02] LABS: INR 4.1; PROTHROMBIN TIME 39.9 SECONDS (12.7-14.5)
[2022-03-10] MEDS: METOPROLOL TART 12.5 MG PER 1/2 TAB PO SCH ×2 (16:09→21:42)
[2022-03-10 22:00] VITALS: BP 110/71
[2022-03-11 05:27] VITALS: BP 104/64
[2022-03-11] MEDS: D5W/0.9% SODIUM CHLORIDE 1,000 ML IV SCH (06:37)
[2022-03-11 07:15] VITALS: BP_SYST 112; BP_SYST 113; BP_DIAS 66
[2022-03-11 07:31] LABS: BASO % 0.1 % (0.0-1.0); EOS # 0.1 10^3/uL (0.0-0.5); EOS % 0.5 % (0.0-3.0); HEMATOCRIT 35.4 % (36.0-47.0); HEMOGLOBIN 11.6 g/dl (12.0-15.5); LYMPH # 1.2 10^3/uL (1.5-5.0); LYMPH % 12.7 % (24.0-44.0); MEAN CORPUSCULAR HEMOGLOBIN 38.5 pg (27.0-33.0); MEAN CORPUSCULAR HGB CONC 32.8 g/dl (32.0-36.5); MONO # 1.2 10^3/uL (0.0-0.8); MONO % 13.1 % (2.0-8.0); NEUTROPHILS # 6.7 10^3/uL (1.5-8.5); NEUTROPHILS % 73.2 % (36.0-66.0); PLATELET COUNT, AUTOMATED 232 10^3/uL (150-450); RED BLOOD COUNT 3.01 10^6/uL (4.00-5.40); WHITE BLOOD COUNT 9.2 10^3/uL (4.0-10.0)
[2022-03-11 07:33] LABS: MEAN CORPUSCULAR VOLUME 117.6 fl (80.0-96.0)
[2022-03-11 07:43] LABS: INR 3.58
[2022-03-11 07:44] LABS: PARTIAL THROMBOPLASTIN TIME 75.6 SECONDS (25.9-37.0)
[2022-03-11 08:00] VITALS: BP 110/62
[2022-03-11 08:01] LABS: BLOOD UREA NITROGEN 18 MG/DL (7-18); CALCIUM LEVEL 8.2 MG/DL (8.8-10.2); CARBON DIOXIDE LEVEL 21 MEQ/L (21-32); CHLORIDE LEVEL 115 MEQ/L (98-107); CREATININE FOR GFR 0.81 MG/DL (0.55-1.30); GLOMERULAR FILTRATION RATE > 60.0 (>32); GLUCOSE, FASTING 117 MG/DL (70-100); MAGNESIUM LEVEL 1.8 MG/DL (1.8-2.4); PHOSPHORUS LEVEL 1.8 MG/DL (2.5-4.9); POTASSIUM SERUM 3.4 MEQ/L (3.5-5.1); SODIUM LEVEL 142 MEQ/L (136-145)
[2022-03-11 08:13] LABS: ANISOCYTOSIS 1+; HYPOCHROMASIA 1+; PLATELET ESTIMATE NORMAL (NORMAL); TEAR DROP CELLS 1+
[2022-03-11] MEDS: PANTOPRAZOLE 40MG VIAL IV SCH (09:23)
[2022-03-11] MEDS: METOPROLOL TART 12.5 MG PER 1/2 TAB PO SCH ×2 (09:24→22:36)
[2022-03-11] MEDS: GABAPENTIN 100 MG CAP PO SCH ×3 (09:25→22:37)
[2022-03-11] MEDS: HYDROXYUREA 500 MG CAP PO SCH (09:26)
[2022-03-11] MEDS: amLODIPine 5 MG TAB PO SCH ×2 (10:00→22:37)
[2022-03-11] MEDS: LOSARTAN 25 MG TAB PO SCH (10:00)
[2022-03-11] MEDS ORDERED: POTASSIUM CHL PWD 20 MEQ PACKET PO ONE (13:00)
[2022-03-11] MEDS: K-PHOS ORIGINAL (POT.ACID PHOSPHATE) 500MG TAB PO SCH ×2 (13:13→22:37)
[2022-03-11 14:00] VITALS: BP_SYST 117; BP_SYST 123; BP_DIAS 70; BP_DIAS 77
[2022-03-11] MEDS: D5W/0.45% SODIUM CHLORIDE 1,000 ML IV SCH (15:33)
[2022-03-11 16:00] VITALS: BP 116/72
[2022-03-11 21:15] VITALS: BP 123/81
[2022-03-12] MEDS: D5W/0.45% SODIUM CHLORIDE 1,000 ML IV SCH ×2 (01:30→12:42)
[2022-03-12 01:45] VITALS: BP 131/86
[2022-03-12 06:00] VITALS: BP 116/71
[2022-03-12 06:12] LABS: EOS % 0.8 % (0.0-3.0); HEMATOCRIT 29.5 % (36.0-47.0); HEMOGLOBIN 9.9 g/dl (12.0-15.5); LYMPH # 0.6 10^3/uL (1.5-5.0); LYMPH % 12.1 % (24.0-44.0); MEAN CORPUSCULAR HEMOGLOBIN 39.4 pg (27.0-33.0); MEAN CORPUSCULAR HGB CONC 33.6 g/dl (32.0-36.5); MONO # 0.7 10^3/uL (0.0-0.8); MONO % 12.8 % (2.0-8.0); NEUTROPHILS # 3.8 10^3/uL (1.5-8.5); NEUTROPHILS % 74.1 % (36.0-66.0); PLATELET COUNT, AUTOMATED 158 10^3/uL (150-450); RED BLOOD COUNT 2.51 10^6/uL (4.00-5.40); WHITE BLOOD COUNT 5.1 10^3/uL (4.0-10.0)
[2022-03-12 06:16] LABS: MEAN CORPUSCULAR VOLUME 117.5 fl (80.0-96.0)
[2022-03-12 06:22] LABS: INR 3.04; PROTHROMBIN TIME 31.8 SECONDS (12.7-14.5)
[2022-03-12 06:42] LABS: ANISOCYTOSIS 1+; OVALOCYTES 1+; PLATELET ESTIMATE NORMAL (NORMAL)
[2022-03-12 06:43] LABS: BLOOD UREA NITROGEN 13 MG/DL (7-18); CALCIUM LEVEL 7.8 MG/DL (8.8-10.2); CARBON DIOXIDE LEVEL 22 MEQ/L (21-32); CHLORIDE LEVEL 116 MEQ/L (98-107); CREATININE FOR GFR 0.63 MG/DL (0.55-1.30); GLOMERULAR FILTRATION RATE > 60.0 (>32); GLUCOSE, FASTING 134 MG/DL (70-100); HYPOCHROMASIA 1+; MAGNESIUM LEVEL 1.6 MG/DL (1.8-2.4); PHOSPHORUS LEVEL 1.5 MG/DL (2.5-4.9); POTASSIUM SERUM 3.6 MEQ/L (3.5-5.1); SODIUM LEVEL 143 MEQ/L (136-145); TEAR DROP CELLS 1+
[2022-03-12] MEDS: MAG SULF 1GM/100ML (MAG RUN) 1 GM in IV 1 EA IV SCH ×2 (08:04→09:21)
[2022-03-12] MEDS: K-PHOS ORIGINAL (POT.ACID PHOSPHATE) 500MG TAB PO SCH (08:20)
[2022-03-12] MEDS: HYDROXYUREA 500 MG CAP PO SCH (08:20)
[2022-03-12] MEDS: PANTOPRAZOLE 40MG VIAL IV SCH (08:20)
[2022-03-12] MEDS: GABAPENTIN 100 MG CAP PO SCH ×3 (08:20→20:48)
[2022-03-12] MEDS: amLODIPine 5 MG TAB PO SCH ×2 (08:21→20:48)
[2022-03-12] MEDS: METOPROLOL TART 12.5 MG PER 1/2 TAB PO SCH ×2 (08:21→20:48)
[2022-03-12] MEDS: LOSARTAN 25 MG TAB PO SCH (08:22)
[2022-03-12 09:00] VITALS: BP 122/82
[2022-03-12] MEDS ORDERED: SODIUM PHOSPHATE INJ 20 MMOL in D5W 250 ML IV ONE (09:00)
[2022-03-12] MEDS ORDERED: VARIBAR NECTAR 40% w/v 240ML SUSP BTL As Ordered ONE (11:16)
[2022-03-12] MEDS ORDERED: VARIBAR PUDDING 40% w/v 230ML TUBE As Ordered ONE (11:16)
[2022-03-12] MEDS ORDERED: E-Z-PAQUE 96% w/w SUSP 176GM BTL As Ordered ONE (11:16)
[2022-03-12] MEDS ORDERED: BARIUM SULFATE 700 MG TABLET (E-Z-DISK) As Ordered ONE (11:17)
[2022-03-12] MEDS: IPRATROPIUM 0.5MG/ALBUTEROL 2.5MG INH SOL UD 3ML (DUONEB) NEB SCH ×3 (13:02→20:18)
[2022-03-12] MEDS: AMPICILLIN SOD/SULBACTAM SOD 3 GM in D5W MINI-BAG PLUS 100 ML IV SCH ×2 (13:28→17:16)
[2022-03-12] MEDS ORDERED: FUROSEMIDE 20MG/2ML VIAL (J1940) IV ONE (14:00)
[2022-03-12] MEDS ORDERED: WARFARIN SOD 2.5MG TAB PO ONE (17:00)
[2022-03-12 20:40] VITALS: BP 131/71
[2022-03-12 22:00] VITALS: BP 122/84
[2022-03-13] MEDS: AMPICILLIN SOD/SULBACTAM SOD 3 GM in D5W MINI-BAG PLUS 100 ML IV SCH ×4 (00:55→18:32)
[2022-03-13] MEDS: IPRATROPIUM 0.5MG/ALBUTEROL 2.5MG INH SOL UD 3ML (DUONEB) NEB SCH ×7 (04:00→23:51)
[2022-03-13 06:00] VITALS: BP 115/72
[2022-03-13 06:19] LABS: BASO % 0.3 % (0.0-1.0); EOS # 0.1 10^3/uL (0.0-0.5); EOS % 1.4 % (0.0-3.0); HEMOGLOBIN 9.4 g/dl (12.0-15.5); LYMPH # 0.6 10^3/uL (1.5-5.0); LYMPH % 17.2 % (24.0-44.0); MEAN CORPUSCULAR HEMOGLOBIN 39.7 pg (27.0-33.0); MEAN CORPUSCULAR HGB CONC 33.6 g/dl (32.0-36.5); MONO # 0.6 10^3/uL (0.0-0.8); MONO % 16.7 % (2.0-8.0); NEUTROPHILS # 2.3 10^3/uL (1.5-8.5); NEUTROPHILS % 64.1 % (36.0-66.0); PLATELET COUNT, AUTOMATED 164 10^3/uL (150-450); RED BLOOD COUNT 2.37 10^6/uL (4.00-5.40); WHITE BLOOD COUNT 3.6 10^3/uL (4.0-10.0)
[2022-03-13 06:23] LABS: MEAN CORPUSCULAR VOLUME 118.1 fl (80.0-96.0)
[2022-03-13 06:32] LABS: INR 3.14; PROTHROMBIN TIME 32.6 SECONDS (12.7-14.5)
[2022-03-13 06:54] LABS: BLOOD UREA NITROGEN 11 MG/DL (7-18); CALCIUM LEVEL 7.9 MG/DL (8.8-10.2); CARBON DIOXIDE LEVEL 24 MEQ/L (21-32); CHLORIDE LEVEL 113 MEQ/L (98-107); CREATININE FOR GFR 0.66 MG/DL (0.55-1.30); GLOMERULAR FILTRATION RATE > 60.0 (>32); GLUCOSE, FASTING 95 MG/DL (70-100); MAGNESIUM LEVEL 1.9 MG/DL (1.8-2.4); PHOSPHORUS LEVEL 2.7 MG/DL (2.5-4.9); POTASSIUM SERUM 3.2 MEQ/L (3.5-5.1); SODIUM LEVEL 143 MEQ/L (136-145)
[2022-03-13 08:58] LABS: FERRITIN 175 NG/ML (8-252); IRON (FE) 40 UG/DL (50-170); PERCENT SATURATION 25.2 % (13.2-45.0); TOTAL IRON BINDING CAPACITY 159 UG/DL (250-450)
[2022-03-13] MEDS ORDERED: HYDROXYUREA 500 MG CAP PO SCH (09:00)
[2022-03-13] MEDS: HYDROXYUREA 500 MG CAP PO SCH (10:14)
[2022-03-13] MEDS: METOPROLOL TART 12.5 MG PER 1/2 TAB PO SCH (10:15)
[2022-03-13] MEDS: amLODIPine 5 MG TAB PO SCH ×2 (10:15→20:55)
[2022-03-13] MEDS: PANTOPRAZOLE 40MG TAB (PROTONIX) PO SCH (10:15)
[2022-03-13] MEDS: LOSARTAN 25 MG TAB PO SCH (10:15)
[2022-03-13] MEDS: GABAPENTIN 100 MG CAP PO SCH ×3 (10:15→20:56)
[2022-03-13] MEDS: KCL 10MEQ/100ML SWI (KRUN) 10 MEQ in IV 1 EA IV SCH ×4 (10:16→15:02)
[2022-03-13] MEDS ORDERED: methylPREDNISolone 40MG 1ML VIAL IV ONE (13:50)
[2022-03-13] MEDS ORDERED: FUROSEMIDE 20MG/2ML VIAL (J1940) IV ONE (13:50)
[2022-03-13] MEDS: D5W/0.45% SODIUM CHLORIDE 1,000 ML IV SCH (15:12)
[2022-03-13 15:52] VITALS: BP 108/72
[2022-03-13 20:48] VITALS: BP 117/74
[2022-03-13] MEDS: METOPROLOL TART 25 MG TABLET PO SCH (20:56)
[2022-03-14] MEDS: AMPICILLIN SOD/SULBACTAM SOD 3 GM in D5W MINI-BAG PLUS 100 ML IV SCH ×4 (00:35→17:56)
[2022-03-14] MEDS: IPRATROPIUM 0.5MG/ALBUTEROL 2.5MG INH SOL UD 3ML (DUONEB) NEB SCH ×5 (03:25→20:38)
[2022-03-14] MEDS: D5W/0.45% SODIUM CHLORIDE 1,000 ML IV SCH ×2 (04:39→16:23)
[2022-03-14 05:58] VITALS: BP 114/72
[2022-03-14 06:54] LABS: HEMATOCRIT 30.7 % (36.0-47.0); HEMOGLOBIN 10.2 g/dl (12.0-15.5); LYMPH # 0.3 10^3/uL (1.5-5.0); LYMPH % 5.3 % (24.0-44.0); MEAN CORPUSCULAR HEMOGLOBIN 39.7 pg (27.0-33.0); MEAN CORPUSCULAR HGB CONC 33.2 g/dl (32.0-36.5); MONO # 0.4 10^3/uL (0.0-0.8); MONO % 7.2 % (2.0-8.0); NEUTROPHILS # 4.6 10^3/uL (1.5-8.5); NEUTROPHILS % 87.1 % (36.0-66.0); PLATELET COUNT, AUTOMATED 226 10^3/uL (150-450); RED BLOOD COUNT 2.57 10^6/uL (4.00-5.40); WHITE BLOOD COUNT 5.3 10^3/uL (4.0-10.0)
[2022-03-14 07:01] LABS: MEAN CORPUSCULAR VOLUME 119.5 fl (80.0-96.0)
[2022-03-14 07:07] LABS: INR 2.12; PROTHROMBIN TIME 24.1 SECONDS (12.7-14.5)
[2022-03-14 07:30] VITALS: O2SAT 94
[2022-03-14 07:32] LABS: ANISOCYTOSIS 1+; PLATELET ESTIMATE NORMAL (NORMAL); POIKILOCYTOSIS 1+; SCHISTOCYTES 1+
[2022-03-14 07:34] LABS: POLYCHROMASIA 1+; TEAR DROP CELLS 1+
[2022-03-14 07:49] LABS: BLOOD UREA NITROGEN 10 MG/DL (7-18); CARBON DIOXIDE LEVEL 27 MEQ/L (21-32); CHLORIDE LEVEL 108 MEQ/L (98-107); CREATININE FOR GFR 0.81 MG/DL (0.55-1.30); GLOMERULAR FILTRATION RATE > 60.0 (>32); GLUCOSE, FASTING 182 MG/DL (70-100); MAGNESIUM LEVEL 1.6 MG/DL (1.8-2.4); PHOSPHORUS LEVEL 2.6 MG/DL (2.5-4.9); POTASSIUM SERUM 4.3 MEQ/L (3.5-5.1); SODIUM LEVEL 140 MEQ/L (136-145)
[2022-03-14] MEDS ORDERED: DOCUSATE SODIUM 100MG CAPSULE PO SCH (09:00)
[2022-03-14] MEDS: PANTOPRAZOLE 40MG TAB (PROTONIX) PO SCH (10:50)
[2022-03-14] MEDS: METOPROLOL TART 25 MG TABLET PO SCH ×2 (10:50→21:48)
[2022-03-14] MEDS: amLODIPine 5 MG TAB PO SCH ×2 (10:50→21:00)
[2022-03-14] MEDS: LOSARTAN 25 MG TAB PO SCH (10:50)
[2022-03-14] MEDS: GABAPENTIN 100 MG CAP PO SCH ×3 (10:51→21:46)
[2022-03-14 11:34] VITALS: O2SAT 92
[2022-03-14] MEDS ORDERED: BISACODYL 10 MG SUPP PR ONE (11:40)
[2022-03-14] MEDS: MAG SULF 1GM/100ML (MAG RUN) 1 GM in IV 1 EA IV SCH ×2 (13:00→16:23)
[2022-03-14] MEDS: DOCUSATE SOD LIQ 100MG/10ML UDC PO SCH (13:33)
[2022-03-14 13:41] VITALS: BP_SYST 121; BP_SYST 148; BP_DIAS 67; BP_DIAS 82
[2022-03-14 15:19] VITALS: O2SAT 91
[2022-03-14] MEDS ORDERED: WARFARIN SOD 5MG TAB PO ONE (17:00)
[2022-03-14] MEDS: NYSTATIN 100,000 UNITS/GM TOPICAL PWD 15 GM TOP SCH (21:50)
[2022-03-15] VITALS (7 sets, daily range): BP systolic 119–150; BP diastolic 72–101; O2SAT 93–95
[2022-03-15] MEDS: IPRATROPIUM 0.5MG/ALBUTEROL 2.5MG INH SOL UD 3ML (DUONEB) NEB SCH ×6 (00:53→20:20)
[2022-03-15] MEDS: AMPICILLIN SOD/SULBACTAM SOD 3 GM in D5W MINI-BAG PLUS 100 ML IV SCH ×4 (01:06→18:18)
[2022-03-15 07:14] LABS: HEMATOCRIT 31.2 % (36.0-47.0); HEMOGLOBIN 10.4 g/dl (12.0-15.5); LYMPH # 0.3 10^3/uL (1.5-5.0); LYMPH % 6.9 % (24.0-44.0); MEAN CORPUSCULAR HEMOGLOBIN 39.4 pg (27.0-33.0); MEAN CORPUSCULAR HGB CONC 33.3 g/dl (32.0-36.5); MONO # 0.8 10^3/uL (0.0-0.8); MONO % 19.1 % (2.0-8.0); NEUTROPHILS # 2.9 10^3/uL (1.5-8.5); NEUTROPHILS % 72.5 % (36.0-66.0); RED BLOOD COUNT 2.64 10^6/uL (4.00-5.40); WHITE BLOOD COUNT 3.9 10^3/uL (4.0-10.0)
[2022-03-15 07:23] LABS: INR 2.2; PROTHROMBIN TIME 24.8 SECONDS (12.7-14.5)
[2022-03-15 08:10] LABS: BLOOD UREA NITROGEN 8 MG/DL (7-18); CALCIUM LEVEL 8.3 MG/DL (8.8-10.2); CARBON DIOXIDE LEVEL 24 MEQ/L (21-32); CHLORIDE LEVEL 106 MEQ/L (98-107); CREATININE FOR GFR 0.82 MG/DL (0.55-1.30); GLOMERULAR FILTRATION RATE > 60.0 (>32); GLUCOSE, FASTING 102 MG/DL (70-100); MAGNESIUM LEVEL 2.2 MG/DL (1.8-2.4); PHOSPHORUS LEVEL 2.3 MG/DL (2.5-4.9); POTASSIUM SERUM 3.5 MEQ/L (3.5-5.1); SODIUM LEVEL 138 MEQ/L (136-145)
[2022-03-15 08:23] LABS: MEAN CORPUSCULAR VOLUME 118.2 fl (80.0-96.0)
[2022-03-15 08:27] LABS: OVALOCYTES 3+
[2022-03-15 08:28] LABS: SCHISTOCYTES 1+; TEAR DROP CELLS 1+
[2022-03-15 08:29] LABS: PLATELET ESTIMATE INVALID (NORMAL)
[2022-03-15] MEDS: GABAPENTIN 100 MG CAP PO SCH ×2 (08:47→16:00)
[2022-03-15] MEDS: PANTOPRAZOLE 40MG TAB (PROTONIX) PO SCH (08:47)
[2022-03-15] MEDS: D5W/0.45% SODIUM CHLORIDE 1,000 ML IV SCH ×2 (08:47→21:54)
[2022-03-15] MEDS: LOSARTAN 25 MG TAB PO SCH (08:50)
[2022-03-15] MEDS: DOCUSATE SOD LIQ 100MG/10ML UDC PO SCH (08:50)
[2022-03-15] MEDS: amLODIPine 5 MG TAB PO SCH (08:51)
[2022-03-15] MEDS: NYSTATIN 100,000 UNITS/GM TOPICAL PWD 15 GM TOP SCH ×2 (08:51→21:54)
[2022-03-15] MEDS: METOPROLOL TART 25 MG TABLET PO SCH ×2 (08:51→16:00)
[2022-03-15] MEDS ORDERED: FUROSEMIDE 20MG/2ML VIAL (J1940) IV ONE (09:40)
[2022-03-15] MEDS ORDERED: methylPREDNISolone 40MG 1ML VIAL IV ONE (12:15)
[2022-03-15] MEDS ORDERED: POTASSIUM PHOSPHATE INJ 20 MMOL in D5W 250 ML IV ONE (13:00)
[2022-03-15 13:44] LABS: INR 2.7
[2022-03-15] MEDS ORDERED: WARFARIN SOD 5MG TAB PO SCH (17:00)
[2022-03-15] MEDS ORDERED: METOCLOPRAMIDE INJ 10MG/2ML VIAL (J2765 PER 1) IV SCH (18:30)
[2022-03-15] MEDS ORDERED: BISACODYL 10 MG SUPP PR PRN (18:35)
[2022-03-15] MEDS: METOPROLOL 5 MG/5 ML VIAL IV SCH (21:39)
[2022-03-16] VITALS (13 sets, daily range): BP systolic 121–191; BP diastolic 64–109
[2022-03-16] MEDS: IPRATROPIUM 0.5MG/ALBUTEROL 2.5MG INH SOL UD 3ML (DUONEB) NEB SCH ×8 (00:10→23:59)
[2022-03-16] MEDS: METOPROLOL 5 MG/5 ML VIAL IV SCH ×4 (00:33→18:23)
[2022-03-16] MEDS: AMPICILLIN SOD/SULBACTAM SOD 3 GM in D5W MINI-BAG PLUS 100 ML IV SCH ×4 (00:44→18:23)
[2022-03-16 06:38] LABS: BASO % 0.3 % (0.0-1.0); HEMATOCRIT 30.1 % (36.0-47.0); HEMOGLOBIN 10.2 g/dl (12.0-15.5); LYMPH # 0.2 10^3/uL (1.5-5.0); MEAN CORPUSCULAR HEMOGLOBIN 39.4 pg (27.0-33.0); MEAN CORPUSCULAR HGB CONC 33.9 g/dl (32.0-36.5); MONO # 0.5 10^3/uL (0.0-0.8); NEUTROPHILS # 2.2 10^3/uL (1.5-8.5); PLATELET COUNT, AUTOMATED 271 10^3/uL (150-450); RED BLOOD COUNT 2.59 10^6/uL (4.00-5.40)
[2022-03-16 06:40] LABS: MEAN CORPUSCULAR VOLUME 116.2 fl (80.0-96.0)
[2022-03-16 07:11] LABS: BLOOD UREA NITROGEN 10 MG/DL (7-18); CALCIUM LEVEL 7.8 MG/DL (8.8-10.2); CARBON DIOXIDE LEVEL 27 MEQ/L (21-32); CHLORIDE LEVEL 106 MEQ/L (98-107); CREATININE FOR GFR 0.86 MG/DL (0.55-1.30); GLOMERULAR FILTRATION RATE > 60.0 (>32); GLUCOSE, FASTING 159 MG/DL (70-100); PHOSPHORUS LEVEL 3.3 MG/DL (2.5-4.9); POTASSIUM SERUM 3.6 MEQ/L (3.5-5.1); SODIUM LEVEL 141 MEQ/L (136-145)
[2022-03-16 07:21] LABS: OVALOCYTES 4+
[2022-03-16 07:23] LABS: SCHISTOCYTES 1+; TEAR DROP CELLS 1+
[2022-03-16 07:25] LABS: PLATELET ESTIMATE NORMAL (NORMAL)
[2022-03-16 10:08] LABS: FOLATE 3.8 ng/mL (>3.0)
[2022-03-16] MEDS: PANTOPRAZOLE 40MG VIAL IV SCH (10:28)
[2022-03-16] MEDS: NYSTATIN 100,000 UNITS/GM TOPICAL PWD 15 GM TOP SCH ×2 (10:30→21:05)
[2022-03-16] MEDS ORDERED: HEPARIN SOD (PORCINE) 5000UNITS/ML 1ML VIAL/SYRINGE IV PRN (11:45)
[2022-03-16 12:36] LABS: HEMATOCRIT 30.2 % (36.0-47.0); HEMOGLOBIN 10.3 g/dl (12.0-15.5); MEAN CORPUSCULAR HEMOGLOBIN 39.3 pg (27.0-33.0); MEAN CORPUSCULAR HGB CONC 34.1 g/dl (32.0-36.5); PLATELET COUNT, AUTOMATED 284 10^3/uL (150-450); RED BLOOD COUNT 2.62 10^6/uL (4.00-5.40); WHITE BLOOD COUNT 4.3 10^3/uL (4.0-10.0)
[2022-03-16 12:40] LABS: MEAN CORPUSCULAR VOLUME 115.3 fl (80.0-96.0)
[2022-03-16 13:06] LABS: PERCENT SATURATION 26.1 % (13.2-45.0)
[2022-03-16] MEDS ORDERED: LIDOCAINE 1% MDV 20ML VIAL As Ordered ONE (13:44)
[2022-03-16] MEDS ORDERED: E-Z-PAQUE 96% w/w SUSP 176GM BTL As Ordered ONE (13:47)
[2022-03-16] MEDS ORDERED: E-Z-GAS II EFFERVESCENT PACKET (SODIUM BICARB./CITRIC ACID/SIMETHICONE) As Ordered ONE (13:47)
[2022-03-16] MEDS: D5W/0.45% SODIUM CHLORIDE 1,000 ML IV SCH (13:48)
[2022-03-16] MEDS ORDERED: E-Z-HD 98% w/w 340GM SUSP BTL As Ordered ONE (13:48)
[2022-03-16] MEDS: HEPARIN DRIP 25,000 UNITS in IV 1 EA IV SCH (16:45)
[2022-03-17] MEDS: METOPROLOL 5 MG/5 ML VIAL IV SCH ×4 (01:25→18:20)
[2022-03-17] MEDS: IPRATROPIUM 0.5MG/ALBUTEROL 2.5MG INH SOL UD 3ML (DUONEB) NEB SCH ×5 (03:14→21:23)
[2022-03-17 04:31] VITALS: BP 134/83
[2022-03-17] MEDS: D5W/0.45% SODIUM CHLORIDE 1,000 ML IV SCH ×2 (06:12→11:30)
[2022-03-17 07:59] LABS: HEMATOCRIT 34.6 % (36.0-47.0); HEMOGLOBIN 11.3 g/dl (12.0-15.5); MEAN CORPUSCULAR HEMOGLOBIN 38.7 pg (27.0-33.0); MEAN CORPUSCULAR HGB CONC 32.7 g/dl (32.0-36.5); PLATELET COUNT, AUTOMATED 294 10^3/uL (150-450); RED BLOOD COUNT 2.92 10^6/uL (4.00-5.40); WHITE BLOOD COUNT 3.7 10^3/uL (4.0-10.0)
[2022-03-17 08:00] VITALS: BP 143/85
[2022-03-17 08:01] LABS: MEAN CORPUSCULAR VOLUME 118.5 fl (80.0-96.0)
[2022-03-17 08:08] LABS: ALBUMIN 2.4 GM/DL (3.2-5.2); ALT/SGPT 8 U/L (12-78); BILIRUBIN,TOTAL 0.4 MG/DL (0.2-1.0); BLOOD UREA NITROGEN 7 MG/DL (7-18); CALCIUM LEVEL 7.6 MG/DL (8.8-10.2); CARBON DIOXIDE LEVEL 29 MEQ/L (21-32); CHLORIDE LEVEL 106 MEQ/L (98-107); CREATININE FOR GFR 0.71 MG/DL (0.55-1.30); GLOMERULAR FILTRATION RATE > 60.0 (>32); GLUCOSE, FASTING 113 MG/DL (70-100); POTASSIUM SERUM 3.2 MEQ/L (3.5-5.1); SODIUM LEVEL 140 MEQ/L (136-145); TOTAL PROTEIN 4.9 GM/DL (6.4-8.2)
[2022-03-17] MEDS: PANTOPRAZOLE 40MG VIAL IV SCH (08:12)
[2022-03-17] MEDS: NYSTATIN 100,000 UNITS/GM TOPICAL PWD 15 GM TOP SCH ×2 (08:13→20:02)
[2022-03-17 12:00] VITALS: BP 138/85
[2022-03-17] MEDS: KCL 20MEQ IN 100ML SWI (KRUN) 20 MEQ in IV 1 EA IV SCH ×4 (12:46→13:41)
[2022-03-17 16:01] LABS: INR 3.09; PROTHROMBIN TIME 32.2 SECONDS (12.7-14.5)
[2022-03-17 16:03] LABS: PARTIAL THROMBOPLASTIN TIME 97.8 SECONDS (25.9-37.0)
[2022-03-17 16:41] VITALS: BP 119/80
[2022-03-17] MEDS ORDERED: MULTIVITAMIN -ADULT INJECTION 10 ML, ZINC/COPPER/MANGANESE/SELENIUM 1 ML in AMINO AC/EL... IV SCH (18:00)
[2022-03-17] MEDS: INSULIN LISPRO (NovoLOG) PER UNIT SC SCH (18:17)
[2022-03-17 19:57] VITALS: BP 124/85
[2022-03-17] MEDS ORDERED: REMDESIVIR 200 MG in NS 250 ML IV ONE (22:00)
[2022-03-17 22:22] LABS: INR 2.64; PROTHROMBIN TIME 28.5 SECONDS (12.7-14.5)
[2022-03-18] VITALS (8 sets, daily range): BP systolic 123–171; BP diastolic 61–102
[2022-03-18] MEDS ORDERED: SODIUM CHLORIDE 0.9% INJ 10 ML SYR IV ONE
[2022-03-18] MEDS: IPRATROPIUM 0.5MG/ALBUTEROL 2.5MG INH SOL UD 3ML (DUONEB) NEB SCH ×6 (00:41→20:01)
[2022-03-18] MEDS: METOPROLOL 5 MG/5 ML VIAL IV SCH ×4 (01:36→18:24)
[2022-03-18] MEDS: INSULIN LISPRO (NovoLOG) PER UNIT SC SCH ×4 (01:36→18:24)
[2022-03-18 06:42] LABS: HEMATOCRIT 32.4 % (36.0-47.0); HEMOGLOBIN 10.9 g/dl (12.0-15.5); MEAN CORPUSCULAR HEMOGLOBIN 39.5 pg (27.0-33.0); MEAN CORPUSCULAR HGB CONC 33.6 g/dl (32.0-36.5); PLATELET COUNT, AUTOMATED 255 10^3/uL (150-450); RED BLOOD COUNT 2.76 10^6/uL (4.00-5.40); WHITE BLOOD COUNT 4.7 10^3/uL (4.0-10.0)
[2022-03-18 06:47] LABS: ALBUMIN 2.1 GM/DL (3.2-5.2); ALT/SGPT 9 U/L (12-78); BILIRUBIN,DIRECT 0.2 MG/DL (0.0-0.2); BILIRUBIN,TOTAL 0.4 MG/DL (0.2-1.0); BLOOD UREA NITROGEN 11 MG/DL (7-18); CALCIUM LEVEL 7.7 MG/DL (8.8-10.2); CARBON DIOXIDE LEVEL 28 MEQ/L (21-32); CHLORIDE LEVEL 104 MEQ/L (98-107); CREATININE FOR GFR 0.71 MG/DL (0.55-1.30); GLOMERULAR FILTRATION RATE > 60.0 (>32); GLUCOSE, FASTING 107 MG/DL (70-100); POTASSIUM SERUM 3.2 MEQ/L (3.5-5.1); SODIUM LEVEL 137 MEQ/L (136-145)
[2022-03-18 06:55] LABS: MEAN CORPUSCULAR VOLUME 117.4 fl (80.0-96.0)
[2022-03-18] MEDS: PANTOPRAZOLE 40MG VIAL IV SCH (08:22)
[2022-03-18] MEDS: dexameTHASONE 4 MG/ML 1ML VIAL (J1100 PER 1MG) IV SCH (08:24)
[2022-03-18] MEDS: KCL 10MEQ/100ML SWI (KRUN) 10 MEQ in IV 1 EA IV SCH ×6 (08:25→17:00)
[2022-03-18] MEDS: NYSTATIN 100,000 UNITS/GM TOPICAL PWD 15 GM TOP SCH ×2 (08:26→21:56)
[2022-03-18] MEDS: HEPARIN DRIP 25,000 UNITS in IV 1 EA IV SCH (11:07)
[2022-03-18] MEDS: DIGOXIN INJ 0.5 MG/2 ML AMP (J1160) IV SCH ×2 (12:39→18:25)
[2022-03-18] MEDS ORDERED: AMINO AC/ELECTROLYTE/DEX/CALC 2,000 ML IV SCH (18:00)
[2022-03-18] MEDS ORDERED: AMINO AC/ELECTROLYTE/DEX/CALC 2,566 ML IV SCH (18:00)
[2022-03-18] MEDS ORDERED: FAT EMULSION IV 250 ML IV ONE (18:00)
[2022-03-18] MEDS: REMDESIVIR 100 MG in NS 250 ML IV SCH (21:55)
[2022-03-18] MEDS: SODIUM CHLORIDE 0.9% INJ 10 ML SYR IV SCH (23:07)
[2022-03-19] VITALS (16 sets, daily range): BP systolic 120–158; BP diastolic 72–98
[2022-03-19] MEDS: IPRATROPIUM 0.5MG/ALBUTEROL 2.5MG INH SOL UD 3ML (DUONEB) NEB SCH ×4 (00:04→12:32)
[2022-03-19] MEDS: DIGOXIN INJ 0.5 MG/2 ML AMP (J1160) IV SCH ×3 (00:41→13:08)
[2022-03-19] MEDS: METOPROLOL 5 MG/5 ML VIAL IV SCH ×4 (02:00→18:35)
[2022-03-19] MEDS: INSULIN LISPRO (NovoLOG) PER UNIT SC SCH ×4 (06:00→18:13)
[2022-03-19] MEDS ORDERED: guaiFENesin SYRUP 200MG 10ML UDC PO PRN (07:05)
[2022-03-19 07:26] LABS: HEMATOCRIT 33.7 % (36.0-47.0); HEMOGLOBIN 11.3 g/dl (12.0-15.5); MEAN CORPUSCULAR HEMOGLOBIN 38.4 pg (27.0-33.0); MEAN CORPUSCULAR HGB CONC 33.5 g/dl (32.0-36.5); PLATELET COUNT, AUTOMATED 256 10^3/uL (150-450); RED BLOOD COUNT 2.94 10^6/uL (4.00-5.40); WHITE BLOOD COUNT 6.8 10^3/uL (4.0-10.0)
[2022-03-19 07:31] LABS: ALBUMIN 2.4 GM/DL (3.2-5.2); ALT/SGPT 8 U/L (12-78); BILIRUBIN,TOTAL 0.5 MG/DL (0.2-1.0); BLOOD UREA NITROGEN 25 MG/DL (7-18); CARBON DIOXIDE LEVEL 26 MEQ/L (21-32); CHLORIDE LEVEL 106 MEQ/L (98-107); CREATININE FOR GFR 0.66 MG/DL (0.55-1.30); GLOMERULAR FILTRATION RATE > 60.0 (>32); GLUCOSE, FASTING 126 MG/DL (70-100); MEAN CORPUSCULAR VOLUME 114.6 fl (80.0-96.0); POTASSIUM SERUM 4.1 MEQ/L (3.5-5.1); SODIUM LEVEL 137 MEQ/L (136-145); TOTAL PROTEIN 4.9 GM/DL (6.4-8.2)
[2022-03-19] MEDS: SODIUM CHLORIDE HYPERTONIC 3% 15ML NEB SOL INH SCH ×2 (07:31→12:00)
[2022-03-19] MEDS: dexameTHASONE 4 MG/ML 1ML VIAL (J1100 PER 1MG) IV SCH (08:34)
[2022-03-19] MEDS: PANTOPRAZOLE 40MG VIAL IV SCH (08:34)
[2022-03-19] MEDS: NYSTATIN 100,000 UNITS/GM TOPICAL PWD 15 GM TOP SCH ×2 (08:35→20:53)
[2022-03-19] MEDS: HEPARIN DRIP 25,000 UNITS in IV 1 EA IV SCH (10:52)
[2022-03-19] MEDS: COMBIVENT RESPIMAT 100-20MCG INHALER 4GM INH SCH ×3 (15:52→23:24)
[2022-03-19 17:26] LABS: INR 1.21; PROTHROMBIN TIME 15.7 SECONDS (12.7-14.5)
[2022-03-19 17:27] LABS: PARTIAL THROMBOPLASTIN TIME 33.7 SECONDS (25.9-37.0)
[2022-03-19] MEDS ORDERED: FAT EMULSION IV 250 ML IV ONE (18:00)
[2022-03-19] MEDS ORDERED: MULTIVITAMIN -ADULT INJECTION 10 ML, ZINC/COPPER/MANGANESE/SELENIUM 1 ML, POTASSIUM CHL... IV SCH ×4 (18:00)
[2022-03-19 19:22] LABS: INR 1.18; PROTHROMBIN TIME 15.4 SECONDS (12.7-14.5)
[2022-03-19 19:23] LABS: PARTIAL THROMBOPLASTIN TIME 51.3 SECONDS (25.9-37.0)
[2022-03-19] MEDS: REMDESIVIR 100 MG in NS 250 ML IV SCH (20:52)
[2022-03-19] MEDS: SODIUM CHLORIDE 0.9% INJ 10 ML SYR IV SCH (20:53)
[2022-03-20] VITALS (12 sets, daily range): BP systolic 127–153; BP diastolic 74–90
[2022-03-20] MEDS: METOPROLOL 5 MG/5 ML VIAL IV SCH ×4 (00:45→19:00)
[2022-03-20] MEDS: COMBIVENT RESPIMAT 100-20MCG INHALER 4GM INH SCH ×6 (03:38→23:19)
[2022-03-20 03:58] LABS: INR 1.33; PROTHROMBIN TIME 16.9 SECONDS (12.7-14.5)
[2022-03-20 04:00] LABS: PARTIAL THROMBOPLASTIN TIME 87.9 SECONDS (25.9-37.0)
[2022-03-20] MEDS: INSULIN LISPRO (NovoLOG) PER UNIT SC SCH ×4 (06:10→18:01)
[2022-03-20 07:05] LABS: HEMATOCRIT 35.4 % (36.0-47.0); HEMOGLOBIN 11.7 g/dl (12.0-15.5); MEAN CORPUSCULAR HEMOGLOBIN 38.4 pg (27.0-33.0); MEAN CORPUSCULAR HGB CONC 33.1 g/dl (32.0-36.5); PLATELET COUNT, AUTOMATED 256 10^3/uL (150-450); RED BLOOD COUNT 3.05 10^6/uL (4.00-5.40); WHITE BLOOD COUNT 8.1 10^3/uL (4.0-10.0)
[2022-03-20 07:10] LABS: MEAN CORPUSCULAR VOLUME 116.1 fl (80.0-96.0)
[2022-03-20 07:55] LABS: ALBUMIN 2.2 GM/DL (3.2-5.2); ALT/SGPT 12 U/L (12-78); BILIRUBIN,TOTAL 0.4 MG/DL (0.2-1.0); BLOOD UREA NITROGEN 40 MG/DL (7-18); CALCIUM LEVEL 8.1 MG/DL (8.8-10.2); CARBON DIOXIDE LEVEL 25 MEQ/L (21-32); CHLORIDE LEVEL 104 MEQ/L (98-107); CREATININE FOR GFR 0.64 MG/DL (0.55-1.30); DIGOXIN LEVEL 4.6 NG/ML (0.5-2.0); GLOMERULAR FILTRATION RATE > 60.0 (>32); GLUCOSE, FASTING 94 MG/DL (70-100); POTASSIUM SERUM 4.9 MEQ/L (3.5-5.1); SODIUM LEVEL 134 MEQ/L (136-145); TOTAL PROTEIN 4.7 GM/DL (6.4-8.2)
[2022-03-20] MEDS: PANTOPRAZOLE 40MG VIAL IV SCH (08:44)
[2022-03-20] MEDS: dexameTHASONE 4 MG/ML 1ML VIAL (J1100 PER 1MG) IV SCH (08:44)
[2022-03-20] MEDS: NYSTATIN 100,000 UNITS/GM TOPICAL PWD 15 GM TOP SCH ×2 (08:45→21:51)
[2022-03-20 15:21] LABS: INR 1.4; PROTHROMBIN TIME 17.6 SECONDS (12.7-14.5)
[2022-03-20 15:22] LABS: PARTIAL THROMBOPLASTIN TIME 64.6 SECONDS (25.9-37.0)
[2022-03-20] MEDS: HEPARIN DRIP 25,000 UNITS in IV 1 EA IV SCH (16:19)
[2022-03-20] MEDS ORDERED: FAT EMULSION IV 250 ML IV ONE (18:00)
[2022-03-20] MEDS ORDERED: AMINO AC/ELECTROLYTE/DEX/CALC 2,000 ML IV SCH (18:00)
[2022-03-20] MEDS: REMDESIVIR 100 MG in NS 250 ML IV SCH (21:50)
[2022-03-20] MEDS: SODIUM CHLORIDE 0.9% INJ 10 ML SYR IV SCH (21:51)
[2022-03-21] VITALS: BP 189/90
[2022-03-21] MEDS: METOPROLOL 5 MG/5 ML VIAL IV SCH ×4 (00:22→18:27)
[2022-03-21] MEDS: INSULIN LISPRO (NovoLOG) PER UNIT SC SCH ×5 (00:23→18:01)
[2022-03-21] MEDS: HEPARIN DRIP 25,000 UNITS in IV 1 EA IV SCH ×2 (01:31→08:42)
[2022-03-21] MEDS: COMBIVENT RESPIMAT 100-20MCG INHALER 4GM INH SCH ×3 (03:14→10:48)
[2022-03-21 04:00] VITALS: BP 133/86
[2022-03-21 06:04] LABS: HEMOGLOBIN 11.5 g/dl (12.0-15.5); MEAN CORPUSCULAR HGB CONC 33.8 g/dl (32.0-36.5); PLATELET COUNT, AUTOMATED 292 10^3/uL (150-450); RED BLOOD COUNT 2.95 10^6/uL (4.00-5.40); WHITE BLOOD COUNT 7.9 10^3/uL (4.0-10.0)
[2022-03-21 06:05] LABS: MEAN CORPUSCULAR VOLUME 115.3 fl (80.0-96.0)
[2022-03-21 06:33] LABS: ALBUMIN 2.2 GM/DL (3.2-5.2); ALT/SGPT 25 U/L (12-78); BILIRUBIN,TOTAL 0.4 MG/DL (0.2-1.0); BLOOD UREA NITROGEN 48 MG/DL (7-18); CALCIUM LEVEL 8.1 MG/DL (8.8-10.2); CARBON DIOXIDE LEVEL 25 MEQ/L (21-32); CHLORIDE LEVEL 105 MEQ/L (98-107); CREATININE FOR GFR 0.67 MG/DL (0.55-1.30); GLOMERULAR FILTRATION RATE > 60.0 (>32); GLUCOSE, FASTING 125 MG/DL (70-100); POTASSIUM SERUM 4.6 MEQ/L (3.5-5.1); SODIUM LEVEL 135 MEQ/L (136-145); TOTAL PROTEIN 4.9 GM/DL (6.4-8.2)
[2022-03-21 06:38] LABS: PARTIAL THROMBOPLASTIN TIME 131.9 SECONDS (25.9-37.0)
[2022-03-21 07:53] LABS: INR 1.36; PROTHROMBIN TIME 17.2 SECONDS (12.7-14.5)
[2022-03-21] MEDS: PANTOPRAZOLE 40MG VIAL IV SCH (08:38)
[2022-03-21] MEDS: dexameTHASONE 4 MG/ML 1ML VIAL (J1100 PER 1MG) IV SCH (08:38)
[2022-03-21] MEDS: NYSTATIN 100,000 UNITS/GM TOPICAL PWD 15 GM TOP SCH ×2 (08:39→20:52)
[2022-03-21 09:06] VITALS: BP 125/91
[2022-03-21 12:00] VITALS: BP 125/91
[2022-03-21] MEDS: IPRATROPIUM 0.5MG/ALBUTEROL 2.5MG INH SOL UD 3ML (DUONEB) NEB SCH ×4 (12:00→23:13)
[2022-03-21] MEDS: SODIUM CHLORIDE HYPERTONIC 3% 15ML NEB SOL INH SCH ×4 (12:00→23:14)
[2022-03-21 16:25] VITALS: BP 149/75
[2022-03-21] MEDS ORDERED: FAT EMULSION IV 250 ML IV ONE (18:00)
[2022-03-21] MEDS ORDERED: POTASSIUM CHLORIDE INJ 40 MEQ in AMINO AC/ELECTROLYTE/DEX/CALC 2,000 ML IV SCH (18:00)
[2022-03-21 20:00] VITALS: BP 133/81
[2022-03-21] MEDS: REMDESIVIR 100 MG in NS 250 ML IV SCH (20:00)
[2022-03-21] MEDS: SODIUM CHLORIDE 0.9% INJ 10 ML SYR IV SCH (21:00)
[2022-03-22] VITALS: BP 155/92
[2022-03-22] MEDS: METOPROLOL 5 MG/5 ML VIAL IV SCH ×4 (00:46→18:13)
[2022-03-22 02:26] LABS: INR 1.46; PROTHROMBIN TIME 18.2 SECONDS (12.7-14.5)
[2022-03-22 02:28] LABS: PARTIAL THROMBOPLASTIN TIME 99.7 SECONDS (25.9-37.0)
[2022-03-22] MEDS: SODIUM CHLORIDE HYPERTONIC 3% 15ML NEB SOL INH SCH ×6 (02:46→23:10)
[2022-03-22] MEDS: IPRATROPIUM 0.5MG/ALBUTEROL 2.5MG INH SOL UD 3ML (DUONEB) NEB SCH ×3 (02:46→13:13)
[2022-03-22 04:00] VITALS: BP 148/94
[2022-03-22] MEDS: INSULIN LISPRO (NovoLOG) PER UNIT SC SCH ×3 (05:53→18:13)
[2022-03-22 08:00] VITALS: BP 159/85
[2022-03-22 08:22] LABS: HEMATOCRIT 36.7 % (36.0-47.0); HEMOGLOBIN 12.1 g/dl (12.0-15.5); MEAN CORPUSCULAR HEMOGLOBIN 39.4 pg (27.0-33.0); PLATELET COUNT, AUTOMATED 216 10^3/uL (150-450); RED BLOOD COUNT 3.07 10^6/uL (4.00-5.40); WHITE BLOOD COUNT 10.4 10^3/uL (4.0-10.0)
[2022-03-22 08:25] LABS: MEAN CORPUSCULAR VOLUME 119.5 fl (80.0-96.0)
[2022-03-22 08:59] LABS: ALBUMIN 2.3 GM/DL (3.2-5.2); ALT/SGPT 20 U/L (12-78); BILIRUBIN,TOTAL 0.5 MG/DL (0.2-1.0); BLOOD UREA NITROGEN 54 MG/DL (7-18); CALCIUM LEVEL 8.6 MG/DL (8.8-10.2); CARBON DIOXIDE LEVEL 25 MEQ/L (21-32); CHLORIDE LEVEL 106 MEQ/L (98-107); GLOMERULAR FILTRATION RATE > 60.0 (>32); GLUCOSE, FASTING 79 MG/DL (70-100); POTASSIUM SERUM 5.6 MEQ/L (3.5-5.1); SODIUM LEVEL 135 MEQ/L (136-145); TOTAL PROTEIN 5.1 GM/DL (6.4-8.2)
[2022-03-22] MEDS: PANTOPRAZOLE 40MG VIAL IV SCH (09:30)
[2022-03-22] MEDS: dexameTHASONE 4 MG/ML 1ML VIAL (J1100 PER 1MG) IV SCH (09:30)
[2022-03-22] MEDS: NYSTATIN 100,000 UNITS/GM TOPICAL PWD 15 GM TOP SCH ×2 (09:31→21:00)
[2022-03-22 12:00] VITALS: BP 122/89
[2022-03-22] MEDS: HEPARIN DRIP 25,000 UNITS in IV 1 EA IV SCH (12:27)
[2022-03-22 12:34] LABS: ABG BASE EXCESS -1.2 (-2.0-2.0); ABG HCO3 21.6 MEQ/L (22.0-26.0); ABG O2 SATURATION 97.8 % (95.0-99.0); ABG PARTIAL PRESSURE CO2 30.3 mmHg (35.0-45.0); ABG PARTIAL PRESSURE O2 95.5 mmHg (75.0-100.0); ABG STANDARD HCO3 23.5 MEQ/L (22.0-26.0); ABG TOTAL CO2 22.5 MEQ/L (23.0-31.0)
[2022-03-22] MEDS ORDERED: PHYTONADIONE INJection 5 MG in NS 50 ML IV SCH (13:00)
[2022-03-22 14:04] LABS: BLOOD UREA NITROGEN 54 MG/DL (7-18); CALCIUM LEVEL 8.3 MG/DL (8.8-10.2); CARBON DIOXIDE LEVEL 26 MEQ/L (21-32); CHLORIDE LEVEL 105 MEQ/L (98-107); CREATININE FOR GFR 0.86 MG/DL (0.55-1.30); GLOMERULAR FILTRATION RATE > 60.0 (>32); GLUCOSE, FASTING 189 MG/DL (70-100); POTASSIUM SERUM 5.8 MEQ/L (3.5-5.1); SODIUM LEVEL 135 MEQ/L (136-145)
[2022-03-22 16:00] VITALS: BP 162/78
[2022-03-22] MEDS ORDERED: ALBUTEROL SULFATE 2.5 MG/0.5 ML INH NEB SOLN NEB SCH (16:00)
[2022-03-22] MEDS: ALBUTEROL SULFATE 2.5 MG/0.5 ML INH NEB SOLN NEB SCH ×4 (16:08→23:09)
[2022-03-22] MEDS ORDERED: FUROSEMIDE 20MG/2ML VIAL (J1940) IV ONE (18:00)
[2022-03-22] MEDS ORDERED: FAT EMULSION IV 250 ML IV ONE (18:00)
[2022-03-22] MEDS ORDERED: MULTIVITAMIN -ADULT INJECTION 10 ML, ZINC/COPPER/MANGANESE/SELENIUM 1 ML in AMINO AC/EL... IV SCH (18:00)
[2022-03-22 20:00] VITALS: BP 129/77
[2022-03-22 20:42] LABS: BLOOD UREA NITROGEN 55 MG/DL (7-18); CARBON DIOXIDE LEVEL 23 MEQ/L (21-32); CHLORIDE LEVEL 106 MEQ/L (98-107); CREATININE FOR GFR 0.83 MG/DL (0.55-1.30); GLOMERULAR FILTRATION RATE > 60.0 (>32); GLUCOSE, FASTING 162 MG/DL (70-100); POTASSIUM SERUM 5.4 MEQ/L (3.5-5.1); SODIUM LEVEL 135 MEQ/L (136-145)
[2022-03-23] VITALS: BP 125/77
[2022-03-23] MEDS: METOPROLOL 5 MG/5 ML VIAL IV SCH ×4 (00:07→19:38)
[2022-03-23] MEDS: INSULIN LISPRO (NovoLOG) PER UNIT SC SCH ×3 (00:07→13:16)
[2022-03-23] MEDS: SODIUM CHLORIDE HYPERTONIC 3% 15ML NEB SOL INH SCH ×6 (03:02→23:28)
[2022-03-23] MEDS: ALBUTEROL SULFATE 2.5 MG/0.5 ML INH NEB SOLN NEB SCH ×4 (03:02→19:45)
[2022-03-23 04:00] VITALS: BP 128/82
[2022-03-23 06:21] LABS: HEMATOCRIT 33.8 % (36.0-47.0); HEMOGLOBIN 11.3 g/dl (12.0-15.5); MEAN CORPUSCULAR HGB CONC 33.4 g/dl (32.0-36.5); MEAN CORPUSCULAR VOLUME 113.8 fl (80.0-96.0); RED BLOOD COUNT 2.97 10^6/uL (4.00-5.40); WHITE BLOOD COUNT 10.9 10^3/uL (4.0-10.0)
[2022-03-23 06:40] LABS: PLATELET COUNT, AUTOMATED 342 10^3/uL (150-450)
[2022-03-23 06:49] LABS: ALBUMIN 2.4 GM/DL (3.2-5.2); ALT/SGPT 18 U/L (12-78); BILIRUBIN,TOTAL 0.5 MG/DL (0.2-1.0); BLOOD UREA NITROGEN 65 MG/DL (7-18); CALCIUM LEVEL 8.6 MG/DL (8.8-10.2); CARBON DIOXIDE LEVEL 24 MEQ/L (21-32); CHLORIDE LEVEL 103 MEQ/L (98-107); CREATININE FOR GFR 0.81 MG/DL (0.55-1.30); GLOMERULAR FILTRATION RATE > 60.0 (>32); GLUCOSE, FASTING 138 MG/DL (70-100); POTASSIUM SERUM 4.8 MEQ/L (3.5-5.1); SODIUM LEVEL 135 MEQ/L (136-145)
[2022-03-23 07:08] VITALS: BP 120/73
[2022-03-23] MEDS: NYSTATIN 100,000 UNITS/GM TOPICAL PWD 15 GM TOP SCH ×2 (09:00→21:03)
[2022-03-23] MEDS ORDERED: predniSONE 20 MG TAB PO SCH (09:00)
[2022-03-23 11:44] VITALS: BP 137/70
[2022-03-23] MEDS ORDERED: PHYTONADIONE INJection 5 MG in NS 50 ML IV SCH (13:00)
[2022-03-23] MEDS: methylPREDNISolone 40MG 1ML VIAL IV SCH (13:13)
[2022-03-23] MEDS: PANTOPRAZOLE 40MG VIAL IV SCH (13:14)
[2022-03-23] MEDS: ENOXAPARIN 60MG/0.6ML SYRINGE (J1650 PER 10MG) SC SCH ×2 (13:14→21:02)
[2022-03-23] MEDS ORDERED: AMINO AC/ELECTROLYTE/DEX/CALC 2,000 ML IV SCH (18:00)
[2022-03-23 20:00] VITALS: BP 142/72
[2022-03-23] MEDS ORDERED: FUROSEMIDE 20MG/2ML VIAL (J1940) IV ONE (20:05)
[2022-03-23] MEDS: ALBUTEROL SULFATE 2.5 MG/0.5 ML INH NEB SOLN NEB PRN (23:27)
[2022-03-24] VITALS: BP 119/83
[2022-03-24] MEDS: METOPROLOL 5 MG/5 ML VIAL IV SCH ×4 (00:49→20:39)
[2022-03-24] MEDS: ALBUTEROL SULFATE 2.5 MG/0.5 ML INH NEB SOLN NEB PRN ×5 (03:35→23:22)
[2022-03-24] MEDS: SODIUM CHLORIDE HYPERTONIC 3% 15ML NEB SOL INH SCH ×6 (03:35→23:22)
[2022-03-24 05:22] LABS: HEMATOCRIT 33.6 % (36.0-47.0); HEMOGLOBIN 11.5 g/dl (12.0-15.5); MEAN CORPUSCULAR HEMOGLOBIN 39.5 pg (27.0-33.0); MEAN CORPUSCULAR HGB CONC 34.2 g/dl (32.0-36.5); PLATELET COUNT, AUTOMATED 338 10^3/uL (150-450); RED BLOOD COUNT 2.91 10^6/uL (4.00-5.40); WHITE BLOOD COUNT 9.8 10^3/uL (4.0-10.0)
[2022-03-24 05:27] LABS: MEAN CORPUSCULAR VOLUME 115.5 fl (80.0-96.0)
[2022-03-24 05:36] LABS: INR 1.3; PROTHROMBIN TIME 16.6 SECONDS (12.7-14.5)
[2022-03-24 05:37] LABS: PARTIAL THROMBOPLASTIN TIME 37.6 SECONDS (25.9-37.0)
[2022-03-24 05:57] LABS: ALBUMIN 2.3 GM/DL (3.2-5.2); ALT/SGPT 15 U/L (12-78); BILIRUBIN,TOTAL 0.5 MG/DL (0.2-1.0); BLOOD UREA NITROGEN 62 MG/DL (7-18); CALCIUM LEVEL 8.6 MG/DL (8.8-10.2); CARBON DIOXIDE LEVEL 27 MEQ/L (21-32); CHLORIDE LEVEL 104 MEQ/L (98-107); CREATININE FOR GFR 0.93 MG/DL (0.55-1.30); GLOMERULAR FILTRATION RATE > 60.0 (>32); GLUCOSE, FASTING 148 MG/DL (70-100); POTASSIUM SERUM 4.3 MEQ/L (3.5-5.1); SODIUM LEVEL 135 MEQ/L (136-145); TOTAL PROTEIN 5.3 GM/DL (6.4-8.2)
[2022-03-24] MEDS: INSULIN LISPRO (NovoLOG) PER UNIT SC SCH ×2 (06:00→12:21)
[2022-03-24 08:00] VITALS: BP 127/81
[2022-03-24] MEDS: NYSTATIN 100,000 UNITS/GM TOPICAL PWD 15 GM TOP SCH ×2 (08:39→20:38)
[2022-03-24] MEDS: methylPREDNISolone 40MG 1ML VIAL IV SCH (08:39)
[2022-03-24] MEDS: PANTOPRAZOLE 40MG VIAL IV SCH (08:39)
[2022-03-24] MEDS: ENOXAPARIN 60MG/0.6ML SYRINGE (J1650 PER 10MG) SC SCH ×2 (08:40→20:39)
[2022-03-24 13:18] VITALS: BP 137/84
[2022-03-24 16:27] VITALS: BP 128/77
[2022-03-24] MEDS ORDERED: MULTIVITAMIN -ADULT INJECTION 10 ML, ZINC/COPPER/MANGANESE/SELENIUM 1 ML in AMINO AC/EL... IV SCH (18:00)
[2022-03-24] MEDS ORDERED: FAT EMULSION IV 250 ML IV ONE ×2 (18:00)
[2022-03-24 20:00] VITALS: BP 134/77
[2022-03-25] VITALS (15 sets, daily range): BP systolic 117–147; BP diastolic 66–94; O2SAT 95–96
[2022-03-25] MEDS: METOPROLOL 5 MG/5 ML VIAL IV SCH ×4 (00:29→19:00)
[2022-03-25] MEDS: SODIUM CHLORIDE HYPERTONIC 3% 15ML NEB SOL INH SCH ×6 (04:01→23:33)
[2022-03-25] MEDS: ALBUTEROL SULFATE 2.5 MG/0.5 ML INH NEB SOLN NEB PRN ×6 (04:01→23:32)
[2022-03-25 06:18] LABS: HEMATOCRIT 36.2 % (36.0-47.0); HEMOGLOBIN 11.9 g/dl (12.0-15.5); MEAN CORPUSCULAR HEMOGLOBIN 37.8 pg (27.0-33.0); MEAN CORPUSCULAR HGB CONC 32.9 g/dl (32.0-36.5); PLATELET COUNT, AUTOMATED 323 10^3/uL (150-450); RED BLOOD COUNT 3.15 10^6/uL (4.00-5.40); WHITE BLOOD COUNT 8.3 10^3/uL (4.0-10.0)
[2022-03-25 06:32] LABS: MEAN CORPUSCULAR VOLUME 114.9 fl (80.0-96.0)
[2022-03-25 07:07] LABS: ALBUMIN 2.4 GM/DL (3.2-5.2); ALT/SGPT 10 U/L (12-78); BILIRUBIN,TOTAL 0.7 MG/DL (0.2-1.0); BLOOD UREA NITROGEN 61 MG/DL (7-18); CALCIUM LEVEL 8.7 MG/DL (8.8-10.2); CARBON DIOXIDE LEVEL 26 MEQ/L (21-32); CHLORIDE LEVEL 105 MEQ/L (98-107); GLOMERULAR FILTRATION RATE > 60.0 (>32); GLUCOSE, FASTING 128 MG/DL (70-100); POTASSIUM SERUM 4.9 MEQ/L (3.5-5.1); SODIUM LEVEL 137 MEQ/L (136-145); TOTAL PROTEIN 5.2 GM/DL (6.4-8.2)
[2022-03-25] MEDS: methylPREDNISolone 40MG 1ML VIAL IV SCH (09:51)
[2022-03-25] MEDS: PANTOPRAZOLE 40MG VIAL IV SCH (09:51)
[2022-03-25] MEDS: NYSTATIN 100,000 UNITS/GM TOPICAL PWD 15 GM TOP SCH ×2 (09:51→20:00)
[2022-03-25] MEDS: ENOXAPARIN 60MG/0.6ML SYRINGE (J1650 PER 10MG) SC SCH ×2 (09:51→20:00)
[2022-03-25] MEDS ORDERED: REMDESIVIR 100 MG in NS 250 ML IV SCH (10:55)
[2022-03-25] MEDS ORDERED: SODIUM CHLORIDE 0.9% INJ 10 ML SYR IV SCH (11:55)
[2022-03-25] MEDS: INSULIN LISPRO (NovoLOG) PER UNIT SC SCH (17:42)
[2022-03-25] MEDS ORDERED: FAT EMULSION IV 250 ML IV ONE (18:00)
[2022-03-25] MEDS ORDERED: AMINO AC/ELECTROLYTE/DEX/CALC 2,000 ML IV SCH (18:00)
[2022-03-26] VITALS (12 sets, daily range): BP systolic 134–181; BP diastolic 76–94; O2SAT 92–96
[2022-03-26] MEDS: METOPROLOL 5 MG/5 ML VIAL IV SCH ×4 (00:29→18:22)
[2022-03-26] MEDS: SODIUM CHLORIDE HYPERTONIC 3% 15ML NEB SOL INH SCH ×6 (03:25→23:26)
[2022-03-26] MEDS: ALBUTEROL SULFATE 2.5 MG/0.5 ML INH NEB SOLN NEB PRN ×6 (03:25→23:26)
[2022-03-26 05:56] LABS: HEMATOCRIT 33.4 % (36.0-47.0); HEMOGLOBIN 11.1 g/dl (12.0-15.5); MEAN CORPUSCULAR HEMOGLOBIN 38.4 pg (27.0-33.0); MEAN CORPUSCULAR HGB CONC 33.2 g/dl (32.0-36.5); MEAN CORPUSCULAR VOLUME 115.6 fl (80.0-96.0); PLATELET COUNT, AUTOMATED 307 10^3/uL (150-450); RED BLOOD COUNT 2.89 10^6/uL (4.00-5.40); WHITE BLOOD COUNT 5.8 10^3/uL (4.0-10.0)
[2022-03-26 06:33] LABS: ALBUMIN 2.3 GM/DL (3.2-5.2); ALT/SGPT 8 U/L (12-78); BILIRUBIN,TOTAL 0.7 MG/DL (0.2-1.0); BLOOD UREA NITROGEN 58 MG/DL (7-18); CALCIUM LEVEL 8.7 MG/DL (8.8-10.2); CARBON DIOXIDE LEVEL 26 MEQ/L (21-32); CHLORIDE LEVEL 107 MEQ/L (98-107); CREATININE FOR GFR 0.71 MG/DL (0.55-1.30); GLOMERULAR FILTRATION RATE > 60.0 (>32); GLUCOSE, FASTING 158 MG/DL (70-100); POTASSIUM SERUM 4.9 MEQ/L (3.5-5.1); SODIUM LEVEL 141 MEQ/L (136-145); TOTAL PROTEIN 5.1 GM/DL (6.4-8.2)
[2022-03-26] MEDS: INSULIN LISPRO (NovoLOG) PER UNIT SC SCH ×4 (06:34→18:21)
[2022-03-26] MEDS: ENOXAPARIN 60MG/0.6ML SYRINGE (J1650 PER 10MG) SC SCH ×2 (08:40→21:20)
[2022-03-26] MEDS: PANTOPRAZOLE 40MG VIAL IV SCH (08:40)
[2022-03-26] MEDS: dexameTHASONE 4 MG/ML 1ML VIAL (J1100 PER 1MG) IV SCH (08:40)
[2022-03-26] MEDS: NYSTATIN 100,000 UNITS/GM TOPICAL PWD 15 GM TOP SCH ×2 (08:41→21:20)
[2022-03-26] MEDS ORDERED: METOPROLOL 5 MG/5 ML VIAL IV STA (09:48)
[2022-03-26] MEDS ORDERED: FAT EMULSION IV 250 ML IV ONE (18:00)
[2022-03-26] MEDS ORDERED: AMINO AC/ELECTROLYTE/DEX/CALC 2,000 ML IV SCH (18:00)
[2022-03-27] MEDS: INSULIN LISPRO (NovoLOG) PER UNIT SC SCH ×4 (00:51→18:04)
[2022-03-27] MEDS: METOPROLOL 5 MG/5 ML VIAL IV SCH ×4 (00:56→18:05)
[2022-03-27] MEDS: SODIUM CHLORIDE HYPERTONIC 3% 15ML NEB SOL INH SCH ×6 (03:48→23:07)
[2022-03-27] MEDS: ALBUTEROL SULFATE 2.5 MG/0.5 ML INH NEB SOLN NEB PRN ×6 (03:48→23:07)
[2022-03-27 04:24] VITALS: BP 113/77
[2022-03-27 06:41] LABS: BLOOD UREA NITROGEN 60 MG/DL (7-18); CALCIUM LEVEL 8.7 MG/DL (8.8-10.2); CARBON DIOXIDE LEVEL 27 MEQ/L (21-32); CHLORIDE LEVEL 109 MEQ/L (98-107); CREATININE FOR GFR 0.71 MG/DL (0.55-1.30); GLOMERULAR FILTRATION RATE > 60.0 (>32); GLUCOSE, FASTING 156 MG/DL (70-100); MAGNESIUM LEVEL 2.6 MG/DL (1.8-2.4); PHOSPHORUS LEVEL 3.4 MG/DL (2.5-4.9); SODIUM LEVEL 139 MEQ/L (136-145)
[2022-03-27 07:51] VITALS: BP 135/85
[2022-03-27] MEDS: ENOXAPARIN 60MG/0.6ML SYRINGE (J1650 PER 10MG) SC SCH ×2 (08:24→20:56)
[2022-03-27] MEDS: dexameTHASONE 4 MG/ML 1ML VIAL (J1100 PER 1MG) IV SCH (08:24)
[2022-03-27] MEDS: NYSTATIN 100,000 UNITS/GM TOPICAL PWD 15 GM TOP SCH ×2 (08:24→20:56)
[2022-03-27] MEDS: PANTOPRAZOLE 40MG VIAL IV SCH (08:24)
[2022-03-27 12:00] VITALS: BP 133/97
[2022-03-27 16:00] VITALS: BP 127/93
[2022-03-27] MEDS ORDERED: FAT EMULSION IV 250 ML IV ONE (18:00)
[2022-03-27] MEDS ORDERED: AMINO AC/ELECTROLYTE/DEX/CALC 2,000 ML IV SCH (18:00)
[2022-03-27 20:42] VITALS: BP 143/78
[2022-03-28] VITALS (7 sets, daily range): BP systolic 128–146; BP diastolic 73–104
[2022-03-28] MEDS: INSULIN LISPRO (NovoLOG) PER UNIT SC SCH ×4 (01:06→17:45)
[2022-03-28] MEDS: METOPROLOL 5 MG/5 ML VIAL IV SCH ×4 (01:06→17:45)
[2022-03-28] MEDS: SODIUM CHLORIDE HYPERTONIC 3% 15ML NEB SOL INH SCH ×6 (03:09→23:43)
[2022-03-28] MEDS: ALBUTEROL SULFATE 2.5 MG/0.5 ML INH NEB SOLN NEB PRN ×5 (03:10→21:02)
[2022-03-28 06:05] LABS: ALBUMIN 1.9 GM/DL (3.2-5.2); ALT/SGPT 9 U/L (12-78); BILIRUBIN,TOTAL 0.4 MG/DL (0.2-1.0); BLOOD UREA NITROGEN 82 MG/DL (7-18); CALCIUM LEVEL 8.7 MG/DL (8.8-10.2); CARBON DIOXIDE LEVEL 24 MEQ/L (21-32); CHLORIDE LEVEL 108 MEQ/L (98-107); CREATININE FOR GFR 0.93 MG/DL (0.55-1.30); GLOMERULAR FILTRATION RATE > 60.0 (>32); GLUCOSE, FASTING 187 MG/DL (70-100); MAGNESIUM LEVEL 2.6 MG/DL (1.8-2.4); POTASSIUM SERUM 4.8 MEQ/L (3.5-5.1); SODIUM LEVEL 137 MEQ/L (136-145); TOTAL PROTEIN 4.9 GM/DL (6.4-8.2)
[2022-03-28] MEDS: dexameTHASONE 4 MG/ML 1ML VIAL (J1100 PER 1MG) IV SCH (09:53)
[2022-03-28] MEDS: PANTOPRAZOLE 40MG VIAL IV SCH (09:53)
[2022-03-28] MEDS: NYSTATIN 100,000 UNITS/GM TOPICAL PWD 15 GM TOP SCH ×2 (09:53→21:25)
[2022-03-28] MEDS: ENOXAPARIN 60MG/0.6ML SYRINGE (J1650 PER 10MG) SC SCH ×2 (09:53→21:24)
[2022-03-28 12:42] LABS: ABG BASE EXCESS -2.1 (-2.0-2.0); ABG HCO3 20.8 MEQ/L (22.0-26.0); ABG O2 SATURATION 86.7 % (95.0-99.0); ABG PARTIAL PRESSURE CO2 30.1 mmHg (35.0-45.0); ABG STANDARD HCO3 22.5 MEQ/L (22.0-26.0); ABG TOTAL CO2 21.7 MEQ/L (23.0-31.0); ABG pH (ARTERIAL) 7.457 UNITS (7.350-7.450)
[2022-03-28 12:44] LABS: ABG PARTIAL PRESSURE O2 49.5 mmHg (75.0-100.0)
[2022-03-28] MEDS ORDERED: FUROSEMIDE 20MG/2ML VIAL (J1940) IV ONE (13:30)
[2022-03-28 14:09] LABS: HEMATOCRIT 37.1 % (36.0-47.0); MEAN CORPUSCULAR HEMOGLOBIN 37.6 pg (27.0-33.0); MEAN CORPUSCULAR HGB CONC 32.3 g/dl (32.0-36.5); PLATELET COUNT, AUTOMATED 275 10^3/uL (150-450); RED BLOOD COUNT 3.19 10^6/uL (4.00-5.40)
[2022-03-28 14:13] LABS: MEAN CORPUSCULAR VOLUME 116.3 fl (80.0-96.0)
[2022-03-28 14:28] LABS: LYMPHOCYTES 4 % (16-44); MONOCYTES 5 % (0-5); NEUTROPHILS 89 % (28-66)
[2022-03-28] MEDS ORDERED: FAT EMULSION IV 250 ML IV ONE (18:00)
[2022-03-28] MEDS ORDERED: AMINO AC/ELECTROLYTE/DEX/CALC 2,000 ML IV SCH (18:00)
[2022-03-28 18:17] LABS: PLATELET ESTIMATE NORMAL (NORMAL)
[2022-03-29] VITALS (12 sets, daily range): BP systolic 98–154; BP diastolic 70–85; O2SAT 95–97
[2022-03-29] MEDS: INSULIN LISPRO (NovoLOG) PER UNIT SC SCH ×4 (00:12→19:00)
[2022-03-29] MEDS: METOPROLOL 5 MG/5 ML VIAL IV SCH ×4 (00:13→19:00)
[2022-03-29] MEDS: ALBUTEROL SULFATE 2.5 MG/0.5 ML INH NEB SOLN NEB PRN ×6 (04:04→23:17)
[2022-03-29] MEDS: SODIUM CHLORIDE HYPERTONIC 3% 15ML NEB SOL INH SCH ×6 (04:04→23:17)
[2022-03-29 05:57] LABS: HEMATOCRIT 36.1 % (36.0-47.0); HEMOGLOBIN 11.7 g/dl (12.0-15.5); MEAN CORPUSCULAR HEMOGLOBIN 38.2 pg (27.0-33.0); MEAN CORPUSCULAR HGB CONC 32.4 g/dl (32.0-36.5); PLATELET COUNT, AUTOMATED 234 10^3/uL (150-450); RED BLOOD COUNT 3.06 10^6/uL (4.00-5.40); WHITE BLOOD COUNT 7.9 10^3/uL (4.0-10.0)
[2022-03-29 06:28] LABS: BLOOD UREA NITROGEN 77 MG/DL (7-18); CALCIUM LEVEL 8.5 MG/DL (8.8-10.2); CARBON DIOXIDE LEVEL 23 MEQ/L (21-32); CHLORIDE LEVEL 110 MEQ/L (98-107); CREATININE FOR GFR 0.82 MG/DL (0.55-1.30); GLOMERULAR FILTRATION RATE > 60.0 (>32); GLUCOSE, FASTING 178 MG/DL (70-100); MAGNESIUM LEVEL 2.5 MG/DL (1.8-2.4); PHOSPHORUS LEVEL 3.9 MG/DL (2.5-4.9); POTASSIUM SERUM 4.7 MEQ/L (3.5-5.1); SODIUM LEVEL 138 MEQ/L (136-145)
[2022-03-29] MEDS ORDERED: BISACODYL 10 MG SUPP PR ONE (08:25)
[2022-03-29] MEDS ORDERED: FUROSEMIDE 20MG/2ML VIAL (J1940) IV ONE (08:25)
[2022-03-29] MEDS: PANTOPRAZOLE 40MG VIAL IV SCH (09:00)
[2022-03-29] MEDS: dexameTHASONE 4 MG/ML 1ML VIAL (J1100 PER 1MG) IV SCH (11:25)
[2022-03-29] MEDS: NYSTATIN 100,000 UNITS/GM TOPICAL PWD 15 GM TOP SCH ×2 (11:26→21:22)
[2022-03-29] MEDS: ENOXAPARIN 60MG/0.6ML SYRINGE (J1650 PER 10MG) SC SCH ×2 (11:27→21:22)
[2022-03-29] MEDS ORDERED: FAT EMULSION IV 250 ML IV ONE (18:00)
[2022-03-29] MEDS ORDERED: MULTIVITAMIN -ADULT INJECTION 10 ML, ZINC/COPPER/MANGANESE/SELENIUM 1 ML in AMINO AC/EL... IV SCH (18:00)
[2022-03-30] VITALS (48 sets, daily range): BP systolic 121–163; BP diastolic 70–90; O2SAT 91–100
[2022-03-30] MEDS: METOPROLOL 5 MG/5 ML VIAL IV SCH ×4 (01:00→20:19)
[2022-03-30] MEDS: INSULIN LISPRO (NovoLOG) PER UNIT SC SCH ×4 (01:19→17:30)
[2022-03-30] MEDS: SODIUM CHLORIDE HYPERTONIC 3% 15ML NEB SOL INH SCH ×6 (03:48→23:41)
[2022-03-30 05:53] LABS: HEMATOCRIT 34.8 % (36.0-47.0); HEMOGLOBIN 11.1 g/dl (12.0-15.5); MEAN CORPUSCULAR HEMOGLOBIN 37.1 pg (27.0-33.0); MEAN CORPUSCULAR HGB CONC 31.9 g/dl (32.0-36.5); PLATELET COUNT, AUTOMATED 229 10^3/uL (150-450); RED BLOOD COUNT 2.99 10^6/uL (4.00-5.40); WHITE BLOOD COUNT 10.7 10^3/uL (4.0-10.0)
[2022-03-30 05:55] LABS: MEAN CORPUSCULAR VOLUME 116.4 fl (80.0-96.0)
[2022-03-30 06:21] LABS: BILIRUBIN,TOTAL 0.4 MG/DL (0.2-1.0); CALCIUM LEVEL 8.3 MG/DL (8.8-10.2); CREATININE FOR GFR 1.24 MG/DL (0.55-1.30); MAGNESIUM LEVEL 2.5 MG/DL (1.8-2.4); PHOSPHORUS LEVEL 4.8 MG/DL (2.5-4.9); POTASSIUM SERUM 5.1 MEQ/L (3.5-5.1); TOTAL PROTEIN 4.6 GM/DL (6.4-8.2)
[2022-03-30 07:12] LABS: ANISOCYTOSIS 1+; LYMPHOCYTES 2 % (16-44); METAMYELOCYTES 1 % (0-0); MONOCYTES 14 % (0-5); NEUTROPHILS 80 % (28-66)
[2022-03-30 07:13] LABS: OVALOCYTES 1+; TOXIC GRANULATION 1+
[2022-03-30] MEDS: ALBUTEROL SULFATE 2.5 MG/0.5 ML INH NEB SOLN NEB PRN ×5 (07:36→23:41)
[2022-03-30 08:42] LABS: GIANT PLATELETS 1+; PLATELET ESTIMATE NORMAL (NORMAL)
[2022-03-30] MEDS: PANTOPRAZOLE 40MG VIAL IV SCH (09:44)
[2022-03-30] MEDS: NYSTATIN 100,000 UNITS/GM TOPICAL PWD 15 GM TOP SCH ×2 (09:44→20:20)
[2022-03-30] MEDS: ENOXAPARIN 60MG/0.6ML SYRINGE (J1650 PER 10MG) SC SCH ×2 (09:45→20:18)
[2022-03-30] MEDS: dexameTHASONE 4 MG/ML 1ML VIAL (J1100 PER 1MG) IV SCH (09:45)
[2022-03-30] MEDS ORDERED: AMINO AC/ELECTROLYTE/DEX/CALC 2,000 ML IV SCH (18:00)
[2022-03-30] MEDS ORDERED: FAT EMULSION IV 250 ML IV ONE (18:00)
[2022-03-31] VITALS (46 sets, daily range): BP systolic 102–153; BP diastolic 66–100; O2SAT 96–100
[2022-03-31] MEDS: INSULIN LISPRO (NovoLOG) PER UNIT SC SCH ×4 (01:48→18:04)
[2022-03-31] MEDS: METOPROLOL 5 MG/5 ML VIAL IV SCH ×4 (01:49→21:29)
[2022-03-31] MEDS: SODIUM CHLORIDE HYPERTONIC 3% 15ML NEB SOL INH SCH ×6 (03:29→23:40)
[2022-03-31 05:58] LABS: HEMATOCRIT 35.4 % (36.0-47.0); HEMOGLOBIN 11.3 g/dl (12.0-15.5); MEAN CORPUSCULAR HEMOGLOBIN 36.9 pg (27.0-33.0); MEAN CORPUSCULAR HGB CONC 31.9 g/dl (32.0-36.5); PLATELET COUNT, AUTOMATED 228 10^3/uL (150-450); RED BLOOD COUNT 3.06 10^6/uL (4.00-5.40); WHITE BLOOD COUNT 12.2 10^3/uL (4.0-10.0)
[2022-03-31 06:05] LABS: MEAN CORPUSCULAR VOLUME 115.7 fl (80.0-96.0)
[2022-03-31 06:21] LABS: CALCIUM LEVEL 8.5 MG/DL (8.8-10.2); CREATININE FOR GFR 1.8 MG/DL (0.55-1.30); GLOMERULAR FILTRATION RATE 28.6 (>32); POTASSIUM SERUM 5.7 MEQ/L (3.5-5.1)
[2022-03-31] MEDS ORDERED: DEXTROSE 50% 50 ML SYRINGE IV STA (07:16)
[2022-03-31] MEDS ORDERED: HumuLIN R (REGULAR) INSULIN (NovoLIN R) **100U/ML** PER UNIT IV STA (07:16)
[2022-03-31] MEDS ORDERED: ALBUTEROL SULFATE 2.5 MG/0.5 ML INH NEB SOLN NEB ONE (07:20)
[2022-03-31] MEDS ORDERED: SODIUM CHLORIDE 0.9% 1000ML IV SCH (07:20)
[2022-03-31 07:41] LABS: ATYPICAL LYMPH 1 % (0-5); METAMYELOCYTES 1 % (0-0); MONOCYTES 12 % (0-5); NEUTROPHILS 77 % (28-66)
[2022-03-31 07:43] LABS: OVALOCYTES 4+
[2022-03-31 07:44] LABS: PLATELET ESTIMATE NORMAL (NORMAL)
[2022-03-31] MEDS: PANTOPRAZOLE 40MG VIAL IV SCH (08:19)
[2022-03-31] MEDS: dexameTHASONE 4 MG/ML 1ML VIAL (J1100 PER 1MG) IV SCH (08:19)
[2022-03-31] MEDS: ENOXAPARIN 60MG/0.6ML SYRINGE (J1650 PER 10MG) SC SCH (08:25)
[2022-03-31] MEDS: NYSTATIN 100,000 UNITS/GM TOPICAL PWD 15 GM TOP SCH ×2 (08:27→21:30)
[2022-03-31 09:26] LABS: APPEARANCE, URINE MANUAL CLOUDY (CLEAR); COLOR, URINE MANUAL AMBER (YELLOW)
[2022-03-31 09:28] LABS: SPECIFIC GRAVITY,URINE MANUAL 1.015 (1.002-1.035)
[2022-03-31 09:29] LABS: BILIRUBIN, URINE MANUAL NEGATIVE (NEGATIVE); BLOOD URINE MANUAL POSITIVE (NEGATIVE); GLUCOSE, URINE (UA) MANUAL 1+(100 MG/DL) mg/dL (NEGATIVE); KETONE, URINE MANUAL NEGATIVE (NEGATIVE); LEUKOCYTE ESTERASE, URINE MAN POSITIVE (NEGATIVE); NITRITE, URINE MANUAL NEGATIVE (NEGATIVE); PROTEIN, URINE MANUAL 1+ mg/dL (NEGATIVE); UROBILINOGEN, URINE MANUAL NORMAL (NORMAL)
[2022-03-31 09:39] LABS: RBC, URINE TNTC /hpf (0-3); SQUAMOUS EPITHELIAL CELL URINE SMALL AMOUNT /hpf (SMALL AMT)
[2022-03-31 09:41] LABS: BACTERIA, URINE SMALL AMOUNT; HYALINE CAST, URINE NONE SEEN /lpf (0-1)
[2022-03-31] MEDS: ALBUTEROL SULFATE 2.5 MG/0.5 ML INH NEB SOLN NEB PRN ×4 (11:16→23:40)
[2022-03-31] MEDS ORDERED: HEPARIN SOD (PORCINE) 5000UNITS/ML 1ML VIAL/SYRINGE IV PRN (11:45)
[2022-03-31] MEDS ORDERED: HEPARIN DRIP 25,000 UNITS in IV 1 EA IV SCH (11:45)
[2022-03-31] MEDS: NS 1,000 ML IV SCH (12:30)
[2022-03-31 17:20] LABS: CALCIUM LEVEL 8.5 MG/DL (8.8-10.2); CREATININE FOR GFR 1.44 MG/DL (0.55-1.30); POTASSIUM SERUM 5.6 MEQ/L (3.5-5.1)
[2022-03-31] MEDS ORDERED: SODIUM CHLORIDE 23.4% INJ 16.2 MEQ, SODIUM ACETATE INJ 16.2 MEQ, SODIUM PHOSPHATE INJ 2... IV SCH ×8 (18:00)
[2022-03-31] MEDS ORDERED: FAT EMULSION IV 250 ML IV ONE (18:00)
[2022-03-31] MEDS ORDERED: SODIUM BICARBONATE 8.4% INJ 50 ML SYRINGE IV ONE (18:10)
[2022-03-31 21:18] LABS: INR 1.15; PARTIAL THROMBOPLASTIN TIME 35.4 SECONDS (24.8-34.2); PROTHROMBIN TIME 14.9 SECONDS (12.5-14.5)
[2022-04-01] VITALS (21 sets, daily range): BP systolic 110–162; BP diastolic 64–99; O2SAT 91–100
[2022-04-01] MEDS: METOPROLOL 5 MG/5 ML VIAL IV SCH ×4 (01:08→20:32)
[2022-04-01] MEDS: INSULIN LISPRO (NovoLOG) PER UNIT SC SCH ×4 (01:09→20:33)
[2022-04-01] MEDS: ALBUTEROL SULFATE 2.5 MG/0.5 ML INH NEB SOLN NEB PRN ×6 (03:19→23:31)
[2022-04-01] MEDS: SODIUM CHLORIDE HYPERTONIC 3% 15ML NEB SOL INH SCH ×6 (03:20→23:31)
[2022-04-01] MEDS: NS 1,000 ML IV SCH ×2 (04:37→20:32)
[2022-04-01 05:49] LABS: HEMATOCRIT 35.8 % (36.0-47.0); HEMOGLOBIN 11.8 g/dl (12.0-15.5); MEAN CORPUSCULAR HEMOGLOBIN 37.5 pg (27.0-33.0); MEAN CORPUSCULAR VOLUME 113.7 fl (80.0-96.0); PLATELET COUNT, AUTOMATED 265 10^3/uL (150-450); RED BLOOD COUNT 3.15 10^6/uL (4.00-5.40)
[2022-04-01 06:29] LABS: LYMPHOCYTES 4 % (16-44); METAMYELOCYTES 4 % (0-0); MONOCYTES 11 % (0-5); NEUTROPHILS 77 % (28-66)
[2022-04-01 06:30] LABS: ANISOCYTOSIS 1+; PLATELET ESTIMATE NORMAL (NORMAL)
[2022-04-01 06:31] LABS: OVALOCYTES 1+; TOXIC VACUOLATION 1+
[2022-04-01 06:38] LABS: CALCIUM LEVEL 8.5 MG/DL (8.8-10.2); CREATININE FOR GFR 1.06 MG/DL (0.55-1.30); GLOMERULAR FILTRATION RATE 52.7 (>32); POTASSIUM SERUM 4.3 MEQ/L (3.5-5.1)
[2022-04-01] MEDS: PANTOPRAZOLE 40MG VIAL IV SCH (07:54)
[2022-04-01] MEDS: dexameTHASONE 4 MG/ML 1ML VIAL (J1100 PER 1MG) IV SCH (07:55)
[2022-04-01] MEDS: NYSTATIN 100,000 UNITS/GM TOPICAL PWD 15 GM TOP SCH ×2 (07:58→20:32)
[2022-04-01] MEDS: LEVALBUTEROL 1.25 MG/0.5 ML CONCENTRATE NEB INH SCH ×4 (12:00→23:33)
[2022-04-01] MEDS ORDERED: LIDOCAINE 1% SDV 30ML VIAL As Ordered ONE (16:58)
[2022-04-01] MEDS ORDERED: BUPIVACAINE HCL 0.25% 30ML VIAL As Ordered ONE (16:58)
[2022-04-01] MEDS ORDERED: SODIUM CHLORIDE 23.4% INJ 16.2 MEQ, SODIUM ACETATE INJ 16.2 MEQ, SODIUM PHOSPHATE INJ 2... IV SCH ×6 (18:00)
[2022-04-01] MEDS ORDERED: FAT EMULSION IV 250 ML IV ONE (18:00)
[2022-04-01] MEDS ORDERED: ROCURONIUM BROMIDE 50 MG/5 ML VIAL As Ordered ONE (18:14)
[2022-04-01] MEDS ORDERED: propofoL 200 MG/20 ML VIAL As Ordered ONE (18:14)
[2022-04-01] MEDS ORDERED: VASOPRESSIN INJ 20 UNITS/ML VIAL As Ordered ONE (18:14)
[2022-04-01] MEDS ORDERED: fentaNYL 100 MCG/2 ML INJECTION As Ordered ONE (18:14)
[2022-04-01] MEDS ORDERED: LIDOCAINE 2% 100MG/5ML SDV (FOR ANES.) As Ordered ONE (18:14)
[2022-04-01] MEDS ORDERED: ONDANSETRON 4MG 2ML VIAL As Ordered ONE (18:14)
[2022-04-01] MEDS ORDERED: EPINEPHrine 1MG/10ML SYRINGE 1.5IN As Ordered ONE (18:14)
[2022-04-01] MEDS ORDERED: SUGAMMADEX SODIUM 500 MG/5 ML VIAL (BRIDION) As Ordered ONE (18:14)
[2022-04-01] MEDS ORDERED: PHENYLephrine 500MCG 5ML (100MCG/ML) SYRINGE As Ordered ONE (18:15)
[2022-04-01] MEDS ORDERED: CALCIUM CHLORIDE 10% 1 GM/10 ML SYR As Ordered ONE (18:15)
[2022-04-01] MEDS ORDERED: oxyCODONE 5MG TAB PO PRN (18:25)
[2022-04-01] MEDS ORDERED: fentaNYL 100 MCG/2 ML INJECTION IV PRN (18:25)
[2022-04-01] MEDS ORDERED: LR 1,000 ML IV SCH (18:25)
[2022-04-01] MEDS ORDERED: ONDANSETRON 4MG 2ML VIAL IV PRN (18:25)
[2022-04-01] MEDS ORDERED: HYDROMORPHONE HCL 0.5 MG/ 0.5 ML SYRINGE (J1170 PER 1) IV PRN (18:25)
[2022-04-02] VITALS (46 sets, daily range): BP systolic 123–163; BP diastolic 74–100; O2SAT 86–100
[2022-04-02] MEDS: METOPROLOL 5 MG/5 ML VIAL IV SCH ×4 (00:19→21:09)
[2022-04-02] MEDS: INSULIN LISPRO (NovoLOG) PER UNIT SC SCH ×4 (00:20→18:06)
[2022-04-02] MEDS: HEPARIN DRIP 25,000 UNITS in IV 1 EA IV SCH (00:23)
[2022-04-02] MEDS: HEPARIN SOD (PORCINE) 5000UNITS/ML 1ML VIAL/SYRINGE IV PRN ×3 (01:16→18:07)
[2022-04-02] MEDS: SODIUM CHLORIDE HYPERTONIC 3% 15ML NEB SOL INH SCH ×6 (03:34→23:53)
[2022-04-02] MEDS: LEVALBUTEROL 1.25 MG/0.5 ML CONCENTRATE NEB INH SCH ×6 (03:34→23:29)
[2022-04-02 06:46] LABS: HEMATOCRIT 34.4 % (36.0-47.0); HEMOGLOBIN 11.5 g/dl (12.0-15.5); MEAN CORPUSCULAR HEMOGLOBIN 38.1 pg (27.0-33.0); MEAN CORPUSCULAR HGB CONC 33.4 g/dl (32.0-36.5); MEAN CORPUSCULAR VOLUME 113.9 fl (80.0-96.0); PLATELET COUNT, AUTOMATED 244 10^3/uL (150-450); RED BLOOD COUNT 3.02 10^6/uL (4.00-5.40); WHITE BLOOD COUNT 18.4 10^3/uL (4.0-10.0)
[2022-04-02 07:22] LABS: BLOOD UREA NITROGEN 77 MG/DL (7-18); CALCIUM LEVEL 8.6 MG/DL (8.8-10.2); CARBON DIOXIDE LEVEL 18 MEQ/L (21-32); CHLORIDE LEVEL 117 MEQ/L (98-107); CREATININE FOR GFR 0.84 MG/DL (0.55-1.30); GLOMERULAR FILTRATION RATE > 60.0 (>32); GLUCOSE, FASTING 213 MG/DL (70-100); SODIUM LEVEL 144 MEQ/L (136-145)
[2022-04-02 07:31] LABS: LYMPHOCYTES 2 % (16-44); METAMYELOCYTES 2 % (0-0); MONOCYTES 4 % (0-5); MYELOCYTES 2 % (0-0); NEUTROPHILS 76 % (28-66); PROMYELOCYTES 3 % (0-0)
[2022-04-02 07:32] LABS: OVALOCYTES 3+; TEAR DROP CELLS 2+
[2022-04-02 07:37] LABS: PLATELET ESTIMATE NORMAL (NORMAL)
[2022-04-02] MEDS: dexameTHASONE 4 MG/ML 1ML VIAL (J1100 PER 1MG) IV SCH (09:10)
[2022-04-02] MEDS: PANTOPRAZOLE 40MG VIAL IV SCH (09:10)
[2022-04-02] MEDS: NYSTATIN 100,000 UNITS/GM TOPICAL PWD 15 GM TOP SCH ×2 (09:16→21:09)
[2022-04-02] MEDS: NS 1,000 ML IV SCH (13:03)
[2022-04-02] MEDS: PIPERACILLIN/TAZOBACTAM SOD 2.25 GM in D5W MINI-BAG PLUS 50 ML IV SCH ×2 (16:29→21:08)
[2022-04-02 17:01] LABS: INR 1.19; PROTHROMBIN TIME 15.4 SECONDS (12.5-14.5)
[2022-04-02] MEDS ORDERED: SODIUM CHLORIDE 23.4% INJ 16.2 MEQ, SODIUM ACETATE INJ 16.2 MEQ, SODIUM PHOSPHATE INJ 2... IV SCH ×8 (18:00)
[2022-04-02] MEDS ORDERED: FAT EMULSION IV 250 ML IV ONE (18:00)
[2022-04-03] VITALS (44 sets, daily range): BP systolic 108–181; BP diastolic 64–112; O2SAT 84–100
[2022-04-03] MEDS: INSULIN LISPRO (NovoLOG) PER UNIT SC SCH ×4 (00:17→18:05)
[2022-04-03] MEDS: METOPROLOL 5 MG/5 ML VIAL IV SCH ×4 (01:00→20:53)
[2022-04-03 01:25] LABS: INR 1.26; PROTHROMBIN TIME 16.1 SECONDS (12.5-14.5)
[2022-04-03 01:26] LABS: PARTIAL THROMBOPLASTIN TIME 53.9 SECONDS (24.8-34.2)
[2022-04-03] MEDS: SODIUM CHLORIDE HYPERTONIC 3% 15ML NEB SOL INH SCH ×6 (04:04→23:31)
[2022-04-03] MEDS: LEVALBUTEROL 1.25 MG/0.5 ML CONCENTRATE NEB INH SCH ×6 (04:04→23:31)
[2022-04-03] MEDS: PIPERACILLIN/TAZOBACTAM SOD 2.25 GM in D5W MINI-BAG PLUS 50 ML IV SCH ×4 (04:24→20:53)
[2022-04-03] MEDS: HEPARIN DRIP 25,000 UNITS in IV 1 EA IV SCH (04:25)
[2022-04-03] MEDS: NS 1,000 ML IV SCH (05:28)
[2022-04-03 08:28] LABS: HEMOGLOBIN 11.5 g/dl (12.0-15.5); MEAN CORPUSCULAR HEMOGLOBIN 37.6 pg (27.0-33.0); MEAN CORPUSCULAR HGB CONC 31.9 g/dl (32.0-36.5); PLATELET COUNT, AUTOMATED 210 10^3/uL (150-450); RED BLOOD COUNT 3.06 10^6/uL (4.00-5.40); WHITE BLOOD COUNT 20.5 10^3/uL (4.0-10.0)
[2022-04-03 08:35] LABS: MEAN CORPUSCULAR VOLUME 117.6 fl (80.0-96.0)
[2022-04-03 08:41] LABS: INR 1.22; PROTHROMBIN TIME 15.7 SECONDS (12.5-14.5)
[2022-04-03 08:43] LABS: PARTIAL THROMBOPLASTIN TIME 58.3 SECONDS (24.8-34.2)
[2022-04-03 08:58] LABS: LYMPHOCYTES 1 % (16-44); METAMYELOCYTES 4 % (0-0); MONOCYTES 6 % (0-5); MYELOCYTES 4 % (0-0); NEUTROPHILS 78 % (28-66); PLASMA CELL 1 % (0-0)
[2022-04-03 08:59] LABS: PLATELET ESTIMATE NORMAL (NORMAL)
[2022-04-03 09:00] LABS: PLATELET CLUMPS SMALL AMT
[2022-04-03 09:04] LABS: ANISOCYTOSIS 1+
[2022-04-03 09:05] LABS: OVALOCYTES 2+; POLYCHROMASIA 1+
[2022-04-03 09:06] LABS: TEAR DROP CELLS 1+
[2022-04-03 09:07] LABS: POIKILOCYTOSIS 1+; SCHISTOCYTES 1+
[2022-04-03 09:17] LABS: BLOOD UREA NITROGEN 82 MG/DL (7-18); CALCIUM LEVEL 8.6 MG/DL (8.8-10.2); CARBON DIOXIDE LEVEL 21 MEQ/L (21-32); CHLORIDE LEVEL 115 MEQ/L (98-107); CREATININE FOR GFR 0.92 MG/DL (0.55-1.30); GLOMERULAR FILTRATION RATE > 60.0 (>32); GLUCOSE, FASTING 131 MG/DL (70-100); POTASSIUM SERUM 3.1 MEQ/L (3.5-5.1); SODIUM LEVEL 142 MEQ/L (136-145)
[2022-04-03] MEDS: PANTOPRAZOLE 40MG VIAL IV SCH (10:25)
[2022-04-03] MEDS: dexameTHASONE 4 MG/ML 1ML VIAL (J1100 PER 1MG) IV SCH (10:25)
[2022-04-03] MEDS: NYSTATIN 100,000 UNITS/GM TOPICAL PWD 15 GM TOP SCH ×2 (10:29→20:53)
[2022-04-03] MEDS ORDERED: FUROSEMIDE 20MG/2ML VIAL (J1940) IV ONE (11:00)
[2022-04-03] MEDS: KCL 10MEQ/100ML SWI (KRUN) 10 MEQ in IV 1 EA IV SCH ×2 (11:31→14:33)
[2022-04-03] MEDS ORDERED: VANCOMYCIN HCL 1,000 MG, VIAL MATE ADAPTER 1 EACH in NS 250 ML IV ONE (12:00)
[2022-04-03 17:32] LABS: INR 1.24; PROTHROMBIN TIME 15.9 SECONDS (12.5-14.5)
[2022-04-03 17:34] LABS: PARTIAL THROMBOPLASTIN TIME 66.8 SECONDS (24.8-34.2)
[2022-04-03 17:40] LABS: CALCIUM LEVEL 8.2 MG/DL (8.8-10.2); CREATININE FOR GFR 1.01 MG/DL (0.55-1.30); GLOMERULAR FILTRATION RATE 55.7 (>32); POTASSIUM SERUM 3.9 MEQ/L (3.5-5.1)
[2022-04-03] MEDS ORDERED: FAT EMULSION IV 250 ML IV ONE (18:00)
[2022-04-03] MEDS ORDERED: AMINO AC/ELECTROLYTE/DEX/CALC 2,000 ML IV SCH (18:00)
[2022-04-04] VITALS (41 sets, daily range): BP systolic 120–176; BP diastolic 64–119; O2SAT 83–99
[2022-04-04] MEDS: VANCOMYCIN HCL 750 MG, VIAL MATE ADAPTER 1 EACH in D5W 250 ML IV SCH ×2 (00:34→12:50)
[2022-04-04] MEDS: INSULIN LISPRO (NovoLOG) PER UNIT SC SCH ×4 (00:35→18:00)
[2022-04-04] MEDS: METOPROLOL 5 MG/5 ML VIAL IV SCH ×4 (02:23→20:08)
[2022-04-04] MEDS: LEVALBUTEROL 1.25 MG/0.5 ML CONCENTRATE NEB INH SCH ×6 (03:35→23:10)
[2022-04-04] MEDS: SODIUM CHLORIDE HYPERTONIC 3% 15ML NEB SOL INH SCH ×6 (03:35→23:10)
[2022-04-04] MEDS: PIPERACILLIN/TAZOBACTAM SOD 2.25 GM in D5W MINI-BAG PLUS 50 ML IV SCH ×4 (04:03→22:55)
[2022-04-04 06:59] LABS: HEMATOCRIT 33.9 % (36.0-47.0); HEMOGLOBIN 11.2 g/dl (12.0-15.5); MEAN CORPUSCULAR HEMOGLOBIN 37.7 pg (27.0-33.0); MEAN CORPUSCULAR VOLUME 114.1 fl (80.0-96.0); RED BLOOD COUNT 2.97 10^6/uL (4.00-5.40); WHITE BLOOD COUNT 18.1 10^3/uL (4.0-10.0)
[2022-04-04 07:00] LABS: PLATELET COUNT, AUTOMATED 323 10^3/uL (150-450)
[2022-04-04 07:27] LABS: CALCIUM LEVEL 8.2 MG/DL (8.8-10.2); CREATININE FOR GFR 1.04 MG/DL (0.55-1.30); GLOMERULAR FILTRATION RATE 53.9 (>32); MAGNESIUM LEVEL 2.4 MG/DL (1.8-2.4); POTASSIUM SERUM 3.4 MEQ/L (3.5-5.1)
[2022-04-04 07:29] LABS: EOSINOPHILS 1 % (0-3); LYMPHOCYTES 2 % (16-44); METAMYELOCYTES 3 % (0-0); MONOCYTES 5 % (0-5); MYELOCYTES 3 % (0-0); NEUTROPHILS 81 % (28-66)
[2022-04-04 07:31] LABS: PLATELET CLUMPS SMALL AMT; PLATELET ESTIMATE NORMAL (NORMAL)
[2022-04-04 07:32] LABS: OVALOCYTES 1+; POLYCHROMASIA 1+; TEAR DROP CELLS 1+
[2022-04-04 07:34] LABS: SCHISTOCYTES 1+
[2022-04-04] MEDS: NYSTATIN 100,000 UNITS/GM TOPICAL PWD 15 GM TOP SCH ×2 (09:00→20:09)
[2022-04-04] MEDS: PANTOPRAZOLE 40MG VIAL IV SCH (09:00)
[2022-04-04] MEDS ORDERED: BUPIVACAINE HCL 0.25% 10ML VIAL As Ordered ONE (09:03)
[2022-04-04] MEDS ORDERED: LIDOCAINE 1% MDV 20ML VIAL As Ordered ONE (09:03)
[2022-04-04] MEDS ORDERED: ONDANSETRON 4MG 2ML VIAL As Ordered ONE (09:58)
[2022-04-04] MEDS ORDERED: LIDOCAINE 2% 100MG/5ML SDV (FOR ANES.) As Ordered ONE (09:58)
[2022-04-04] MEDS ORDERED: propofoL 200 MG/20 ML VIAL As Ordered ONE (09:58)
[2022-04-04] MEDS ORDERED: ROCURONIUM BROMIDE 50 MG/5 ML VIAL As Ordered ONE (09:58)
[2022-04-04] MEDS ORDERED: SUGAMMADEX SODIUM 500 MG/5 ML VIAL (BRIDION) As Ordered ONE (09:58)
[2022-04-04] MEDS ORDERED: fentaNYL 100 MCG/2 ML INJECTION As Ordered ONE (09:58)
[2022-04-04] MEDS ORDERED: dexameTHASONE 4 MG/ML 1ML VIAL (J1100 PER 1MG) As Ordered ONE (09:58)
[2022-04-04] MEDS ORDERED: ETOMIDATE INJ 20MG/10ML VIAL As Ordered ONE (09:58)
[2022-04-04] MEDS ORDERED: VASOPRESSIN INJ 20 UNITS/ML VIAL As Ordered ONE (09:59)
[2022-04-04] MEDS ORDERED: PHENYLephrine 500MCG 5ML (100MCG/ML) SYRINGE As Ordered ONE (10:02)
[2022-04-04] MEDS ORDERED: METOPROLOL 5 MG/5 ML VIAL As Ordered ONE (10:27)
[2022-04-04] MEDS ORDERED: METOPROLOL 5 MG/5 ML VIAL IV STA (14:38)
[2022-04-04 15:26] LABS: ABG BASE EXCESS -10.6 (-2.0-2.0); ABG HCO3 14.2 MEQ/L (22.0-26.0); ABG O2 SATURATION 99.3 % (95.0-99.0); ABG PARTIAL PRESSURE CO2 28.8 mmHg (35.0-45.0); ABG STANDARD HCO3 16.1 MEQ/L (22.0-26.0); ABG TOTAL CO2 15.1 MEQ/L (23.0-31.0)
[2022-04-04] MEDS ORDERED: FAT EMULSION IV 250 ML IV ONE (18:00)
[2022-04-04] MEDS ORDERED: AMINO AC/ELECTROLYTE/DEX/CALC 2,000 ML IV SCH (18:00)
[2022-04-04] MEDS ORDERED: MORPHINE 2 MG/ML 1ML VIAL IV PRN (18:45)
[2022-04-05] VITALS (23 sets, daily range): BP systolic 123–204; BP diastolic 75–96; O2SAT 93–98
[2022-04-05] MEDS: VANCOMYCIN HCL 750 MG, VIAL MATE ADAPTER 1 EACH in D5W 250 ML IV SCH (00:17)
[2022-04-05] MEDS: METOPROLOL 5 MG/5 ML VIAL IV SCH ×4 (00:19→18:17)
[2022-04-05] MEDS: INSULIN LISPRO (NovoLOG) PER UNIT SC SCH ×4 (00:34→18:00)
[2022-04-05] MEDS: SODIUM CHLORIDE HYPERTONIC 3% 15ML NEB SOL INH SCH ×5 (03:23→21:55)
[2022-04-05] MEDS: LEVALBUTEROL 1.25 MG/0.5 ML CONCENTRATE NEB INH SCH ×5 (03:23→21:55)
[2022-04-05] MEDS: PIPERACILLIN/TAZOBACTAM SOD 2.25 GM in D5W MINI-BAG PLUS 50 ML IV SCH (04:53)
[2022-04-05 05:43] LABS: BASO % 0.2 % (0.0-1.0); EOS % 0.1 % (0.0-3.0); HEMATOCRIT 37.9 % (36.0-47.0); HEMOGLOBIN 11.5 g/dl (12.0-15.5); LYMPH # 0.5 10^3/uL (1.5-5.0); LYMPH % 2.6 % (24.0-44.0); MEAN CORPUSCULAR HEMOGLOBIN 37.8 pg (27.0-33.0); MEAN CORPUSCULAR HGB CONC 30.3 g/dl (32.0-36.5); MONO % 11.7 % (2.0-8.0); NEUTROPHILS # 13.3 10^3/uL (1.5-8.5); NEUTROPHILS % 75.4 % (36.0-66.0); PLATELET COUNT, AUTOMATED 231 10^3/uL (150-450); RED BLOOD COUNT 3.04 10^6/uL (4.00-5.40); WHITE BLOOD COUNT 17.6 10^3/uL (4.0-10.0)
[2022-04-05 05:48] LABS: MEAN CORPUSCULAR VOLUME 124.7 fl (80.0-96.0); MONO # 2.1 10^3/uL (0.0-0.8)
[2022-04-05 06:23] LABS: CALCIUM LEVEL 7.9 MG/DL (8.8-10.2); CREATININE FOR GFR 0.98 MG/DL (0.55-1.30); GLOMERULAR FILTRATION RATE 57.7 (>32); POTASSIUM SERUM 3.8 MEQ/L (3.5-5.1)
[2022-04-05] MEDS: PANTOPRAZOLE 40MG VIAL IV SCH (09:00)
[2022-04-05] MEDS: NYSTATIN 100,000 UNITS/GM TOPICAL PWD 15 GM TOP SCH ×2 (09:53→20:55)
[2022-04-05 10:03] LABS: ABG BASE EXCESS -6.7 (-2.0-2.0); ABG HCO3 16.5 MEQ/L (22.0-26.0); ABG O2 SATURATION 95.3 % (95.0-99.0); ABG PARTIAL PRESSURE CO2 26.8 mmHg (35.0-45.0); ABG PARTIAL PRESSURE O2 76.8 mmHg (75.0-100.0); ABG TOTAL CO2 17.3 MEQ/L (23.0-31.0); ABG pH (ARTERIAL) 7.407 UNITS (7.350-7.450)
[2022-04-05] MEDS ORDERED: GASTROGRAFIN SOLUTION 30ML (Q9963) As Ordered ONE (10:58)
[2022-04-05] MEDS: cefTRIAXone SOD 1 GM in D5W MINI-BAG PLUS 50 ML IV SCH (13:03)
[2022-04-05] MEDS: ENOXAPARIN 60MG/0.6ML SYRINGE (J1650 PER 10MG) SC SCH (15:21)
[2022-04-05] MEDS ORDERED: SODIUM ACETATE IV SCH ×6 (18:00)
[2022-04-05] MEDS ORDERED: [UNRECOGNIZED DRUG - OTHER] IV SCH ×6 (18:00)
[2022-04-05] MEDS ORDERED: POTASSIUM PHOSPHATE IV SCH ×6 (18:00)
[2022-04-05] MEDS ORDERED: FAT EMULSION IV 250 ML IV ONE (18:00)
[2022-04-05] MEDS ORDERED: KETOROLAC 30 MG/ML 1ML VIAL IV ONE (18:50)
[2022-04-06] VITALS (9 sets, daily range): BP systolic 120–177; BP diastolic 72–101; O2SAT 98
[2022-04-06] MEDS: INSULIN LISPRO (NovoLOG) PER UNIT SC SCH ×4 (00:27→18:30)
[2022-04-06] MEDS: METOPROLOL 5 MG/5 ML VIAL IV SCH ×4 (00:28→18:29)
[2022-04-06] MEDS: SODIUM CHLORIDE HYPERTONIC 3% 15ML NEB SOL INH SCH ×7 (04:00→23:47)
[2022-04-06] MEDS: LEVALBUTEROL 1.25 MG/0.5 ML CONCENTRATE NEB INH SCH ×7 (04:00→23:47)
[2022-04-06 04:14] LABS: BASO % 0.2 % (0.0-1.0); EOS % 0.3 % (0.0-3.0); HEMATOCRIT 30.2 % (36.0-47.0); HEMOGLOBIN 9.9 g/dl (12.0-15.5); LYMPH # 0.6 10^3/uL (1.5-5.0); LYMPH % 3.9 % (24.0-44.0); MEAN CORPUSCULAR HEMOGLOBIN 38.1 pg (27.0-33.0); MEAN CORPUSCULAR HGB CONC 32.8 g/dl (32.0-36.5); MONO # 1.3 10^3/uL (0.0-0.8); NEUTROPHILS # 11.8 10^3/uL (1.5-8.5); NEUTROPHILS % 78.8 % (36.0-66.0); PLATELET COUNT, AUTOMATED 262 10^3/uL (150-450); WHITE BLOOD COUNT 14.9 10^3/uL (4.0-10.0)
[2022-04-06 04:23] LABS: MEAN CORPUSCULAR VOLUME 116.2 fl (80.0-96.0)
[2022-04-06 04:47] LABS: BLOOD UREA NITROGEN 70 MG/DL (7-18); CALCIUM LEVEL 7.5 MG/DL (8.8-10.2); CARBON DIOXIDE LEVEL 17 MEQ/L (21-32); CHLORIDE LEVEL 118 MEQ/L (98-107); CREATININE FOR GFR 0.78 MG/DL (0.55-1.30); GLOMERULAR FILTRATION RATE > 60.0 (>32); GLUCOSE, FASTING 99 MG/DL (70-100); POTASSIUM SERUM 3.9 MEQ/L (3.5-5.1); SODIUM LEVEL 144 MEQ/L (136-145)
[2022-04-06] MEDS: ENOXAPARIN 60MG/0.6ML SYRINGE (J1650 PER 10MG) SC SCH ×2 (04:55→16:09)
[2022-04-06] MEDS: NYSTATIN 100,000 UNITS/GM TOPICAL PWD 15 GM TOP SCH ×2 (08:45→20:55)
[2022-04-06] MEDS: PANTOPRAZOLE 40MG VIAL IV SCH (08:45)
[2022-04-06] MEDS: cefTRIAXone SOD 1 GM in D5W MINI-BAG PLUS 50 ML IV SCH (12:46)
[2022-04-06] MEDS ORDERED: KETOROLAC 30 MG/ML 1ML VIAL IV ONE (13:05)
[2022-04-06] MEDS ORDERED: FAT EMULSION IV 250 ML IV ONE (18:00)
[2022-04-06] MEDS ORDERED: [UNRECOGNIZED DRUG - OTHER] IV SCH ×4 (18:00)
[2022-04-06] MEDS ORDERED: SODIUM ACETATE IV SCH ×4 (18:00)
[2022-04-06] MEDS ORDERED: POTASSIUM PHOSPHATE IV SCH ×4 (18:00)
[2022-04-06] MEDS: ACETAMINOPHEN 325 MG/10.15 ML UDC PO PRN (20:55)
[2022-04-07] VITALS (23 sets, daily range): BP systolic 123–155; BP diastolic 59–100; O2SAT 97–100
[2022-04-07] MEDS: INSULIN LISPRO (NovoLOG) PER UNIT SC SCH ×3 (00:17→11:42)
[2022-04-07] MEDS: METOPROLOL 5 MG/5 ML VIAL IV SCH ×3 (00:18→14:10)
[2022-04-07] MEDS: ACETAMINOPHEN 325 MG/10.15 ML UDC PO PRN ×2 (02:56→14:10)
[2022-04-07] MEDS: SODIUM CHLORIDE HYPERTONIC 3% 15ML NEB SOL INH SCH ×5 (03:10→19:44)
[2022-04-07] MEDS: LEVALBUTEROL 1.25 MG/0.5 ML CONCENTRATE NEB INH SCH ×5 (03:10→19:44)
[2022-04-07] MEDS ORDERED: DIGOXIN INJ 0.5 MG/2 ML AMP (J1160) IV STA (04:33)
[2022-04-07] MEDS: ENOXAPARIN 60MG/0.6ML SYRINGE (J1650 PER 10MG) SC SCH ×2 (04:53→15:36)
[2022-04-07 06:45] LABS: BASO # 0.1 10^3/uL (0.0-0.2); BASO % 0.9 % (0.0-1.0); EOS % 0.2 % (0.0-3.0); HEMATOCRIT 33.7 % (36.0-47.0); HEMOGLOBIN 10.9 g/dl (12.0-15.5); LYMPH # 0.4 10^3/uL (1.5-5.0); LYMPH % 2.2 % (24.0-44.0); MEAN CORPUSCULAR HEMOGLOBIN 37.5 pg (27.0-33.0); MEAN CORPUSCULAR HGB CONC 32.3 g/dl (32.0-36.5); MONO # 1.3 10^3/uL (0.0-0.8); MONO % 8.1 % (2.0-8.0); NEUTROPHILS # 13.5 10^3/uL (1.5-8.5); NEUTROPHILS % 82.6 % (36.0-66.0); PLATELET COUNT, AUTOMATED 330 10^3/uL (150-450); RED BLOOD COUNT 2.91 10^6/uL (4.00-5.40); WHITE BLOOD COUNT 16.4 10^3/uL (4.0-10.0)
[2022-04-07 06:50] LABS: MEAN CORPUSCULAR VOLUME 115.8 fl (80.0-96.0)
[2022-04-07 07:27] LABS: CALCIUM LEVEL 7.6 MG/DL (8.8-10.2); CREATININE FOR GFR 0.95 MG/DL (0.55-1.30); GLOMERULAR FILTRATION RATE 59.8 (>32); MAGNESIUM LEVEL 1.9 MG/DL (1.8-2.4); PHOSPHORUS LEVEL 4.4 MG/DL (2.5-4.9); POTASSIUM SERUM 4.2 MEQ/L (3.5-5.1)
[2022-04-07] MEDS: PANTOPRAZOLE 40MG VIAL IV SCH (08:20)
[2022-04-07] MEDS: NYSTATIN 100,000 UNITS/GM TOPICAL PWD 15 GM TOP SCH ×2 (08:21→21:32)
[2022-04-07] MEDS: cefTRIAXone SOD 1 GM in D5W MINI-BAG PLUS 50 ML IV SCH (11:43)
[2022-04-07 16:15] LABS: INR 1.05; PROTHROMBIN TIME 13.9 SECONDS (12.5-14.5)
[2022-04-07] MEDS ORDERED: WARFARIN SOD 5MG TAB PO ONE (17:00)
[2022-04-07] MEDS: METOPROLOL TART 25 MG TABLET GT SCH (17:47)
[2022-04-08] VITALS (19 sets, daily range): BP systolic 121–168; BP diastolic 76–107; O2SAT 96–99
[2022-04-08] MEDS: LEVALBUTEROL 1.25 MG/0.5 ML CONCENTRATE NEB INH SCH ×7 (00:43→23:41)
[2022-04-08] MEDS: SODIUM CHLORIDE HYPERTONIC 3% 15ML NEB SOL INH SCH ×7 (00:44→23:41)
[2022-04-08] MEDS: METOPROLOL TART 25 MG TABLET GT SCH ×5 (01:07→23:26)
[2022-04-08] MEDS: ENOXAPARIN 60MG/0.6ML SYRINGE (J1650 PER 10MG) SC SCH ×2 (04:29→16:17)
[2022-04-08] MEDS: INSULIN LISPRO (NovoLOG) PER UNIT SC SCH ×3 (07:45→18:00)
[2022-04-08] MEDS: OMEPRAZOLE SUSPENSION 20MG 10ML ORAL SYRINGE GT SCH (08:46)
[2022-04-08] MEDS: NYSTATIN 100,000 UNITS/GM TOPICAL PWD 15 GM TOP SCH ×2 (08:47→20:40)
[2022-04-08 09:10] LABS: BASO % 0.2 % (0.0-1.0); EOS # 0.1 10^3/uL (0.0-0.5); EOS % 0.4 % (0.0-3.0); HEMOGLOBIN 11.1 g/dl (12.0-15.5); LYMPH # 0.5 10^3/uL (1.5-5.0); LYMPH % 3.3 % (24.0-44.0); MEAN CORPUSCULAR HEMOGLOBIN 36.9 pg (27.0-33.0); MEAN CORPUSCULAR HGB CONC 31.7 g/dl (32.0-36.5); MONO # 1.2 10^3/uL (0.0-0.8); MONO % 8.9 % (2.0-8.0); NEUTROPHILS # 11.4 10^3/uL (1.5-8.5); NEUTROPHILS % 81.7 % (36.0-66.0); PLATELET COUNT, AUTOMATED 404 10^3/uL (150-450); RED BLOOD COUNT 3.01 10^6/uL (4.00-5.40)
[2022-04-08 09:18] LABS: MEAN CORPUSCULAR VOLUME 116.3 fl (80.0-96.0)
[2022-04-08 09:31] LABS: INR 1.09; PROTHROMBIN TIME 14.3 SECONDS (12.5-14.5)
[2022-04-08 09:44] LABS: BLOOD UREA NITROGEN 66 MG/DL (7-18); CALCIUM LEVEL 8.1 MG/DL (8.8-10.2); CARBON DIOXIDE LEVEL 21 MEQ/L (21-32); CHLORIDE LEVEL 120 MEQ/L (98-107); CREATININE FOR GFR 0.79 MG/DL (0.55-1.30); GLOMERULAR FILTRATION RATE > 60.0 (>32); GLUCOSE, FASTING 127 MG/DL (70-100); PHOSPHORUS LEVEL 2.9 MG/DL (2.5-4.9); SODIUM LEVEL 148 MEQ/L (136-145)
[2022-04-08] MEDS: ACETAMINOPHEN 325 MG/10.15 ML UDC PO PRN ×2 (13:09→23:27)
[2022-04-08] MEDS: cefTRIAXone SOD 1 GM in D5W MINI-BAG PLUS 50 ML IV SCH (13:09)
[2022-04-08] MEDS ORDERED: WARFARIN SOD 5MG TAB PO ONE (17:00)
[2022-04-08] MEDS ORDERED: WARFARIN SOD 5MG TAB GT ONE (17:00)
[2022-04-09] MEDS: SODIUM CHLORIDE HYPERTONIC 3% 15ML NEB SOL INH SCH ×6 (03:10→23:20)
[2022-04-09] MEDS: LEVALBUTEROL 1.25 MG/0.5 ML CONCENTRATE NEB INH SCH ×6 (03:10→23:19)
[2022-04-09 04:00] VITALS: BP 137/91
[2022-04-09] MEDS: ENOXAPARIN 60MG/0.6ML SYRINGE (J1650 PER 10MG) SC SCH ×2 (05:16→16:07)
[2022-04-09] MEDS: METOPROLOL TART 25 MG TABLET GT SCH ×3 (05:17→17:26)
[2022-04-09 06:42] LABS: BASO # 0.1 10^3/uL (0.0-0.2); BASO % 0.7 % (0.0-1.0); EOS # 0.1 10^3/uL (0.0-0.5); EOS % 0.4 % (0.0-3.0); HEMATOCRIT 35.7 % (36.0-47.0); HEMOGLOBIN 11.1 g/dl (12.0-15.5); LYMPH # 0.5 10^3/uL (1.5-5.0); LYMPH % 4.2 % (24.0-44.0); MEAN CORPUSCULAR HEMOGLOBIN 37.1 pg (27.0-33.0); MEAN CORPUSCULAR HGB CONC 31.1 g/dl (32.0-36.5); MONO # 1.2 10^3/uL (0.0-0.8); MONO % 9.7 % (2.0-8.0); NEUTROPHILS # 10.4 10^3/uL (1.5-8.5); NEUTROPHILS % 82.3 % (36.0-66.0); PLATELET COUNT, AUTOMATED 355 10^3/uL (150-450); RED BLOOD COUNT 2.99 10^6/uL (4.00-5.40); WHITE BLOOD COUNT 12.6 10^3/uL (4.0-10.0)
[2022-04-09 07:07] LABS: BLOOD UREA NITROGEN 58 MG/DL (7-18); CALCIUM LEVEL 8.2 MG/DL (8.8-10.2); CARBON DIOXIDE LEVEL 17 MEQ/L (21-32); CHLORIDE LEVEL 126 MEQ/L (98-107); CREATININE FOR GFR 0.77 MG/DL (0.55-1.30); GLOMERULAR FILTRATION RATE > 60.0 (>32); GLUCOSE, FASTING 115 MG/DL (70-100); MAGNESIUM LEVEL 2.2 MG/DL (1.8-2.4); PHOSPHORUS LEVEL 2.6 MG/DL (2.5-4.9); SODIUM LEVEL 149 MEQ/L (136-145)
[2022-04-09 07:12] LABS: MEAN CORPUSCULAR VOLUME 119.4 fl (80.0-96.0)
[2022-04-09 08:00] VITALS: BP 147/86
[2022-04-09] MEDS: amLODIPine 5 MG TAB GT SCH ×2 (08:50→21:26)
[2022-04-09] MEDS: DIGOXIN 0.125 MG TAB GT SCH (08:50)
[2022-04-09] MEDS: NYSTATIN 100,000 UNITS/GM TOPICAL PWD 15 GM TOP SCH ×2 (08:51→21:26)
[2022-04-09] MEDS: OMEPRAZOLE SUSPENSION 20MG 10ML ORAL SYRINGE GT SCH (08:51)
[2022-04-09] MEDS: ACETAMINOPHEN 325 MG/10.15 ML UDC PO PRN ×3 (09:12→21:25)
[2022-04-09 11:34] LABS: INR 1.64; PROTHROMBIN TIME 19.7 SECONDS (12.5-14.5)
[2022-04-09 11:51] VITALS: BP 165/81
[2022-04-09] MEDS ORDERED: FUROSEMIDE 40MG/4ML VIAL (J1940) IV ONE (12:20)
[2022-04-09] MEDS ORDERED: TORSEMIDE 20 MG TAB PO SCH (12:20)
[2022-04-09] MEDS: METOCLOPRAMIDE INJ 10MG/2ML VIAL (J2765 PER 1) IV SCH ×2 (12:33→17:22)
[2022-04-09] MEDS ORDERED: ALTEPLASE 2MG/2ML VIAL IV PRN (14:50)
[2022-04-09] MEDS ORDERED: WARFARIN SOD 5MG TAB GT SCH (17:00)
[2022-04-09] MEDS: SODIUM CHLORIDE 0.9% INJ 10 ML SYR IV SCH (17:33)
[2022-04-09 20:00] VITALS: BP 133/94
[2022-04-10] VITALS (7 sets, daily range): BP systolic 108–147; BP diastolic 80–101
[2022-04-10] MEDS: METOCLOPRAMIDE INJ 10MG/2ML VIAL (J2765 PER 1) IV SCH ×3 (01:46→17:53)
[2022-04-10] MEDS: SODIUM CHLORIDE 0.9% INJ 10 ML SYR IV PRN (01:49)
[2022-04-10] MEDS: ENOXAPARIN 60MG/0.6ML SYRINGE (J1650 PER 10MG) SC SCH (03:38)
[2022-04-10] MEDS: LEVALBUTEROL 1.25 MG/0.5 ML CONCENTRATE NEB INH SCH ×6 (03:39→23:07)
[2022-04-10] MEDS: SODIUM CHLORIDE HYPERTONIC 3% 15ML NEB SOL INH SCH ×6 (03:39→23:07)
[2022-04-10] MEDS: SODIUM CHLORIDE 0.9% INJ 10 ML SYR IV SCH ×2 (06:04→17:52)
[2022-04-10] MEDS: METOPROLOL TART 25 MG TABLET GT SCH ×5 (06:22→23:37)
[2022-04-10 06:57] LABS: HEMATOCRIT 34.9 % (36.0-47.0); HEMOGLOBIN 10.8 g/dl (12.0-15.5); MEAN CORPUSCULAR HEMOGLOBIN 36.9 pg (27.0-33.0); MEAN CORPUSCULAR HGB CONC 30.9 g/dl (32.0-36.5); PLATELET COUNT, AUTOMATED 438 10^3/uL (150-450); RED BLOOD COUNT 2.93 10^6/uL (4.00-5.40)
[2022-04-10 07:03] LABS: MEAN CORPUSCULAR VOLUME 119.1 fl (80.0-96.0)
[2022-04-10 07:05] LABS: INR 2.04; PROTHROMBIN TIME 23.4 SECONDS (12.5-14.5)
[2022-04-10 07:29] LABS: BLOOD UREA NITROGEN 60 MG/DL (7-18); CALCIUM LEVEL 8.4 MG/DL (8.8-10.2); CARBON DIOXIDE LEVEL 26 MEQ/L (21-32); CHLORIDE LEVEL 132 MEQ/L (98-107); CREATININE FOR GFR 0.86 MG/DL (0.55-1.30); GLOMERULAR FILTRATION RATE > 60.0 (>32); GLUCOSE, FASTING 139 MG/DL (70-100); MAGNESIUM LEVEL 2.2 MG/DL (1.8-2.4); PHOSPHORUS LEVEL 2.7 MG/DL (2.5-4.9); POTASSIUM SERUM 3.2 MEQ/L (3.5-5.1); SODIUM LEVEL 163 MEQ/L (136-145)
[2022-04-10] MEDS ORDERED: TORSEMIDE 20 MG TAB PO SCH (09:00)
[2022-04-10 09:17] LABS: BLOOD UREA NITROGEN 59 MG/DL (7-18); CALCIUM LEVEL 8.7 MG/DL (8.8-10.2); CARBON DIOXIDE LEVEL 25 MEQ/L (21-32); CHLORIDE LEVEL 132 MEQ/L (98-107); GLOMERULAR FILTRATION RATE > 60.0 (>32); GLUCOSE, FASTING 127 MG/DL (70-100); POTASSIUM SERUM 3.4 MEQ/L (3.5-5.1); SODIUM LEVEL 161 MEQ/L (136-145)
[2022-04-10] MEDS: amLODIPine 5 MG TAB GT SCH ×2 (10:03→21:00)
[2022-04-10] MEDS: DIGOXIN 0.125 MG TAB GT SCH (10:03)
[2022-04-10] MEDS: OMEPRAZOLE SUSPENSION 20MG 10ML ORAL SYRINGE GT SCH (10:05)
[2022-04-10] MEDS: NYSTATIN 100,000 UNITS/GM TOPICAL PWD 15 GM TOP SCH ×2 (10:05→21:24)
[2022-04-10] MEDS ORDERED: D5W 1,000 ML IV SCH (11:15)
[2022-04-10] MEDS: POTASSIUM CHLORIDE 10% LIQ 20 MEQ/15 ML UDC PO SCH ×2 (13:00→14:47)
[2022-04-10] MEDS ORDERED: DIGOXIN INJ 0.5 MG/2 ML AMP (J1160) IV ONE (16:15)
[2022-04-10 17:05] LABS: BLOOD UREA NITROGEN 58 MG/DL (7-18); CALCIUM LEVEL 8.3 MG/DL (8.8-10.2); CARBON DIOXIDE LEVEL 27 MEQ/L (21-32); CHLORIDE LEVEL 133 MEQ/L (98-107); CREATININE FOR GFR 0.94 MG/DL (0.55-1.30); GLOMERULAR FILTRATION RATE > 60.0 (>32); GLUCOSE, FASTING 166 MG/DL (70-100); POTASSIUM SERUM 4.3 MEQ/L (3.5-5.1); SODIUM LEVEL 164 MEQ/L (136-145)
[2022-04-10] MEDS: WARFARIN SOD 2.5MG TAB GT SCH (17:15)
[2022-04-10 18:33] LABS: ABG BASE EXCESS 1.8 (-2.0-2.0); ABG HCO3 23.9 MEQ/L (22.0-26.0); ABG O2 SATURATION 97.6 % (95.0-99.0); ABG PARTIAL PRESSURE CO2 29.5 mmHg (35.0-45.0); ABG PARTIAL PRESSURE O2 94.9 mmHg (75.0-100.0); ABG STANDARD HCO3 26.1 MEQ/L (22.0-26.0); ABG TOTAL CO2 24.8 MEQ/L (23.0-31.0); ABG pH (ARTERIAL) 7.526 UNITS (7.350-7.450)
[2022-04-10] MEDS: FUROSEMIDE 40MG/4ML VIAL (J1940) IV SCH (22:37)
[2022-04-10] MEDS: KCL 20MEQ IN D5W 1000ML 1,000 ML IV SCH (22:37)
[2022-04-11] VITALS: BP 135/71
[2022-04-11] MEDS: ACETAMINOPHEN 325 MG/10.15 ML UDC PO PRN (03:05)
[2022-04-11] MEDS: METOCLOPRAMIDE INJ 10MG/2ML VIAL (J2765 PER 1) IV SCH ×3 (03:05→17:31)
[2022-04-11] MEDS: SODIUM CHLORIDE HYPERTONIC 3% 15ML NEB SOL INH SCH ×6 (03:11→23:45)
[2022-04-11] MEDS: LEVALBUTEROL 1.25 MG/0.5 ML CONCENTRATE NEB INH SCH ×6 (03:11→23:45)
[2022-04-11 04:00] VITALS: BP 152/70
[2022-04-11] MEDS: SODIUM CHLORIDE 0.9% INJ 10 ML SYR IV SCH ×2 (05:24→17:57)
[2022-04-11] MEDS: FUROSEMIDE 40MG/4ML VIAL (J1940) IV SCH (05:25)
[2022-04-11] MEDS: METOPROLOL TART 25 MG TABLET GT SCH ×3 (05:25→17:32)
[2022-04-11 06:49] LABS: HEMATOCRIT 33.3 % (36.0-47.0); HEMOGLOBIN 10.1 g/dl (12.0-15.5); MEAN CORPUSCULAR HEMOGLOBIN 36.5 pg (27.0-33.0); MEAN CORPUSCULAR HGB CONC 30.3 g/dl (32.0-36.5); PLATELET COUNT, AUTOMATED 369 10^3/uL (150-450); RED BLOOD COUNT 2.77 10^6/uL (4.00-5.40); WHITE BLOOD COUNT 9.1 10^3/uL (4.0-10.0)
[2022-04-11 07:03] LABS: MEAN CORPUSCULAR VOLUME 120.2 fl (80.0-96.0)
[2022-04-11 07:28] LABS: BILIRUBIN,TOTAL 0.5 MG/DL (0.2-1.0); CREATININE FOR GFR 1.08 MG/DL (0.55-1.30); GLOMERULAR FILTRATION RATE 51.6 (>32); MAGNESIUM LEVEL 1.9 MG/DL (1.8-2.4); PHOSPHORUS LEVEL 2.6 MG/DL (2.5-4.9); POTASSIUM SERUM 4.9 MEQ/L (3.5-5.1)
[2022-04-11 08:00] VITALS: BP 136/75
[2022-04-11] MEDS: OMEPRAZOLE SUSPENSION 20MG 10ML ORAL SYRINGE GT SCH (09:00)
[2022-04-11] MEDS: amLODIPine 5 MG TAB GT SCH ×2 (09:00→20:34)
[2022-04-11] MEDS: DIGOXIN 0.125 MG TAB GT SCH (09:00)
[2022-04-11] MEDS ORDERED: GLUCOSE 4GM CHEW TABLET PO PRN (09:40)
[2022-04-11] MEDS ORDERED: GLUCAGON INJ 1MG VIAL SC PRN (09:40)
[2022-04-11] MEDS ORDERED: DEXTROSE 50% 50 ML SYRINGE IV PRN (09:40)
[2022-04-11 09:59] LABS: BASOPHILS 1 % (0-1); LYMPHOCYTES 4 % (16-44); METAMYELOCYTES 2 % (0-0); MONOCYTES 5 % (0-5); NEUTROPHILS 75 % (28-66)
[2022-04-11 10:00] LABS: ANISOCYTOSIS 1+
[2022-04-11 10:02] LABS: HYPOCHROMASIA 1+; PLATELET ESTIMATE NORMAL (NORMAL)
[2022-04-11 10:08] LABS: SMUDGE CELLS 2+
[2022-04-11] MEDS: NYSTATIN 100,000 UNITS/GM TOPICAL PWD 15 GM TOP SCH ×2 (11:52→22:00)
[2022-04-11] MEDS: KCL 20MEQ IN D5W 1000ML 1,000 ML IV SCH (11:53)
[2022-04-11 12:00] VITALS: BP 116/74
[2022-04-11] MEDS: FUROSEMIDE 100MG/10ML VIAL (J1940) IV SCH ×2 (14:31→21:59)
[2022-04-11 15:50] VITALS: BP 126/93
[2022-04-11 17:02] LABS: CALCIUM LEVEL 8.1 MG/DL (8.8-10.2); CREATININE FOR GFR 1.08 MG/DL (0.55-1.30); GLOMERULAR FILTRATION RATE 51.6 (>32); POTASSIUM SERUM 4.3 MEQ/L (3.5-5.1)
[2022-04-11] MEDS: WARFARIN SOD 2.5MG TAB GT SCH (17:31)
[2022-04-11 20:00] VITALS: BP 115/67
[2022-04-11] MEDS: SODIUM CHLORIDE 0.9% INJ 10 ML SYR IV PRN (22:04)
[2022-04-12] VITALS (7 sets, daily range): BP systolic 90–125; BP diastolic 56–84
[2022-04-12] MEDS: METOPROLOL TART 25 MG TABLET GT SCH ×4 (00:34→17:24)
[2022-04-12] MEDS: SODIUM CHLORIDE 0.9% INJ 10 ML SYR IV PRN (02:59)
[2022-04-12] MEDS: METOCLOPRAMIDE INJ 10MG/2ML VIAL (J2765 PER 1) IV SCH ×3 (02:59→17:42)
[2022-04-12] MEDS: SODIUM CHLORIDE HYPERTONIC 3% 15ML NEB SOL INH SCH ×4 (03:10→16:00)
[2022-04-12] MEDS: LEVALBUTEROL 1.25 MG/0.5 ML CONCENTRATE NEB INH SCH ×5 (03:10→20:00)
[2022-04-12] MEDS: FUROSEMIDE 100MG/10ML VIAL (J1940) IV SCH ×2 (05:28→14:17)
[2022-04-12] MEDS: SODIUM CHLORIDE 0.9% INJ 10 ML SYR IV SCH ×2 (05:31→17:50)
[2022-04-12] MEDS: KCL 20MEQ IN D5W 1000ML 1,000 ML IV SCH (05:35)
[2022-04-12] MEDS ORDERED: hydrOXYzine 10MG/5ML SYRUP GT ONE (06:00)
[2022-04-12] MEDS ORDERED: TEMAZEPAM 7.5 MG CAP PO ONE (06:00)
[2022-04-12 07:24] LABS: HEMOGLOBIN 11.3 g/dl (12.0-15.5); MEAN CORPUSCULAR HEMOGLOBIN 36.8 pg (27.0-33.0); MEAN CORPUSCULAR HGB CONC 30.5 g/dl (32.0-36.5); PLATELET COUNT, AUTOMATED 369 10^3/uL (150-450); RED BLOOD COUNT 3.07 10^6/uL (4.00-5.40); WHITE BLOOD COUNT 9.7 10^3/uL (4.0-10.0)
[2022-04-12 07:27] LABS: MEAN CORPUSCULAR VOLUME 120.5 fl (80.0-96.0)
[2022-04-12 07:39] LABS: INR 2.39; PROTHROMBIN TIME 26.5 SECONDS (12.5-14.5)
[2022-04-12 08:03] LABS: CALCIUM LEVEL 8.4 MG/DL (8.8-10.2); CREATININE FOR GFR 1.07 MG/DL (0.55-1.30); GLOMERULAR FILTRATION RATE 52.1 (>32); MAGNESIUM LEVEL 1.9 MG/DL (1.8-2.4); PHOSPHORUS LEVEL 3.6 MG/DL (2.5-4.9)
[2022-04-12] MEDS: amLODIPine 5 MG TAB GT SCH (08:46)
[2022-04-12] MEDS: OMEPRAZOLE SUSPENSION 20MG 10ML ORAL SYRINGE GT SCH (08:46)
[2022-04-12] MEDS: DIGOXIN 0.125 MG TAB GT SCH (08:48)
[2022-04-12] MEDS: NYSTATIN 100,000 UNITS/GM TOPICAL PWD 15 GM TOP SCH ×2 (08:49→20:56)
[2022-04-12] MEDS ORDERED: ENOXAPARIN 80MG/0.8ML SYRINGE (J1650 PER 10MG) SC SCH (12:00)
[2022-04-12 17:07] LABS: BODY FLUID CULTURE Not indicated. (.); ORGANISM ID Not indicated. (.); SPECIMEN SOURCE Urine (.); URINE STREP PNEUMONIAE ANTIGEN Negative (Negative)
[2022-04-12] MEDS ORDERED: MORPHINE 2 MG/ML 1ML VIAL IV ONE ×2 (17:20→17:25)
[2022-04-12] MEDS ORDERED: MORPHINE 2 MG/ML 1ML VIAL IV PRN (18:30)
[2022-04-12] MEDS ORDERED: ACETAMINOPHEN 650 MG SUPP PR PRN (20:15)
[2022-04-12] MEDS ORDERED: SCOPOLAMINE 1MG TRANSDERMAL PATCH TOP PRN (20:15)
[2022-04-12] MEDS: MORPHINE 2 MG/ML 1ML VIAL IV PRN ×2 (20:56→23:18)
[2022-04-12] MEDS: LORazepam 2 MG/ML VIAL IV PRN (23:17)
[2022-04-13] MEDS: LORazepam 2 MG/ML VIAL IV PRN (01:36)
[2022-04-13] MEDS: METOCLOPRAMIDE INJ 10MG/2ML VIAL (J2765 PER 1) IV SCH ×2 (01:36→09:33)
[2022-04-13] MEDS: MORPHINE 2 MG/ML 1ML VIAL IV PRN ×4 (01:36→09:33)
[2022-04-13] MEDS: LEVALBUTEROL 1.25 MG/0.5 ML CONCENTRATE NEB INH SCH ×4 (04:00→12:00)
[2022-04-13] MEDS: NYSTATIN 100,000 UNITS/GM TOPICAL PWD 15 GM TOP SCH (09:30)
[2022-04-13] MEDS ORDERED: ATIV1TAB10 PO (13:05)
[2022-04-13] MEDS ORDERED: MORP20SO PO (13:05)
[2022-04-13] MEDS ORDERED: TRAN1DIS4 TOP (13:12)
== END 2022-04-13 13:44 | disposition hospice, home (50) | DRG 326 ==
LOC: M ED 08:20 → M ED INP 15:29 → ENRESERV 15:52 → M MSPAV 17:30 → M PCU 03-15 20:45
PROVIDERS: ADMIT Student in an Organized Health Care Education/Training Program; ATTEND Internal Medicine
PROC: 02HV33Z Insertion of Infusion Device into Superior Vena Cava, Percutaneous Approach (ICD-10-PCS; 2022-03-16)
PROC: B246ZZZ Ultrasonography of Right and Left Heart (ICD-10-PCS; 2022-04-03)
PROC: 0DS64ZZ Reposition Stomach, Percutaneous Endoscopic Approach (ICD-10-PCS; principal; 2022-04-06)
PROC: 0DS84ZZ Reposition Small Intestine, Percutaneous Endoscopic Approach (ICD-10-PCS; 2022-04-06)
PROC: 0DSL4ZZ Reposition Transverse Colon, Percutaneous Endoscopic Approach (ICD-10-PCS; 2022-04-06)
PROC: 0DH63UZ Insertion of Feeding Device into Stomach, Percutaneous Approach (ICD-10-PCS; 2022-04-06)
PROC: 0DJ08ZZ Inspection of Upper Intestinal Tract, Via Natural or Artificial Opening Endoscopic (ICD-10-PCS; 2022-04-06)
DX: K44.0 Diaphragmatic hernia with obstruction, without gangrene (principal); U07.1 COVID-19; J12.82 Pneumonia due to coronavirus disease 2019; J96.01 Acute respiratory failure with hypoxia; G93.41 Metabolic encephalopathy; E43 Unspecified severe protein-calorie malnutrition; I48.92 Unspecified atrial flutter; S22.000A Wedge compression fracture of unspecified thoracic vertebra, initial encounter for closed fracture; I82.612 Acute embolism and thrombosis of superficial veins of left upper extremity; N17.9 Acute kidney failure, unspecified; N39.0 Urinary tract infection, site not specified; E87.20 Acidosis, unspecified; E87.0 Hyperosmolality and hypernatremia; D68.9 Coagulation defect, unspecified; Z66 Do not resuscitate; R13.12 Dysphagia, oropharyngeal phase; I10 Essential (primary) hypertension; D47.3 Essential (hemorrhagic) thrombocythemia; D47.2 Monoclonal gammopathy; M25.50 Pain in unspecified joint; K21.9 Gastro-esophageal reflux disease without esophagitis; E78.5 Hyperlipidemia, unspecified; M41.9 Scoliosis, unspecified; E55.9 Vitamin D deficiency, unspecified; F32.A Depression, unspecified; R91.8 Other nonspecific abnormal finding of lung field; E07.9 Disorder of thyroid, unspecified; I70.1 Atherosclerosis of renal artery; Z86.711 Personal history of pulmonary embolism; Z86.718 Personal history of other venous thrombosis and embolism; Z79.01 Long term (current) use of anticoagulants; Z79.899 Other long term (current) drug therapy; X58.XXXA Exposure to other specified factors, initial encounter; Y92.9 Unspecified place or not applicable; R62.7 Adult failure to thrive; I27.20 Pulmonary hypertension, unspecified